=== PATIENT | female | born 1965 | race Caucasian/White ===

== ENCOUNTER 2017-04-28 18:00 | Emergency (ER) | payer BC, OTHER ==
[2017-04-28] MEDS ORDERED: RX INFO: IV CONTRAST WAS GIVEN 1 EACH MISC MISCELLANE PRN (18:07)
[2017-04-28 18:44] LABS: Basophils % (A) 1 %; CH 27.1; Eosinophils # (A) 0.1 k/uL (0-0.7); Eosinophils % (A) 2 %; HGB 13.5 gm/dL (11.4-16.0); Luc # (Auto) 0.14; Luc % (Auto) 2; Lymphocytes # (A) 1.8 k/uL (1.0-4.8); Lymphocytes % (A) 24 %; MCH 28.1 pg (25.0-35.0); MCV 85.1 fL (80.0-100.0); Mean Platelet Volume 6.8; Monocytes # (A) 0.4 k/uL (0-1.0); Monocytes % (A) 5 %; Neutrophils # (A) 5.1 k/uL (1.3-7.7); Neutrophils % (A) 68 %; RBC 4.81 m/uL (3.80-5.40); RDW 12.9 % (11.5-15.5); WBC 7.6 k/uL (3.8-10.6); WBC (Perox) 7.62
--- NOTE | 2017-04-28 18:51 | XR ---
EXAMINATION TYPE: XR chest 1V portable DATE OF EXAM: 04/28/2017 6:43 PM COMPARISON: NONE HISTORY: Right leg pain TECHNIQUE: Single frontal view of the chest is obtained. FINDINGS: Heart and mediastinum are normal. Lungs are clear. Diaphragm is normal. Bony thorax is int act. IMPRESSION: Normal chest
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
[2017-04-28 18:59] LABS: ALT 29 U/L (9-52); AST 35 U/L (14-36); Alcohol <10 mg/dL; Alkaline Phosphatase 53 U/L (38-126); Anion Gap 9 mmol/L; Blood Urea Nitrogen 8 mg/dL (7-17); Calcium 9.8 mg/dL (8.4-10.2); Carbon Dioxide 27 mmol/L (22-30); Chloride 105 mmol/L (98-107); Glucose 105 mg/dL (74-99); Non-African American GFR(MDRD) >60 (>60 ml/min/1.73 sqM); Potassium 3.9 mmol/L (3.5-5.1); Sodium 141 mmol/L (137-145); Total Bilirubin 0.7 mg/dL (0.2-1.3); Total Protein 7.4 g/dL (6.3-8.2)
[2017-04-28 19:10] LABS: Creatine Kinase 70 U/L (30-135); Prothrombin Time 9.9 sec (9.0-12.0)
[2017-04-28 19:16] VITALS: RESP 18; TEMP 97.9
[2017-04-28 19:22] LABS: Amorphous Sediment,Urine Rare /hpf; Appearance,Urine Clear (Clear); Bilirubin,Urine Negative (Negative); Glucose,Urine (UA) Negative (Negative); Ketones,Urine Negative (Negative); Leukocyte Esterase,Urine Trace (Negative); Nitrite,Urine Negative (Negative); Particle Count 334; Protein,Urine Negative (Negative); RBC,Urine 1 /hpf (0-5); Specific Gravity,Urine 1.001 (1.001-1.035); Squamous Epithelial Cell,Urine <1 /hpf (0-4); UA Billing (MACRO vs. MICRO) MICRO; Urobilinogen,Urine <2.0 mg/dL (<2.0); WBC,Urine <1 /hpf (0-5)
[2017-04-28 19:23] LABS: Creatine Kinase MB 0.6 ng/mL (0.0-2.4); Troponin I <0.012 ng/mL (0.000-0.034)
[2017-04-28 19:30] LABS: Partial Thromboplastin Time 21.1 sec (22.0-30.0)
[2017-04-28 19:43] VITALS: BP 130/86; PULSE 93
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
== END 2017-04-28 20:20 | disposition home or self-care (01) ==
LOC: EC 18:00
DX: S20.212A Contusion of left front wall of thorax, initial encounter (principal); S80.11XA Contusion of right lower leg, initial encounter; Z79.899 Other long term (current) drug therapy; Z88.0 Allergy status to penicillin; Z88.1 Allergy status to other antibiotic agents; V43.52XA Car driver injured in collision with other type car in traffic accident, initial encounter
CPT/HCPCS: 36415; 93005; 86900; 86901; 80053; 82550; 82553; 84484; 85025; 85610; 85730; 86850; 81001; 80306; 80320; 71010; 73590; 71260; 74177; 99285; Q9967

== ENCOUNTER → 2017-10-05 | Outpatient (CLI) | payer OTHER ==
--- NOTE | 2017-10-08 11:17 | MM ---
Reason for exam: screening (asymptomatic). Last mammogram was performed 10 years and 7 months ago. Physical Findings: A clinical breast exam by your physician is recommended on an annual basis and results should be correlated with mammographic findings. MG Screening Mammo w CAD Bilateral CC and MLO view(s) were taken. Prior study comparison: March 15, 2007, bilateral screening mammogram w/CAD. March 28, 1995, mammogram. The breast tissue is heterogeneously dense. This may lower the sensitivity of mammography. There is no discrete abnormality. No significant changes when compared with prior studies. ASSESSMENT: Negative, BI-RAD 1 RECOMMENDATION: Routine screening mammogram of both breasts in 1 year.
== END | disposition home or self-care (01) ==
LOC: RADMAMWWP 16:03
PROVIDERS: ATTEND Internal Medicine
DX: Z12.31 Encounter for screening mammogram for malignant neoplasm of breast (principal)

== ENCOUNTER → 2018-11-06 | Outpatient (CLI) | payer OTHER ==
--- NOTE | 2018-11-07 08:24 | MM ---
Reason for exam: additional evaluation requested from prior study. Last mammogram was performed 1 year and 1 month ago. Physical Findings: Nurse Summary: 4cm nodule in the right breast at 10 o'clock (nurse rosemary). MG Diagnostic Mammo w CAD CECELIA Bilateral CC and MLO view(s) were taken. Prior study comparison: October 05, 2017, bilateral MG screening mammo w CAD. March 15, 2007, bilateral screening mammogram w/CAD. The breast tissue is heterogeneously dense. This may lower the sensitivity of mammography. There is no discrete abnormality at palpable BB. No significant new findings when compared with previous films. These results were verbally communicated with the patient and result sheet given to the patient on 11/06/18. ASSESSMENT: Incomplete: need additional imaging evaluation, BI-RAD 0 RECOMMENDATION: Ultrasound of the right breast.
--- NOTE | 2018-11-07 08:27 | USB ---
Reason for exam: additional evaluation requested from abnormal screening. US Breast Limited RT Right limited breast ultrasound including focal area of concern, retroareolar and axilla demonstrates a 2.1 x 3.0 x 3.2cm irregular, hypoechoic lesion at 10 o'clock. These results were verbally communicated with the patient and result sheet given to the patient on 11/06/18. ASSESSMENT: Highly suggestive of malignancy, BI-RAD 5 RECOMMENDATION: Ultrasound core biopsy of the right breast. Called Dr. Najera with mammographic findings and has scheduled an appointment for the patient for 11/07/18 at 12:[address] Fuentes. Biopsy scheduled for 11/20/18 at 2:20. PRELIMINARY REPORT CALLED AND FAXED TO DR. FUENTES ON 11/07/18.
== END | disposition home or self-care (01) ==
LOC: RADMAMWWP 15:16
PROVIDERS: ATTEND Family Medicine Addiction Medicine
DX: N63.10 Unspecified lump in the right breast, unspecified quadrant (principal); R92.8 Other abnormal and inconclusive findings on diagnostic imaging of breast
CPT/HCPCS: 77066

== ENCOUNTER → 2018-11-07 | Outpatient (CLI) | payer OTHER ==
[2018-11-07 13:13] VITALS: BP 109/74; PULSE 67; RESP 18; TEMP 98.5; BMI 32.8
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
== END ==
LOC: WWCWWP 12:19
PROVIDERS: ATTEND Surgery
DX: Z53.9 Procedure and treatment not carried out, unspecified reason (principal)

== ENCOUNTER → 2018-11-20 | Day surgery (SDC) | payer OTHER ==
[2018-11-20 13:51] VITALS: RESP 16; BMI 32.8
--- NOTE | 2018-11-20 15:38 | USB ---
EXAMINATION TYPE: US biopsy breast VAD RT, US biopsy breast add'l VAD RT, MG diagnostic mammo RT wo CAD, US breast needle core addl RT DATE OF EXAM: 11/20/2018 CLINICAL HISTORY: R92.8 ABNORMAL MAMMOGRAM. Abnormal ultrasound. TECHNIQUE: Ultrasound guided core biopsy of right breast two nearby sites as well as right axilla. COMPARISON: Right breast mammogram and ultrasound November 06, 2018. FINDINGS: The procedure of ultrasound guided core biopsy was explained to the patient. Benefits, alternatives, and risks were discussed. An informed consent was then obtained. The patient was placed in supine positioning for imaging and for the procedure. Preprocedure imaging redemonstrates large irregular heterogeneous hypoechoic poorly defined greater than 2 cm mass 10:00 position right breast. Near this site there is smaller heterogeneous hypoechoic lesion measuring 1.4 x 0.7 cm towards the axilla that cannot be definitively connected to the larger mass. Scanning of axilla shows prominent but subcentimeter lymph nodes with loss of fatty hilum which are thus suspicious. The overlying skin was prepped and draped in usual sterile fashion. Lidocaine buffered with bicarbonate was used as anesthetic into the skin. Lidocaine with epinephrine is used into the deeper tissue up to area of concern in the right breast. Under ultrasound guidance, a 12-gauge vacuum assisted biopsy gun device was used to obtain 4 core samples in largest right breast mass. Following this, a biopsy clip was left in lesion. 2 samples were performed in the smaller 10:00 right breast mass under ultrasound guidance with biopsy clip left after sampling. 3 samples were obtained in a right axillary lymph node utilizing 18- gauge Bard needle. Scio vinicio clip was deployed after sampling. The patient tolerated the procedure well without any immediate complication. The patient was kept in the radiology department for short stay after the procedure and then discharged home in stable condition. Postprocedure mammogram shows successful deployment of two. 10:00 clips within 3 cm of each other, the third surgical clips towards axilla cannot BE successfully visualized due to marked posterior location IMPRESSION: Successful, uncomplicated ultrasound guided core biopsy of 3 areas of concern in the right breast including axilla, full pathology results to follow. High index of suspicion noted at time of procedure. Pathology Results: Malignant A. RIGHT BREAST, SITE A TEN O'CLOCK ZONE A, ULTRASOUND GUIDED CORE BIOPSY: Invasive ductal carcinoma with lobular features. See Surgical Pathology Cancer Case Summary and Comment. B. RIGHT BREAST, SITE B, TEN O'CLOCK ZONE B/C, ULTRASOUND GUIDED CORE BIOPSY: Invasive ductal carcinoma with lobular features. See Surgical Pathology Cancer Case Summary and Comment. C. RIGHT AXILLA, CORE BIOPSY: Fragment of invasive carcinoma consistent with ductal breast origin and adjacent lymphoid and fibroadipose tissue. See Comment Recommendation Surgical consult of the right breast. MTDD
[2018-11-20 16:19] VITALS: BP 143/86; PULSE 96; TEMP 98.1
== END ==
LOC: RADUSWWP 13:21
PROVIDERS: ATTEND Surgery
DX: C50.411 Malignant neoplasm of upper-outer quadrant of right female breast (principal); C76.1 Malignant neoplasm of thorax; Z17.0 Estrogen receptor positive status [ER+]; Z88.1 Allergy status to other antibiotic agents; Z88.0 Allergy status to penicillin
CPT/HCPCS: 88305; 88342; 88341; 77065; 76942; 38505; 19083; 19084; A4648; J2001

== ENCOUNTER → 2018-11-28 | Outpatient (CLI) | payer OTHER ==
[2018-11-28 14:06] VITALS: BP 137/85; PULSE 75; RESP 18; TEMP 98.4; BMI 32.8
--- NOTE | 2018-11-28 14:44 | P.PN ---
Subjective Progress Note Date: 11/28/18 Principal diagnosis: Invasive carcinoma right breast favor lobular Andreea is a 53-year-old white female who underwent ultrasound-guided core biopsy of 2 areas of concern in the right breast at 10:00 as well as a lymph node in the right axilla. The right breast site a is invasive cancer favor lobular the in biopsy site be is invasive ductal carcinoma with lobular features in the right axilla is fragment of invasive cancer consistent with ductal breast origin and adjacent lymphoid and fibroadipose tissue. The size of the tumor is approximately 3-4 cm, there is no palpable axillary adenopathy. The patient has no complaints related to the biopsy. Objective - Vital Signs Vital signs: Vital Signs Temp 98.4 F 11/28/18 13:54 Pulse 75 11/28/18 13:54 Resp 18 11/28/18 13:54 BP 137/85 11/28/18 13:54 Pulse Ox 99 11/28/18 13:54 Intake & Output 11/27/18 11/28/18 11/28/18 18:59 06:59 18:59 Weight 83.915 kg - Exam BMI 32.8 - Constitutional General appearance: Present: cooperative, obese - EENT Eyes: Present: EOMI ENT: Present: hearing grossly normal - Neck Neck: Present: normal ROM - Respiratory Details: normal respiratory effort - Integumentary Integumentary Comment(s): no icterus Integumentary: Present: normal, normal turgor - Psychiatric Psychiatric: Present: A&O x's 3, appropriate affect, intact judgment & insight - Additional findings Additional findings: Core biopsy site right breast clean and dry no evidence of infection, no evidence of hematoma Assessment and Plan Assessment: Impression: 1. Clinical T2 N0 M0, ER positive, ME negative, HER-2 nu positive, grade 2; stage IIb right breast cancer I have had a long discussion with the patient and regarding treatment options. We have discussed the pathology findings as well as the stage of the tumor. I have recommended preoperative neoadjuvant chemotherapy after additional staging has been performed. I have also recommended evaluation by radiation and medical oncology. I have spoken to Dr. Malcolm. Plan: 1. Plan with medical oncology 2. Premarin with radiation oncology 3. Metastatic workup as per medical oncology 4. Repeat appointment here in approximately 6 weeks 5. present at tumor board We have called Dorota Barnes nurse navigator who has escorted the patient to radiation oncology and with an escort the patient to medical oncology. Cc: Dr. Najera
== END ==
LOC: WWCWWP 13:43
PROVIDERS: ATTEND Surgery
DX: Z53.9 Procedure and treatment not carried out, unspecified reason (principal)

== ENCOUNTER → 2018-11-30 | Outpatient (CLI) | payer OTHER ==
--- NOTE | 2018-12-02 07:04 | PE ---
EXAMINATION TYPE: PET CT fusion skull to thigh DATE OF EXAM: 11/30/2018 COMPARISON: CT chest abdomen and pelvis April 28, 2017. HISTORY: Breast cancer initial staging study after biopsy November 20, 2018. TECHNIQUE: Following the intravenous administration of 9.47 mCi of F-18 FDG, whole body images are p erformed from the skull base to the midthigh. Images are reviewed on the computer in the coronal, ax ial, and sagittal planes. Reconstructed rotating images are created on independent workstation and r eviewed on the computer. A noncontrast CT is performed in conjunction with the PET scan. SCAN: Initial Scan FINDINGS: SKULL BASE AND NECK: No areas of abnormal hypermetabolic uptake are present. CHEST, MEDIASTINUM, AND HILAR REGION: There is heterogeneously dense fibroglandular tissue in both br easts. There is hypermetabolic right breast nodule posteriorly roughly 1 cm medial to the biopsy clip measuring roughly 1.3 cm axial image 101, max SUV is. Second biopsy clip is superior and lateral to this axial image 97 near superior level of the more medial lesion. There at least 2 additional 6 subc entimeter foci of hypermetabolic uptake in the right breast for reference laterally axial image 107 a nd more superiorly and posteriorly axial image 93. There is subcentimeter right axillary lymph node with suspected biopsy clip axial image 78, eccentric cortical thickening is present, max SUV is. No suspicious hypermetabolic uptake in the left breast or axilla is present. No additional suspicious hypermetabolic uptake throughout remainder of the thorax is seen. ABDOMEN AND PELVIS: No suspicious hypermetabolic uptake is present. OSSEOUS STRUCTURES: No suspicious hypermetabolic uptake is seen. OTHER CT: Surgical changes from gastric sleeve procedure are identified. There are small sized hiatal hernia noted. Cholecystectomy clips are appreciated. There is central metallic IUD in the anteverted uterus. IMPRESSION:
== END | disposition home or self-care (01) ==
LOC: RADPETMAIN 12:27
PROVIDERS: ATTEND Internal Medicine Hematology & Oncology
DX: C50.411 Malignant neoplasm of upper-outer quadrant of right female breast (principal)
CPT/HCPCS: 78815; A9552

== ENCOUNTER → 2018-12-02 | Outpatient (CLI) | payer OTHER ==
--- NOTE | 2018-12-02 17:12 | BMR ---
EXAMINATION TYPE: MR breast BILAT wo/w con DATE OF EXAM: 12/02/2018 COMPARISON: PET/CT dated 11/30/2018, ultrasound guided breast biopsy dated 11/20/2018, right breast peoples ited ultrasound dated 11/15/2018, screening mammogram dated 10/05/2017, and diagnostic bilateral mamm ogram dated 11/06/2018. HISTORY: Newly diagnosed breast cancer. Biopsy-proven invasive ductal carcinoma with lobular features at the 10:00 position in zone a of the right breast, invasive ductal carcinoma with lobular features at the 10:00 position in zone BC/the in the right breast, an invasive carcinoma of a right axillary lymph node biopsy. TECHNIQUE: A series of fat and water weighted images in the long and short axis views of both breasts are obtained in conjunction with dynamic contrast MRI with subtraction technique. The patient was i njected with 9 mL intravenous Gadavist gadolinium contrast. Three-dimensional and additional postpr ocessing imaging is created on independent workstation and reviewed during official interpretation of this study. FINDINGS: The breasts are composed of heterogenous fibroglandular tissue and there is moderate backgr ound parenchymal enhancement that is symmetric. Susceptibility artifact is seen from a biopsy marker at the lateral aspect of a biopsy-proven invasi ve ductal carcinoma with lobular features at the 10:00 position in the right breast at middle depth w ith spiculated margins measuring 3.6 x 2.7 cm on postcontrast axial T1 fat-sat series 901 image 176. This demonstrates suspicious type III washout kinetics. Adjacent to this there are multiple satellite masses (approximately 7 in number) that are located just cranial to the index mass and lateral to th e index mass. From the posterior margin of the index mass these masses extend 1.3 cm and posterior de pth and approximately 1.5 cm laterally. This covers a total area of approximately 3.7 cm in anterior posterior dimension and a total of 4.7 cm in transverse dimension. Approximately 1.1 cm anterolateral to the index mass at the cranial aspect there is a second biopsy marker demarcating a segment biopsy -proven invasive ductal carcinoma with lobular features. This mass obscured by the susceptibility art ifact. At the inferior margin of the right upper outer quadrant at the 9:00 position there is an additional 7 mm mass and 3 enhancing foci. These all demonstrate suspicious washout enhancement. Just posterior to the nipple there is another 7 mm suspicious enhancing mass with washout kinetics. Stippled foci of nonmass enhancement in a linear distribution are seen extending from the inferior margin of the mass towards the nipple on image 158. With inclusion of these masses in the retroareolar mass extent of d isease measures a distance of 7.4 cm in anterior posterior dimension. No suspicious mass nor nodule mass enhancement is seen within the left breast. No suspicious internal mammary, intramammary or axillary adenopathy is seen on the left. On the right there are morphologically abnormal lymph nodes with cortical thickening (2 in number) ad jacent to one another with the most abnormal rounded lymph node seen on postcontrast image 326 contai jose eduardo the [place] vinicio clip measuring 1.0 cm in short axis. The other suspicious lymph node is seen just superior to this with cortical thickening of 5 mm. There is a questionable area of enhancement within the liver measuring 1.5 cm that does abut the port al venous system marked on image 26 of series 901. This is not well seen on T2-weighted imaging and i s favored to represent artifact. IMPRESSION: 1. BI-RADS [id number] extensive multifocal right breast invasive ductal carcinoma with linear no nmass enhancement extending towards the nipple, additional retroareolar highly suspicious mass, and n umerous satellite nodules/foci. Although only the upper outer quadrant is involved the extent of dise ase overall measures in anterior posterior dimension of 7.4 cm and transverse dimension of 4.7 cm estrella dering breast conservation therapy unlikely. 2. No MRI evidence of malignancy of the left breast. 3. Biopsy-proven right axillary lymph node metastasis with second suspicious lymph node directly taye cent to the biopsy-proven malignant lymph node that contains a [place] v[facility] biopsy marker. 3. Low suspicion for a solitary hepatic lesion that could be fully evaluated with 3 phase hepatic mas s protocol MRI.
== END ==
LOC: RADMRIMAIN 07:27
PROVIDERS: ATTEND Internal Medicine Hematology & Oncology
DX: C50.411 Malignant neoplasm of upper-outer quadrant of right female breast (principal); N63.41 Unspecified lump in right breast, subareolar; C77.3 Secondary and unspecified malignant neoplasm of axilla and upper limb lymph nodes
CPT/HCPCS: C8937; C8908; A9585; 77049

== ENCOUNTER 2018-12-04 05:52 | Day surgery (SDC) | payer OTHER ==
[2018-11-29 16:06] VITALS: BMI 33.6
[~2018-12-04 05:52] MED LIST: DEXAMETHASONE SOD PHOSPHATE 10 MG/ML 1 ML VIAL IV ONE; HYDROmorphone 0.5 MG/0.5 ML SYRINGE IVP PRN; LACTATED RINGERS 1,000 ML IV SCH; LIDOCAINE 1% 20 ML VIAL (10MG/ML) FOR IV START INTRADERMA PRN; MIDAZOLAM 2 MG/2 ML VIAL IV PRN; ONDANSETRON 4 MG/2 ML VIAL IVP ONE; Pre Op ABX Message 1 EACH MISC MISCELLANE ONE; SCOPOLAMINE 1.5MG/72HR PATCH TRANSDERM ONE
--- NOTE | 2018-12-04 07:19 | P.GSHP ---
History of Present Illness H&P Date: 12/04/18 CHIEF COMPLAINT: Breast cancer HISTORY OF PRESENT ILLNESS: The patient is a 53-year-old female diagnosed with breast cancer. She needs a Mediport placement for chemotherapy. PAST MEDICAL HISTORY: See list PAST SURGICAL HISTORY: See list CURRENT MEDICATIONS: See list. ALLERGIES: See list. SOCIAL HISTORY: No active tobacco or alcohol use. FAMILY HISTORY: Noncontributory. REVIEW OF ORGAN SYSTEMS: CONSTITUTIONAL: Has weight loss. PHYSICAL EXAMINATION: Vital signs: Stable GENERAL: Well developed and in no acute distress. Pleasant. HEENT: No sclera icterus. Extraocular movements grossly intact. Moist buccal mucosa. Head is atraumatic, normocephalic. Hears conversational speech. No nasal drainage. NECK: Supple without lymphadenopathy. No JV distention. CHEST: Non-labored respirations and equal bilateral excursions. CARDIOVASCULAR: Regular rate and rhythm. Palpable 2+ radial pulses. ABDOMEN: Nontender. MUSCULOSKELETAL: No clubbing, cyanosis or edema. NEUROLOGIC: No focal or lateralizing signs. PSYCH: Appropriate affect. Alert and oriented to person, place and time. ASSESSMENT: 1. Breast cancer 2. Need for chemotherapeutic access. PLAN: 1. Agree with Port-A-Cath placement. Past Medical History Past Medical History: Cancer Additional Past Medical History / Comment(s): 10 years ago quit using cocaine and prescription opioids. History of Any Multi-Drug Resistant Organisms: None Reported Past Surgical History: Cholecystectomy, Tonsillectomy Additional Past Surgical History / Comment(s): gastric sleeve, R breast bx. Past Anesthesia/Blood Transfusion Reactions: No Reported Reaction Smoking Status: Never smoker - Past Family History Mother Family Medical History: Diabetes Mellitus, Hypertension Additional Family Medical History / Comment(s): heart disease Father Family Medical History: Cancer Additional Family Medical History / Comment(s): lung CA, cirrosis, kidney disease Medications and Allergies Home Medications Medication Instructions Recorded Confirmed Type Buprenorphine HCl/Naloxone HCl 8 mg SUBLINGUAL BID 04/28/17 12/04/18 History [Suboxone 8 mg-2 mg Sl Film] Buprenorphine HCl [Belbuca] 150 mcg PO Q12H 11/07/18 12/04/18 History Cariprazine HCl [Vraylar] 1.5 mg PO DAILY 11/07/18 12/04/18 History Biotin 5,000 mcg PO DAILY 11/11/18 12/04/18 History Calcium Carbonate [Calcium] 600 mg PO DAILY 11/11/18 12/04/18 History Inulin/Chromium Picolinate [Fiber 1 each PO DAILY 11/11/18 12/04/18 History Gummies Chew] Multivitamin [Multivitamins Adult 1 each PO DAILY 11/11/18 12/04/18 History Gummies] valACYclovir [Valtrex] 500 mg PO BID 11/11/18 12/04/18 History Allergies Allergy/AdvReac Type Severity Reaction Status Date / Time amoxicillin [From Augmentin] Allergy Rash/Hives Verified 12/04/18 06:13 clavulanic acid Allergy Rash/Hives Verified 12/04/18 06:13 [From Augmentin] Tetracyclines Allergy Rash/Hives Verified 12/04/18 06:13 Surgical - Exam Vital Signs Temp Pulse Resp BP Pulse Ox 98.6 F 73 16 143/77 99 12/04/18 06:28 12/04/18 06:28 12/04/18 06:28 12/04/18 06:28 12/04/18 06:28
[2018-12-04] MEDS ORDERED: CLINDAMYCIN 600 MG in DEXTROSE 5% IN WATER 50 ML IVPB STA ×2 (07:21)
[2018-12-04] MEDS ORDERED: PROPOFOL 10 MG/ML 20 ML VIAL IV ONE (07:37)
[2018-12-04] MEDS ORDERED: KETAMINE 10 MG/ML 20 ML VIAL ONE (07:37)
[2018-12-04] MEDS ORDERED: fentaNYL (PF) 50 MCG/ML 2 ML AMP ONE (07:37)
[2018-12-04] MEDS ORDERED: MIDAZOLAM 2 MG/2 ML VIAL ONE (07:37)
[2018-12-04] MEDS ORDERED: LIDOCAINE 1% INJ 10MG/ML (20 ML MDV) ONE (07:37)
[2018-12-04] MEDS ORDERED: BUPIVACAIN-EPI 0.25%-1:200,000 30 ML VIAL SQ ONE (08:01)
[2018-12-04] MEDS ORDERED: HEPARIN SODIUM,PORCINE 100 UNIT/ML 5 ML VIAL IV ONE (08:02)
[2018-12-04] MEDS ORDERED: HEPARIN SODIUM,PORCINE 10,000 UNIT/ML 1 ML VIAL IV ONE (08:02)
--- NOTE | 2018-12-04 08:41 | P.PCN ---
Date of Procedure: 12/04/18 Description of Procedure: SURGEON: ASHLEE LOUIS MD PIPING MANAGER: None. PREOPERATIVE DIAGNOSES: 1. Breast cancer, right 2. Need for chemotherapeutic access. 3. Bipolar disorder 4. Depressive disorder 5. Obesity due to excess calories, BMI 33.7 6. Past history of illicit drug use POSTOPERATIVE DIAGNOSES: 1. Breast cancer, right 2. Need for chemotherapeutic access. 3. Bipolar disorder 4. Depressive disorder 5. Obesity due to excess calories, BMI 33.7 6. Past history of illicit drug use PROCEDURES PERFORMED: 1. Ultrasound guided central venous access of the right internal jugular venous vein. 2. Fluoroscopic guidance for central venous access right internal jugular vein 1 seconds. 3. Placement of right internal jugular power port 6 Turkmen by A V.E.T.S.c.a.r.e., Xcela Plus Port ANESTHESIA: IV sedation with local. ESTIMATED BLOOD LOSS: 5 mL. SPECIMENS REMOVED: None. COMPLICATIONS: None. INDICATIONS: The patient is a 53-year-old female recently diagnosed with breast cancer She presents for chemotherapeutic access. Benefits and risks of surgical intervention were described including bleeding, infection, mechanical problems with the port. Informed consent was obtained. DESCRIPTION OR PROCEDURE: Patient was brought into the operating room, laid in supine position. After adequate IV sedation, the chest and right neck were prepped and draped in a standard sterile fashion including the shoulder with ChloraPrep. Timeout protocol was confirmed with the surgical team regarding the patient's name, procedure to be performed including preoperative medications for which she received IV antibiotics. Bilateral SCDs were placed. An ultrasound was used to capture views of the right internal jugular vein including right carotid artery, which was patent and without thrombus along its course. The right IJ was then localized using anesthetic for the skin. A 16 Turkmen needle was used to access the IJ. A guidewire was advanced into the IJ with dark nonpulsatile venous blood. Two fingerbreadths distal to the clavicle, on the lateral third, a transverse 1.5 to 2 cm incision was deepened into the skin after localizing the skin. A pocket was created for the port. The port on the back table was flushed with heparinized saline and then attached to the catheter tubing. An adapter was fastened to the actual port site over the tubing. The port easily had fit snug into the pocket. A subcutaneous tunneler was placed along the open end of the tubing and brought out through the separate stab incision. Fluoroscopic guidance confirmed no kinking along the tubing and the port site. Next, the J-wire was exchanged for a catheter sheath for which the tubing was cut to 18 cm and then advanced through the catheter sheath. The Peel-away sheath was then removed and the tubing was secured at the junction of the superior vena cava as well as the right atrium. Fluoroscopic guidance was 1 second. Easy pullback as well as return and aspiration was obtained of the port site. The skin incision was closed using layers using 3-0 Vicryl for the subcu followed by 4-0 Monocryl in a running subcuticular fashion. At the stick site this was also reapproximated using 4-0 Monocryl. The incisions were covered with Optifoam, The skin was cleansed and Exofin liquid glue was applied. Optifoam dressing was placed over the port site. A total of 20 mL of local anesthetic was placed. At the end of the procedure, needle, sponge, and instrument count was verified correct by nursing surgical services director. Heparin lock of 5 mL was placed. The patient was awoken and pain free and taken to the second stage postanesthesia care unit. The patient tolerated the procedure well. FINDINGS: 1. No thrombus encountered along the right carotid artery or internal jugular vein. 2. Access of the right internal jugular vein under ultrasound guidance. 3. Fluoroscopy of 1 seconds. Plan - Discharge Summary New Discharge Prescriptions: No Action Buprenorphine HCl/Naloxone HCl [Suboxone 8 mg-2 mg Sl Film] 8 mg SUBLINGUAL BID Buprenorphine HCl [Belbuca] 150 mcg PO Q12H Cariprazine HCl [Vraylar] 1.5 mg PO DAILY valACYclovir [Valtrex] 500 mg PO BID Inulin/Chromium Picolinate [Fiber Gummies Chew] 1 each PO DAILY Multivitamin [Multivitamins Adult Gummies] 1 each PO DAILY Calcium Carbonate [Calcium] 600 mg PO DAILY Biotin 5,000 mcg PO DAILY Discharge Medication List Buprenorphine HCl/Naloxone HCl [Suboxone 8 mg-2 mg Sl Film] 8 mg SUBLINGUAL BID 04/28/17 [History] Buprenorphine HCl [Belbuca] 150 mcg PO Q12H 11/07/18 [History] Cariprazine HCl [Vraylar] 1.5 mg PO DAILY 11/07/18 [History] Biotin 5,000 mcg PO DAILY 11/11/18 [History] Calcium Carbonate [Calcium] 600 mg PO DAILY 11/11/18 [History] Inulin/Chromium Picolinate [Fiber Gummies Chew] 1 each PO DAILY 11/11/18 [ History] Multivitamin [Multivitamins Adult Gummies] 1 each PO DAILY 11/11/18 [History] valACYclovir [Valtrex] 500 mg PO BID 11/11/18 [History] Follow up Appointment(s)/Referral(s): Ashlee Louis MD [STAFF PHYSICIAN] - As Needed Patient Instructions/Handouts: Implanted Venous Access Port (DC), How to Care for Your Implanted Venous Access Port (DC) Activity/Diet/Wound Care/Special Instructions: May shower. No bath tub soaks. Remove dressing 12/09/2018. No wide ranges of the right arm. Sleep with elevated 2 pillows for tonight. Expect bruising this would resolve in 1 week. Take Tylenol for pain Discharge Disposition: HOME SELF-CARE
[2018-12-04 08:46] VITALS: TEMP 97.4
[2018-12-04 08:51] VITALS: RESP 16
--- NOTE | 2018-12-04 08:56 | FL ---
EXAMINATION TYPE: FL guided central line placemt HISTORY: Fluoroscopy time Impression: 1. Fluoroscopy support provided to the referring physician. 1 seconds of fluoroscopy provided.
[2018-12-04 09:10] VITALS: BP 137/76; PULSE 78
--- NOTE | 2018-12-04 09:12 | XR ---
EXAMINATION TYPE: XR chest 1V confirm line [facility] DATE OF EXAM: 12/04/2018 COMPARISON: 04/28/2017 HISTORY: CONFIRM LINE PLACEMENT. TECHNIQUE: Single frontal view of the chest is obtained. FINDINGS: There is no focal air space opacity, pleural effusion, or pneumothorax seen. The cardiac silhouette size is within normal limits. The osseous structures are intact. Mediport catheter seen with the tip overlying the SVC. Surgical clips in the epigastrium noted. IMPRESSION: Mediport in good position with no sizable pneumothorax.
== END 2018-12-04 09:43 | disposition home or self-care (01) ==
LOC: OR 05:52
PROVIDERS: ATTEND Surgery Plastic and Reconstructive Surgery
DX: C50.911 Malignant neoplasm of unspecified site of right female breast (principal); F31.9 Bipolar disorder, unspecified; E66.09 Other obesity due to excess calories; Z68.33 Body mass index [BMI] 33.0-33.9, adult; Z79.891 Long term (current) use of opiate analgesic; Z79.899 Other long term (current) drug therapy; Z90.49 Acquired absence of other specified parts of digestive tract; Z98.84 Bariatric surgery status; Z90.3 Acquired absence of stomach [part of]; Z88.1 Allergy status to other antibiotic agents; Z88.0 Allergy status to penicillin
CPT/HCPCS: 81025; 77001; 36561; C1788; J2250; J1644; J1642; J1100; J2405; J2001; J3010; J2704

== ENCOUNTER → 2018-12-05 | Outpatient (CLI) | payer OTHER ==
--- NOTE | 2018-12-07 06:37 | ECHOF ---
Referral Reason:Z01.818 Prechemo C50.411 Breast cancer MEASUREMENTS -------- HEIGHT: 160.0 cm WEIGHT: 90.7 kg BP: 136/70 RVIDd: 3.0 cm (< 3.3) IVSd: 0.9 cm (0.6 - 1.1) LVIDd: 4.5 cm (3.9 - 5.3) LVPWd: 1.0 cm (0.6 - 1.1) IVSs: 1.3 cm LVIDs: 3.2 cm LVPWs: 1.3 cm LA Diam: 3.3 cm (2.7 - 3.8) LAESV Index (A-L): 22.28 ml/m Ao Diam: 2.8 cm (2.0 - 3.7) AV Cusp: 2.0 cm (1.5 - 2.6) MV EXCURSION: 16.074 mm (> 18.000) MV EF SLOPE: 122 mm/s (70 - 150) EPSS: 0.6 cm MV E Juan Francisco: 0.81 m/s MV DecT: 184 ms MV A Juan Francisco: 0.63 m/s MV E/A Ratio: 1.29 RAP: 15.00 mmHg RVSP: 39.84 mmHg FINDINGS -------- Sinus rhythm. This was a technically good study. The left ventricular size is normal. Left ventricular wall thickness is normal. Overall left vent ricular systolic function is normal with, an EF between 60 - 65 %. The right ventricle is normal in size. Normal LA size by volume 22+/-6 ml/m2. The right atrium is normal in size. The aortic valve is trileaflet and appears structurally normal. The mitral valve is normal. Mild tricuspid regurgitation present. There is mild pulmonary hypertension. The right ventricular systolic pressure, as measured by Doppler, is 39.84mmHg. There is no pulmonic regurgitation present. The aortic root size is normal. The inferior vena cava is dilated with poor inspiratory collapse which is consistent with estimated r ight atrial pressure of 15 mmHg. There is no pericardial effusion. CONCLUSIONS -------- 1. Sinus rhythm. 2. This was a technically good study. 3. The left ventricular size is normal. 4. Left ventricular wall thickness is normal. 5. Overall left ventricular systolic function is normal with, an EF between 60 - 65 %. 6. The right ventricle is normal in size. 7. Normal LA size by volume 22+/-6 ml/m2. 8. The right atrium is normal in size. 9. The aortic valve is trileaflet and appears structurally normal. 10. The mitral valve is normal. 11. Mild tricuspid regurgitation present. 12. There is mild pulmonary hypertension. 13. The right ventricular systolic pressure, as measured by Doppler, is 39.84mmHg. 14. There is no pulmonic regurgitation present. 15. The aortic root size is normal. 16. The inferior vena cava is dilated with poor inspiratory collapse which is consistent with estimat ed right atrial pressure of 15 mmHg. 17. There is no pericardial effusion. LEAD CASTER HELPER: Renate Blackmon RDCS
== END ==
LOC: RADECHMAIN 13:57
PROVIDERS: ATTEND Internal Medicine Hematology & Oncology
DX: I07.1 Rheumatic tricuspid insufficiency (principal); I27.20 Pulmonary hypertension, unspecified
CPT/HCPCS: 93306

== ENCOUNTER → 2019-01-09 | Outpatient (CLI) | payer OTHER ==
[2019-01-09 10:59] VITALS: BP 128/84; PULSE 94; RESP 18; TEMP 98.1; BMI 34.3
--- NOTE | 2019-01-09 11:51 | P.PN ---
Subjective Progress Note Date: 01/09/19 Principal diagnosis: right breast cancer Andreea is a 53-year-old white female who underwent an ultrasound-guided core biopsy of 2 areas of concern in the right breast at 10:00 as well as a lymph node in the right axilla. The right breast site is invasive cancer fever lobular as well as positive disease in the lymph node. The size of the tumor was approximately 3-4 cm. She was seen by medical oncology and has undergone 2 courses of chemotherapy at this time. She is tolerating the chemotherapy well. She has also met with the radiation oncologist and the plan is for radiation therapy after surgical intervention. She has 4 more chemotherapy treatments planned. The patient had a Mediport placed in October 2018. The patient states that with her chemotherapy she has had an outbreak of herpes in the general area, she takes Valtrex for this, and her medical oncologist is aware. Additionally the patient states that her port this morning was able to be flushed but they were unable to withdraw blood from this area Dr. Malcolm's office is aware of this. Objective - Vital Signs Vital signs: Vital Signs Temp 98.1 F 01/09/19 10:38 Pulse 94 01/09/19 10:38 Resp 18 01/09/19 10:38 BP 128/84 01/09/19 10:38 Pulse Ox 100 01/09/19 10:38 Intake & Output 01/08/19 01/09/19 01/09/19 18:59 06:59 18:59 Weight 87.997 kg - Exam BMI 34.4 - Constitutional General appearance: Present: obese - EENT Eyes: Present: EOMI ENT: Present: hearing grossly normal - Neck Neck: Present: normal ROM - Respiratory Respiratory: bilateral: CTA - Cardiovascular Rhythm: regular Heart sounds: normal: S1, S2 - Gastrointestinal General gastrointestinal: Present: soft - Musculoskeletal Musculoskeletal: Present: gait normal - Psychiatric Psychiatric: Present: A&O x's 3, appropriate affect, intact judgment & insight - Additional findings Additional findings: breast exam: Right breast: Multi-positional exam decrease in size of firmness in the upper outer quadrant area, nipple remains retracted, patient states that his stomach is for a long time Right axilla: Some shotty adenopathy noticed discrete adenopathy of concern Under the right breast is a 12 x 8 cm area which appears to be a macular rash very erythematous but nontender Left breast: Multi-positional exam no dominant masses or nodules of concern Left axilla: No adenopathy of concern Assessment and Plan Assessment: Impression: 1. Patient status post 2 courses of chemotherapy with good response in the right breast 2. Invasive ductal carcinoma right breast 3. Probable fungal infection underneath the right breast Plan: 1. Continue present therapy 2. Nystatin for fungal infection 3. Follow-up here in 1 week CC: Dr. Najera (Colon)
== END ==
LOC: WWCWWP 10:28
PROVIDERS: ATTEND Surgery
DX: Z53.9 Procedure and treatment not carried out, unspecified reason (principal)

== ENCOUNTER 2019-01-11 21:12 | Inpatient (IN) | payer OTHER ==
[2019-01-11] MEDS ORDERED: SODIUM CHLORIDE 0.9% 1,000 ML IV STA (21:25)
[2019-01-11] MEDS ORDERED: SODIUM CHLORIDE 0.9% 500 ML 500 ML IV STA (21:25)
[2019-01-11] MEDS ORDERED: CEFEPIME 2 GM in SODIUM CHLORIDE 0.9% 100 ML IVPB STA (21:41)
[2019-01-11] MEDS ORDERED: VANCOMYCIN IV PER PHARMACY 1 EACH MISC MISCELLANE PRN (21:41)
[2019-01-11] MEDS ORDERED: VANCOMYCIN 1,500 MG in SODIUM CHLORIDE 0.9% 250 ML IVPB STA (21:44)
[2019-01-11] MEDS ORDERED: ACETAMINOPHEN TAB 500 MG TAB PO STA (21:45)
[2019-01-11] MEDS ORDERED: SODIUM CHLORIDE 0.9% 1,000 ML IV ONE (21:45)
--- NOTE | 2019-01-11 21:47 | ED ---
General Adult HPI - General Chief complaint: Fever Stated complaint: Fever/chemo Time Seen by Provider: 01/11/19 21:19 Source: patient, RN notes reviewed, old records reviewed Mode of arrival: wheelchair Limitations: no limitations - History of Present Illness Initial comments: 53 -year-old female presented for evaluation of fever. Patient has history of breast cancer, currently on chemotherapy, last dose chemotherapy was approximately 10 days ago. She was told to present to the emergency department with family fever. She has had fever for the past 24-48 hours. She does report some mild rhinorrhea, no significant cough or dysuria, no current abdominal pain, no nausea vomiting or diarrhea. She does report a rash underneath her right breast and genital rash. She is currently on Valtrex for genital herpes. She has a Mediport for chemotherapy infusion. No dysuria. - Related Data Home Medications Medication Instructions Recorded Confirmed Buprenorphine HCl/Naloxone HCl 1 film SL BID 04/28/17 01/11/19 [Suboxone 8 mg-2 mg Sl Film] Buprenorphine HCl [Belbuca] 150 mcg PO Q12H 11/07/18 01/11/19 Cariprazine HCl [Vraylar] 1.5 mg PO BID 11/07/18 01/11/19 Biotin 5,000 mcg PO DAILY 11/11/18 01/11/19 Calcium Carbonate [Calcium] 600 mg PO DAILY 11/11/18 01/11/19 Inulin/Chromium Picolinate [Fiber 1 tab PO DAILY 11/11/18 01/11/19 Gummies Chew] Multivitamin [Multivitamins Adult 1 tab PO DAILY 11/11/18 01/11/19 Gummies] valACYclovir [Valtrex] 500 mg PO BID 11/11/18 01/11/19 LORazepam [Ativan] 1 mg PO HS 01/09/19 01/11/19 Allergies Allergy/AdvReac Type Severity Reaction Status Date / Time amoxicillin [From Augmentin] Allergy Rash/Hives Verified 01/11/19 22:55 clavulanic acid Allergy Rash/Hives Verified 01/11/19 22:55 [From Augmentin] Tetracyclines Allergy Rash/Hives Verified 01/11/19 22:55 Review of Systems ROS Statement: Those systems with pertinent positive or pertinent negative responses have been documented in the HPI. ROS Other: All systems not noted in ROS Statement are negative. Past Medical History Past Medical History: Cancer, Vascular Disorder Additional Past Medical History / Comment(s): 10 years ago quit using cocaine and prescription opioids. breast cancer History of Any Multi-Drug Resistant Organisms: None Reported Past Surgical History: Cholecystectomy, Tonsillectomy Additional Past Surgical History / Comment(s): gastric sleeve, R breast bx. right sided port Past Anesthesia/Blood Transfusion Reactions: No Reported Reaction Past Psychological History: Bipolar, Depression Smoking Status: Never smoker Past Alcohol Use History: None Reported Past Drug Use History: Prescription Drug Abuse - Past Family History Mother Family Medical History: Diabetes Mellitus, Hypertension Additional Family Medical History / Comment(s): heart disease Father Family Medical History: Cancer Additional Family Medical History / Comment(s): lung CA, cirrosis, kidney disease General Exam Limitations: no limitations General appearance: alert, in no apparent distress Head exam: Present: atraumatic, normocephalic Eye exam: Present: normal appearance, PERRL ENT exam: Present: other (Mild rhinorrhea and congestion) Neck exam: Present: normal inspection. Absent: tenderness, meningismus Respiratory exam: Present: normal lung sounds bilaterally. Absent: respiratory distress, wheezes Cardiovascular Exam: Present: normal rhythm, tachycardia GI/Abdominal exam: Present: soft. Absent: distended, tenderness, guarding External exam: Present: erythema, lesions Extremities exam: Present: normal inspection, full ROM Neurological exam: Present: alert, oriented X3, CN II-XII intact. Absent: motor sensory deficit Psychiatric exam: Present: normal affect, normal mood Skin exam: Present: warm, dry, other (Mild erythema under the right breast) Course Vital Signs 01/11/19 01/11/19 21:13 22:20 Temperature 99.9 F H 102.3 F H Pulse Rate 141 H 130 H Respiratory 118 H 18 Rate Blood Pressure 133/89 114/68 O2 Sat by Pulse 98 99 Oximetry Medical Decision Making - Medical Decision Making 53-year-old female history of breast cancer currently on chemotherapy presenting with fever. Patient has had some symptoms clear mild rhinorrhea, and generalized rash with history of herpes. No abdominal pain, no nausea vomiting, no dysuria. Her complaint emergency department reveals profound neutropenia with absolute reticulocyte count of 600, hemoglobin stable at 10.7, mild AST and ALT elevations, no abdominal pain, and history of cholecystectomy. Urinalysis negative for infection, influenza negative, chest x-ray negative for focal pneumonia. Patient started on cefepime and vancomycin and acyclovir. Will be admitted for treatment of neutropenic fever. Cultures are pending. Case discussed with admitting physician, will accept - Lab Data Result diagrams: 01/11/19 21:45 01/11/19 21:45 Lab Results 01/11/19 01/11/19 01/11/19 Range/Units 21:45 21:45 21:45 WBC 0.6 L* (3.8-10.6) k/uL RBC 3.85 (3.80-5.40) m/uL Hgb 10.7 L (11.4-16.0) gm/dL Hct 31.2 L (34.0-46.0) % MCV 81.0 (80.0-100.0) fL MCH 27.7 (25.0-35.0) pg MCHC 34.2 (31.0-37.0) g/dL RDW 15.3 (11.5-15.5) % Plt Count 124 L (150-450) k/uL Neutrophils # RN CORONARY CARE UNIT Differential Comment Manual Slide Review Performed Sodium 135 L (137-145) mmol/L Potassium 3.7 (3.5-5.1) mmol/L Chloride 102 (98-107) mmol/L Carbon Dioxide 25 (22-30) mmol/L Anion Gap 8 mmol/L BUN 7 (7-17) mg/dL Creatinine 0.70 (0.52-1.04) mg/dL Est GFR (CKD-EPI)AfAm >90 (>60 ml/min/1.73 sqM) Est GFR (CKD-EPI)NonAf >90 (>60 ml/min/1.73 sqM) Glucose 114 H (74-99) mg/dL Plasma Lactic Acid Kris (0.7-2.0) mmol/L Calcium 9.0 (8.4-10.2) mg/dL Total Bilirubin 1.0 (0.2-1.3) mg/dL AST 47 H (14-36) U/L ALT 62 H (9-52) U/L Alkaline Phosphatase 61 (38-126) U/L Total Protein 6.4 (6.3-8.2) g/dL Albumin 3.7 (3.5-5.0) g/dL Urine Color Urine Appearance (Clear) Urine pH (5.0-8.0) Ur Specific [place] (1.001-1.035) Urine Protein (Negative) Urine Glucose (UA) (Negative) Urine Ketones (Negative) Urine Blood (Negative) Urine Nitrite (Negative) Urine Bilirubin (Negative) Urine Urobilinogen (<2.0) mg/dL Ur Leukocyte Esterase (Negative) Influenza Type A RNA Not Detected (Not Detectd) Influenza Type B (PCR) Not Detected (Not Detectd) 01/11/19 01/11/19 Range/Units 21:45 21:45 WBC (3.8-10.6) k/uL RBC (3.80-5.40) m/uL Hgb (11.4-16.0) gm/dL Hct (34.0-46.0) % MCV (80.0-100.0) fL MCH (25.0-35.0) pg MCHC (31.0-37.0) g/dL RDW (11.5-15.5) % Plt Count (150-450) k/uL Neutrophils # Differential Comment Manual Slide Review Sodium (137-145) mmol/L Potassium (3.5-5.1) mmol/L Chloride (98-107) mmol/L Carbon Dioxide (22-30) mmol/L Anion Gap mmol/L BUN (7-17) mg/dL Creatinine (0.52-1.04) mg/dL Est GFR (CKD-EPI)AfAm (>60 ml/min/1.73 sqM) Est GFR (CKD-EPI)NonAf (>60 ml/min/1.73 sqM) Glucose (74-99) mg/dL Plasma Lactic Acid Kris 0.9 (0.7-2.0) mmol/L Calcium (8.4-10.2) mg/dL Total Bilirubin (0.2-1.3) mg/dL AST (14-36) U/L ALT (9-52) U/L Alkaline Phosphatase (38-126) U/L Total Protein (6.3-8.2) g/dL Albumin (3.5-5.0) g/dL Urine Color Colorless Urine Appearance Clear (Clear) Urine pH 6.0 (5.0-8.0) Ur Specific [place] 1.001 (1.001-1.035) Urine Protein Negative (Negative) Urine Glucose (UA) Negative (Negative) Urine Ketones Negative (Negative) Urine Blood Negative (Negative) Urine Nitrite Negative (Negative) Urine Bilirubin Negative (Negative) Urine Urobilinogen <2.0 (<2.0) mg/dL Ur Leukocyte Esterase Negative (Negative) Influenza Type A RNA (Not Detectd) Influenza Type B (PCR) (Not Detectd) Critical Care Time Critical Care Time: Yes Total Critical Care Time: 35 Disposition Clinical Impression: Neutropenic fever Disposition: ADMITTED IP TO THIS [facility] Condition: Serious Is patient prescribed a controlled substance at d/c from ED?: No Referrals: Bo Najera DO [Primary Care Provider] - 1-2 days Decision to Admit Reason: Admit from EC Decision Date: 01/11/19 Decision Time: 23:41
[2019-01-11 22:11] LABS: Appearance,Urine Clear (Clear); Bilirubin,Urine Negative (Negative); Blood,Urine Negative (Negative); Color,Urine Colorless; Glucose,Urine (UA) Negative (Negative); Ketones,Urine Negative (Negative); Leukocyte Esterase,Urine Negative (Negative); Nitrite,Urine Negative (Negative); Protein,Urine Negative (Negative); Specific Gravity,Urine 1.001 (1.001-1.035); Urobilinogen,Urine <2.0 mg/dL (<2.0)
[2019-01-11 22:13] LABS: HCT 31.2 % (34.0-46.0); MCH 27.7 pg (25.0-35.0); MCHC 34.2 g/dL (31.0-37.0); Mean Platelet Volume 6.9; Platelet Count 124 k/uL (150-450); RBC 3.85 m/uL (3.80-5.40); RDW 15.3 % (11.5-15.5)
[2019-01-11 22:15] LABS: HGB 10.7 gm/dL (11.4-16.0)
[2019-01-11 22:17] LABS: WBC 0.6 k/uL (3.8-10.6)
[2019-01-11 22:21] LABS: ALT 62 U/L (9-52); AST 47 U/L (14-36); Albumin 3.7 g/dL (3.5-5.0); Alkaline Phosphatase 61 U/L (38-126); Anion Gap 8 mmol/L; Blood Urea Nitrogen 7 mg/dL (7-17); Carbon Dioxide 25 mmol/L (22-30); Chloride 102 mmol/L (98-107); Glucose 114 mg/dL (74-99); Potassium 3.7 mmol/L (3.5-5.1); Sodium 135 mmol/L (137-145); Total Protein 6.4 g/dL (6.3-8.2)
--- NOTE | 2019-01-11 22:43 | XR ---
EXAM: XR Chest, 2 Views CLINICAL HISTORY: fever TECHNIQUE: Frontal and lateral views of the chest. COMPARISON: Chest x-ray dated 12/04/2017 FINDINGS: Lungs: Unremarkable. No consolidation. Pleural space: Unremarkable. No pneumothorax. Heart: Unremarkable. No cardiomegaly. Mediastinum: Unremarkable. Bones/joints: Unremarkable. Tubes, lines and devices: Right IJ Port-A-Cath with tip in the proximal SVC. Upper abdomen: Surgical clips are noted within the left upper abdomen. IMPRESSION: No acute findings.
[2019-01-11] MEDS ORDERED: SODIUM CHLORIDE 0.9% 500 ML 500 ML IV ONE (23:22)
[2019-01-11] MEDS ORDERED: KETOROLAC 30 MG/ML 1 ML VIAL IVP STA (23:22)
[2019-01-11] MEDS ORDERED: NALOXONE 0.4 MG/ML 1 ML VIAL IV PRN (23:22)
[2019-01-12] MEDS: ACYCLOVIR SODIUM 800 MG in SODIUM CHLORIDE 0.9% 250 ML IV SCH ×4 (00:10→23:44)
[2019-01-12 01:30] VITALS: BMI 34.0
--- NOTE | 2019-01-12 03:43 | P.HPIM ---
History of Present Illness H&P Date: 01/12/19 Patient is a 53-year-old female with a PMH of breast cancer, currently undergoing second cycle of chemotherapy (via Chemo-Port), last dose approximately 10 days ago, presented to the ED for fever, and a herpes genital rash. The patient notes that she has had the fever for about 48 hours though notes that her genital herpes (chronic) worsened over the past 4-5 days despite the regular use of Valtrex. The patient also endorsed a mild sore throat and rhinorrhea but otherwise denied coughing, chest pain, nausea, vomiting, abdominal pain. She also denied diarrhea, lower extremity swelling, or extremity pain, or dysuria. In the emergency room, the patient underwent a comprehensive workup, with T-max 102.3, BP normal, tachycardic to 141, WBC count 0.6, hemoglobin 10.7, lactic acid 0.9, creatinine 0.7, and platelets 124. Chest x-ray was unremarkable, and influenza testing was negative. UA was also unremarkable. Review of Systems Pertinent positives and negatives as discussed in HPI, a complete review of systems was performed and all other systems are negative. Past Medical History Past Medical History: Cancer, Vascular Disorder Additional Past Medical History / Comment(s): over 10 years ago quit using cocaine and prescription opioids. breast cancer right oct 2018, chemo last on jan 02,genital herpes 2009, right after chemo rash genital herpes open bleeding started 01/09/19. right breast rash History of Any Multi-Drug Resistant Organisms: None Reported Past Surgical History: Cholecystectomy, Tonsillectomy Additional Past Surgical History / Comment(s): gastric sleeve, R breast bx. right sided port Past Anesthesia/Blood Transfusion Reactions: No Reported Reaction Past Psychological History: Anxiety, Depression Smoking Status: Never smoker Past Alcohol Use History: None Reported Past Drug Use History: Prescription Drug Abuse Additional Drug Use History / Comment(s): 10 years without use. - Past Family History Mother Family Medical History: Diabetes Mellitus, Hypertension Additional Family Medical History / Comment(s): heart disease Father Family Medical History: Cancer Additional Family Medical History / Comment(s): lung CA, cirrosis, kidney disease Medications and Allergies Home Medications Medication Instructions Recorded Confirmed Type Buprenorphine HCl/Naloxone HCl 1 film SL BID 04/28/17 01/11/19 History [Suboxone 8 mg-2 mg Sl Film] Buprenorphine HCl [Belbuca] 150 mcg PO Q12H 11/07/18 01/11/19 History Cariprazine HCl [Vraylar] 1.5 mg PO BID 11/07/18 01/11/19 History Biotin 5,000 mcg PO DAILY 11/11/18 01/11/19 History Calcium Carbonate [Calcium] 600 mg PO DAILY 11/11/18 01/11/19 History Inulin/Chromium Picolinate [Fiber 1 tab PO DAILY 11/11/18 01/11/19 History Gummies Chew] Multivitamin [Multivitamins Adult 1 tab PO DAILY 11/11/18 01/11/19 History Gummies] valACYclovir [Valtrex] 500 mg PO BID 11/11/18 01/11/19 History LORazepam [Ativan] 1 mg PO HS 01/09/19 01/11/19 History Allergies Allergy/AdvReac Type Severity Reaction Status Date / Time amoxicillin [From Augmentin] Allergy Rash/Hives Verified 01/11/19 22:55 clavulanic acid Allergy Rash/Hives Verified 01/11/19 22:55 [From Augmentin] Tetracyclines Allergy Rash/Hives Verified 01/11/19 22:55 Physical Exam Vitals: Vital Signs Temp Pulse Pulse Resp BP BP Pulse Ox 01/12/19 02:16 110 H 01/12/19 01:09 97.9 F 118 H 18 113/57 96 01/12/19 00:52 112 H 01/11/19 23:48 98.2 F 01/11/19 23:30 122 H 18 124/80 100 01/11/19 23:00 133/86 98 01/11/19 22:30 123 H 18 114/68 97 01/11/19 22:20 102.3 F H 130 H 18 114/68 99 01/11/19 22:19 114/68 98 01/11/19 21:13 99.9 F H 141 H 118 H 133/89 98 Intake and Output 01/11/19 01/11/19 01/12/19 14:59 22:59 06:59 Other: Weight 87.09 kg General: non toxic, no distress, appears at stated age, normal weight Derm: Erythematous fluid-filled vesicles over the genital region, diffuse Head: atraumatic, normocephalic, symmetric Eyes: EOMI, no lid lag, anicteric sclera, pupils equal round reactive to light ENT: Nose and ears atraumatic, no thrush, no pharyngeal erythema Neck: No thyromegaly, no cervical lymphadenopathy, trachea midline, supple Mouth: no lip lesion, mucus membranes moist Cardiovascular: S1S2 reg, no murmur, positive posterior tibial pulse bilateral, no edema, capillary refill less than 2 seconds Lungs: CTA bilateral, no rhonchi, no rales , no accessory muscle use Abdominal: soft, nontender to palpation, no guarding, no appreciable organomegaly, normal bowel sounds Ext: no gross muscle atrophy, muscle strength 5 out of 5 in all 4 extremities grossly, no contractures, Neuro: CN II-XI grossly intact, light touch intact all 4 extremities, finger to nose within normal limits, Psych: Alert, oriented, appropriate affect Results CBC & Chem 7: 01/11/19 21:45 01/11/19 21:45 Labs: Abnormal Lab Results - Last 24 Hours (Table) 01/11/19 01/11/19 Range/Units 21:45 21:45 WBC 0.6 L* (3.8-10.6) k/uL Hgb 10.7 L (11.4-16.0) gm/dL Hct 31.2 L (34.0-46.0) % Plt Count 124 L (150-450) k/uL Sodium 135 L (137-145) mmol/L Glucose 114 H (74-99) mg/dL AST 47 H (14-36) U/L ALT 62 H (9-52) U/L Thrombosis Risk Factor Assmnt - Choose All That Apply Any of the Below Risk Factors Present?: Yes Each Factor Represents 1 point: Age 41-60 years, Obesity (BMI >25), Varicose veins Other Risk Factors: Yes Each Risk Factor Represents 2 Points: Malignancy Other congenital or acquired thrombophilia - If yes, enter type in comment: No Thrombosis Risk Factor Assessment Total Risk Factor Score: 5 Thrombosis Risk Factor Assessment Level: High Risk Assessment and Plan Plan: Neutropenic sepsis -Neutropenic precautions -Continue with cefepime and vancomycin -Continue with IV fluids -Infectious disease consult -Oncology consulted -Follow up blood and urine cultures Genital herpes -Continue with Valtrex Normocytic anemia and thrombocythemia -Likely secondary to chemotherapy -Monitor for now DVT//GI prophylaxis -IPCD's -Protonix The patient is admitted with an anticipated greater than 2 midnight stay for evaluation of neutropenic sepsis. CODE STATUS: Full Code Discussed with: Patient Anticipated discharge date: 01/14/[address]: Home A total of 55 minutes was spent on the care of this complex patient more than 50 % of the time was spent in counseling and care coordination.
[2019-01-12] MEDS: CEFEPIME 2 GM in SODIUM CHLORIDE 0.9% 100 ML IVPB SCH ×3 (05:25→21:12)
[2019-01-12 08:19] LABS: ALT 51 U/L (9-52); AST 32 U/L (14-36); Albumin 3.2 g/dL (3.5-5.0); Alkaline Phosphatase 51 U/L (38-126); Anion Gap 6 mmol/L; Blood Urea Nitrogen 7 mg/dL (7-17); Calcium 8.2 mg/dL (8.4-10.2); Carbon Dioxide 21 mmol/L (22-30); Chloride 114 mmol/L (98-107); Glucose 92 mg/dL (74-99); Potassium 4.2 mmol/L (3.5-5.1); Sodium 141 mmol/L (137-145); Total Bilirubin 0.7 mg/dL (0.2-1.3); Total Protein 5.7 g/dL (6.3-8.2)
[2019-01-12 08:20] LABS: HCT 32.4 % (34.0-46.0); HGB 10.9 gm/dL (11.4-16.0); MCH 28.1 pg (25.0-35.0); MCHC 33.8 g/dL (31.0-37.0); MCV 83.3 fL (80.0-100.0); Mean Platelet Volume 6.8; Platelet Count 117 k/uL (150-450); RBC 3.89 m/uL (3.80-5.40); RDW 15.5 % (11.5-15.5)
[2019-01-12 08:27] LABS: WBC 0.7 k/uL (3.8-10.6)
[2019-01-12] MEDS: ACETAMINOPHEN TAB 325 MG TAB PO PRN ×2 (08:30→15:11)
[2019-01-12] MEDS ORDERED: BUPRENORPHINE HCL 150 MCG PO SCH (09:45)
--- NOTE | 2019-01-12 09:47 | P.PN ---
Progress Note - Text Progress Note Date: 01/12/19 Please refer to the H&P for full note. Patient is a 53-year-old female with PMH of breast cancer on chemotherapy, last dose 10 days ago presents the ED for fever and her herpetic genital rash. Patient reports using Valtrex for the past 4-5 days without relief. In the emergency room she was found to have a T- max of 102.3F with a normal BP, tachycardic to 141 and normal lactic acid. Urinalysis, chest x-ray and influenza testing was negative. Patient is admitted for sepsis secondary to herpetic genital infection. Patient was seen and examined. No acute events overnight. Patient reports generally feeling well. She reports a slight improvement in her genital rash. She denies any fever or chills. No nausea or vomiting. No chest pain, shortness of breath or palpitations. She is in no acute distress. Normal S1-S2. Tachycardic. No murmurs rubs or gallops. Lungs are clear to auscultation bilaterally. There is no lower extremity edema. Neutropenic sepsis likely secondary to herpetic genital infection Leukopenia Anemia Thrombocytopenia Hyperchloremic metabolic acidosis We will continue broad-spectrum IV antibiotics with vancomycin and cefepime. Patient is started on IV acyclovir for the treatment of herpetic genital infection. Continue normal saline at 75 mL per hour. Tylenol as needed for fever. Will follow infectious disease consult. Follow-up blood and urine cultures. Her leukopenia, anemia and thrombocytopenia is likely secondary to chemotherapy. We will consult oncology. Her hyperchloremic metabolic acidosis is likely secondary to infuse IVF. We will continue to monitor.
[2019-01-12] MEDS ORDERED: VANCOMYCIN 1,500 MG in SODIUM CHLORIDE 0.9% 250 ML IVPB SCH (10:00)
--- NOTE | 2019-01-12 12:04 | P.CONS ---
History of Present Illness - Reason for Consult Consult date: 01/12/19 Neutropenic fever Requesting physician: Dada Davies - Chief Complaint Fevers - History of Present Illness Ms. 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 Patholgical Stage II (T2, N1, M0). Primary Oncologist Dr. Escobar. She is status post cycle two of TCHP with Neulasta on 01/02/19. She started having fevers at home the past day which she stated were mostly 100.3, 100.6, and one at 101. She spoke with our on-call service and our corrosion control engineer physician directed her to the emergency room. Since admission her T-max was 102, since antibiotics she has remained afebrile. Cultures are pending, influenza neg. She has been fighting a genital herpetic flare the past 4 days without relief from PO Valtrex. I spoke with Dr. Nguyễn and her lesions are more in the crevaces of groin rather than labia and appear to be more yeast-like than viral. Therefore Diflucan has been started. She complains of GERD today, I started Protonix. Last Chemo on 01/02/19 with Neulasta 01/03/19 Status Post Cycle two TCHP T-max 102 Influenza Negative Blood Culture Pending Review of Systems A 14 point review of systems assessed and completed and all neg except HPI Past Medical History Past Medical History: Cancer, Vascular Disorder Additional Past Medical History / Comment(s): over 10 years ago quit using cocaine and prescription opioids. breast cancer right oct 2018, chemo last on jan 02,genital herpes 2009, right after chemo rash genital herpes open bleeding started 01/09/19. right breast rash History of Any Multi-Drug Resistant Organisms: None Reported Past Surgical History: Cholecystectomy, Tonsillectomy Additional Past Surgical History / Comment(s): gastric sleeve, R breast bx. right sided port Past Anesthesia/Blood Transfusion Reactions: No Reported Reaction Past Psychological History: Anxiety, Depression Smoking Status: Never smoker Past Alcohol Use History: None Reported Past Drug Use History: Prescription Drug Abuse Additional Drug Use History / Comment(s): 10 years without use. - Past Family History Mother Family Medical History: Diabetes Mellitus, Hypertension Additional Family Medical History / Comment(s): heart disease Father Family Medical History: Cancer Additional Family Medical History / Comment(s): lung CA, cirrosis, kidney disease Medications and Allergies Home Medications Medication Instructions Recorded Confirmed Type Buprenorphine HCl/Naloxone HCl 1 film SL BID 04/28/17 01/11/19 History [Suboxone 8 mg-2 mg Sl Film] Buprenorphine HCl [Belbuca] 150 mcg PO Q12H 11/07/18 01/11/19 History Cariprazine HCl [Vraylar] 1.5 mg PO BID 11/07/18 01/11/19 History Biotin 5,000 mcg PO DAILY 11/11/18 01/11/19 History Calcium Carbonate [Calcium] 600 mg PO DAILY 11/11/18 01/11/19 History Inulin/Chromium Picolinate [Fiber 1 tab PO DAILY 11/11/18 01/11/19 History Gummies Chew] Multivitamin [Multivitamins Adult 1 tab PO DAILY 11/11/18 01/11/19 History Gummies] valACYclovir [Valtrex] 500 mg PO BID 11/11/18 01/11/19 History LORazepam [Ativan] 1 mg PO HS 01/09/19 01/11/19 History Allergies Allergy/AdvReac Type Severity Reaction Status Date / Time amoxicillin [From Augmentin] Allergy Rash/Hives Verified 01/11/19 22:55 clavulanic acid Allergy Rash/Hives Verified 01/11/19 22:55 [From Augmentin] Tetracyclines Allergy Rash/Hives Verified 01/11/19 22:55 Physical Exam Vitals: Vital Signs Temp Pulse Pulse Resp BP BP Pulse Ox 01/12/19 05:09 98.4 F 105 H 18 97/54 98 01/12/19 02:16 110 H 01/12/19 01:09 97.9 F 118 H 18 113/57 96 01/12/19 00:52 112 H 01/11/19 23:48 98.2 F 01/11/19 23:30 122 H 18 124/80 100 01/11/19 23:00 133/86 98 01/11/19 22:30 123 H 18 114/68 97 01/11/19 22:20 102.3 F H 130 H 18 114/68 99 01/11/19 22:19 114/68 98 01/11/19 21:13 99.9 F H 141 H 118 H 133/89 98 Intake and Output 01/11/19 01/12/19 01/12/19 22:59 06:59 14:59 Intake Total 1420 Balance 1420 Intake: Intake, IV Titration 1000 Amount Sodium Chloride 0.9% 1, 500 000 ml @ 75 mls/hr IV . [id number] STA Rx#:[id number] Sodium Chloride 0.9% 500 500 ml 500 ml @ 999 mls/hr IV .Q31M STA Rx#:[id number] Oral 420 Other: # Voids 1 Weight 87.09 kg Gen: Alert and in No acute distress Head NC,NT Mouth: Dry Neck Supple, no adenopathy Lungs CTA Bilater, no increased effort Heart Tachy, Reg Abdomen, Soft Non Distended non tender Ext: No edema Herpetic vaginal outbreak appears to be healing, some scabbing over labia, although bilateral inner thighs have erythema, dryness, evidence of her scratching, and appear yeast-like, area has moisture Results CBC & Chem 7: 01/12/19 06:58 01/12/19 06:58 Labs: Abnormal Lab Results - Last 24 Hours (Table) 01/11/19 01/11/19 01/12/19 Range/Units 21:45 21:45 06:58 WBC 0.6 L* 0.7 L* (3.8-10.6) k/uL Hgb 10.7 L 10.9 L (11.4-16.0) gm/dL Hct 31.2 L 32.4 L (34.0-46.0) % Plt Count 124 L 117 L (150-450) k/uL Sodium 135 L (137-145) mmol/L Chloride (98-107) mmol/L Carbon Dioxide (22-30) mmol/L Glucose 114 H (74-99) mg/dL Calcium (8.4-10.2) mg/dL AST 47 H (14-36) U/L ALT 62 H (9-52) U/L Total Protein (6.3-8.2) g/dL Albumin (3.5-5.0) g/dL 01/12/19 Range/Units 06:58 WBC (3.8-10.6) k/uL Hgb (11.4-16.0) gm/dL Hct (34.0-46.0) % Plt Count (150-450) k/uL Sodium (137-145) mmol/L Chloride 114 H (98-107) mmol/L Carbon Dioxide 21 L (22-30) mmol/L Glucose (74-99) mg/dL Calcium 8.2 L (8.4-10.2) mg/dL AST (14-36) U/L ALT (9-52) U/L Total Protein 5.7 L (6.3-8.2) g/dL Albumin 3.2 L (3.5-5.0) g/dL Microbiology - Last 24 Hours (Table) 01/11/19 21:45 Urine Culture - Preliminary Urine,Clean Catch Assessment and Plan Plan: Assessment and Recommendations: 1. Invasive Ductal Carcinoma of the Breast: ER+, HER2+ - Jacques-Adjuvant Chemotherapy, status Post Cycle Two on 01/02/19 - She was treated with TCHP and received Neulasta injection 2. Febrile Neutropenia: - Cultures still pending - Afebrile today - Infectious Disease Following and agree with Antiviral, and the broad spectrum antibiotics Cefepime and Vancomycin - GCSF - Neulasta injected on 01/03, therefore if her counts are not recovering after 10 days can add GCSF with Zarxio daily 3. Pancytopenia: Neutropenia: - Monitor Fevers, See above under Febrile Neutropenia Anemia: Secodnary to chemotherapy - Transfusion Support for hemoglobin less than 7 Thrombocytopenia: - Stable today, transfuse if less then 10, or if signs of bleeding less than 50K - Her platelets are stable for VTE prophylaxis, rec with increased risk of thrombus with active malignancy and decreased mobility 4. Genital Herpes - Outbreak not improved on PO Valtrex - IV Acyclovir 5. Secondary Danya Infection in bilateral inner thighs: - Diflucan started - Discussed with Dr. Nguyễn from [place] - Nystatin Powder 6. GERD: - Added Protonix Phsyician Attest: I have discussed the complete history and physical with the scriber, I have developed the complete impression and plan, agree with above dictation, dictated as a scribe
[2019-01-12] MEDS ORDERED: CALCIUM CARBONATE 500 MG CHEWABLE PO PRN (16:37)
[2019-01-12] MEDS: PANTOPRAZOLE 40 MG TABLET PO SCH (19:10)
[2019-01-12] MEDS: FLUCONAZOLE 100 MG TAB PO SCH (19:10)
--- NOTE | 2019-01-12 19:11 | CONS ---
CONSULTATION DATE OF SERVICE: 01/12/2019. REASON FOR CONSULTATION: Neutropenic fever. HISTORY OF PRESENT ILLNESS: The patient is a 53-year-old female with past medical history significant for breast cancer for which the patient is currently on chemotherapy. Last chemo has been about 10 days ago. The patient states she was doing well and did have followup with nurse practitioner on and the patient was doing well. However, on Sunday, the patient said she broke out in a rash in the bilateral groin area which the patient a been attributing to her genital herpes. The patient said she does have recurrent herpetic lesion. The patient's rash in bilateral groin area seems to be slightly different than her previous herpetic lesion. The patient did have a burning to itching sensation to the rash area intensity about 4-5 out of 10 and no radiation with associated swelling, redness and significant discomfort associated with this. The patient presented to the hospital. The patient also has been complaining of fever with chills. On arrival to the ER, the patient did have a fever of 102.3 degrees Fahrenheit. The patient was tachycardic. She was noticed to have a white count of 0.6. The patient's UA was negative. Influenza serology was negative. The patient was started on IV acyclovir in addition to the cefepime and vancomycin. Infectious Disease was consulted for further recommendation regarding antibiotic therapy. The patient denies having any headache. No URI sputum. No chest pain. No shortness of breath or cough. No abdominal pain. No diarrhea. No burning or frequency of urine. REVIEW OF SYSTEMS: Positive points have been mentioned in HPI. The rest of the 14 systems has been negative. PAST MEDICAL HISTORY: Breast cancer, right-sided currently on chemotherapy, history of genital herpes. PAST SURGICAL HISTORY: Cholecystectomy and tonsillectomy, gastric sleeve, right breast biopsy and right-sided port placement. SOCIAL HISTORY: No history of smoking, drinking, or drug use. FAMILY HISTORY: Mother with history of diabetes and hypertension. Father with history of liver cancer and cirrhosis of the liver. ALLERGIES: To AMOXICILLIN, CLAVULANIC ACID, AND TETRACYCLINE. MEDICATION: Currently the patient is on vancomycin, Marcaine, cefepime, Wellbutrin, acyclovir and Tylenol. PHYSICAL EXAMINATION: Blood pressure is 124/79 with a pulse of 115. Temperature 99.2, T-max is 102.3. She is 100% on room air. General description is a middle-aged female lying in bed in no distress. No tachypnea or accessory muscle of respiration use. HEENT: Shows pallor. No scleral icterus. Oral mucosa membrane is dry. No pharyngeal erythema or thrush. NECK: Trachea central. No thyromegaly. LUNGS: Unlabored breathing. Clear to auscultation anteriorly. No wheeze or crackle. HEART: S1, S2. Regular rate and rhythm. ABDOMEN: Soft, no tenderness. No guarding or rigidity. EXTREMITIES: No edema of feet. EXAMINATION OF PELVIC AREA: In the presence of the nurse, she did have bilateral groin area rash. No ulcers were noticed on her labia, with minimal surrounding cellulitis. SKIN EXAMINATION: No rash or mass palpable. NEUROLOGIC EXAMINATION: Patient is awake, alert, oriented x3. Mood and affect normal. LABS: Hemoglobin is 12.1, hematocrit 0.7, BUN of 7, creatinine 0.57. Electrolytes have been normal. Liver enzymes are normal. UA negative. Influenza serology was negative. Chest x-ray report negative. DIAGNOSTIC IMPRESSION AND PLAN: Patient admitted to the hospital with febrile neutropenia. The patient did have a fever of 102 Fahrenheit, neutrophil count less than 500. This patient does have a rash in the bilateral groin area with some secondary cellulitis. This rash is more typical for cutaneous rather than herpetic lesion as no vesicle or ulcerated lesion noted on the labia and likely a gram-positive skin infection, clinically suspicious for underlying MRSA infection and currently no evidence of infection in either part of the groin. PLAN: 1. We will apply nystatin cream to the bilateral groin rash and add oral Diflucan 200 p.o. daily. 2. We will obtain herpes serology. May continue the patient on IV acyclovir, but clinically doubt these are herpetic lesions. 3. Will discontinue the vancomycin, clear MRSA infection and decrease risk of nephrotoxicity. 4. We will follow up clinical condition and culture to further adjust medication if needed. Thank you for this consultation. Will follow this patient along with you. MMODL / IJN: [id number] /
[2019-01-12] MEDS: SUBOXONE SL SCH (20:33)
[2019-01-12] MEDS: Cariprazine Hcl [Vraylar] PO SCH (20:33)
[2019-01-12] MEDS: NYSTATIN 100,000UNIT/GM CREAM 30 GM TUBE TOPICAL SCH (21:12)
[2019-01-12] MEDS: LORazepam 1 MG TAB PO SCH (21:12)
[2019-01-12] MEDS: buPROPion SR 150 MG TABLET.ER PO SCH (21:12)
[2019-01-12] MEDS: NYSTATIN 100,000 UNIT/GM POWD 15 GM TOPICAL SCH (23:44)
[2019-01-13] MEDS: CEFEPIME 2 GM in SODIUM CHLORIDE 0.9% 100 ML IVPB SCH ×3 (06:03→21:10)
[2019-01-13 08:32] LABS: HCT 25.3 % (34.0-46.0); MCHC 33.7 g/dL (31.0-37.0); RBC 3.05 m/uL (3.80-5.40); RDW 15.7 % (11.5-15.5)
[2019-01-13 08:34] LABS: HGB 8.5 gm/dL (11.4-16.0); Platelet Count 93 k/uL (150-450); WBC 1.5 k/uL (3.8-10.6)
[2019-01-13 08:35] LABS: ALT 47 U/L (9-52); AST 20 U/L (14-36); Albumin 2.5 g/dL (3.5-5.0); Alkaline Phosphatase 49 U/L (38-126); Anion Gap 7 mmol/L; Blood Urea Nitrogen 5 mg/dL (7-17); Calcium 7.9 mg/dL (8.4-10.2); Carbon Dioxide 21 mmol/L (22-30); Chloride 109 mmol/L (98-107); Glucose 92 mg/dL (74-99); Potassium 3.2 mmol/L (3.5-5.1); Sodium 137 mmol/L (137-145); Total Bilirubin 0.7 mg/dL (0.2-1.3); Total Protein 4.9 g/dL (6.3-8.2)
[2019-01-13] MEDS: PANTOPRAZOLE 40 MG TABLET PO SCH ×2 (08:44→17:03)
[2019-01-13] MEDS: Cariprazine Hcl [Vraylar] PO SCH ×2 (08:44→21:11)
[2019-01-13] MEDS: NYSTATIN 100,000 UNIT/GM POWD 15 GM TOPICAL SCH ×3 (08:44→21:11)
[2019-01-13] MEDS: FLUCONAZOLE 100 MG TAB PO SCH (08:44)
[2019-01-13] MEDS: buPROPion SR 150 MG TABLET.ER PO SCH ×2 (08:44→21:10)
[2019-01-13] MEDS: ACYCLOVIR SODIUM 800 MG in SODIUM CHLORIDE 0.9% 250 ML IV SCH ×3 (08:45→23:35)
[2019-01-13] MEDS: SUBOXONE SL SCH ×2 (08:45→20:53)
[2019-01-13] MEDS: NYSTATIN 100,000UNIT/GM CREAM 30 GM TUBE TOPICAL SCH ×2 (08:46→21:12)
[2019-01-13] MEDS ORDERED: POTASSIUM CHLORIDE ER 20 MEQ TAB.ER PO STA (10:20)
[2019-01-13 10:42] LABS: Band Neutrophils % 3 %; Monocytes # (M) 0.63 k/uL (0-1.0); Neutrophils % (M) 15 %
--- NOTE | 2019-01-13 10:42 | P.PN ---
Subjective Progress Note Date: 01/13/19 Principal diagnosis: Herpetic lesions, sepsis Patient was seen and examined. No acute events overnight. Patient reports great improvement in her rash. Patient reports previously being diagnosed with genital herpes, through serology. She denies any fever or chills. No nausea or vomiting. She denies any chest pain, shortness of breath or palpitations. Objective - Vital Signs Vital signs: Vital Signs Temp 99.7 F H 01/13/19 05:00 Pulse 123 H 01/13/19 05:00 Resp 17 01/13/19 05:00 BP 117/77 01/13/19 05:00 Pulse Ox 96 01/13/19 05:00 Intake & Output 01/12/19 01/13/19 01/13/19 18:59 06:59 18:59 Intake Total 2270 Balance 2270 Intake: Intake, IV Titration 650 Amount Acyclovir Sodium 800 mg 250 In Sodium Chloride 0.9% 250 ml @ 100 mls/hr IV Q8HR [facility] Rx#:[id number] Cefepime 2 gm In Sodium 100 Chloride 0.9% 100 ml @ 200 mls/hr IVPB Q8H [facility] Rx#:[id number] Sodium Chloride 0.9% 1, 300 000 ml @ 75 mls/hr IV . [id number] [facility] Rx#:[id number] Oral 1620 Other: Voiding Method Toilet Toilet # Voids 3 1 - Exam General: [non toxic], [no distress], [appears at stated age] Derm: [warm], [dry] Head: [atraumatic], [normocephalic], [symmetric] Eyes: [EOMI], [no lid lag], [anicteric sclera] Mouth: [no lip lesion], [mucus membranes moist] Cardiovascular: [S1S2 reg], [tachycardic], [positive posterior tibial pulse bilateral], [right chest port] Lungs: [CTA bilateral], [no rhonchi, no rales] , [no accessory muscle use] Abdominal: [soft], [ nontender to palpation], [no guarding], [no appreciable organomegaly] Ext: [no gross muscle atrophy], [no edema], [no contractures] Neuro: [no focal neuro deficits] Psych: [Alert], [oriented], [appropriate affect] Bilateral inguinal rash with a few fluid-filled blisters, erythema appearing like a candidal infection. No inguinal adenopathy. No vaginal discharge. - Labs CBC & Chem 7: 01/13/19 07:49 01/13/19 07:49 Labs: Abnormal Lab Results - Last 24 Hours (Table) 01/13/19 01/13/19 Range/Units 07:49 07:49 WBC 1.5 L (3.8-10.6) k/uL RBC 3.05 L (3.80-5.40) m/uL Hgb 8.5 L D (11.4-16.0) gm/dL Hct 25.3 L (34.0-46.0) % RDW 15.7 H (11.5-15.5) % Potassium 3.2 L (3.5-5.1) mmol/L Chloride 109 H (98-107) mmol/L Carbon Dioxide 21 L (22-30) mmol/L BUN 5 L (7-17) mg/dL Calcium 7.9 L (8.4-10.2) mg/dL Total Protein 4.9 L (6.3-8.2) g/dL Albumin 2.5 L (3.5-5.0) g/dL Microbiology - Last 24 Hours (Table) 01/11/19 21:45 Blood Culture - Preliminary Blood No Growth after 24 hours 01/11/19 21:45 Urine Culture - Preliminary Urine,Clean Catch Assessment and Plan Assessment: Assessment and Plan 1. Neutropenic sepsis likely secondary to herpetic genital infection 2. Leukopenia 3. Hypokalemia 4. Anemia 5. Hyperchloremic metabolic acidosis 1. T-max 102.3 Fahrenheit on admission while leukopenic. Meets criteria for sepsis, HR > 100, source of infection, leukopenia. Chest x-ray was negative for acute process. Urinalysis is negative. Influenza is negative. Patient started on IV acyclovir for genital herpetic lesions. Started on vancomycin and cefepime IV for broad-spectrum antibiotic coverage. Infectious disease consulted, recommends discontinuation of vancomycin and addition of nystatin and Diflucan for candidal rash. Tylenol as needed for fever. Blood cultures are negative after 24 hours. Discontinue IVF. Follow final blood cultures, urine culture, IgG for herpes simplex. Will follow ID recommendations. 2. WBC 1.5, improved from 0.6 on admission. Given Neulasta on 01/03/2019. High risk for infections. Leukopenic precautions. Daily CBC. Will follow hematology recommendations. 3. Potassium of 3.2. Replaced via by mouth. 4. Hemoglobin 8.5, normocytic. Likely anemia of chronic disease. Daily CBC. Transfuse if hemoglobin less than 7. 5. Chloride of 109 and bicarbonate of 21. Likely secondary to infused IVF. We will discontinue normal saline and encourage by mouth hydration. Daily BMP. Patient admitted for neutropenic sepsis likely secondary to herpetic genital infection. Being followed by infectious disease and hematology oncology. Patient is pending clinical improvement.
[2019-01-13 10:43] LABS: Nucleated Red Blood Cells 0 /100 WBC (0-0); Total Cells Counted 100
[2019-01-13 10:44] LABS: Anisocytosis (M) Present; Polychromasia Present
--- NOTE | 2019-01-13 14:16 | P.PN ---
Subjective Progress Note Date: 01/13/19 Principal diagnosis: febrile neutropenia Pt admitted s/p 2nd [facility] ernie with neulasta administration for febrile neutropenia. She has improved with antibiotics, antifungal and antiviral treatments, fever pattern stable today. She states some diarrhea today, no taste so not eating much but tolerating oral intake. No nausea, dysuria, she feels her herpes infection is improving. Objective - Vital Signs Vital signs: Vital Signs Temp 99.7 F H 01/13/19 05:00 Pulse 123 H 01/13/19 05:00 Resp 17 01/13/19 05:00 BP 117/77 01/13/19 05:00 Pulse Ox 96 01/13/19 05:00 Intake & Output 01/12/19 01/13/19 01/13/19 18:59 06:59 18:59 Intake Total 2270 Balance 2270 Intake: Intake, IV Titration 650 Amount Acyclovir Sodium 800 mg 250 In Sodium Chloride 0.9% 250 ml @ 100 mls/hr IV Q8HR [facility] Rx#:[id number] Cefepime 2 gm In Sodium 100 Chloride 0.9% 100 ml @ 200 mls/hr IVPB Q8H [facility] Rx#:[id number] Sodium Chloride 0.9% 1, 300 000 ml @ 75 mls/hr IV . [id number] [facility] Rx#:[id number] Oral 1620 Other: Voiding Method Toilet Toilet # Voids 3 1 - Constitutional General appearance: Present: average body habitus, cooperative, no acute distress - EENT Eyes: Present: anicteric sclerae, EOMI ENT: Present: hearing grossly normal, normal oropharynx - Respiratory Respiratory: bilateral: CTA - Cardiovascular Rhythm: regular Heart sounds: normal: S1, S2 Abnormal Heart Sounds: Absent: systolic murmur, diastolic murmur, rub, S3 Gallop , S4 Gallop, click, other - Peripheral edema leg Peripheral Edema: bilateral: None - Gastrointestinal General gastrointestinal: Present: normal bowel sounds, soft. Absent: absent bowel sounds, decreased bowel sounds, distended, hepatomegaly, hyperactive bowel sounds, organomegaly, rigid, scaphoid, splenomegaly, tenderness, umbilical hernia, ventral hernia - Integumentary Integumentary: Present: normal - Neurologic Neurologic: Present: CNII-XII intact - Musculoskeletal Musculoskeletal: Present: strength equal bilaterally - Psychiatric Psychiatric: Present: A&O x's 3, appropriate affect, intact judgment & insight - Labs CBC & Chem 7: 01/13/19 07:49 01/13/19 07:49 Labs: Abnormal Lab Results - Last 24 Hours (Table) 01/13/19 01/13/19 Range/Units 07:49 07:49 WBC 1.5 L (3.8-10.6) k/uL RBC 3.05 L (3.80-5.40) m/uL Hgb 8.5 L D (11.4-16.0) gm/dL Hct 25.3 L (34.0-46.0) % RDW 15.7 H (11.5-15.5) % Potassium 3.2 L (3.5-5.1) mmol/L Chloride 109 H (98-107) mmol/L Carbon Dioxide 21 L (22-30) mmol/L BUN 5 L (7-17) mg/dL Calcium 7.9 L (8.4-10.2) mg/dL Total Protein 4.9 L (6.3-8.2) g/dL Albumin 2.5 L (3.5-5.0) g/dL Microbiology - Last 24 Hours (Table) 01/11/19 21:45 Blood Culture - Preliminary Blood No Growth after 24 hours 01/11/19 21:45 Urine Culture - Preliminary Urine,Clean Catch Assessment and Plan (1) Neutropenic fever Narrative/Plan: Pt neutropenia is beginning to resolve as anticipated. She is now 11 days after chemo. GCSF will be added today. Fever pattern improved, cultures are negative. Antibiotics, antifungal and antiviral therapy ordered. Current situation is r/t persistent viral infection with flare during neutropenia from chemo. Will look to ID for appropriate viral prophylaxis and treatment options while pt completes chemo. Current Visit: Yes Status: Acute Priority: High Code(s): D70.9 - NEUTROPENIA, UNSPECIFIED; R50.81 - FEVER PRESENTING WITH CONDITIONS CLASSIFIED ELSEWHERE SNOMED Code(s): 410260880 (2) Breast cancer Narrative/Plan: ER and Her 2 positive, s/p 2 cycles of neoadjuvant chemotherapy with GCSF support. Intent is cure so, RDI will attempt to maintained, as well as schedule of cycles. Current Visit: Yes Status: Acute Priority: High Code(s): C50.919 - MALIGNANT NEOPLASM OF UNSP SITE OF UNSPECIFIED FEMALE BREAST SNOMED Code(s): 333275040
[2019-01-13] MEDS: FILGRASTIM-SNDZ 480 MCG/0.8 ML SYRINGE SQ SCH (17:04)
--- NOTE | 2019-01-13 20:26 | PN ---
PROGRESS NOTE DATE OF SERVICE: 01/13/2019. REASON FOR FOLLOWUP: 1. Febrile neutropenia. 2. Bilateral groin area rash with question of herpetic lesion with secondary cellulitis. INTERVAL HISTORY: The patient is currently afebrile. She is feeling slightly better. Rash in the bilateral groin has slightly decreased. Patient denies having any chest pain. No abdominal pain. No diarrhea. PHYSICAL EXAMINATION: Blood pressure 120/79 with a pulse of 112, temperature 97.9. She is 99% on room air. General description is a middle aged female, lying in bed in no distress. RESPIRATORY SYSTEM: Unlabored breathing. Clear to auscultation anteriorly. HEART: S1, S2. Regular rate and rhythm. ABDOMEN: Soft, no tenderness. Bilateral groin still has some rash, minimal redness. No vesicles or any drainage. LABS: Hemoglobin 8.5, white count 1.5 with a BUN of 5, creatinine 0.66. Blood and urine cultures have been negative. DIAGNOSTIC IMPRESSION AND PLAN: Patient admitted to the hospital with febrile neutropenia. The patient did have extensive rash to the bilateral groin area with a question of possible herpes with secondary cellulitis. The patient is currently on cefepime and acyclovir, to continue for now while watching her clinical course closely. Continue supportive care. MMODL / IJN: [id number] /
[2019-01-13 20:53] VITALS: RESP 16
[2019-01-13] MEDS: LORazepam 1 MG TAB PO SCH (21:10)
[2019-01-14] MEDS: CEFEPIME 2 GM in SODIUM CHLORIDE 0.9% 100 ML IVPB SCH (06:20)
[2019-01-14] MEDS ORDERED: POTASSIUM CHLORIDE ER 20 MEQ TAB.ER PO STA (07:50)
[2019-01-14] MEDS ORDERED: SODIUM CHLORIDE 0.9% 500 ML 500 ML IV ONE (07:50)
[2019-01-14 09:15] LABS: Anion Gap 7 mmol/L; Blood Urea Nitrogen 5 mg/dL (7-17); Calcium 8.7 mg/dL (8.4-10.2); Carbon Dioxide 21 mmol/L (22-30); Chloride 114 mmol/L (98-107); Glucose 102 mg/dL (74-99); Potassium 3.3 mmol/L (3.5-5.1); Sodium 142 mmol/L (137-145)
[2019-01-14 09:16] LABS: Anisocytosis Slight; Basophils % (A) 1 %; Eosinophils # (A) 0.1 k/uL (0-0.7); Eosinophils % (A) 1 %; HCT 26.3 % (34.0-46.0); HGB 8.9 gm/dL (11.4-16.0); Lymphocytes % (A) 21 %; MCH 28.2 pg (25.0-35.0); MCHC 33.7 g/dL (31.0-37.0); MCV 83.7 fL (80.0-100.0); Mean Platelet Volume 6.4; Monocytes # (A) 0.6 k/uL (0-1.0); Monocytes % (A) 12 %; Neutrophils % (A) 61 %; RBC 3.15 m/uL (3.80-5.40); RDW 16.1 % (11.5-15.5); WBC 4.8 k/uL (3.8-10.6)
[2019-01-14 09:17] LABS: Platelet Count 83 k/uL (150-450)
[2019-01-14] MEDS: ACYCLOVIR SODIUM 800 MG in SODIUM CHLORIDE 0.9% 250 ML IV SCH (09:54)
[2019-01-14] MEDS: PANTOPRAZOLE 40 MG TABLET PO SCH (10:25)
[2019-01-14] MEDS: SUBOXONE SL SCH (10:25)
[2019-01-14] MEDS: FLUCONAZOLE 100 MG TAB PO SCH (10:26)
[2019-01-14] MEDS: buPROPion SR 150 MG TABLET.ER PO SCH (10:26)
[2019-01-14] MEDS: NYSTATIN 100,000 UNIT/GM POWD 15 GM TOPICAL SCH (10:27)
[2019-01-14] MEDS: NYSTATIN 100,000UNIT/GM CREAM 30 GM TUBE TOPICAL SCH (10:27)
[2019-01-14] MEDS: Cariprazine Hcl [Vraylar] PO SCH (10:27)
[2019-01-14 11:02] VITALS: BP 122/81; PULSE 100; TEMP 98.2
[2019-01-14] MEDS: FILGRASTIM-SNDZ 480 MCG/0.8 ML SYRINGE SQ SCH (12:29)
--- NOTE | 2019-01-14 13:58 | PN ---
PROGRESS NOTE DATE OF SERVICE: 01/14/2019 REASON FOR FOLLOWUP: Bilateral groin area rash/herpetic with cellulitis. INTERVAL HISTORY: The patient is afebrile. Overall, the patient is feeling better. The rash to the pelvic area has decreased in intensity. Mild itching. No drainage. Denies having any chest pain, shortness of breath, cough, no abdominal pain. Has slight diarrhea from the antibiotic the patient is on. PHYSICAL EXAMINATION: Blood pressure 122/81 with a pulse of 100, temperature 98.2. She is 98% on room air. General description is a middle-aged female, up in the bed in no distress. RESPIRATORY SYSTEM: Unlabored breathing, clear to auscultation anteriorly. HEART: S1, S2. Regular rate and rhythm. ABDOMEN: Soft, no tenderness. The pelvic area rash has decreased in intensity. No new rash was noted. The redness has decreased, no drainage. LABS: Hemoglobin 8.8, white count of 4.8 with a BUN of 5, creatinine 0.58. DIAGNOSTIC IMPRESSION AND PLAN: Patient with bilateral groin rash with concern for possible herpetic. This patient was immunocompromised compromised with secondary active cellulitis. Patient has shown clinical improvement. She will be switched over to Valtrex 1 g twice a day for another 7-10 days along with oral Keflex and nystatin powder to the groin area. All questions of concern were answered. Prescription was sent to the pharmacy. MAYRA / CONRADO: [id number] /
--- NOTE | 2019-01-14 14:09 | P.DS ---
Providers Date of admission: 01/11/19 23:41 Expected date of discharge: 01/14/19 Attending physician: Mary Jo Coffey MD Consults: 01/11/19 23:24 Consult Physician Routine Consulting Provider: Tani Malcolm Consult Reason/Comments: Neutropenic fever Do you want consulting provider notified?: Yes 01/12/19 03:40 Consult Physician Urgent Consulting Provider: Yayo Nguyễn Consult Reason/Comments: Neutropenic sepsis Do you want consulting provider notified?: Yes Primary care physician: Bo Gross - Discharge Diagnosis(es) (1) Sepsis Current Visit: Yes Status: Acute (2) Herpes genitalis Current Visit: Yes Status: Acute (3) Hypokalemia Current Visit: Yes Status: Acute (4) Neutropenic fever Current Visit: Yes Status: Acute Priority: High (5) Leukopenia Current Visit: Yes Status: Acute (6) Cellulitis of groin Current Visit: Yes Status: Acute Hospital Course: The patient is a 53-year-old female is admitted with sepsis with neutropenic fever secondary to an acute herpes genitalia flare with subsequent inguinal cellulitis after she presented with found fevers and a WBC count of 0.5. Blood and urine cultures are negative, influenza was negative. The patient was started on empiric IV antibiotic treatment with vancomycin and cefepime in addition to nystatin and Diflucan. Infectious disease Dr. Nguyễn was consulted and IV acyclovir was added to the patient's regimen. Oncology added Neulasta treatment this resolved her neutropenia. The patient was noted to be mildly hypokalemic, this was replaced orally. The patient is also going to have a relatively stable hemoglobin around 9 g without any indication for transfusion. With treatment the patient's symptoms gradually resolved she became afebrile and her white count normalized. She was subsequently discharged home in stable condition and instructed to follow-up with heme oncology. This discharge process took approximately 35 minutes. Focused exam Derm: Pelvic and inguinal rash with resolving, with a few scattered vesicles, without any significant drainage. Patient Condition at Discharge: Good Plan - Discharge Summary New Discharge Prescriptions: New Cephalexin [Keflex] 500 mg PO Q8HR #15 cap Nystatin 100,000 Unit/gm Powd [Mycostatin Powder] 1 applic TOPICAL BID #90 gm valACYclovir HCL [Valtrex] 1,000 mg PO Q12HR #20 tab Continue Buprenorphine HCl/Naloxone HCl [Suboxone 8 mg-2 mg Sl Film] 1 film SL BID Buprenorphine HCl [Belbuca] 150 mcg PO Q12H Cariprazine HCl [Vraylar] 1.5 mg PO BID valACYclovir [Valtrex] 500 mg PO BID Inulin/Chromium Picolinate [Fiber Gummies Chew] 1 tab PO DAILY Multivitamin [Multivitamins Adult Gummies] 1 tab PO DAILY Calcium Carbonate [Calcium] 600 mg PO DAILY Biotin 5,000 mcg PO DAILY LORazepam [Ativan] 1 mg PO HS Discharge Medication List Buprenorphine HCl/Naloxone HCl [Suboxone 8 mg-2 mg Sl Film] 1 film SL BID [History] Buprenorphine HCl [Belbuca] 150 mcg PO Q12H 11/07/18 [History] Cariprazine HCl [Vraylar] 1.5 mg PO BID 11/07/18 [History] Biotin 5,000 mcg PO DAILY 11/11/18 [History] Calcium Carbonate [Calcium] 600 mg PO DAILY 11/11/18 [History] Inulin/Chromium Picolinate [Fiber Gummies Chew] 1 tab PO DAILY 11/11/18 [History ] Multivitamin [Multivitamins Adult Gummies] 1 tab PO DAILY 11/11/18 [History] valACYclovir [Valtrex] 500 mg PO BID 11/11/18 [History] LORazepam [Ativan] 1 mg PO HS 01/09/19 [History] Cephalexin [Keflex] 500 mg PO Q8HR #15 cap 01/14/19 [Rx] Nystatin 100,000 Unit/gm Powd [Mycostatin Powder] 1 applic TOPICAL BID #90 gm [Rx] valACYclovir HCL [Valtrex] 1,000 mg PO Q12HR #20 tab 01/14/19 [Rx] Follow up Appointment(s)/Referral(s): Bo Najera DO [Primary Care Provider] - 1-2 days Yayo Nguyễn MD [STAFF PHYSICIAN] - 1 Week Discharge Disposition: HOME SELF-CARE
--- NOTE | 2019-01-14 19:00 | P.PN ---
Subjective Progress Note Date: 01/14/19 the patient continues to improve and feels better today compared to yesterday. She denies any significant pain. No fever/chills/mouth sores. Bowel movements are still frequent but less so. They are mostly formed. No shortness of breath. She reports improvement in appetite. No obvious bleeding Objective - Vital Signs Vital signs: Vital Signs Temp 98.2 F 01/14/19 11:00 Pulse 100 01/14/19 11:00 Resp 16 01/14/19 11:00 BP 122/81 01/14/19 11:00 Pulse Ox 98 01/14/19 11:00 Intake & Output 01/13/19 01/14/19 01/14/19 18:59 06:59 18:59 Intake Total 350 2050 Balance 350 205 Weight 87.09 kg Intake: Intake, IV Titration 350 350 Amount Acyclovir Sodium 800 mg 250 250 In Sodium Chloride 0.9% 250 ml @ 100 mls/hr IV Q8HR [facility] Rx#:[id number] Cefepime 2 gm In Sodium 100 100 Chloride 0.9% 100 ml @ 200 mls/hr IVPB Q8H [facility] Rx#:[id number] Oral 1700 Other: Voiding Method Toilet Toilet # Voids 2 - Constitutional General appearance: Present: no acute distress - EENT Eyes: Present: EOMI ENT: Present: hearing grossly normal - Respiratory Respiratory: bilateral: CTA - Cardiovascular Rhythm: regular Heart sounds: normal: S1, S2 - Gastrointestinal General gastrointestinal: Present: normal bowel sounds (O), soft (rather the issue issue) - Integumentary Integumentary: Present: normal - Neurologic Neurologic: Present: CNII-XII intact - Musculoskeletal Musculoskeletal: Present: generalized weakness, strength equal bilaterally - Psychiatric Psychiatric: Present: A&O x's 3, appropriate affect - Labs CBC & Chem 7: 01/14/19 08:17 01/14/19 08:17 Labs: Abnormal Lab Results - Last 24 Hours (Table) 01/14/19 01/14/19 Range/Units 08:17 08:17 RBC 3.15 L (3.80-5.40) m/uL Hgb 8.9 L (11.4-16.0) gm/dL Hct 26.3 L (34.0-46.0) % RDW 16.1 H (11.5-15.5) % Plt Count 83 L (150-450) k/uL Potassium 3.3 L (3.5-5.1) mmol/L Chloride 114 H (98-107) mmol/L Carbon Dioxide 21 L (22-30) mmol/L BUN 5 L (7-17) mg/dL Glucose 102 H (74-99) mg/dL Microbiology - Last 24 Hours (Table) 01/11/19 21:45 Blood Culture - Preliminary Blood No Growth after 48 hours 01/11/19 21:45 Urine Culture - Final Urine,Clean Catch Assessment and Plan (1) Neutropenic fever Narrative/Plan: fever has resolved. the patient had fairly prolonged neutropenia, beyond 10 days. She therefore required additional growth factors after Neulasta. WBC had improved to 1.5 yesterday. Labs from today were pending at the time of examination of the patient, but are anticipated to show further improvement. Cultures are negative. - If WBC is satisfactory, the patient can be discharged on oral antibiotics. Deferred to ID regarding choice of by mouth antibiotics Status: Acute Priority: High Code(s): D70.9 - NEUTROPENIA, UNSPECIFIED; R50.81 - FEVER PRESENTING WITH CONDITIONS CLASSIFIED ELSEWHERE SNOMED Code(s) : 129924527 (2) Breast cancer Narrative/Plan: the patient has a follow-up in the office later this week. She will be evaluated for resumption of chemotherapy at that time Status: Acute Priority: High Code(s): C50.919 - MALIGNANT NEOPLASM OF UNSP SITE OF UNSPECIFIED FEMALE BREAST SNOMED Code(s): 609748422 (3) Herpes genitalis Narrative/Plan: the patient is currently on Valtrex. Deferred to ID for anti-viral recommendations Status: Acute Code(s): A60.00 - HERPESVIRAL INFECTION OF UROGENITAL SYSTEM, UNSPECIFIED SNOMED Code(s): 99541349
== END 2019-01-14 15:00 | disposition home or self-care (01) | DRG 871 ==
LOC: EC 21:12 → 3NMEDONC 23:41
PROVIDERS: ADMIT Internal Medicine; ATTEND Internal Medicine
DX: B00.7 Disseminated herpesviral disease (principal); D61.810 Antineoplastic chemotherapy induced pancytopenia; E87.2 Acidosis; L03.314 Cellulitis of groin; D70.1 Agranulocytosis secondary to cancer chemotherapy; D70.3 Neutropenia due to infection; C50.911 Malignant neoplasm of unspecified site of right female breast; A60.00 Herpesviral infection of urogenital system, unspecified; D63.8 Anemia in other chronic diseases classified elsewhere; E87.6 Hypokalemia; F32.9 Major depressive disorder, single episode, unspecified; F41.9 Anxiety disorder, unspecified; K21.9 Gastro-esophageal reflux disease without esophagitis; T45.1X5A Adverse effect of antineoplastic and immunosuppressive drugs, initial encounter; R19.7 Diarrhea, unspecified; T50.995A Adverse effect of other drugs, medicaments and biological substances, initial encounter; B37.2 Candidiasis of skin and nail; Z17.0 Estrogen receptor positive status [ER+]; Z79.899 Other long term (current) drug therapy; Z88.1 Allergy status to other antibiotic agents; Z88.0 Allergy status to penicillin; Z90.49 Acquired absence of other specified parts of digestive tract; Z80.0 Family history of malignant neoplasm of digestive organs; Z80.1 Family history of malignant neoplasm of trachea, bronchus and lung; Z82.49 Family history of ischemic heart disease and other diseases of the circulatory system; Z83.3 Family history of diabetes mellitus; Z83.79 Family history of other diseases of the digestive system; Z84.1 Family history of disorders of kidney and ureter
CPT/HCPCS: 36415; 71046; 80048; 80053; 81003; 83605; 85025; 85027; 86695; 86696; 87040; 87086; 87502; 93005; 96365; 96366; 96367; 96368; 96375; 99291

== ENCOUNTER → 2019-01-16 | Outpatient (CLI) | payer OTHER ==
[2019-01-16 10:13] VITALS: BP 132/86; PULSE 85; RESP 18; TEMP 98.1; BMI 34.0
--- NOTE | 2019-01-16 10:25 | P.PN ---
Subjective Progress Note Date: 01/16/19 Principal diagnosis: Right breast cancer Andreea is a 53-year-old white female who underwent an ultrasound-guided core biopsy of 2 areas of concern in the right breast at 10:00 as well as a lymph node in the right axilla. The right breast site was positive for invasive carcinoma as well as positive disease in the lymph node. The size of the tumor was judged to be between 3-4 cm. She was seen by medical oncology and has now undergone 2 courses of chemotherapy with the last being done approximately 2 weeks ago. The patient was seen last week in the office and was given cream for fungal infection beneath her right breast. She states that area has improved, however she began having a fever on Sunday and was seen in the emergency room. She was told her immune system was very low and she was hospitalized and treated with IV antibiotics. The patient states that when she was seen she also had a yeast infection in her genital area as well as the fungal infection for which she had been taking nystatin. Additionally she was recently treated for herpes with Valtrex. She states that they did not know with certainty the source of the infection however it was felt that secondary to her low immune system she was tolerable for infection. The patient was in the hospital for approximately 4 days. At this time she is feeling well. She is presently on Keflex. They also increased her dose of Valtrex. She was seen by infectious disease while in the hospital. The patient does have a Mediport in place and on her last visit there was some concern that blood cannot be drawn from her but it was able to be flushed. The patient states nothing is changed with respect to the Mediport. We did use the Mediport which she was hospitalized recently. The patient's initial tumor was approximately 4 cm. The patient did have an MRI of the breast on 1718 in which it was felt that the AP dimension of the lesion was up to 7.4 cm. She does have positive zi disease. She has no evidence of metastatic disease. The stage is a T2/T3, N1, M0, ER positive, [place] negative, HER-2 positive, grade 2 lesion. She continues to take chemotherapy and has another session scheduled for January 23. No evidence of metastatic disease on PET/CT performed 11-30-18. Objective - Vital Signs Vital signs: BP 132/86 HR; 85 temp 98.1 O2 97% BMI 34.5 - Constitutional General appearance: Present: obese - EENT Eyes: Present: EOMI ENT: Present: hearing grossly normal - Neck Neck: Present: normal ROM - Respiratory Respiratory: bilateral: CTA - Cardiovascular Rhythm: regular Heart sounds: normal: S1, S2 - Gastrointestinal General gastrointestinal: Present: soft - Musculoskeletal Musculoskeletal: Present: gait normal - Psychiatric Psychiatric: Present: A&O x's 3, appropriate affect, intact judgment & insight - Additional findings Additional findings: Breast examination: Right breast: Multiple positional exam reveals again an area of increased firmness in the upper quadrant region with nipple remaining retracted Right axilla: Shoddy adenopathy no discrete adenopathy of concern Under the right breast the area which was 12 x 8 cm and felt to be a fungal infection has completely resolved {: Multiple positional exam no dominant masses or nodules of concern Left axilla: No adenopathy of concern Assessment and Plan Assessment: Impression: 1. Patient status post 2 courses of chemotherapy with good response in the right breast, next course is scheduled for next week 2. 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 Resolved fungal infection under right breast 4. Recent hospital admission for sepsis resolved 5. Bipolar disorder 6. Elevated BMI Plan: 1. Resolved sepsis, resolved fungal infection under right breast 2. Continue chemotherapy for 6 sessions total prior to surgical intervention 3. Medical management of medical conditions 4. Follow-up Dr. Obrien 6 weeks Cc: Dr. Najera ([facility]
== END | disposition home or self-care (01) ==
LOC: WWCWWP 09:40
PROVIDERS: ATTEND Surgery
DX: Z53.9 Procedure and treatment not carried out, unspecified reason (principal)

== ENCOUNTER → 2019-02-13 | Outpatient (CLI) | payer OTHER ==
--- NOTE | 2019-02-14 18:52 | ECHOF ---
Referral Reason:Z01.818, Encounter for other preprocedural C50.411 MEASUREMENTS -------- HEIGHT: 160.0 cm WEIGHT: 86.2 kg BP: RVIDd: 2.3 cm (< 3.3) IVSd: 1.1 cm (0.6 - 1.1) LVIDd: 4.0 cm (3.9 - 5.3) LVPWd: 1.0 cm (0.6 - 1.1) IVSs: 1.1 cm LVIDs: 2.8 cm LVPWs: 1.3 cm LAESV Index (A-L): 26.38 ml/m Ao Diam: 2.9 cm (2.0 - 3.7) AV Cusp: 1.8 cm (1.5 - 2.6) LA Diam: 2.7 cm (2.7 - 3.8) MV E Juan Francisco: 0.85 m/s MV DecT: 246 ms MV A Juan Francisco: 0.79 m/s MV E/A Ratio: 1.08 RAP: 5.00 mmHg RVSP: 32.54 mmHg FINDINGS -------- Sinus rhythm. This was a technically good study. The left ventricular size is normal. Left ventricular wall thickness is normal. Overall left vent ricular systolic function is normal with, an EF between 55 - 60 %. The right ventricle is normal in size and function. Normal LA size by volume 22+/-6 ml/m2. The right atrium is normal in size. Aortic valve is trileaflet and is mildly thickened. There is mild aortic valve sclerosis. There i s no evidence of aortic regurgitation. The mitral valve leaflets are mildly thickened. Mild mitral regurgitation is present. Mild tricuspid regurgitation present. Right ventricular systolic pressure is normal at < 35 mmHg. There is no evidence of pulmonary hypertension. Trace/mild (physiologic) pulmonic regurgitation. The aortic root size is normal. Normal inferior vena cava with normal inspiratory collapse consistent with estimated right atrial pre ssure of 5 mmHg. There is no pericardial effusion. CONCLUSIONS -------- 1. Sinus rhythm. 2. This was a technically good study. 3. The left ventricular size is normal. 4. Left ventricular wall thickness is normal. 5. Overall left ventricular systolic function is normal with, an EF between 55 - 60 %. 6. Normal LA size by volume 22+/-6 ml/m2. 7. Aortic valve is trileaflet and is mildly thickened. 8. The mitral valve leaflets are mildly thickened. 9. Mild mitral regurgitation is present. 10. Mild tricuspid regurgitation present. 11. Right ventricular systolic pressure is normal at < 35 mmHg. 12. There is no evidence of pulmonary hypertension. 13. Trace/mild (physiologic) pulmonic regurgitation. 14. The aortic root size is normal. 15. There is no pericardial effusion. TOUR MANAGER: Daniel Bejarano RDCS
== END | disposition home or self-care (01) ==
LOC: RADECHMAIN 13:08
PROVIDERS: ATTEND Internal Medicine Hematology & Oncology
DX: Z01.818 Encounter for other preprocedural examination (principal); I08.3 Combined rheumatic disorders of mitral, aortic and tricuspid valves; C50.411 Malignant neoplasm of upper-outer quadrant of right female breast; Z88.0 Allergy status to penicillin; Z88.1 Allergy status to other antibiotic agents
CPT/HCPCS: 93306

== ENCOUNTER 2019-03-13 08:59 | Inpatient (IN) | payer OTHER ==
[2019-03-13] MEDS ORDERED: VANCOMYCIN IV PER PHARMACY 1 EACH MISC MISCELLANE PRN (10:49)
[2019-03-13] MEDS ORDERED: VANCOMYCIN 1,500 MG in SODIUM CHLORIDE 0.9% 250 ML IVPB STA (10:49)
[2019-03-13 11:30] VITALS: BMI 34.9
[2019-03-13 11:53] LABS: Anisocytosis Moderate; HCT 27.2 % (34.0-46.0); HGB 9.3 gm/dL (11.4-16.0); MCH 33.2 pg (25.0-35.0); MCHC 34.3 g/dL (31.0-37.0); Macrocytosis Slight; Mean Platelet Volume 8.4; RBC 2.81 m/uL (3.80-5.40); RDW 21.2 % (11.5-15.5)
[2019-03-13 11:58] LABS: Partial Thromboplastin Time 27.7 sec (22.0-30.0); Prothrombin Time 11.1 sec (9.0-12.0)
[2019-03-13 11:59] LABS: ALT 56 U/L (9-52); AST 33 U/L (14-36); Albumin 3.1 g/dL (3.5-5.0); Alkaline Phosphatase 55 U/L (38-126); Anion Gap 7 mmol/L; Blood Urea Nitrogen 13 mg/dL (7-17); Calcium 8.8 mg/dL (8.4-10.2); Carbon Dioxide 25 mmol/L (22-30); Chloride 101 mmol/L (98-107); Glucose 94 mg/dL (74-99); Potassium 3.9 mmol/L (3.5-5.1); Sodium 133 mmol/L (137-145); Total Bilirubin 0.9 mg/dL (0.2-1.3); Total Protein 5.4 g/dL (6.3-8.2)
[2019-03-13 12:03] LABS: MCV 96.9 fL (80.0-100.0)
[2019-03-13 12:06] LABS: WBC 1.1 k/uL (3.8-10.6)
[2019-03-13] MEDS ORDERED: SODIUM CHLORIDE 0.9% 1,000 ML IV ONE (12:42)
--- NOTE | 2019-03-13 12:53 | P.PN ---
Progress Note - Text Progress Note Date: 03/13/19 03/13/19-Pt presented to Oncologist office for post chemo f/u, she has completed 5 cycles of TCHP with GCSF, she is tired, feels weak, feels flushed, no other symptoms other then having a hard time urinating, she denied dysuria, hematuria, fever at home, no chills, mild sore throat, not persistent, no cough, chest pain, palpitations (HR 140's), abd pain, diarrhea, constipation or pain, denied suspect exacerbation of HSV. Vital signs show a heart rate of 166, blood pressure of 102/62, temperature 100.2 Fahrenheit. patient had a hemoglobin of 9.5, platelet count of 130,000, white blood cell count of 1, ANC 452. Contacted hospitalist for direct admit for febrile neutropenia. Malignancy History: Pt presented with an enlarging palpable abnormality which she stated initially felt in 2015. Screening mammogram on 10/05/2017 was negative. She noted slow growth over the year without skin changes or tenderness, history of R nipple inversion since a teenage. Diagnostic mammogram on 11/06/2018 still could not identify an abnormality but, diagnostic US revealed 2.1 X 3.0 X 3.2 cm irregular hypoechoic lesion at 10 O'clock. Core biopsies of palpable lesion and R axillary LN identified by US, not clinically palpable, both revealed grade II invasive ductal carcinoma with lobular featur es, ER 90-100%, Clv9Lcg 3+ by IHC. She was started on She started adjuvant treatment 12/12. In Dec she was admitted to [facility] with neutropenic fever, thought to represent viral HSV2 with local cellulitis and infection, she was treated and followed by Dr Nguyễn. Done well until today. Case discussed with accepting, admitting Physician. Pt direct admitted, pancultures ordered, empiric abx. Oncology will see pt in AM
[2019-03-13 13:27] LABS: Appearance,Urine Clear (Clear); Bilirubin,Urine Negative (Negative); Blood,Urine Trace (Negative); Color,Urine Yellow; Glucose,Urine (UA) Negative (Negative); Ketones,Urine Negative (Negative); Leukocyte Esterase,Urine Moderate (Negative); Nitrite,Urine Negative (Negative); Protein,Urine Negative (Negative); RBC,Urine 2 /hpf (0-5); Specific Gravity,Urine 1.006 (1.001-1.035); Urobilinogen,Urine <2.0 mg/dL (<2.0); WBC,Urine 17 /hpf (0-5)
[2019-03-13 14:00] LABS: Band Neutrophils % 2 %; Lymphocytes # (M) 0.35 k/uL (1.0-4.8); Neutrophils % (M) 29 %
[2019-03-13] MEDS ORDERED: LEVOFLOXACIN 750MG-D5W PMX 750 MG in DEXTROSE/WATER 1 150ML.BAG IVPB SCH (14:00)
[2019-03-13 14:01] LABS: Metamyelocytes # (M) 0.01 k/uL (0); Metamyelocytes % 1 %; Nucleated Red Blood Cells 0 /100 WBC (0-0); Total Cells Counted 100
[2019-03-13 14:02] LABS: Platelet Count 100 k/uL (150-450); Poikilocytosis (M) Present
[2019-03-13] MEDS: SODIUM CHLORIDE 0.9% 1,000 ML IV SCH (14:02)
--- NOTE | 2019-03-13 14:45 | P.HPIM ---
History of Present Illness Chief Complaint: Fever This very pleasant 52-year-old female with a history of breast cancer on chemotherapy he's been sent in as a direct admit for neutropenic fever. The patient said that she's been having fevers for the past few days and she was seen by hematology oncology office today and was sent in to put her on hospital as a direct admit for further evaluation and management of neutropenic fever. The patient says that she was recently admitted in December 2018 for neutropenic fever which was thought to be due to acute genital herpes and subsequent inguinal cellulitis. She says that since that time she's been on Valtrex and she has no more flareups. She otherwise does not complain of any chest pain or racing heart, no cough no shortness of breath, she says that she's having some mild discomfort in her belly but no pain per she had one episode of diarrhea yesterday but not anymore. She does not complain of any tingling numbness on in the extremities, any itch or rash. She says that she's not having any rashes due to genital herpes anymore as she is on Valtrex. Patient had workup done earlier in the day which showed WBC 1.1 hemoglobin 9.3 platelets 100 sodium 1:30 potassium 3.9 bun 13 creatinine 0.67 UA showed 17 WBCs and 2 RBCs. Initially the patient's heart rate was on 41 and has come down to 102 temperature right now is 99.1 she's satting 98% on room air blood pressure is 91/63. Review of Systems All systems: negative Past Medical History Past Medical History: Cancer, Vascular Disorder Additional Past Medical History / Comment(s): over 12 years ago quit using cocaine and prescription opioids. breast cancer right oct 2018, chemo last on march 06, genital herpes 2009, right breast rash, breat cancer 10/2018 currently on chemo, one session left. History of Any Multi-Drug Resistant Organisms: None Reported Past Surgical History: Cholecystectomy, Tonsillectomy Additional Past Surgical History / Comment(s): gastric sleeve, R breast bx. right subclavian mediport. plan for lumpectomy or mastectomy pending chemo results Past Anesthesia/Blood Transfusion Reactions: No Reported Reaction Past Psychological History: Anxiety, Depression Smoking Status: Never smoker Past Alcohol Use History: None Reported Past Drug Use History: Cocaine, Prescription Drug Abuse Additional Drug Use History / Comment(s): 10 years without use. - Past Family History Mother Family Medical History: Diabetes Mellitus, Hypertension Additional Family Medical History / Comment(s): heart disease Father Family Medical History: Cancer Additional Family Medical History / Comment(s): lung CA, cirrosis, kidney disease Medications and Allergies Home Medications Medication Instructions Recorded Confirmed Type Biotin 5,000 mcg PO DAILY 11/11/18 03/13/19 History Calcium Carbonate [Calcium] 600 mg PO QAM 11/11/18 03/13/19 History Inulin/Chromium Picolinate [Fiber 1 tab PO QAM 11/11/18 03/13/19 History Gummies Chew] Multivitamin [Multivitamins Adult 1 tab PO QAM 11/11/18 03/13/19 History Gummies] LORazepam [Ativan] 1 mg PO HS 01/09/19 03/13/19 History valACYclovir HCL [Valtrex] 1,000 mg PO BID 01/16/19 03/13/19 History Acetaminophen Tab [Tylenol] 1,000 mg PO Q6H 03/13/19 03/13/19 History Buprenorphine HCl/Naloxone HCl 0.25 film SL SUTUTHSA@1600 03/13/19 03/13/19 History [Suboxone 8 mg-2 mg Sl Film] Buprenorphine HCl/Naloxone HCl 0.5 film SL MOWEFR@1600 03/13/19 03/13/19 History [Suboxone 8 mg-2 mg Sl Film] Buprenorphine HCl/Naloxone HCl 1 tab PO DAILY 03/13/19 03/13/19 History [Suboxone 8 mg-2 mg Sl Film] Cariprazine HCl [Vraylar] 3 mg PO HS 03/13/19 03/13/19 History Ergocalciferol [Vitamin D2 50,000 unit PO Q7D 03/13/19 03/13/19 History (DRISDOL)] Fluconazole [Diflucan] 100 mg PO DAILY 03/13/19 03/13/19 History Ofloxacin 0.3% Ophth Soln [Ocuflox 1 drop BOTH EYES DAILY 03/13/19 03/13/19 History Ophth Soln] Omeprazole [PriLOSEC] 20 mg PO BID 03/13/19 03/13/19 History buPROPion HCL [Wellbutrin SR] 150 mg PO DAILY 03/13/19 03/13/19 History Allergies Allergy/AdvReac Type Severity Reaction Status Date / Time amoxicillin [From Augmentin] Allergy Rash/Hives Verified 01/11/19 22:55 clavulanic acid Allergy Rash/Hives Verified 01/11/19 22:55 [From Augmentin] Tetracyclines Allergy Rash/Hives Verified 01/11/19 22:55 Physical Exam Vitals: Vital Signs Temp Pulse Resp BP Pulse Ox 03/13/19 14:26 99.1 F 102 H 16 91/63 98 03/13/19 10:15 99.4 F 140 H 14 105/73 99 Intake and Output 03/12/19 03/13/19 03/13/19 22:59 06:59 14:59 Intake Total 236 Output Total 200 Balance 36 Intake: Oral 236 Output: Urine 200 Other: Weight 89.5 kg On exam, alert and oriented x3. HEENT: Conjunctivae normal. eyes normal. NECK: No JVD. No thyroid enlargement. No LNs CARDIOVASCULAR: S1-S2 positive. She has a port placed in the right side of the chest there is no tenderness and no surrounding erythema at this moment. RESPIRATION: Breath sounds heard equally both sides, no rhonchi rales or wheezing. ABDOMEN: Soft, nontender . No guarding. no masses palpable. No ascites, No hepatosplenomegaly.Bowel sounds heard. LEGS: No edema. no swelling NERVOUS SYSTEM: Cranial N 2-12 grossly normal. Moves all 4 limbs. No focal deficits. No sensory deficit. No signs of cerebellar dysfucntion. Skin: no ulcer no rash Results CBC & Chem 7: 03/13/19 11:17 03/13/19 11:17 Labs: Abnormal Lab Results - Last 24 Hours (Table) 03/13/19 03/13/19 03/13/19 Range/Units 11:17 11:17 12:30 WBC 1.1 L* (3.8-10.6) k/uL RBC 2.81 L (3.80-5.40) m/uL Hgb 9.3 L (11.4-16.0) gm/dL Hct 27.2 L (34.0-46.0) % RDW 21.2 H (11.5-15.5) % Plt Count 100 L (150-450) k/uL Neutrophils # (Manual) 0.30 L* (1.3-7.7) k/uL Lymphocytes # (Manual) 0.35 L (1.0-4.8) k/uL Metamyelocytes # (Man) 0.01 H (0) k/uL Sodium 133 L (137-145) mmol/L ALT 56 H (9-52) U/L Total Protein 5.4 L (6.3-8.2) g/dL Albumin 3.1 L (3.5-5.0) g/dL Urine Blood Trace H (Negative) Ur Leukocyte Esterase Moderate H (Negative) Urine WBC 17 H (0-5) /hpf Thrombosis Risk Factor Assmnt - Choose All That Apply Each Factor Represents 1 point: Age 41-60 years Thrombosis Risk Factor Assessment Total Risk Factor Score: 1 Thrombosis Risk Factor Assessment Level: Low Risk Assessment and Plan Assessment: - Febrile neutropenia - Sepsis with source unknown at this time - History of patient admission for febrile neutropenia in fact 2018 which was thought to be due to a genital herpes with subsequent cellulitis in the genital area - History of stage II breast cancer on chemotherapy Plan - We'll admit the patient to [facility] with telemetry - We will give her 1 L of IV fluid bolus and started on 1 25 mL an hour of m aintenance fluid - Patient was initially very tachycardic with a heart rate 140s. Her heart rate right now is in 100s which is improving. If the heart rate doesn't improve or it was back again patient will need further workup for the cause of tachycardia. - We will also order for lactic acid, for calcitonin and CRP levels. Blood cultures have already been ordered. Chest x-ray is been ordered and - We'll continue Vanco and add cefepime - We'll continue the Diflucan and Valtrex patient is on - We'll continue rest of home medications - We'll consult infectious disease - DVT and GI prophylaxis - We'll order for lab work in the morning - Expected length of stay more than 2 midnights - Patient is full code Time with Patient: Greater than 30
--- NOTE | 2019-03-13 15:07 | XR ---
EXAMINATION TYPE: XR chest 2V DATE OF EXAM: 03/13/2019 COMPARISON: 01/11/2019 TECHNIQUE: PA and lateral views submitted. HISTORY: Fever FINDINGS: The lungs are clear and there is no pneumothorax, pleural effusion, or focal pneumonia. Mediport ca theter seen with the tip at the SVC. There are surgical clips in the abdomen. No overt failure. Tiny 2 mm nodule right upper lobe not excluded. IMPRESSION: 1. No acute process. Cannot exclude a tiny 2 mm upper lobe pulmonary nodule. No definite focal pneumo billy.
[2019-03-13] MEDS: PANTOPRAZOLE 40 MG TABLET PO SCH (16:29)
[2019-03-13] MEDS: CEFEPIME 2 GM in SODIUM CHLORIDE 0.9% 100 ML IVPB SCH (16:29)
[2019-03-13] MEDS ORDERED: CARIPRAZINE HCL 3 MG PO SCH (21:00)
[2019-03-13] MEDS: valACYclovir HCL 1,000 MG TABLET PO SCH (21:26)
[2019-03-13] MEDS: LORazepam 1 MG TAB PO SCH (21:26)
[2019-03-13] MEDS: VANCOMYCIN 1,500 MG in SODIUM CHLORIDE 0.9% 250 ML IVPB SCH (21:29)
[2019-03-13] MEDS: HEPARIN SODIUM,PORCINE 5,000 UNIT/ML 1 ML VIAL SQ SCH (21:32)
--- NOTE | 2019-03-13 23:11 | P.CONS ---
History of Present Illness - Reason for Consult Consult date: 03/13/19 Febrile neutropenia Requesting physician: Toi Perez - Chief Complaint Fever and generalized weakness - History of Present Illness Patient is 53-year-old female with a past medical history significant for breast cancer currently on chemotherapy patient did receive her last chemo on Sunday of last week, presented to her oncologist's office today with generalized weakness and no energy difficulty urination slight burning and minimal suprapubic discomfort denies having any flank pain and some nausea but no vomiting denies having any chest pain shortness of breath or cough. The patient did have fever 102F and she was also tachycardic with associated sy mptom of palpitation patient has been admitted directly to the hospital she did have a white count of 1.1 with 29% neutrophils 2% bands patient did have positive UA and a chest x-ray reported negative for any acute infiltrate patient did have right chest wall MediPort currently denies having symptom of any pain swelling redness to the Mediport site and no difficulty drawing blood or infusing medication, patient did have previous history of recurrent genital herpes however currently denies having active genital lesions or any vaginal drainage patient has been admitted to the hospital directly infectious disease was consulted for further recommendation regarding antibiotic therapy Review of Systems CONSTITUTIONAL: Positive for weakness. Fever EYES: No complaint. ENT:No complaint. RESPIRATORY: No complaint. CARDIOVASCULAR: No complaint. GENITOURINARY: As per history of present illness GASTROINTESTINAL: No complaint. MUSCULOSKELETAL: No complaint. INTEGUMENTARY: As per history of present illness PSYCHOLOGICAL: No complaint. ENDOCRINE: No complaint. NEUROLOGIC: No complaint. Past Medical History Past Medical History: Cancer, Vascular Disorder Additional Past Medical History / Comment(s): over 12 years ago quit using cocaine and prescription opioids. breast cancer right oct 2018, chemo last on march 06, genital herpes 2009, right breast rash, breat cancer 10/2018 currently on chemo, one session left. History of Any Multi-Drug Resistant Organisms: None Reported Past Surgical History: Cholecystectomy, Tonsillectomy Additional Past Surgical History / Comment(s): gastric sleeve, R breast bx. right subclavian mediport. plan for lumpectomy or mastectomy pending chemo results Past Anesthesia/Blood Transfusion Reactions: No Reported Reaction Past Psychological History: Anxiety, Depression Smoking Status: Never smoker Past Alcohol Use History: None Reported Past Drug Use History: Cocaine, Prescription Drug Abuse Additional Drug Use History / Comment(s): 10 years without use. - Past Family History Mother Family Medical History: Diabetes Mellitus, Hypertension Additional Family Medical History / Comment(s): heart disease Father Family Medical History: Cancer Additional Family Medical History / Comment(s): lung CA, cirrosis, kidney disease Medications and Allergies Home Medications Medication Instructions Recorded Confirmed Type Biotin 5,000 mcg PO DAILY 11/11/18 03/13/19 History Calcium Carbonate [Calcium] 600 mg PO QAM 11/11/18 03/13/19 History Inulin/Chromium Picolinate [Fiber 1 tab PO QAM 11/11/18 03/13/19 History Gummies Chew] Multivitamin [Multivitamins Adult 1 tab PO QAM 11/11/18 03/13/19 History Gummies] LORazepam [Ativan] 1 mg PO HS 01/09/19 03/13/19 History valACYclovir HCL [Valtrex] 1,000 mg PO BID 01/16/19 03/13/19 History Acetaminophen Tab [Tylenol] 1,000 mg PO Q6H 03/13/19 03/13/19 History Buprenorphine HCl/Naloxone HCl 0.25 film SL SUTUTHSA@1600 03/13/19 03/13/19 History [Suboxone 8 mg-2 mg Sl Film] Buprenorphine HCl/Naloxone HCl 0.5 film SL MOWEFR@1600 03/13/19 03/13/19 History [Suboxone 8 mg-2 mg Sl Film] Buprenorphine HCl/Naloxone HCl 1 tab PO DAILY 03/13/19 03/13/19 History [Suboxone 8 mg-2 mg Sl Film] Cariprazine HCl [Vraylar] 3 mg PO HS 03/13/19 03/13/19 History Ergocalciferol [Vitamin D2 50,000 unit PO Q7D 03/13/19 03/13/19 History (DRISDOL)] Fluconazole [Diflucan] 100 mg PO DAILY 03/13/19 03/13/19 History Ofloxacin 0.3% Ophth Soln [Ocuflox 1 drop BOTH EYES DAILY 03/13/19 03/13/19 History Ophth Soln] Omeprazole [PriLOSEC] 20 mg PO BID 03/13/19 03/13/19 History buPROPion HCL [Wellbutrin SR] 150 mg PO DAILY 03/13/19 03/13/19 History Allergies Allergy/AdvReac Type Severity Reaction Status Date / Time amoxicillin [From Augmentin] Allergy Rash/Hives Verified 01/11/19 22:55 clavulanic acid Allergy Rash/Hives Verified 01/11/19 22:55 [From Augmentin] Tetracyclines Allergy Rash/Hives Verified 01/11/19 22:55 Physical Exam Vitals: Vital Signs Temp Pulse Resp BP Pulse Ox 03/13/19 14:26 99.1 F 102 H 16 91/63 98 03/13/19 10:15 99.4 F 140 H 14 105/73 99 Intake and Output 03/13/19 03/13/19 03/13/19 06:59 14:59 22:59 Intake Total 236 Output Total 200 Balance 36 Intake: Oral 236 Output: Urine 200 Other: Weight 89.5 kg GENERAL DESCRIPTION: Middle-aged female lying in bed, no distress. No tachypnea or accessory muscle of respiration use. HEENT: Shows Pallor , no scleral icterus. Oral mucous membrane is dry. No pharyngeal erythema or thrush NECK: Trachea central, no thyromegaly. LUNGS: Unlabored breathing. Clear to auscultation anteriorly. No wheeze or crane mechanic ckle. HEART: S1, S2, regular rate and rhythm. No loud murmur ABDOMEN: Soft, no tenderness , guarding or rigidity, no organomegaly EXTREMITIES: No edema of feet. SKIN: No rash, no masses palpable. Minimal excoriation of the gluteal cleft but no redness NEUROLOGICAL: The patient is awake, alert, oriented x3, mood and affect normal. Results CBC & Chem 7: 03/13/19 11:17 03/13/19 11:17 Labs: Abnormal Lab Results - Last 24 Hours (Table) 03/13/19 03/13/19 03/13/19 Range/Units 11:17 11:17 12:30 WBC 1.1 L* (3.8-10.6) k/uL RBC 2.81 L (3.80-5.40) m/uL Hgb 9.3 L (11.4-16.0) gm/dL Hct 27.2 L (34.0-46.0) % RDW 21.2 H (11.5-15.5) % Plt Count 100 L (150-450) k/uL Neutrophils # (Manual) 0.30 L* (1.3-7.7) k/uL Lymphocytes # (Manual) 0.35 L (1.0-4.8) k/uL Metamyelocytes # (Man) 0.01 H (0) k/uL Sodium 133 L (137-145) mmol/L ALT 56 H (9-52) U/L C-Reactive Protein (<10.0) mg/L Total Protein 5.4 L (6.3-8.2) g/dL Albumin 3.1 L (3.5-5.0) g/dL Urine Blood Trace H (Negative) Ur Leukocyte Esterase Moderate H (Negative) Urine WBC 17 H (0-5) /hpf 03/13/19 Range/Units 15:19 WBC (3.8-10.6) k/uL RBC (3.80-5.40) m/uL Hgb (11.4-16.0) gm/dL Hct (34.0-46.0) % RDW (11.5-15.5) % Plt Count (150-450) k/uL Neutrophils # (Manual) (1.3-7.7) k/uL Lymphocytes # (Manual) (1.0-4.8) k/uL Metamyelocytes # (Man) (0) k/uL Sodium (137-145) mmol/L ALT (9-52) U/L C-Reactive Protein 139.1 H (<10.0) mg/L Total Protein (6.3-8.2) g/dL Albumin (3.5-5.0) g/dL Urine Blood (Negative) Ur Leukocyte Esterase (Negative) Urine WBC (0-5) /hpf Assessment and Plan Assessment: 1-patient being in the hospital with fever in this patient who is immunocompromised from receiving chemotherapy for her breast cancer this patient on admission white count was 1.1 with evidence of neutropenia absolute neutrophil count less than 500, patient to have urinary symptoms and a positive UA likely suggestive of gram-negative enteric infection, currently with no other active focus of infection in a patient with no respiratory symptoms chest x-ray was negative abdominal soft on clinical examination and no evidence of any cellulitis 2-patient with penicillin and tetracycline ALLERGY that would limit number of antibiotic that could be safe to use 3-cutaneous candidacies of the gluteal cleft area but no active cellulitis (1) Neutropenic fever Current Visit: No Status: Acute Priority: High Code(s): D70.9 - NEUTROPENIA, UNSPECIFIED; R50.81 - FEVER PRESENTING WITH CONDITIONS CLASSIFIED ELSEWHERE SNOMED Code(s): 464056529 Plan: 1-blood and urine culture has been ordered those will be followed 2-cefepime 2 g every 8 hours to cover for possible gram-negative enteric infection 3-nystatin powder to the gluteal cleft area twice a day 4-gentle IV fluid We will follow-up on her clinical condition and cultures to further adjust medication if needed Thank you for this consultation will follow this patient along with you
--- NOTE | 2019-03-13 23:37 | P.CONS ---
History of Present Illness - Reason for Consult Consult date: 03/13/19 Fever on Chemotherapy Requesting physician: Toi Preez - Chief Complaint Fever and Buttock Rash - History of Present Illness Ms. 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 Patholgical Stage II (T2, N1, M0). Primary Oncologist Dr. Escobar. She is status post cycle five of TCHP with Neulasta on 03/06/19 She started having fevers at home the past day which she stated were at greatest 101. She states she was constipated then turned to diarrhea. No Upper respiratory symptoms, throat is sore, although no thrush, cough or drainage. No SOB. No urinary difficulties. She has a known history of HSV and outbreats during chemotherapy and follows with Dr. Nguyễn as outpatient for this. She continues on Valtrex suppression throughout treatment. She has also had recurrent yeast infections and has been treated with diflucan PO, last approx 3 weeks ago. She states her buttock is painful, feels excoriated and sore. Some pruitis. I seen and evaluated patient at bedside along with Infectious disease. Yeast like rash on buttock folds, no raised rashes. Review of Systems A 14 point review of systems assessed and completed and all negative except HPI Past Medical History Past Medical History: Cancer, Vascular Disorder Additional Past Medical History / Comment(s): over 12 years ago quit using cocaine and prescription opioids. breast cancer right oct 2018, chemo last on march 06, genital herpes 2009, right breast rash, breat cancer 10/2018 currently on chemo, one session left. History of Any Multi-Drug Resistant Organisms: None Reported Past Surgical History: Cholecystectomy, Tonsillectomy Additional Past Surgical History / Comment(s): gastric sleeve, R breast bx. right subclavian mediport. plan for lumpectomy or mastectomy pending chemo resu lts Past Anesthesia/Blood Transfusion Reactions: No Reported Reaction Past Psychological History: Anxiety, Depression Smoking Status: Never smoker Past Alcohol Use History: None Reported Past Drug Use History: Cocaine, Prescription Drug Abuse Additional Drug Use History / Comment(s): 10 years without use. - Past Family History Mother Family Medical History: Diabetes Mellitus, Hypertension Additional Family Medical History / Comment(s): heart disease Father Family Medical History: Cancer Additional Family Medical History / Comment(s): lung CA, cirrosis, kidney disease Medications and Allergies Home Medications Medication Instructions Recorded Confirmed Type Biotin 5,000 mcg PO DAILY 11/11/18 03/13/19 History Calcium Carbonate [Calcium] 600 mg PO QAM 11/11/18 03/13/19 History Inulin/Chromium Picolinate [Fiber 1 tab PO QAM 11/11/18 03/13/19 History Gummies Chew] Multivitamin [Multivitamins Adult 1 tab PO QAM 11/11/18 03/13/19 History Gummies] LORazepam [Ativan] 1 mg PO HS 01/09/19 03/13/19 History valACYclovir HCL [Valtrex] 1,000 mg PO BID 01/16/19 03/13/19 History Acetaminophen Tab [Tylenol] 1,000 mg PO Q6H 03/13/19 03/13/19 History Buprenorphine HCl/Naloxone HCl 0.25 film SL SUTUTHSA@1600 03/13/19 03/13/19 History [Suboxone 8 mg-2 mg Sl Film] Buprenorphine HCl/Naloxone HCl 0.5 film SL MOWEFR@1600 03/13/19 03/13/19 History [Suboxone 8 mg-2 mg Sl Film] Buprenorphine HCl/Naloxone HCl 1 tab PO DAILY 03/13/19 03/13/19 History [Suboxone 8 mg-2 mg Sl Film] Cariprazine HCl [Vraylar] 3 mg PO HS 03/13/19 03/13/19 History Ergocalciferol [Vitamin D2 50,000 unit PO Q7D 03/13/19 03/13/19 History (DRISDOL)] Fluconazole [Diflucan] 100 mg PO DAILY 03/13/19 03/13/19 History Ofloxacin 0.3% Ophth Soln [Ocuflox 1 drop BOTH EYES DAILY 03/13/19 03/13/19 History Ophth Soln] Omeprazole [PriLOSEC] 20 mg PO BID 03/13/19 03/13/19 History buPROPion HCL [Wellbutrin SR] 150 mg PO DAILY 03/13/19 03/13/19 History Allergies Allergy/AdvReac Type Severity Reaction Status Date / Time amoxicillin [From Augmentin] Allergy Rash/Hives Verified 01/11/19 22:55 clavulanic acid Allergy Rash/Hives Verified 01/11/19 22:55 [From Augmentin] Tetracyclines Allergy Rash/Hives Verified 01/11/19 22:55 Physical Exam Vitals: Vital Signs Temp Pulse Resp BP Pulse Ox 03/13/19 14:26 99.1 F 102 H 16 91/63 98 03/13/19 10:15 99.4 F 140 H 14 105/73 99 Intake and Output 03/13/19 03/13/19 03/14/19 14:59 22:59 06:59 Intake Total 236 236 Output Total 200 Balance 36 236 Intake: Oral 236 236 Output: Urine 200 Other: Voiding Method Toilet Weight 89.5 kg Gen: Alert and in No acute distress Head NC,NT Mouth: Dry Neck Supple, no adenopathy Lungs CTA Bilater, no increased effort Heart Tachy, Reg Abdomen, Soft Non Distended non tender Ext: No edema buttock folds dryness, erythema, evidence of her scratching, and appear yeast- like, area has moisture Results CBC & Chem 7: 03/13/19 11:17 03/13/19 11:17 Labs: Abnormal Lab Results - Last 24 Hours (Table) 03/13/19 03/13/19 03/13/19 Range/Units 11:17 11:17 12:30 WBC 1.1 L* (3.8-10.6) k/uL RBC 2.81 L (3.80-5.40) m/uL Hgb 9.3 L (11.4-16.0) gm/dL Hct 27.2 L (34.0-46.0) % RDW 21.2 H (11.5-15.5) % Plt Count 100 L (150-450) k/uL Neutrophils # (Manual) 0.30 L* (1.3-7.7) k/uL Lymphocytes # (Manual) 0.35 L (1.0-4.8) k/uL Metamyelocytes # (Man) 0.01 H (0) k/uL Sodium 133 L (137-145) mmol/L ALT 56 H (9-52) U/L C-Reactive Protein (<10.0) mg/L Total Protein 5.4 L (6.3-8.2) g/dL Albumin 3.1 L (3.5-5.0) g/dL Urine Blood Trace H (Negative) Ur Leukocyte Esterase Moderate H (Negative) Urine WBC 17 H (0-5) /hpf 03/13/19 Range/Units 15:19 WBC (3.8-10.6) k/uL RBC (3.80-5.40) m/uL Hgb (11.4-16.0) gm/dL Hct (34.0-46.0) % RDW (11.5-15.5) % Plt Count (150-450) k/uL Neutrophils # (Manual) (1.3-7.7) k/uL Lymphocytes # (Manual) (1.0-4.8) k/uL Metamyelocytes # (Man) (0) k/uL Sodium (137-145) mmol/L ALT (9-52) U/L C-Reactive Protein 139.1 H (<10.0) mg/L Total Protein (6.3-8.2) g/dL Albumin (3.5-5.0) g/dL Urine Blood (Negative) Ur Leukocyte Esterase (Negative) Urine WBC (0-5) /hpf Microbiology - Last 24 Hours (Table) 03/13/19 12:30 Urine Culture - Preliminary Urine,Clean Catch Chest x-ray: report reviewed Assessment and Plan Plan: Assessment and Recs: Breast Cancer: - Status Post 5 of 6 treatments of Chemotherapy with neulasta, last one week ago, see HPI for full details Febrile Neutropenia: - Infectious Disease Following - CSGF not indicated at this time as she recently received neulasta - Fevers improving - Blood Cultures Pending Pancytopenia: - Monitor CBC - No transfusions required at this time as her counts are within safe range - Tranfuse hemoglobin less than 7, platlets less than 10 Rash to Buttock: - Danya mild to moderate - Infectious disease for anti-fungal management PLan: - Hold CHemotherapy until counts recover and acute infections resolve - MOnitor CBC - Follow-up re-evaluation in office prior to re-initiation of chemotherapy [place] SHARMA
[2019-03-14] MEDS: CEFEPIME 2 GM in SODIUM CHLORIDE 0.9% 100 ML IVPB SCH ×3 (00:58→16:26)
[2019-03-14] MEDS ORDERED: NON-FORMULARY DRUG (Biotin [Biotin] 5,000 MCG) PO SCH (09:00)
[2019-03-14] MEDS: SODIUM CHLORIDE 0.9% 1,000 ML IV SCH ×4 (09:11→18:46)
[2019-03-14] MEDS: buPROPion SR 150 MG TABLET.ER PO SCH (10:22)
[2019-03-14] MEDS: valACYclovir HCL 1,000 MG TABLET PO SCH ×2 (10:22→22:20)
[2019-03-14] MEDS: FLUCONAZOLE 100 MG TAB PO SCH (10:23)
[2019-03-14] MEDS: PANTOPRAZOLE 40 MG TABLET PO SCH ×2 (10:23→16:26)
[2019-03-14] MEDS: OFLOXACIN 0.3% OPHTH DROPS 5 ML BOTTLE BOTH EYES SCH (10:24)
[2019-03-14] MEDS: HEPARIN SODIUM,PORCINE 5,000 UNIT/ML 1 ML VIAL SQ SCH ×2 (10:24→22:20)
[2019-03-14] MEDS: VANCOMYCIN 1,500 MG in SODIUM CHLORIDE 0.9% 250 ML IVPB SCH ×2 (10:25→22:20)
--- NOTE | 2019-03-14 11:25 | CDI ---
Documentation Clarification Form Date: 03/14/2019 11:02:06 AM From: Isabelle Aceves RN, CCDS Admit Date: 03/13/2019 9:38:00 AM Patient Name: Andreea Buitrago Visit Number: [id number] Discharge Date: ATTENTION: The Clinical Documentation Specialists (CDI) and [facility] Coding Staff appreciate your assistance in clarifying documentation. Please respond to the clarification below the line at the bottom and electronically sign. The CDI & [facility] Coding staff will review the response and follow-up if needed. Please note: Queries are made part of the Legal Health Record. If you have any questions, please contact the author of this message via ITS. Dr. Crispin Muir The patient was admitting with a diagnosis of febrile neutropenia Pancytopenia has been documented in your progress notes on 03/13/19 and further clarification is needed. History/Risk factors: Breast cancer right grade II, Genital Herpes, Clinical indicators: 53-year-old female with complaints of feeling tired weak, flushed. Labs: WBC 1.1, RBC 2.81, HGB 9.2 HCT 27.2, PLT 100, Neutrophils 0.30; Vital signs 105/73 140 14 99.4 Treatment: Hold Chemotherapy Monitor CBC In your professional opinion, can you please clarify if these findings signify one of the following conditions? Pancytopenia due to chemotherapy (Last Revision: August 2017) Dx is pancytopenia due to antineoplastic chemotherapy MTDD
[2019-03-14] MEDS: MULTIVITAMINS, THERA 1 EACH TAB PO SCH (12:21)
[2019-03-14] MEDS: CALCIUM CARBONATE 500 MG CHEWABLE PO SCH (12:21)
--- NOTE | 2019-03-14 16:27 | PN ---
PROGRESS NOTE DATE OF SERVICE: 03/14/2019. REASON FOR FOLLOW UP: Febrile neutropenia, UTI infection. INTERVAL HISTORY: The patient is currently afebrile. She is feeling better. Breathing comfortably. Denies having any chest pain or any cough. No abdominal pain. No diarrhea. PHYSICAL EXAMINATION: Blood pressure 91/59 with a pulse of 84, temperature 98.3. She is 96% on room air. General description is a middle-aged female lying in bed in no distress. Respiratory system: Unlabored breathing. Clear to auscultation anteriorly. Heart S1, S2. Regular rate and rhythm. Abdomen soft. No tenderness. LABS: Urine culture currently pending. Blood culture so far negative. DIAGNOSTIC IMPRESSION AND PLAN: Patient admitted to the hospital with febrile neutropenia. Source is likely urinary with positive urinalysis, possibly gram-negative. Fever responding to cefepime. Will wait for the culture to finalize to determine discharge antibiotics. Continue supportive care. MMODL / IJN: [id number] /
[2019-03-14] MEDS: CARIPRAZINE HCL 3 MG PO SCH (22:19)
[2019-03-14] MEDS: LORazepam 1 MG TAB PO SCH (22:20)
--- NOTE | 2019-03-14 22:26 | P.PN ---
Subjective Progress Note Date: 03/14/19 Principal diagnosis: Febrile Neutropenia Patient has remained afebrile today and improved overall. Objective - Vital Signs Vital signs: Vital Signs Temp 98.2 F 03/14/19 18:34 Pulse 104 H 03/14/19 20:05 Resp 16 03/14/19 20:05 BP 104/66 03/14/19 18:34 Pulse Ox 98 03/14/19 18:34 Intake & Output 03/14/19 03/14/19 03/15/19 06:59 18:59 06:59 Intake Total 3178 Balance 3178 Intake: Intake, IV Titration 2100 Amount Cefepime 2 gm In Sodium 100 Chloride 0.9% 100 ml @ 200 mls/hr IVPB Q8HR [facility] Rx#:[id number] Sodium Chloride 0.9% 1, 2000 000 ml @ 125 mls/hr IV . Q8H [facility] Rx#:[id number] Oral 1078 Other: Voiding Method Toilet Toilet Toilet # Voids 1 3 # Bowel Movements 1 - Exam Gen: Alert and in No acute distress Head NC,NT Mouth: Dry Neck Supple, no adenopathy Lungs CTA Bilater, no increased effort Heart Tachy, Reg Abdomen, Soft Non Distended non tender Ext: No edema buttock folds dryness, erythema, evidence of her scratching, and appear yeast- like, area has moisture - Labs CBC & Chem 7: 03/13/19 11:17 03/13/19 11:17 Labs: Abnormal Lab Results - Last 24 Hours (Table) 03/13/19 Range/Units 15:19 Procalcitonin 3.17 H (0.02-0.09) ng/mL Microbiology - Last 24 Hours (Table) 03/13/19 12:30 Urine Culture - Preliminary Urine,Clean Catch Gram Neg Bacilli 03/13/19 11:15 Blood Culture - Preliminary Blood No Growth after 24 hours 03/13/19 11:17 Blood Culture - Preliminary Blood No Growth after 24 hours Assessment and Plan Plan: Assessment and Recs: Breast Cancer: - Status Post 5 of 6 treatments of Chemotherapy with neulasta, last one week ago, see HPI for full details Febrile Neutropenia: - Infectious Disease Following - CSGF not indicated at this time as she recently received neulasta - Fevers improving - Blood Cultures Pending Pancytopenia: Secondary to chemotherapy - Monitor CBC - No transfusions required at this time as her counts are within safe range - Tranfuse hemoglobin less than 7, platlets less than 10 Rash to Buttock: - Danya mild to moderate - Infectious disease for anti-fungal management PLan: - Hold CHemotherapy until counts recover and acute infections resolve - MOnitor CBC - Follow-up re-evaluation in office prior to re-initiation of chemotherapy - If patient remains afebrile ok for Discharge from oncology [place] SHARMA
[2019-03-15] MEDS: CEFEPIME 2 GM in SODIUM CHLORIDE 0.9% 100 ML IVPB SCH ×3 (01:18→15:41)
[2019-03-15] MEDS: SODIUM CHLORIDE 0.9% 1,000 ML IV SCH ×3 (07:40→21:13)
[2019-03-15] MEDS: PANTOPRAZOLE 40 MG TABLET PO SCH ×2 (07:40→17:01)
[2019-03-15] MEDS ORDERED: VANCOMYCIN TROUGH DUE 1 EACH MISC MISCELLANE ONE (08:00)
[2019-03-15 08:31] LABS: Anisocytosis Moderate; Basophils % (A) 0 %; Eosinophils % (A) 0 %; Hypochromasia Slight; Lymphocytes # (A) 1.6 k/uL (1.0-4.8); Lymphocytes % (A) 34 %; MCH 31.5 pg (25.0-35.0); MCV 98.5 fL (80.0-100.0); Macrocytosis Moderate; Mean Platelet Volume 9.4; Monocytes # (A) 0.2 k/uL (0-1.0); Monocytes % (A) 5 %; Neutrophils # (A) 2.7 k/uL (1.3-7.7); Neutrophils % (A) 58 %; Platelet Count 139 k/uL (150-450); RBC 2.54 m/uL (3.80-5.40); RDW 21.4 % (11.5-15.5); WBC 4.7 k/uL (3.8-10.6)
[2019-03-15] MEDS: OFLOXACIN 0.3% OPHTH DROPS 5 ML BOTTLE BOTH EYES SCH (08:34)
[2019-03-15] MEDS: HEPARIN SODIUM,PORCINE 5,000 UNIT/ML 1 ML VIAL SQ SCH ×2 (08:35→20:39)
[2019-03-15] MEDS: FLUCONAZOLE 100 MG TAB PO SCH (08:35)
[2019-03-15] MEDS: buPROPion SR 150 MG TABLET.ER PO SCH (08:35)
[2019-03-15] MEDS: valACYclovir HCL 1,000 MG TABLET PO SCH ×2 (08:35→21:12)
[2019-03-15 08:39] LABS: Anion Gap 4 mmol/L; Blood Urea Nitrogen 6 mg/dL (7-17); Calcium 8.6 mg/dL (8.4-10.2); Carbon Dioxide 21 mmol/L (22-30); Chloride 115 mmol/L (98-107); Glucose 115 mg/dL (74-99); Potassium 3.7 mmol/L (3.5-5.1); Sodium 140 mmol/L (137-145)
[2019-03-15] MEDS: VANCOMYCIN 1,500 MG in SODIUM CHLORIDE 0.9% 250 ML IVPB SCH ×2 (09:47→21:12)
[2019-03-15] MEDS: MULTIVITAMINS, THERA 1 EACH TAB PO SCH (11:01)
[2019-03-15] MEDS: CALCIUM CARBONATE 500 MG CHEWABLE PO SCH (11:01)
--- NOTE | 2019-03-15 16:59 | P.PN ---
Subjective Progress Note Date: 03/14/19 Principal diagnosis: Neutropenic fever 03/14/2019 Patient has remained afebrile today and improved overall. Vital signs remained stable with a temperature of 98.2, pulse 104, respirations 16 and blood pressure of 104/66 Laboratory review shows a white blood count of 1.1 with hemoglobin 9.3 and platelet count of 100 Objective - Vital Signs Vital signs: Vital Signs Temp 98.4 F 03/14/19 07:00 Pulse 94 03/14/19 07:00 Resp 16 03/14/19 07:00 BP 85/55 03/14/19 07:00 Pulse Ox 97 03/14/19 07:00 Intake & Output 03/13/19 03/14/19 03/14/19 18:59 06:59 18:59 Intake Total 472 1646 Output Total 200 Balance 272 1646 Weight 89.5 kg Intake: Intake, IV Titration 1100 Amount Cefepime 2 gm In Sodium 100 Chloride 0.9% 100 ml @ 200 mls/hr IVPB Q8HR [facility] Rx#:[id number] Sodium Chloride 0.9% 1, 1000 000 ml @ 125 mls/hr IV . Q8H [facility] Rx#:[id number] Oral 472 546 Output: Urine 200 Other: Voiding Method Toilet Toilet # Voids 1 - Exam PHYSICAL EXAMINATION: GENERAL: The patient is alert and oriented x3, not in any acute distress. Well developed, well nourished. HEENT: Pupils are round and equally reacting to light. EOMI. No scleral icterus. No conjunctival pallor. Normocephalic, atraumatic. No pharyngeal erythema. No t hyromegaly. CARDIOVASCULAR: S1 and S2 present. No murmurs, rubs, or gallops. PULMONARY: Chest is clear to auscultation, no wheezing or crackles. ABDOMEN: Soft, nontender, nondistended, normoactive bowel sounds. No palpable organomegaly. MUSCULOSKELETAL: No joint swelling or deformity. EXTREMITIES: No cyanosis, clubbing, or pedal edema. NEUROLOGICAL: Gross neurological examination did not reveal any focal deficits. SKIN: No rashes. - Labs CBC & Chem 7: 03/15/19 08:12 03/15/19 08:12 Labs: Abnormal Lab Results - Last 24 Hours (Table) 03/13/19 03/13/19 03/13/19 Range/Units 11:17 11:17 12:30 WBC 1.1 L* (3.8-10.6) k/uL RBC 2.81 L (3.80-5.40) m/uL Hgb 9.3 L (11.4-16.0) gm/dL Hct 27.2 L (34.0-46.0) % RDW 21.2 H (11.5-15.5) % Plt Count 100 L (150-450) k/uL Neutrophils # (Manual) 0.30 L* (1.3-7.7) k/uL Lymphocytes # (Manual) 0.35 L (1.0-4.8) k/uL Metamyelocytes # (Man) 0.01 H (0) k/uL Sodium 133 L (137-145) mmol/L ALT 56 H (9-52) U/L C-Reactive Protein (<10.0) mg/L Total Protein 5.4 L (6.3-8.2) g/dL Albumin 3.1 L (3.5-5.0) g/dL Procalcitonin (0.02-0.09) ng/mL Urine Blood Trace H (Negative) Ur Leukocyte Esterase Moderate H (Negative) Urine WBC 17 H (0-5) /hpf 03/13/19 03/13/19 Range/Units 15:19 15:19 WBC (3.8-10.6) k/uL RBC (3.80-5.40) m/uL Hgb (11.4-16.0) gm/dL Hct (34.0-46.0) % RDW (11.5-15.5) % Plt Count (150-450) k/uL Neutrophils # (Manual) (1.3-7.7) k/uL Lymphocytes # (Manual) (1.0-4.8) k/uL Metamyelocytes # (Man) (0) k/uL Sodium (137-145) mmol/L ALT (9-52) U/L C-Reactive Protein 139.1 H (<10.0) mg/L Total Protein (6.3-8.2) g/dL Albumin (3.5-5.0) g/dL Procalcitonin 3.17 H (0.02-0.09) ng/mL Urine Blood (Negative) Ur Leukocyte Esterase (Negative) Urine WBC (0-5) /hpf Microbiology - Last 24 Hours (Table) 03/13/19 12:30 Urine Culture - Preliminary Urine,Clean Catch Assessment and Plan Assessment: Breast Cancer: - Status Post 5 of 6 treatments of Chemotherapy with neulasta, last one week ago, see HPI for full details Febrile Neutropenia: - Infectious Disease Following - CSGF not indicated at this time as she recently received neulasta - Fevers improving - Blood Cultures Pending Pancytopenia: Secondary to chemotherapy - Monitor CBC - No transfusions required at this time as her counts are within safe range - Tranfuse hemoglobin less than 7, platlets less than 10 Rash to Buttock: - Danya mild to moderate - Infectious disease for anti-fungal management PLan: - Oncology recommending to Hold CHemotherapy until counts recover and acute infections resolve - MOnitor CBC - Follow-up re-evaluation in office prior to re-initiation of chemotherapy - If patient remains afebrile ok for Discharge from oncology standpoint
[2019-03-15] MEDS: LORazepam 1 MG TAB PO SCH (20:39)
[2019-03-15] MEDS: CARIPRAZINE HCL 3 MG PO SCH (21:11)
[2019-03-16] MEDS: CEFEPIME 2 GM in SODIUM CHLORIDE 0.9% 100 ML IVPB SCH ×3 (00:33→15:32)
[2019-03-16] MEDS: SODIUM CHLORIDE 0.9% 1,000 ML IV SCH ×3 (06:12→22:12)
[2019-03-16] MEDS: PANTOPRAZOLE 40 MG TABLET PO SCH ×2 (06:50→16:58)
[2019-03-16 07:39] LABS: Anisocytosis Moderate; Basophils % (A) 0 %; Eosinophils % (A) 0 %; HCT 23.1 % (34.0-46.0); HGB 7.4 gm/dL (11.4-16.0); Hypochromasia Slight; Lymphocytes # (A) 1.5 k/uL (1.0-4.8); Lymphocytes % (A) 40 %; MCH 31.2 pg (25.0-35.0); MCHC 31.9 g/dL (31.0-37.0); MCV 97.9 fL (80.0-100.0); Macrocytosis Moderate; Monocytes # (A) 0.2 k/uL (0-1.0); Monocytes % (A) 6 %; Neutrophils # (A) 1.9 k/uL (1.3-7.7); Neutrophils % (A) 51 %; Platelet Count 144 k/uL (150-450); RBC 2.36 m/uL (3.80-5.40); RDW 21.6 % (11.5-15.5); WBC 3.8 k/uL (3.8-10.6)
[2019-03-16 08:10] LABS: Anion Gap 5 mmol/L; Blood Urea Nitrogen 3 mg/dL (7-17); Calcium 8.4 mg/dL (8.4-10.2); Carbon Dioxide 23 mmol/L (22-30); Chloride 113 mmol/L (98-107); Glucose 80 mg/dL (74-99); Potassium 3.3 mmol/L (3.5-5.1); Sodium 141 mmol/L (137-145)
[2019-03-16] MEDS: HEPARIN SODIUM,PORCINE 5,000 UNIT/ML 1 ML VIAL SQ SCH ×2 (08:15→20:58)
[2019-03-16] MEDS: buPROPion SR 150 MG TABLET.ER PO SCH (08:15)
[2019-03-16] MEDS: FLUCONAZOLE 100 MG TAB PO SCH (08:15)
[2019-03-16] MEDS: OFLOXACIN 0.3% OPHTH DROPS 5 ML BOTTLE BOTH EYES SCH (08:16)
[2019-03-16] MEDS: valACYclovir HCL 1,000 MG TABLET PO SCH ×2 (08:37→22:15)
[2019-03-16] MEDS: VANCOMYCIN 1,500 MG in SODIUM CHLORIDE 0.9% 250 ML IVPB SCH ×2 (09:10→22:02)
[2019-03-16] MEDS ORDERED: POTASSIUM CHLORIDE ER 20 MEQ TAB.ER PO STA (10:30)
[2019-03-16] MEDS: CALCIUM CARBONATE 500 MG CHEWABLE PO SCH (11:33)
[2019-03-16] MEDS: MULTIVITAMINS, THERA 1 EACH TAB PO SCH (11:33)
--- NOTE | 2019-03-16 12:05 | P.PN ---
Subjective Progress Note Date: 03/15/19 Principal diagnosis: Neutropenic fever 03/14/2019 Patient has remained afebrile today and improved overall. Vital signs remained stable with a temperature of 98.2, pulse 104, respirations 16 and blood pressure of 104/66 Laboratory review shows a white blood count of 1.1 with hemoglobin 9.3 and platelet count of 100 03/15/2019 Patient is seen and evaluated in the room at bedside Vital signs are reviewed and patient remains afebrile at 98.3, pulse 81, respiration 15 and blood pressure of 99/66 Laboratory review shows a white blood count of 4.7 with hemoglobin 8.0 and platelet count is improved to 139 Patient has been cleared for discharge by oncology service as long as patient remains afebrile; IDs following for gram-negative UTI currently responding to cefepime; per ID plan is to continue IV cefepime to final culture is available to determine discharge antibiotics Objective - Vital Signs Vital signs: Vital Signs Temp 98.3 F 03/15/19 14:43 Pulse 81 03/15/19 14:43 Resp 15 03/15/19 14:43 BP 99/66 03/15/19 14:43 Pulse Ox 99 03/15/19 14:43 Intake & Output 03/14/19 03/15/19 03/15/19 18:59 06:59 18:59 Intake Total 3178 400 280 Balance 3178 400 280 Intake: Intake, IV Titration 2100 Amount Cefepime 2 gm In Sodium 100 Chloride 0.9% 100 ml @ 200 mls/hr IVPB Q8HR [facility] Rx#:[id number] Sodium Chloride 0.9% 1, 2000 000 ml @ 125 mls/hr IV . Q8H [facility] Rx#:[id number] Oral 1078 400 280 Other: Voiding Method Toilet Toilet Toilet # Voids 3 1 2 # Bowel Movements 1 1 1 - Exam PHYSICAL EXAMINATION: GENERAL: The patient is alert and oriented x3, not in any acute distress. Well developed, well nourished. HEENT: Pupils are round and equally reacting to light. EOMI. No scleral icterus. No conjunctival pallor. Normocephalic, atraumatic. No pharyngeal erythema. No thyromegaly. CARDIOVASCULAR: S1 and S2 present. No murmurs, rubs, or gallops. PULMONARY: Chest is clear to auscultation, no wheezing or crackles. ABDOMEN: Soft, nontender, nondistended, normoactive bowel sounds. No palpable organomegaly. MUSCULOSKELETAL: No joint swelling or deformity. EXTREMITIES: No cyanosis, clubbing, or pedal edema. NEUROLOGICAL: Gross neurological examination did not reveal any focal deficits. SKIN: No rashes. - Labs CBC & Chem 7: 03/16/19 07:06 03/16/19 07:06 Labs: Abnormal Lab Results - Last 24 Hours (Table) 03/15/19 03/15/19 Range/Units 08:12 08:12 RBC 2.54 L (3.80-5.40) m/uL Hgb 8.0 L (11.4-16.0) gm/dL Hct 25.0 L (34.0-46.0) % RDW 21.4 H (11.5-15.5) % Plt Count 139 L (150-450) k/uL Chloride 115 H (98-107) mmol/L Carbon Dioxide 21 L (22-30) mmol/L BUN 6 L (7-17) mg/dL Glucose 115 H (74-99) mg/dL Microbiology - Last 24 Hours (Table) 03/13/19 11:15 Blood Culture - Preliminary Blood No Growth after 48 hours 03/13/19 11:17 Blood Culture - Preliminary Blood No Growth after 48 hours 03/13/19 12:30 Urine Culture - Preliminary Urine,Clean Catch Gram Neg Bacilli Assessment and Plan Assessment: 1. Breast Cancer: - Status Post 5 of 6 treatments of Chemotherapy with neulasta, last one week ago, - Oncology recommending to hold chemotherapy until blood counts recover an acute infection resolves with plan to reinitiate chemotherapy as outpatient - We will continue to monitor CBC closely 2. Febrile Neutropenia/ UTI: - Urine culture is positive for E. coli; 10-49,000 colony count; possible contamination; await ID to review culture report - Infectious Disease Following; patient remains on IV vancomycin and cefepime - CSGF not indicated at this time as she recently received neulasta - Fevers have resolved - Blood Cultures are negative to date - Patient could be discharged from oncology standpoint if she remains afebrile; await further input from ID service as to recommendations for discharge antibiotics and duration of therapy 3. Pancytopenia: Secondary to chemotherapy - Monitor CBC - No transfusions required at this time as her counts are within safe range - Tranfuse hemoglobin less than 7, platlets less than 10 4. Rash to Buttock: - Danya mild to moderate - Infectious disease for anti-fungal management 5. DVT prophylaxis; SCDs/ subcu heparin CODE STATUS; full code Time with Patient: Greater than 30
[2019-03-16 20:06] VITALS: BP 124/85; PULSE 80; RESP 16; TEMP 98.6
[2019-03-16] MEDS: CARIPRAZINE HCL 3 MG PO SCH (21:01)
[2019-03-16] MEDS: LORazepam 1 MG TAB PO SCH (21:01)
[2019-03-16] MEDS ORDERED: valACYclovir 500 MG TAB PO SCH (21:36)
--- NOTE | 2019-03-16 21:50 | P.DS ---
Providers Date of admission: 03/13/19 09:38 Expected date of discharge: 03/16/19 Attending physician: Jake Angulo Consults: 03/13/19 12:42 Consult Physician Routine Consulting Provider: Crispin Muir Consult Reason/Comments: neutropenic fever Do you want consulting provider notified?: Already Contacted 03/13/19 12:45 Consult Physician Routine Consulting Provider: Yayo Nguyễn Consult Reason/Comments: neutropenic fever Do you want consulting provider notified?: Yes Primary care physician: Stated None Hospital Course: This very pleasant 52-year-old female with a history of breast cancer on chemotherapy he's been sent in as a direct admit for neutropenic fever. The patient said that she's been having fevers for the past few days and she was seen by hematology oncology office today and was sent in to put her on hospital as a direct admit for further evaluation and management of neutropenic fever. The patient says that she was recently admitted in December 2018 for neutropenic fever which was thought to be due to acute genital herpes and subsequent inguinal cellulitis. She says that since that time she's been on Valtrex and she has no more flareups. She otherwise does not complain of any chest pain or racing heart, no cough no shortness of breath, she says that she's having some mild discomfort in her belly but no pain per she had one episode of diarrhea yesterday but not anymore. She does not complain of any tingling numbness on in the extremities, any itch or rash. She says that she's not having any rashes due to genital herpes anymore as she is on Valtrex. Patient had workup done earlier in the day which showed WBC 1.1 hemoglobin 9.3 platelets 100 sodium 1:30 potassium 3.9 bun 13 creatinine 0.67 UA showed 17 WBCs and 2 RBCs. Initially the patient's heart rate was on 41 and has come down to 102 temperature right now is 99.1 she's satting 98% on room air blood pressure is 91/63. 03/14/2019 Patient has remained afebrile today and improved overall. Vital signs remained stable with a temperature of 98.2, pulse 104, respirations 16 and blood pressure of 104/66 Laboratory review shows a white blood count of 1.1 with hemoglobin 9.3 and platelet count of 100 03/15/2019 Patient is seen and evaluated in the room at bedside Vital signs are reviewed and patient remains afebrile at 98.3, pulse 81, respiration 15 and blood pressure of 99/66 Laboratory review shows a white blood count of 4.7 with hemoglobin 8.0 and platelet count is improved to 139 Patient has been cleared for discharge by oncology service as long as patient remains afebrile; IDs following for gram-negative UTI currently responding to cefepime; per ID plan is to continue IV cefepime to final culture is available to determine discharge antibiotics Plan - Discharge Summary Discharge Rx Participant: No New Discharge Prescriptions: New Ciprofloxacin HCl [Cipro] 500 mg PO Q12HR #10 tablet Fluconazole [Diflucan] 100 mg PO DAILY #10 tab Discontinued Fluconazole [Diflucan] 100 mg PO DAILY No Action Inulin/Chromium Picolinate [Fiber Gummies Chew] 1 tab PO QAM Multivitamin [Multivitamins Adult Gummies] 1 tab PO QAM Calcium Carbonate [Calcium] 600 mg PO QAM Biotin 5,000 mcg PO DAILY LORazepam [Ativan] 1 mg PO HS valACYclovir HCL [Valtrex] 1,000 mg PO BID Acetaminophen Tab [Tylenol] 1,000 mg PO Q6H Omeprazole [PriLOSEC] 20 mg PO BID Ofloxacin 0.3% Ophth Soln [Ocuflox Ophth Soln] 1 drop BOTH EYES DAILY buPROPion HCL [Wellbutrin SR] 150 mg PO DAILY Cariprazine HCl [Vraylar] 3 mg PO HS Buprenorphine HCl/Naloxone HCl [Suboxone 8 mg-2 mg Sl Film] 0.25 film SL SUTUTHSA@1600 Buprenorphine HCl/Naloxone HCl [Suboxone 8 mg-2 mg Sl Film] 0.5 film SL MOWEFR@1600 Buprenorphine HCl/Naloxone HCl [Suboxone 8 mg-2 mg Sl Film] 1 tab PO DAILY Ergocalciferol [Vitamin D2 (DRISDOL)] 50,000 unit PO Q7D Discharge Medication List Biotin 5,000 mcg PO DAILY 11/11/18 [History] Calcium Carbonate [Calcium] 600 mg PO QAM 11/11/18 [History] Inulin/Chromium Picolinate [Fiber Gummies Chew] 1 tab PO QAM 11/11/18 [History] Multivitamin [Multivitamins Adult Gummies] 1 tab PO QAM 11/11/18 [History] LORazepam [Ativan] 1 mg PO HS 01/09/19 [History] valACYclovir HCL [Valtrex] 1,000 mg PO BID 01/16/19 [History] Acetaminophen Tab [Tylenol] 1,000 mg PO Q6H 03/13/19 [History] Buprenorphine HCl/Naloxone HCl [Suboxone 8 mg-2 mg Sl Film] 0.25 film SL SUTUTHSA@1600 03/13/19 [History] Buprenorphine HCl/Naloxone HCl [Suboxone 8 mg-2 mg Sl Film] 0.5 film SL MOWEFR@1600 03/13/19 [History] Buprenorphine HCl/Naloxone HCl [Suboxone 8 mg-2 mg Sl Film] 1 tab PO DAILY 03/13/19 [History] Cariprazine HCl [Vraylar] 3 mg PO HS 03/13/19 [History] Ergocalciferol [Vitamin D2 (DRISDOL)] 50,000 unit PO Q7D 03/13/19 [History] Ofloxacin 0.3% Ophth Soln [Ocuflox Ophth Soln] 1 drop BOTH EYES DAILY 03/13/19 [History] Omeprazole [PriLOSEC] 20 mg PO BID 03/13/19 [History] buPROPion HCL [Wellbutrin SR] 150 mg PO DAILY 03/13/19 [History] Ciprofloxacin HCl [Cipro] 500 mg PO Q12HR #10 tablet 03/16/19 [Rx] Fluconazole [Diflucan] 100 mg PO DAILY #10 tab 03/16/19 [Rx] Follow up Appointment(s)/Referral(s): Yayo Nguyễn MD [STAFF PHYSICIAN] - 1 Week
[2019-03-17] MEDS ORDERED: ERGOCALCIFEROL 50,000 UNIT CAP PO SCH (12:00)
--- NOTE | 2019-03-19 10:29 | CDI ---
Sepsis Ruled in Documentation Clarification Form Date: 03/19/19 From: Laura Roman Phone: If questions call Rosio Kovacs @ [phone], Hours-8:30 am & 5 pm Umesh Miller Admit Date: 03/13/2019 9:38:00 AM Patient Name: Andreea Buirtago Visit Number: [id number] Discharge Date: 03/16/2019 10:19:00 PM ATTENTION: The Clinical Documentation Specialists (CDI) and [facility] Coding Staff appreciate your assistance in clarifying documentation. Please respond to the clarification below the line at the bottom and electronically sign. The CDI & [facility] Coding staff will review the response and follow-up if needed. Please note: Queries are made part of the Legal Health Record. If you have any questions, please contact the author of this message via ITS. Dr. Abi Alvarado H&P documents "sepsis with source unknown at this time". History/Risk Factors: presented with neutropenic fever, treatment for right breast cancer WBC: 1.1 Neutrophils: .30 Lactic acid: 0.7/1.2 Blood cultures: no growth Vitals signs on admission: T-99.4, P-140, R-14, BP-105/73, 91/63 ID Consult: yes Antibiotics: IV Vancomycin, IV Levaquin, IV Maxipime, IV Bolus: yes Other:Valtrex In your professional opinion, please clarify if these findings signify one of the following conditions, whether the condition is POA, and cause, if known: Condition Sepsis ruled out Sepsis ruled in Other, please specify Unable to determine MTDD
== END 2019-03-16 22:19 | disposition home or self-care (01) | DRG 871 ==
LOC: 4SSUR 09:38
PROVIDERS: ADMIT Internal Medicine; ATTEND Internal Medicine
DX: A41.9 Sepsis, unspecified organism (principal); D61.810 Antineoplastic chemotherapy induced pancytopenia; N39.0 Urinary tract infection, site not specified; D70.3 Neutropenia due to infection; R50.81 Fever presenting with conditions classified elsewhere; C50.911 Malignant neoplasm of unspecified site of right female breast; B37.2 Candidiasis of skin and nail; A60.00 Herpesviral infection of urogenital system, unspecified; T45.1X5A Adverse effect of antineoplastic and immunosuppressive drugs, initial encounter; F32.9 Major depressive disorder, single episode, unspecified; F41.9 Anxiety disorder, unspecified; Z17.0 Estrogen receptor positive status [ER+]; F14.11 Cocaine abuse, in remission; F11.11 Opioid abuse, in remission; Z79.4 Long term (current) use of insulin; Z79.899 Other long term (current) drug therapy; Z90.49 Acquired absence of other specified parts of digestive tract; Z98.84 Bariatric surgery status; Z88.1 Allergy status to other antibiotic agents; Z88.0 Allergy status to penicillin; Z83.3 Family history of diabetes mellitus; Z82.49 Family history of ischemic heart disease and other diseases of the circulatory system; Z80.1 Family history of malignant neoplasm of trachea, bronchus and lung; Z83.79 Family history of other diseases of the digestive system; Z84.1 Family history of disorders of kidney and ureter; K59.00 Constipation, unspecified; R19.7 Diarrhea, unspecified
CPT/HCPCS: 71046; 80048; 80053; 80202; 81001; 83605; 84145; 85025; 85610; 85730; 86140; 87040; 87077; 87086; 87186; 87324; 93005

== ENCOUNTER 2019-04-12 14:55 | Inpatient (IN) | payer OTHER ==
--- NOTE | 2019-04-12 15:46 | ED ---
General Adult HPI <Jeffery Conn - Last Filed: 04/12/19 17:56> - General Source: patient, RN notes reviewed Mode of arrival: ambulatory Limitations: no limitations <Jaspreet Cohen - Last Filed: 04/12/19 18:43> - General Chief complaint: Recheck/Abnormal Lab/Rx Stated complaint: Port Infection Time Seen by Provider: 04/12/19 15:11 - History of Present Illness Initial comments: 53-year-old female with a past medical history of primary breast cancer diagnosed in October 2018 presents to the emergency department for a chief complaint of swelling to her chemo port in her right side neck. Patient states that she noticed it was somewhat tender yesterday and that today it looked swollen. Patient states she contacted her oncologist and the on-call physician told her to come to the emergency department. Patient states there was concern for possible clot. Patient denies any history of blood clots. Denies being on any blood thinners. Patient had a right internal jugular power port 6-Icelandic placed on 12/04/[address] Louis. Patient last received chemo through this 2 weeks ago. (Jaspreet Cohen) - Related Data Home Medications Medication Instructions Recorded Confirmed Biotin 5,000 mcg PO DAILY 11/11/18 04/12/19 Calcium Carbonate [Calcium] 600 mg PO QAM 11/11/18 04/12/19 Inulin/Chromium Picolinate [Fiber 1 tab PO QAM 11/11/18 04/12/19 Gummies Chew] Multivitamin [Multivitamins Adult 1 tab PO QAM 11/11/18 04/12/19 Gummies] LORazepam [Ativan] 1 mg PO HS 01/09/19 04/12/19 valACYclovir HCL [Valtrex] 1,000 mg PO BID 01/16/19 04/12/19 Acetaminophen Tab [Tylenol] 1,000 mg PO Q6H 03/13/19 04/12/19 Buprenorphine HCl/Naloxone HCl 0.25 film SL SUTUTHSA@1600 03/13/19 04/12/19 [Suboxone 8 mg-2 mg Sl Film] Buprenorphine HCl/Naloxone HCl 0.5 film SL MOWEFR@1600 03/13/19 04/12/19 [Suboxone 8 mg-2 mg Sl Film] Buprenorphine HCl/Naloxone HCl 1 tab PO DAILY 03/13/19 04/12/19 [Suboxone 8 mg-2 mg Sl Film] Cariprazine HCl [Vraylar] 3 mg PO HS 03/13/19 04/12/19 Ergocalciferol [Vitamin D2 50,000 unit PO Q7D 03/13/19 04/12/19 (DRISDOL)] Ofloxacin 0.3% Ophth Soln [Ocuflox 1 drop BOTH EYES DAILY 03/13/19 04/12/19 Ophth Soln] Omeprazole [PriLOSEC] 20 mg PO BID 03/13/19 04/12/19 buPROPion HCL [Wellbutrin SR] 150 mg PO DAILY 03/13/19 04/12/19 Previous Rx's Medication Instructions Recorded Fluconazole [Diflucan] 100 mg PO DAILY #10 tab 03/16/19 Allergies Allergy/AdvReac Type Severity Reaction Status Date / Time amoxicillin [From Augmentin] Allergy Rash/Hives Verified 04/12/19 15:45 clavulanic acid Allergy Rash/Hives Verified 04/12/19 15:45 [From Augmentin] Tetracyclines Allergy Rash/Hives Verified 04/12/19 15:45 Review of Systems ROS Other: All systems not noted in ROS Statement are negative. <Jeffery Conn - Last Filed: 04/12/19 17:56> ROS Other: All systems not noted in ROS Statement are negative. <Jaspreet Cohen - Last Filed: 04/12/19 18:43> ROS Statement: Those systems with pertinent positive or pertinent negative responses have been documented in the HPI. Past Medical History Past Medical History: Cancer, Vascular Disorder Additional Past Medical History / Comment(s): over 10 years ago quit using cocaine and prescription opioids. breast cancer right oct 2018, chemo last on jan 02,genital herpes 2009, right after chemo rash genital herpes open bleeding started 01/09/19. right breast rash History of Any Multi-Drug Resistant Organisms: None Reported Past Surgical History: Cholecystectomy, Tonsillectomy Additional Past Surgical History / Comment(s): gastric sleeve, R breast bx. right sided port Past Anesthesia/Blood Transfusion Reactions: No Reported Reaction Past Psychological History: Anxiety, Depression Smoking Status: Never smoker Past Alcohol Use History: None Reported Past Drug Use History: None Reported - Past Family History Mother Family Medical History: Diabetes Mellitus, Hypertension Additional Family Medical History / Comment(s): heart disease Father Family Medical History: Cancer Additional Family Medical History / Comment(s): lung CA, cirrosis, kidney disease <Jaspreet Cohen - Last Filed: 04/12/19 18:43> General Exam Limitations: no limitations General appearance: alert, in no apparent distress Head exam: Present: atraumatic, normocephalic, normal inspection Eye exam: Present: normal appearance, PERRL, EOMI. Absent: scleral icterus, conjunctival injection, periorbital swelling ENT exam: Present: normal exam, mucous membranes moist Neck exam: Present: tenderness (Redness noted to the area near the right internal jugular along port), full ROM (Range of motion of the neck.), other (Patient does have some edema noted of the right side of the neck near right internal jugular were port is placed. No erythema or evidence for infection such as cellulitis or abscess.) Respiratory exam: Present: normal lung sounds bilaterally. Absent: respiratory distress, wheezes, rales, rhonchi, stridor Cardiovascular Exam: Present: regular rate, normal rhythm, normal heart sounds. Absent: systolic murmur, diastolic murmur, rubs, gallop, clicks Neurological exam: Present: alert, oriented X3, CN II-XII intact Psychiatric exam: Present: normal affect, normal mood <Jaspreet Cohen P - Last Filed: 04/12/19 18:43> Course Vital Signs 04/12/19 14:55 Temperature 98.1 F Pulse Rate 87 Respiratory 18 Rate Blood Pressure 123/68 O2 Sat by Pulse 100 Oximetry Medical Decision Making <Jeffery Conn - Last Filed: 04/12/19 17:56> - Lab Data Result diagrams: 04/12/19 17:35 04/12/19 17:35 <Jaspreet Cohen - Last Filed: 04/12/19 18:43> - Medical Decision Making Decision making; this is a 53-year-old female here with family. On December 04 of this year the patient had a central line placed to administer chemotherapy for breast cancer. Yesterday the patient noted some discomfort to the right super clavicular region entail mild swelling. No arm swelling. No shortness of breath or increase in pain. No evidence of any localized redness and no fever. Ultrasound shows evidence of positive for DVT in the internal jugular vein there is a small channel posterior flow so this is non-occluding although nearly occlusive the pain is enlarged. As read by Dr. Coats The case was discussed with on-call hospitalist Dr. pope, patient be admitted to her service. She wants the patient started on Lovenox 1 mg/kg twice a day. With consultation from her oncologist. Oncologist will be consulted. Dr. Conn On-call oncologist Dr. Genao was called, case discussed. At this time he agrees with Lovenox. Dr. Conn (Jeffery Conn) Spoke with Dr. Pope who recommended starting Lovenox after a confirmed platelet count of greater than 80. Patient does have platelet count of 140, Lovenox will be started. Patient updated on plan. (Jaspreet Cohen) - Lab Data Lab Results 04/12/19 04/12/19 04/12/19 Range/Units 17:35 17:35 17:35 WBC 7.3 (3.8-10.6) k/uL RBC 2.88 L (3.80-5.40) m/uL Hgb 9.3 L D (11.4-16.0) gm/dL Hct 29.4 L (34.0-46.0) % MCV 102.1 H (80.0-100.0) fL MCH 32.4 (25.0-35.0) pg MCHC 31.8 (31.0-37.0) g/dL RDW 18.5 H (11.5-15.5) % Plt Count 140 L (150-450) k/uL Neutrophils % 72 % Lymphocytes % 19 % Monocytes % 6 % Eosinophils % 0 % Basophils % 0 % Neutrophils # 5.3 (1.3-7.7) k/uL Lymphocytes # 1.4 (1.0-4.8) k/uL Monocytes # 0.4 (0-1.0) k/uL Eosinophils # 0.0 (0-0.7) k/uL Basophils # 0.0 (0-0.2) k/uL Hypochromasia Slight Anisocytosis Slight Macrocytosis Moderate PT 9.6 (9.0-12.0) sec INR 0.9 (<1.2) APTT 22.3 (22.0-30.0) sec Sodium 139 (137-145) mmol/L Potassium 4.2 (3.5-5.1) mmol/L Chloride 110 H (98-107) mmol/L Carbon Dioxide 26 (22-30) mmol/L Anion Gap 3 mmol/L BUN 8 (7-17) mg/dL Creatinine 0.53 (0.52-1.04) mg/dL Est GFR (CKD-EPI)AfAm >90 (>60 ml/min/1.73 sqM) Est GFR (CKD-EPI)NonAf >90 (>60 ml/min/1.73 sqM) Glucose 88 (74-99) mg/dL Calcium 8.9 (8.4-10.2) mg/dL Total Bilirubin 0.2 (0.2-1.3) mg/dL AST 17 (14-36) U/L ALT 13 (9-52) U/L Alkaline Phosphatase 49 (38-126) U/L Total Protein 5.4 L (6.3-8.2) g/dL Albumin 3.1 L (3.5-5.0) g/dL Disposition <Jeffery Conn - Last Filed: 04/12/19 17:56> Is patient prescribed a controlled substance at d/c from ED?: No Time of Disposition: 18:43 <Jaspreet Cohen - Last Filed: 04/12/19 18:43> Clinical Impression: Internal jugular vein thrombosis, Primary breast cancer Disposition: ADMITTED IP TO THIS HOSP Condition: Fair Referrals: Bo Najera DO [Primary Care Provider] - 1-2 days
--- NOTE | 2019-04-12 16:47 | US ---
EXAMINATION TYPE: US venous doppler duplex UE RT DATE OF EXAM: 04/12/2019 COMPARISON: NONE CLINICAL HISTORY: Pain. SIDE PERFORMED: Right Grayscale, color doppler, spectral doppler imaging performed of the deep veins of the right upper ext remity. There is abnormal flow and noncompressibility of the internal jugular vein. The subclavian v ein, axillary vein, basilic vein, brachial vein, and cephalic vein as well as the renal vein appear p atent. Right Arm: positive for DVT in the internal jugular vein, there is a small channel of posterior flow so this is non-occluding although nearly occlusive. Vein enlarged. IMPRESSION: Positive nearly occlusive deep venous thrombosis in the internal jugular vein.
[2019-04-12 17:49] LABS: Anisocytosis Slight; Basophils % (A) 0 %; Eosinophils % (A) 0 %; HCT 29.4 % (34.0-46.0); Hypochromasia Slight; Lymphocytes # (A) 1.4 k/uL (1.0-4.8); Lymphocytes % (A) 19 %; MCH 32.4 pg (25.0-35.0); MCHC 31.8 g/dL (31.0-37.0); MCV 102.1 fL (80.0-100.0); Macrocytosis Moderate; Mean Platelet Volume 8.1; Monocytes # (A) 0.4 k/uL (0-1.0); Monocytes % (A) 6 %; Neutrophils # (A) 5.3 k/uL (1.3-7.7); Neutrophils % (A) 72 %; Platelet Count 140 k/uL (150-450); RBC 2.88 m/uL (3.80-5.40); RDW 18.5 % (11.5-15.5); WBC 7.3 k/uL (3.8-10.6)
[2019-04-12 17:58] LABS: ALT 13 U/L (9-52); AST 17 U/L (14-36); Albumin 3.1 g/dL (3.5-5.0); Alkaline Phosphatase 49 U/L (38-126); Anion Gap 3 mmol/L; Blood Urea Nitrogen 8 mg/dL (7-17); Calcium 8.9 mg/dL (8.4-10.2); Carbon Dioxide 26 mmol/L (22-30); Chloride 110 mmol/L (98-107); Glucose 88 mg/dL (74-99); Potassium 4.2 mmol/L (3.5-5.1); Sodium 139 mmol/L (137-145); Total Bilirubin 0.2 mg/dL (0.2-1.3); Total Protein 5.4 g/dL (6.3-8.2)
[2019-04-12 18:19] LABS: HGB 9.3 gm/dL (11.4-16.0)
[2019-04-12 18:21] LABS: INR 0.9 (<1.2); Partial Thromboplastin Time 22.3 sec (22.0-30.0); Prothrombin Time 9.6 sec (9.0-12.0)
[2019-04-12] MEDS ORDERED: SODIUM CHLORIDE 0.9% 500 ML 500 ML IV STA (18:34)
[2019-04-12] MEDS ORDERED: NALOXONE 0.4 MG/ML 1 ML VIAL IV PRN (18:36)
[2019-04-12] MEDS ORDERED: HYDROmorphone 0.5 MG/0.5 ML SYRINGE IVP PRN (18:36)
[2019-04-12] MEDS: SODIUM CHLORIDE 0.9% 1,000 ML IV SCH (19:16)
[2019-04-12] MEDS: ENOXAPARIN 80 MG/0.8 ML SYRINGE SQ SCH (19:16)
--- NOTE | 2019-04-12 21:37 | P.HPIM ---
History of Present Illness H&P Date: 04/12/19 Patient is a 52-year-old female with a PMH of stage III breast cancer (diagnosed October 2018), status post 6 cycles of chemotherapy (via Chemo-port), finished last cycle 03/27/19, presented to the ED for right sided neck pain and swelling. The patient notes that she was in her usual state of health when she woke up yesterday and noticed that her neck was hurting, especially with deep breathing. The pain gradually worsened and she subsequently developed swelling of the region earlier today. She called her oncologist who advised her to come to the ED for further care. The patient notes that her neck continues to be tender and she has pain, rated at a 4 out of 10. She otherwise denying any additional complaints. She is denying right arm swelling, headache, facial redness, facial redness visual disturbances, fever, chest pain, or shortness of breath. She also denied weakness, numbness, or tingling. The patient underwent an extensive evaluation in the ED with right upper extremity venous duplex showing a nearly occlusive internal jugular vein DVT. Laboratory evaluation revealed a h emoglobin of 9.3, platelets 140, albumin 3.1, BUN 8, and creatinine 0.53. Review of Systems Pertinent positives and negatives as discussed in HPI, a complete review of sys tems was performed and all other systems are negative. Past Medical History Past Medical History: Cancer, Vascular Disorder Additional Past Medical History / Comment(s): over 10 years ago quit using cocaine and prescription opioids. breast cancer right oct 2018, chemo last on jan 02,genital herpes 2009, right after chemo rash genital herpes open bleeding started 01/09/19. right breast rash History of Any Multi-Drug Resistant Organisms: None Reported Past Surgical History: Cholecystectomy, Tonsillectomy Additional Past Surgical History / Comment(s): gastric sleeve, R breast bx. right sided port Past Anesthesia/Blood Transfusion Reactions: No Reported Reaction Past Psychological History: Anxiety, Depression Smoking Status: Never smoker Past Alcohol Use History: None Reported Past Drug Use History: None Reported - Past Family History Mother Family Medical History: Diabetes Mellitus, Hypertension Additional Family Medical History / Comment(s): heart disease Father Family Medical History: Cancer Additional Family Medical History / Comment(s): lung CA, cirrosis, kidney disease Medications and Allergies Home Medications Medication Instructions Recorded Confirmed Type Biotin 5,000 mcg PO DAILY 11/11/18 04/12/19 History Calcium Carbonate [Calcium] 600 mg PO QAM 11/11/18 04/12/19 History Inulin/Chromium Picolinate [Fiber 1 tab PO QAM 11/11/18 04/12/19 History Gummies Chew] Multivitamin [Multivitamins Adult 1 tab PO QAM 11/11/18 04/12/19 History Gummies] LORazepam [Ativan] 1 mg PO HS 01/09/19 04/12/19 History valACYclovir HCL [Valtrex] 1,000 mg PO BID 01/16/19 04/12/19 History Acetaminophen Tab [Tylenol] 1,000 mg PO Q6H 03/13/19 04/12/19 History Buprenorphine HCl/Naloxone HCl 0.25 film SL SUTUTHSA@1600 03/13/19 04/12/19 History [Suboxone 8 mg-2 mg Sl Film] Buprenorphine HCl/Naloxone HCl 0.5 film SL MOWEFR@1600 03/13/19 04/12/19 History [Suboxone 8 mg-2 mg Sl Film] Buprenorphine HCl/Naloxone HCl 1 tab PO DAILY 03/13/19 04/12/19 History [Suboxone 8 mg-2 mg Sl Film] Cariprazine HCl [Vraylar] 3 mg PO HS 03/13/19 04/12/19 History Ergocalciferol [Vitamin D2 50,000 unit PO Q7D 03/13/19 04/12/19 History (DRISDOL)] Ofloxacin 0.3% Ophth Soln [Ocuflox 1 drop BOTH EYES DAILY 03/13/19 04/12/19 History Ophth Soln] Omeprazole [PriLOSEC] 20 mg PO BID 03/13/19 04/12/19 History buPROPion HCL [Wellbutrin SR] 150 mg PO DAILY 03/13/19 04/12/19 History Fluconazole [Diflucan] 100 mg PO DAILY #10 tab 03/16/19 04/12/19 Rx Allergies Allergy/AdvReac Type Severity Reaction Status Date / Time amoxicillin [From Augmentin] Allergy Rash/Hives Verified 04/12/19 15:45 clavulanic acid Allergy Rash/Hives Verified 04/12/19 15:45 [From Augmentin] Tetracyclines Allergy Rash/Hives Verified 04/12/19 15:45 Physical Exam Vitals: Vital Signs Temp Pulse Resp BP Pulse Ox 04/12/19 19:18 82 18 107/65 97 04/12/19 14:55 98.1 F 87 18 123/68 100 Intake and Output 04/12/19 04/12/19 04/12/19 06:59 14:59 22:59 Other: Weight 84.368 kg General: non toxic, no distress, appears at stated age, normal weight Derm: no unusual rashes/lesions no unusual ecchymoses, warm, dry Head: atraumatic, normocephalic, symmetric, no facial plethora Eyes: EOMI, no lid lag, anicteric sclera, pupils equal round reactive to light ENT: Nose and ears atraumatic, no thrush, no pharyngeal erythema Neck: Right-sided anterior neck swelling with tenderness extending to the right shoulder, No thyromegaly, no cervical lymphadenopathy, trachea midline, supple Mouth: no lip lesion, mucus membranes moist Cardiovascular: S1S2 reg, no murmur, positive posterior tibial pulse bilateral, no edema, capillary refill less than 2 seconds Lungs: CTA bilateral, no rhonchi, no rales , no accessory muscle use Abdominal: soft, nontender to palpation, no guarding, no appreciable organomegaly, normal bowel sounds Ext: no gross muscle atrophy, muscle strength 5 out of 5 in all 4 extremities grossly, no contractures, Neuro: CN II-XI grossly intact, light touch intact all 4 extremities, finger to nose within normal limits Psych: Alert, oriented, appropriate affect Results CBC & Chem 7: 04/12/19 17:35 04/12/19 17:35 Labs: Abnormal Lab Results - Last 24 Hours (Table) 04/12/19 04/12/19 Range/Units 17:35 17:35 RBC 2.88 L (3.80-5.40) m/uL Hgb 9.3 L D (11.4-16.0) gm/dL Hct 29.4 L (34.0-46.0) % MCV 102.1 H (80.0-100.0) fL RDW 18.5 H (11.5-15.5) % Plt Count 140 L (150-450) k/uL Chloride 110 H (98-107) mmol/L Total Protein 5.4 L (6.3-8.2) g/dL Albumin 3.1 L (3.5-5.0) g/dL Assessment and Plan Plan: Acute right internal jugular vein DVT in setting of Chemo-port -Continue with Lovenox 80 mg twice a day subcu -Vascular surgery and Oncology consulted -Monitor CBC Stage III Breast cancer s/p chemotherapy -Oncology consulted Bicytopenia, chronic -Likely secondary to chemotherapy -Monitor CBC in setting of lovenox for now DVT prophylaxis -Lovenox The patient is admitted with an anticipated greater than 2 midnight stay for evaluation of R IJ DVT. CODE STATUS:Full Code Discussed with: Patientmauro Anticipated discharge date: 04/14/[address]: Home A total of 40 minutes was spent on the care of this complex patient more than 50% of the time was spent in counseling and care coordination.
[2019-04-12 21:49] VITALS: BMI 32.9
[2019-04-12] MEDS: ACETAMINOPHEN TAB 500 MG TAB PO SCH (22:25)
[2019-04-12] MEDS: LORazepam 1 MG TAB PO SCH (22:25)
[2019-04-13] MEDS: SODIUM CHLORIDE 0.9% 1,000 ML IV SCH ×3 (03:15→23:18)
[2019-04-13] MEDS: ACETAMINOPHEN TAB 500 MG TAB PO SCH ×4 (06:05→22:01)
[2019-04-13 06:50] LABS: Anisocytosis Slight; HCT 27.4 % (34.0-46.0); HGB 8.7 gm/dL (11.4-16.0); Hypochromasia Slight; MCH 32.6 pg (25.0-35.0); MCHC 31.6 g/dL (31.0-37.0); Macrocytosis Moderate; Mean Platelet Volume 7.7; Platelet Count 131 k/uL (150-450); RBC 2.66 m/uL (3.80-5.40); RDW 17.8 % (11.5-15.5); WBC 4.7 k/uL (3.8-10.6)
[2019-04-13 07:24] LABS: Band Neutrophils % 6 %; Lymphocytes # (M) 1.36 k/uL (1.0-4.8); Monocytes # (M) 0.56 k/uL (0-1.0); Neutrophils % (M) 53 %; Nucleated Red Blood Cells 0 /100 WBC (0-0); Polychromasia Present; Total Cells Counted 100
[2019-04-13 07:25] LABS: Poikilocytosis (M) Present
[2019-04-13] MEDS: valACYclovir HCL 1,000 MG TABLET PO SCH ×2 (08:59→20:13)
[2019-04-13] MEDS: MULTIVITAMINS, THERA 1 EACH TAB PO SCH (08:59)
[2019-04-13] MEDS: ENOXAPARIN 80 MG/0.8 ML SYRINGE SQ SCH ×2 (08:59→21:47)
[2019-04-13] MEDS: buPROPion SR 150 MG TABLET.ER PO SCH (08:59)
[2019-04-13] MEDS: OFLOXACIN 0.3% OPHTH DROPS 5 ML BOTTLE BOTH EYES SCH (09:08)
--- NOTE | 2019-04-13 14:07 | P.PN ---
Subjective Progress Note Date: 04/13/19 Principal diagnosis: right neck swelling Patient is a 52-year-old female currently undergoing treatment for right-sided breast cancer stage III (complete a final dose of chemo 03/27, no further chemo plan) with right sided chemo port, genital herpes, and anxiety who presented to the ER with complaints of right-sided neck pain and swelling. In the emergency department she underwent an extensive evaluation. Initial laboratory analysis showed hemoglobin 9.3, platelets of 140, albumin 3.1, BUN of 8, creatinine 0.53. Initial vital signs were stable. A right upper extremity venous duplex showed a near occlusive internal jugular vein thrombosis. She was started on lovenox and admitted for further monitoring and care. Her swelling had decreased be the morning of 04/13. Patient seen and examined at bedside. She reports that she continues to have some neck pain however her swelling seems somewhat better to her. No chest pain or shortness of breath. States she has completed her chemotherapy. Objective - Vital Signs Vital signs: Vital Signs Temp 97.9 F 04/13/19 08:00 Pulse 94 04/13/19 08:00 Resp 20 04/13/19 08:00 BP 107/65 04/13/19 08:00 Pulse Ox 99 04/13/19 08:00 Intake & Output 04/12/19 04/13/19 04/13/19 18:59 06:59 18:59 Intake Total 200 Balance 200 Weight 84.368 kg 87.2 kg Intake: Oral 200 Other: # Voids 1 - Exam General: non toxic, no distress, appears at stated age, temporal wasting Derm: Hair loss, warm, dry Head: atraumatic, normocephalic, symmetric Eyes: EOMI, no lid lag, anicteric sclera Mouth: no lip lesion, mucus membranes dry Neck: Swelling right side of breath, swelling above the right clavicle Cardiovascular: S1S2 reg, no murmur, positive posterior tibial pulse bilateral, Lungs: CTA bilateral, no rhonchi, no rales , no accessory muscle use Abdominal: soft, nontender to palpation, no guarding, no appreciable organomegaly Ext: no gross muscle atrophy, no edema, no contractures Neuro: CN II-XI grossly intact, no focal neuro deficits Psych: Alert, oriented, appropriate affect - Labs CBC & Chem 7: 04/13/19 06:05 04/12/19 17:35 Labs: Abnormal Lab Results - Last 24 Hours (Table) 04/12/19 04/12/19 04/13/19 Range/Units 17:35 17:35 06:05 RBC 2.88 L 2.66 L (3.80-5.40) m/uL Hgb 9.3 L D 8.7 L (11.4-16.0) gm/dL Hct 29.4 L 27.4 L (34.0-46.0) % MCV 102.1 H 103.0 H (80.0-100.0) fL RDW 18.5 H 17.8 H (11.5-15.5) % Plt Count 140 L 131 L (150-450) k/uL Chloride 110 H (98-107) mmol/L Total Protein 5.4 L (6.3-8.2) g/dL Albumin 3.1 L (3.5-5.0) g/dL Assessment and Plan Assessment: Acute right internal jugular vein DVT in the setting of chemo port -Continue with Lovenox 80 mg twice daily -Insurance recovers prior auth Lovenox, Xarelto, and eloquent us. Case management to assist -Await oncology recommendations -Monitor CBC Anemia with thrombocytopenia -Suspect chemotherapy-induced -Monitor CBC and for signs of bleeding Right-sided breast cancer stage III status post chemotherapy -Oncology consulted DVT prophylaxis: On full dose Lovenox Discussed with: Patient, nursing Anticipated discharge: 24-[address]: Home A total of 25 minutes was spent on the care of this complex patient more than 50% of the time was spent in counseling and care coordination.
[2019-04-13] MEDS ORDERED: NALOXONE HCL SL SCH (16:00)
[2019-04-13] MEDS ORDERED: [UNRECOGNIZED DRUG - OTHER] SL SCH (16:00)
[2019-04-13] MEDS ORDERED: BUPRENORPHINE HCL SL SCH (16:00)
--- NOTE | 2019-04-13 17:14 | P.CONS ---
History of Present Illness - Reason for Consult Consult date: 04/13/19 Catheter-related right IJ DVT. Breast cancer on chemo - History of Present Illness The patient is a 53-year-old white female, well known to our service. She was diagnosed with right-sided breast cancer in 11/12. She has a T2 N1 M0 tumor which is ER strongly positive, and also HER-2 3+. The patient was therefore started on neoadjuvant chemotherapy with Taxotere plus carboplatin plus Herceptin plus Perjeta. She completed the planned 6 cycles of neoadjuvant treatment on 03/27/19. She was admitted after cycle 5, last month febrile neutropenia but otherwise tolerated treatment reasonably well. The patient has a right-sided port, and came in because of pain in the right neck, along with subjective swelling. This started about 2 days ago and had progressed. She was found to have extensive right IJ DVT. She was therefore admitted for further management. She denied any prior history of venous thrombus embolism. Review of Systems Constitutional: Reports fatigue Eyes: denies blurred vision, denies pain Ears: deny: decreased hearing, ear discharge, earache, tinnitus Ears, nose, mouth and throat: Reports ant. neck pain Breasts: right: as per HPI Cardiovascular: Denies chest pain, Denies shortness of breath Respiratory: Denies cough Gastrointestinal: Denies abdominal pain, Denies diarrhea, Denies nausea, Denies vomiting Genitourinary: Denies dysuria, Denies hematuria Menstruation: Reports postmenopausal Musculoskeletal: Reports neck pain, Denies myalgias Integumentary: Denies pruritus, Denies rash Neurological: Denies numbness, Denies weakness Psychiatric: Denies anxiety, Denies depression Endocrine: Denies fatigue, Denies weight change Hematologic/Lymphatic: Reports as per HPI Past Medical History Past Medical History: Cancer, Vascular Disorder Additional Past Medical History / Comment(s): over 10 years ago quit using cocaine and prescription opioids. breast cancer right oct 2018, chemo last on jan 02,genital herpes 2009, right after chemo rash genital herpes open bleeding started 01/09/19. right breast rash History of Any Multi-Drug Resistant Organisms: None Reported Past Surgical History: Cholecystectomy, Tonsillectomy Additional Past Surgical History / Comment(s): gastric sleeve, R breast bx. right sided port Past Anesthesia/Blood Transfusion Reactions: No Reported Reaction Smoking Status: Never smoker - Past Family History Mother Family Medical History: Diabetes Mellitus, Hypertension Additional Family Medical History / Comment(s): heart disease Father Family Medical History: Cancer Additional Family Medical History / Comment(s): lung CA, cirrosis, kidney disease Medications and Allergies Home Medications Medication Instructions Recorded Confirmed Type Biotin 5,000 mcg PO DAILY 11/11/18 04/12/19 History Calcium Carbonate [Calcium] 600 mg PO QAM 11/11/18 04/12/19 History Inulin/Chromium Picolinate [Fiber 1 tab PO QAM 11/11/18 04/12/19 History Gummies Chew] Multivitamin [Multivitamins Adult 1 tab PO QAM 11/11/18 04/12/19 History Gummies] LORazepam [Ativan] 1 mg PO HS 01/09/19 04/12/19 History valACYclovir HCL [Valtrex] 1,000 mg PO BID 01/16/19 04/12/19 History Acetaminophen Tab [Tylenol] 1,000 mg PO Q6H 03/13/19 04/12/19 History Buprenorphine HCl/Naloxone HCl 0.25 film SL SUTUTHSA@1600 03/13/19 04/12/19 History [Suboxone 8 mg-2 mg Sl Film] Buprenorphine HCl/Naloxone HCl 0.5 film SL MOWEFR@1600 03/13/19 04/12/19 History [Suboxone 8 mg-2 mg Sl Film] Buprenorphine HCl/Naloxone HCl 1 tab PO DAILY 03/13/19 04/12/19 History [Suboxone 8 mg-2 mg Sl Film] Cariprazine HCl [Vraylar] 3 mg PO HS 03/13/19 04/12/19 History Ergocalciferol [Vitamin D2 50,000 unit PO Q7D 03/13/19 04/12/19 History (DRISDOL)] Ofloxacin 0.3% Ophth Soln [Ocuflox 1 drop BOTH EYES DAILY 03/13/19 04/12/19 History Ophth Soln] Omeprazole [PriLOSEC] 20 mg PO BID 03/13/19 04/12/19 History buPROPion HCL [Wellbutrin SR] 150 mg PO DAILY 03/13/19 04/12/19 History Fluconazole [Diflucan] 100 mg PO DAILY #10 tab 03/16/19 04/12/19 Rx Allergies Allergy/AdvReac Type Severity Reaction Status Date / Time amoxicillin [From Augmentin] Allergy Rash/Hives Verified 04/12/19 15:45 clavulanic acid Allergy Rash/Hives Verified 04/12/19 15:45 [From Augmentin] Tetracyclines Allergy Rash/Hives Verified 04/12/19 15:45 Physical Exam Vitals: Vital Signs Temp Pulse Pulse Resp BP BP Pulse Ox 04/13/19 12:00 98 18 127/58 97 04/13/19 08:00 97.9 F 94 20 107/65 99 04/13/19 04:00 98.4 F 98 18 95/52 95 04/13/19 03:16 97 18 04/12/19 23:15 95 18 132/75 96 04/12/19 21:44 99.1 F 97 18 139/80 97 04/12/19 21:36 80 18 118/68 98 04/12/19 20:00 99.1 F 98 18 139/80 97 04/12/19 19:18 82 18 107/65 97 Intake and Output 04/13/19 04/13/19 04/13/19 06:59 14:59 22:59 Intake Total 200 Balance 200 Intake: Oral 200 Other: # Voids 1 Weight 87.2 kg - Constitutional General appearance: no acute distress - EENT Eyes: EOMI, PERRLA ENT: hearing grossly normal, normal oropharynx - Neck Linear swelling right lower neck extending into the right supraclavicular fossa. This is quite tender to palpation and mildly warm. Thyroid: bilateral: normal size - Respiratory Respiratory: bilateral: CTA - Cardiovascular Heart sounds: normal: S1, S2 - Gastrointestinal General gastrointestinal: normal bowel sounds, soft - Integumentary Integumentary: normal - Neurologic Neurologic: CNII-XII intact - Musculoskeletal Musculoskeletal: generalized weakness, strength equal bilaterally - Psychiatric Psychiatric: A&O x's 3, appropriate affect Results CBC & Chem 7: 04/13/19 06:05 04/12/19 17:35 Labs: Abnormal Lab Results - Last 24 Hours (Table) 04/12/19 04/12/19 04/13/19 Range/Units 17:35 17:35 06:05 RBC 2.88 L 2.66 L (3.80-5.40) m/uL Hgb 9.3 L D 8.7 L (11.4-16.0) gm/dL Hct 29.4 L 27.4 L (34.0-46.0) % MCV 102.1 H 103.0 H (80.0-100.0) fL RDW 18.5 H 17.8 H (11.5-15.5) % Plt Count 140 L 131 L (150-450) k/uL Chloride 110 H (98-107) mmol/L Total Protein 5.4 L (6.3-8.2) g/dL Albumin 3.1 L (3.5-5.0) g/dL Venous US: report reviewed Assessment and Plan (1) Internal jugular vein thrombosis Narrative/Plan: This is a provoked thrombosis, due to central venous catheter, as well as intercurrent malignancy and chemotherapy. The patient has been started on Lovenox. She has completed neoadjuvant chemoradiotherapy for which the catheter was placed. She will be continuing on immunotherapy with Herceptin every 3 weeks but that can be administered through a peripheral line. Her peripheral access otherwise is reasonable. - I would therefore recommend removal of the port. This was placed by Dr. Arguello, and she'll be consulted for the same. - If the catheter is removed, and the patient can be treated with a 3 month course of anticoagulation. - She was also advised that the remote of the catheter would facilitate thicker resolution of the clot, which would be desirable as the patient is to have breast surgery in the near future - Outpatient anticoagulation can be performed with one of the oral DOACs, either Xarelto or Eliquis. They're shorter duration of action, and quick onset, would facilitate stoppage and resumption for her breast surgery. Current Visit: Yes Status: Acute Code(s): I82.C19 - ACUTE EMBOLISM AND THROMBOSIS OF UNSP INTERNAL JUGULAR VEIN SNOMED Code(s): 173225288 (2) Breast cancer Narrative/Plan: Diagnostic and therapeutic circumstances as described. The patient is to meet with surgery, Dr. Micah Gil, and addition oncology to planed surgery and postop radiation. She has completed neoadjuvant chemo immunotherapy. She will continue Herceptin alone every 3 weeks. After completion of local therapy (surgery plus radiation if required) she'll start hormonal manipulation also. She is recovering well from treatment-related side effects with no residual mucositis, or diarrhea at this time. She does have some neuropathy but this is fairly minor and not interfering with function Current Visit: No Status: Acute Priority: High Code(s): C50.919 - MALIGNANT NEOPLASM OF UNSP SITE OF UNSPECIFIED FEMALE BREAST SNOMED Code(s): 029223248 (3) Anemia due to chemotherapy Narrative/Plan: Hemoglobin is in a safe range at 8.7. This is expected to improve as the patient gets further out from chemotherapy. Continue to monitor. Current Visit: Yes Status: Acute Code(s): D64.81 - ANEMIA DUE TO ANTINEOPLASTIC CHEMOTHERAPY; T45.1X5A - ADVERSE EFFECT OF ANTINEOPLASTIC AND IMMUNOSUP DRUGS, INIT SNOMED Code(s): 200299736
[2019-04-13] MEDS: FLUCONAZOLE 100 MG TAB PO SCH (17:33)
[2019-04-13] MEDS: VRAYLAR 1.5 MG PO SCH (20:05)
[2019-04-13] MEDS: LORazepam 1 MG TAB PO SCH (20:13)
[2019-04-14] MEDS: ACETAMINOPHEN TAB 500 MG TAB PO SCH ×4 (05:15→20:49)
[2019-04-14] MEDS: PANTOPRAZOLE 40 MG TABLET PO SCH (06:11)
[2019-04-14 06:45] LABS: Anisocytosis Slight; HCT 28.6 % (34.0-46.0); HGB 8.7 gm/dL (11.4-16.0); Hypochromasia Slight; MCH 31.7 pg (25.0-35.0); MCHC 30.5 g/dL (31.0-37.0); MCV 103.7 fL (80.0-100.0); Macrocytosis Moderate; Mean Platelet Volume 7.2; Platelet Count 140 k/uL (150-450); RBC 2.76 m/uL (3.80-5.40); RDW 17.7 % (11.5-15.5); WBC 6.5 k/uL (3.8-10.6)
--- NOTE | 2019-04-14 07:55 | P.GSCN ---
History of Present Illness Consult date: 04/14/19 History of present illness: CHIEF COMPLAINT: Right internal jugular vein DVT HISTORY OF PRESENT ILLNESS: The patient is a 53 year old female who presented acutely with right neck pain on Dario, 4 days ago and swelling. She has history of right IJ port-a-cath placed in November 2018. She has been seen by her oncologist as she has just recently completed keisha-adjuvant chemotherapy. She reports moderate to severe ache of the right neck. No active rigors or chills. Additional studies obtained consistent with acute DVT of the right neck. General surgery is consulted for removal of her port. She is currently on Lovenox for treatment. PAST MEDICAL HISTORY: See list. PAST SURGICAL HISTORY: See list. MEDICATIONS: See list. ALLERGIES: See list. SOCIAL HISTORY: No illicit drug use FAMILY HISTORY: No reports of Crohn's disease or inflammatory bowel disease REVIEW OF ORGAN SYSTEMS: CONSTITUTIONAL: No fevers or chills. No recent weight loss. EYES: Denies any trouble with vision. No glasses. HEENT: No difficulties with hearing. No nosebleeds. No difficulty swallowing. RESPIRATORY: Denies pneumonia. Denies any troubles with breathing or dyspnea on exertion. CARDIOVASCULAR: Denies any chest pain, palpitations, or recent heart attacks. GASTROINTESTINAL: Denies fatty food intolerance. Denies change in bowel habits and gas bloat. GENITOURINARY: Denies any blood in urine or increased urinary frequency. NEUROLOGICAL: Denies any numbness or tingling along the distal extremities. No seizure disorders or headaches. MUSCULOSKELETAL: Has back pain, stiffness or joint arthritis. SKIN: No current skin cancer. No rash. PSYCHIATRIC: Denies current depression or suicidal thoughts. ENDOCRINE: Denies current thyroid disorders. Denies any blood sugar glucose intolerance. HEME/LYMPHATIC: Denies any lumps and bumps around the neck. Has deep venous thrombosis of right neck ALLERGY/IMMUNOLOGY: Currently off chemotherapy. BREAST: Has right breast cancer PHYSICAL EXAM: VITALS: Reviewed CONSTITUTIONAL: Well developed and in no acute distress. EYES: Conjuctivae without sclera icterus. Pupils are equally round and reactive to light. Extraocular movements grossly intact. HEAD, EARS, NOSE, THROAT: Moist buccal mucosa. Head is atraumatic, normocephalic. Hears conversational speech. No nasal drainage. Good dentition. NECK: Supple. Swelling along right neck without cellulitis. RESPIRATORY: Non-labored respirations and equal bilateral excursions. No gross wheezes. CARDIOVASCULAR: Regular rate and rhythm. Extremities without moderate edema. Palpable 2+ radial pulses. ABDOMEN: No hepatomegaly. Soft. Non-tender. Nondistended. LYMPH: No neck lymphadenopathy. No axillary lymphadenopathy. MUSCULOSKELETAL: Range of motion bilateral upper extremities within normal limits. Nail and fingers with good capillary refill. SKIN: Warm and well perfused with good skin turgor. No erythema at port side, right chest wall. NEUROLOGIC: Cranial nerves I through XII grossly intact. Sensation upper and extremities intact. No focal or lateralizing signs. PSYCH: Appropriate affect. Alert and oriented to person, place and time. Displays appropriate insight. RECORDS: previous old records reviewed ASSESSMENT: 1. Acute right sided internal jugular vein DVT 2. Right sided breast cancer 3. Bipolar disorder 4. Depressive disorder 5. Obesity due to excess calories, BMI 33.7 6. Past history of illicit drug use 7. History of chemotherapeutic access. PLAN: 1. Hold Lovenox for this morning for removal of port-a-cath 2. Benefits and risks described for port removal including increased risk for bleeding and bruising 3. May resume Lovenox 24 hrs after port-a-cath removal Thank you for this kind consultation. Past Medical History Past Medical History: Cancer, Vascular Disorder Additional Past Medical History / Comment(s): over 10 years ago quit using cocaine and prescription opioids. breast cancer right oct 2018, chemo last on jan 02,genital herpes 2009, right after chemo rash genital herpes open bleeding started 01/09/19. right breast rash History of Any Multi-Drug Resistant Organisms: None Reported Past Surgical History: Cholecystectomy, Tonsillectomy Additional Past Surgical History / Comment(s): gastric sleeve, R breast bx. right sided port Past Anesthesia/Blood Transfusion Reactions: No Reported Reaction Smoking Status: Never smoker - Past Family History Mother Family Medical History: Diabetes Mellitus, Hypertension Additional Family Medical History / Comment(s): heart disease Father Family Medical History: Cancer Additional Family Medical History / Comment(s): lung CA, cirrosis, kidney disease Medications and Allergies Home Medications Medication Instructions Recorded Confirmed Type Biotin 5,000 mcg PO DAILY 11/11/18 04/12/19 History Calcium Carbonate [Calcium] 600 mg PO QAM 11/11/18 04/12/19 History Inulin/Chromium Picolinate [Fiber 1 tab PO QAM 11/11/18 04/12/19 History Gummies Chew] Multivitamin [Multivitamins Adult 1 tab PO QAM 11/11/18 04/12/19 History Gummies] LORazepam [Ativan] 1 mg PO HS 01/09/19 04/12/19 History valACYclovir HCL [Valtrex] 1,000 mg PO BID 01/16/19 04/12/19 History Acetaminophen Tab [Tylenol] 1,000 mg PO Q6H 03/13/19 04/12/19 History Buprenorphine HCl/Naloxone HCl 0.25 film SL SUTUTHSA@1600 03/13/19 04/12/19 History [Suboxone 8 mg-2 mg Sl Film] Buprenorphine HCl/Naloxone HCl 0.5 film SL MOWEFR@1600 03/13/19 04/12/19 History [Suboxone 8 mg-2 mg Sl Film] Buprenorphine HCl/Naloxone HCl 1 tab PO DAILY 03/13/19 04/12/19 History [Suboxone 8 mg-2 mg Sl Film] Cariprazine HCl [Vraylar] 3 mg PO HS 03/13/19 04/12/19 History Ergocalciferol [Vitamin D2 50,000 unit PO Q7D 03/13/19 04/12/19 History (DRISDOL)] Ofloxacin 0.3% Ophth Soln [Ocuflox 1 drop BOTH EYES DAILY 03/13/19 04/12/19 History Ophth Soln] Omeprazole [PriLOSEC] 20 mg PO BID 03/13/19 04/12/19 History buPROPion HCL [Wellbutrin SR] 150 mg PO DAILY 03/13/19 04/12/19 History Fluconazole [Diflucan] 100 mg PO DAILY #10 tab 03/16/19 04/12/19 Rx Allergies Allergy/AdvReac Type Severity Reaction Status Date / Time amoxicillin [From Augmentin] Allergy Rash/Hives Verified 04/12/19 15:45 clavulanic acid Allergy Rash/Hives Verified 04/12/19 15:45 [From Augmentin] Tetracyclines Allergy Rash/Hives Verified 04/12/19 15:45 Surgical - Exam Vital Signs Temp Pulse Resp BP Pulse Ox 98.1 F 87 18 123/68 100 04/12/19 14:55 04/12/19 14:55 04/12/19 14:55 04/12/19 14:55 04/12/19 14:55 Results - Labs 04/14/19 05:46 04/12/19 17:35 Abnormal Lab Results - Last 24 Hours (Table) 04/14/19 Range/Units 05:46 RBC 2.76 L (3.80-5.40) m/uL Hgb 8.7 L (11.4-16.0) gm/dL Hct 28.6 L (34.0-46.0) % MCV 103.7 H (80.0-100.0) fL MCHC 30.5 L (31.0-37.0) g/dL RDW 17.7 H (11.5-15.5) % Plt Count 140 L (150-450) k/uL
--- NOTE | 2019-04-14 11:19 | P.PN ---
Subjective Progress Note Date: 04/14/19 Principal diagnosis: Right IJ thrombosis, secondary to CVC Patient is feeling well today other than tenderness and soreness in the right neck, upper chest and axillary area. She just got out of the shower, she was able to perform her activities independently with minor discomfort, no difficulty in breathing, she is going to have the port removed today. Objective - Vital Signs Vital signs: Vital Signs Temp 97.7 F 04/14/19 07:03 Pulse 90 04/14/19 07:03 Resp 20 04/14/19 07:03 BP 117/64 04/14/19 07:03 Pulse Ox 97 04/14/19 07:03 Intake & Output 04/13/19 04/14/19 04/14/19 18:59 06:59 18:59 Intake Total 680 240 Balance 680 240 Weight 89.1 kg Intake: Oral 680 240 Other: # Voids 3 - Constitutional General appearance: Present: average body habitus, cooperative, no acute distress - EENT Eyes: Present: anicteric sclerae, EOMI, normal appearance ENT: Present: hearing grossly normal, normal oropharynx - Neck Details: Visibly the right neck is swollen, the supraclavicular area is full to palpation , no adenopathy, right chest wall venous prominence, also noted in the upper arm - Respiratory Respiratory: bilateral: CTA - Cardiovascular Rhythm: regular Heart sounds: normal: S1, S2 Abnormal Heart Sounds: Absent: systolic murmur, diastolic murmur, rub, S3 Gallop, S4 Gallop, click, other - Gastrointestinal General gastrointestinal: Present: normal bowel sounds, soft. Absent: absent bowel sounds, decreased bowel sounds, distended, hepatomegaly, hyperactive bowel sounds, organomegaly, rigid, scaphoid, splenomegaly, tenderness, umbilical hernia, ventral hernia - Neurologic Neurologic: Present: CNII-XII intact - Musculoskeletal Musculoskeletal: Present: strength equal bilaterally - Psychiatric Psychiatric: Present: A&O x's 3, appropriate affect, intact judgment & insight - Labs CBC & Chem 7: 04/14/19 05:46 04/12/19 17:35 Labs: Abnormal Lab Results - Last 24 Hours (Table) 04/14/19 Range/Units 05:46 RBC 2.76 L (3.80-5.40) m/uL Hgb 8.7 L (11.4-16.0) gm/dL Hct 28.6 L (34.0-46.0) % MCV 103.7 H (80.0-100.0) fL MCHC 30.5 L (31.0-37.0) g/dL RDW 17.7 H (11.5-15.5) % Plt Count 140 L (150-450) k/uL Assessment and Plan (1) Internal jugular vein thrombosis Narrative/Plan: Case reviewed with Dr. Muir and Attending Physician. Patient is currently on treatment with low molecular weight heparin twice a day. This a.m. dose was held for procedure. Monitor surgical site for adequate hemostasis. Administer evening dose of Lovenox molecular weight heparin and begin oral anticoagulation in the a.m. Attending Physician has been working with Case Management obtaining the prior authorization necessary for NOAC eliquis Current Visit: Yes Status: Acute Priority: High Code(s): I82.C19 - ACUTE EMBOLISM AND THROMBOSIS OF UNSP INTERNAL JUGULAR VEIN SNOMED Code(s): 615759378 (2) Breast cancer Narrative/Plan: Patient has completed neoadjuvant chemotherapy. She is due for an MRI this . Follow-up with breast surgeon same day for surgical plans moving forward. Current Visit: Yes Status: Acute Priority: Medium Code(s): C50.919 - MALIGNANT NEOPLASM OF UNSP SITE OF UNSPECIFIED FEMALE BREAST SNOMED Code(s): 840764727 (3) Anemia due to chemotherapy Narrative/Plan: Macrocytic, not requiring transfusion at this time. A few labs ordered for evaluation. Continue to monitor CBC while inpatient as she is being started on anticoagulation and going to have a procedure. Current Visit: Yes Status: Acute Priority: Medium Code(s): D64.81 - ANEMIA DUE TO ANTINEOPLASTIC CHEMOTHERAPY; T45.1X5A - ADVERSE EFFECT OF ANTINEOPLASTIC AND IMMUNOSUP DRUGS, INIT SNOMED Code(s): 827504042
[2019-04-14] MEDS: NALOXONE HCL PO SCH (12:43)
[2019-04-14] MEDS: SODIUM CHLORIDE 0.9% 1,000 ML IV SCH (12:43)
[2019-04-14] MEDS: OFLOXACIN 0.3% OPHTH DROPS 5 ML BOTTLE BOTH EYES SCH (12:43)
[2019-04-14] MEDS: MULTIVITAMINS, THERA 1 EACH TAB PO SCH (12:43)
[2019-04-14] MEDS: BUPRENORPHINE HCL PO SCH (12:43)
[2019-04-14] MEDS: ENOXAPARIN 80 MG/0.8 ML SYRINGE SQ SCH ×2 (12:43→20:48)
[2019-04-14] MEDS ORDERED: BUPIVACAIN-EPI 0.5%-1:200,000 30 ML VIAL SQ ONE (13:51)
[2019-04-14] MEDS ORDERED: IV FLUID CONTINUATION 1,000 ML IV ONE (14:14)
[2019-04-14] MEDS ORDERED: LACTATED RINGERS 1,000 ML IV ONE (14:45)
--- NOTE | 2019-04-14 14:48 | P.PN ---
Subjective Progress Note Date: 04/14/19 (delayed charting seen at 11 am) Principal diagnosis: right neck swelling Patient is a 52-year-old female currently undergoing treatment for right-sided breast cancer stage III (complete a final dose of chemo 03/27, no further chemo plan) with right sided chemo port, genital herpes, and anxiety who presented to the ER with complaints of right-sided neck pain and swelling. In the emergency department she underwent an extensive evaluation. Initial laboratory analysis showed hemoglobin 9.3, platelets of 140, albumin 3.1, BUN of 8, creatinine 0.53. Initial vital signs were stable. A right upper extremity venous duplex showed a near occlusive internal jugular vein thrombosis. She was started on lovenox and admitted for further monitoring and care. Her swelling rosenthal d decreased be the morning of 04/13. She was seen by oncology who recommended port removal. Plan is for port removal 04/14 with resumption of Lovenox. Patient seen and examined at bedside. Continues to have some neck pain and swelling, consistent with yesterday. No shortness of breath, no chest pain. Patient seen and examined well Delilah CIV[employer] ENGINEERING DESIGN DRAFTSPERSON in the room. We all discuss that the best for her to be on an oral noval anticoagulant such as eliquis or Xarelto. Coumadin is not indicated for use in patients with an active malignancy. This would not be a choice for her at this time. She will also need close follow-up as she has breast surgery planned soon to complete her treatment. Objective - Vital Signs Vital signs: Vital Signs Temp 99.1 F 04/14/19 14:17 Pulse 96 04/14/19 14:17 Resp 16 04/14/19 14:17 BP 141/73 04/14/19 14:17 Pulse Ox 98 04/14/19 14:17 Intake & Output 04/13/19 04/14/19 04/14/19 18:59 06:59 18:59 Intake Total 680 240 Balance 680 240 Weight 89.1 kg Intake: Oral 680 240 Other: # Voids 3 1 - Exam General: non toxic, no distress, appears at stated age, temporal wasting Derm: Hair loss, warm, dry Head: atraumatic, normocephalic, symmetric Eyes: EOMI, no lid lag, anicteric sclera Mouth: no lip lesion, mucus membranes dry Neck: Swelling right side of breath, swelling above the right clavicle- with some redness to skin Cardiovascular: S1S2 reg, no murmur, positive posterior tibial pulse bilateral, Lungs: CTA bilateral, no rhonchi, no rales , no accessory muscle use Abdominal: soft, nontender to palpation, no guarding, no appreciable organomegaly Ext: no gross muscle atrophy, no edema, no contractures Neuro: CN II-XI grossly intact, no focal neuro deficits Psych: Alert, oriented, anxious - Labs CBC & Chem 7: 04/14/19 05:46 04/12/19 17:35 Labs: Abnormal Lab Results - Last 24 Hours (Table) 04/14/19 Range/Units 05:46 RBC 2.76 L (3.80-5.40) m/uL Hgb 8.7 L (11.4-16.0) gm/dL Hct 28.6 L (34.0-46.0) % MCV 103.7 H (80.0-100.0) fL MCHC 30.5 L (31.0-37.0) g/dL RDW 17.7 H (11.5-15.5) % Plt Count 140 L (150-450) k/uL Assessment and Plan Assessment: Acute right internal jugular vein DVT in the setting of chemo port - removal or port today, hold lovenox AM dose -Continue with Lovenox 80 mg twice daily, resume this evening -Patient is not a candidate for coumadin therapy as she has an active malignancy. It has been showed that factor Xa inhibitors (eliquis) are superior for treatment of DVT in patients with active cancer. Hemeatology/Oncology in Agreement -oncology recs appreciated -Monitor CBC Anemia with thrombocytopenia -Suspect chemotherapy-induced -Monitor CBC and for signs of bleeding Right-sided breast cancer stage III status post chemotherapy -Oncology recs, restarting MRI on , then will need surgery followed by radiation. DVT prophylaxis: On full dose Lovenox Discussed with: Patient, nursing, Oncology, case management Anticipated discharge: [address]: Home A total of 25 minutes was spent on the care of this complex patient more than 50% of the time was spent in counseling and care coordination.
[2019-04-14] MEDS ORDERED: MIDAZOLAM 2 MG/2 ML VIAL ONE (15:32)
[2019-04-14] MEDS ORDERED: PROPOFOL 10 MG/ML 20 ML VIAL IV ONE (15:32)
[2019-04-14] MEDS ORDERED: fentaNYL (PF) 50 MCG/ML 2 ML AMP ONE (15:32)
[2019-04-14] MEDS ORDERED: NON-FORMULARY DRUG (Buprenorphine Hcl/Naloxone Hcl [Suboxone 8 Mg-2 Mg Sl Film] 0.5 FILM) SL SCH (16:00)
[2019-04-14] MEDS ORDERED: ENOXAPARIN 80 MG/0.8 ML SYRINGE SQ SCH (16:00)
[2019-04-14] MEDS ORDERED: HYDROcodone/APAP 5-325MG 1 EACH TAB PO PRN (16:03)
--- NOTE | 2019-04-14 16:03 | P.OP ---
Date of Procedure: 04/14/19 Description of Procedure: SURGEON: VALENTINA CARRASCO MD OFFICE SWEEPER: None. PREOPERATIVE DIAGNOSIS: 1. Acute right sided internal jugular vein DVT 2. Right sided breast cancer 3. Bipolar disorder 4. Depressive disorder 5. Obesity due to excess calories, BMI 34.8 6. Past history of illicit drug use 7. History of chemotherapeutic access. POSTOPERATIVE DIAGNOSIS: 1. Acute right sided internal jugular vein DVT 2. Right sided breast cancer 3. Bipolar disorder 4. Depressive disorder 5. Obesity due to excess calories, BMI 34.8 6. Past history of illicit drug use 7. History of chemotherapeutic access. OPERATION: Removal of right internal jugular vein Port-A-Cath. ANESTHESIA: MAC with 30 mL local ESTIMATED BLOOD LOSS: 1 mL SPECIMENS REMOVED: Port-A-Cath COMPLICATIONS: None. INDICATIONS: The patient is a 53-year-old female who presented with acute right internal jugular vein deep venous thrombosis. Secondary to pain and recent completion of neoadjuvant adjuvant therapy, her oncologist requests removal of her port. Benefits and risks were described. Informed consent was obtained. DESCRIPTION OF PROCEDURE: Patient was brought to the operating room, laid in supine position. After IV sedation the chest wall on the left side was prepped and draped in standard sterile fashion. Prior to incision, a timeout protocol was confirmed with surgical team regarding the patient's name including procedures to be performed. As this was a clean case, no further antibiotics were required. Additionally, early ambulation was encouraged for DVT prophylaxis. Attention was brought to the area of the port site, whereby a total of 30 mL of local was infiltrated into the skin for a field block. A #15 blade was used to incise along the previous cicatrix. Electro- Bovie cautery was used to control for hemostasis. Adhesions were lysed around the Mediport. The port was extracted without sequelae. Pressure for 2 minutes was placed along the internal jugular vein. Hemostasis was checked along the pocket of the Port-A-Cath site. The wound was closed in layers using 3-0 Vicryl for the deep subcutaneous tissues followed by 4-0 Monocryl in a running subcuticular fashion. Dermabond was applied to the skin. Once dried a 4 x 4 Optifoam was applied. At the end of the procedure needle, sponge and instrument counts were verified correct by the surgical services tech. The patient had tolerated the procedure well and was taken to postanesthesia care in stable condition. FINDINGS: 1. Unremarkable Port-a-cath extraction.
[2019-04-14] MEDS: buPROPion SR 150 MG TABLET.ER PO SCH (17:14)
[2019-04-14] MEDS: valACYclovir HCL 1,000 MG TABLET PO SCH ×2 (17:14→20:49)
[2019-04-14] MEDS: FLUCONAZOLE 100 MG TAB PO SCH (17:14)
[2019-04-14 19:06] LABS: Iron Saturation 4.69 (12.00-45.00)
[2019-04-14 19:28] LABS: Vitamin B12 >4000.0 pg/mL (211-911)
[2019-04-14] MEDS: LORazepam 1 MG TAB PO SCH (20:49)
[2019-04-14] MEDS: VRAYLAR 1.5 MG PO SCH (20:53)
[2019-04-15] MEDS: ACETAMINOPHEN TAB 500 MG TAB PO SCH ×2 (03:50→10:16)
[2019-04-15] MEDS: ENOXAPARIN 80 MG/0.8 ML SYRINGE SQ SCH (06:34)
[2019-04-15] MEDS: PANTOPRAZOLE 40 MG TABLET PO SCH (06:34)
[2019-04-15] MEDS: FLUCONAZOLE 100 MG TAB PO SCH (08:03)
[2019-04-15] MEDS: MULTIVITAMINS, THERA 1 EACH TAB PO SCH (08:03)
[2019-04-15] MEDS: OFLOXACIN 0.3% OPHTH DROPS 5 ML BOTTLE BOTH EYES SCH (08:04)
[2019-04-15] MEDS: buPROPion SR 150 MG TABLET.ER PO SCH (08:04)
[2019-04-15] MEDS: valACYclovir HCL 1,000 MG TABLET PO SCH (08:05)
[2019-04-15] MEDS: BUPRENORPHINE HCL PO SCH (08:06)
[2019-04-15] MEDS: NALOXONE HCL PO SCH (08:06)
[2019-04-15 08:41] LABS: Anisocytosis Slight; HCT 24.9 % (34.0-46.0); HGB 8.5 gm/dL (11.4-16.0); Hypochromasia Moderate; MCV 106.1 fL (80.0-100.0); Macrocytosis Marked; Platelet Count 154 k/uL (150-450); RBC 2.35 m/uL (3.80-5.40); WBC 7.7 k/uL (3.8-10.6)
[2019-04-15 09:15] VITALS: RESP 20
--- NOTE | 2019-04-15 11:43 | P.DS ---
Providers Date of admission: 04/12/19 18:44 Expected date of discharge: 04/15/19 Attending physician: Ira Warner DO Consults: 04/12/19 18:39 Consult Physician Routine Consulting Provider: Billy Genao Consult Reason/Comments: Nearly occlusive DVT of internal jugular vein, breast cancer Do you want consulting provider notified?: Already Contacted 04/13/19 17:14 Consult Physician Routine Consulting Provider: Ashlee Louis Consult Reason/Comments: Port removal. Catheter associated DVT Do you want consulting provider notified?: Yes Primary care physician: Bo Najera [facility] Course: Discharge Diagnosis: Right internal jugular DVT in the setting of a mediport Anemia with thrombocytopenia Right sided breast cancer Stage III Hospital Course: Patient is a 52-year-old female currently undergoing treatment for right-sided breast cancer stage III (complete a final dose of chemo 03/27, no further chemo plan) with right sided chemo port, genital herpes, and anxiety who presented to the ER with complaints of right-sided neck pain and swelling. In the emergency department she underwent an extensive evaluation. Initial laboratory analysis showed hemoglobin 9.3, platelets of 140, albumin 3.1, BUN of 8, creatinine 0.53. Initial vital signs were stable. A right upper extremity venous duplex showed a near occlusive internal jugular vein thrombosis. She was started on lovenox and admitted for further monitoring and care. Her swelling had decreased be the morning of 04/13. She was seen by oncology who recommended port removal. Port was removal 04/14 with resumption of Lovenox. [facility] approved eliquis and she was discharge home with eliquis started pack. She has breast MRI scheduled for 04/17 and she will see Dr. Malcolm and Dr. Najera next week. Optimial timing of surgery will be determined between Dr. Malcolm and Dr. Micah Gil. Patient seen and examined at bedside. No chest pain, slight right upper extremity edema, no shortness of breath. Removal site with tenderness. Vital signs reviewed and stable. General: non toxic, no distress, appears older than stated age Derm: dressing in place over right chest wall- no soak through, no swelling, warm, dry, + hair loss Head: atraumatic, normocephalic, symmetric Eyes: EOMI, no lid lag, anicteric sclera Mouth: no lip lesion, mucus membranes moist Cardiovascular: S1S2 reg, no murmur, positive posterior tibial pulse bilateral, Lungs: CTA bilateral, no rhonchi, no rales , no accessory muscle use Abdominal: soft, nontender to palpation, no guarding, no appreciable organomegaly Ext: no gross muscle atrophy, no edema, no contractures Neuro: CN II-XI grossly intact, no focal neuro deficits Psych: Alert, oriented, appropriate affect A total of 35 minutes of time were spent preparing this complex discharge summary . Pertinent Studies: doppler- right IJ DVT Procedures: Removal of mediport 04/14 Patient Condition at Discharge: Stable Plan - Discharge Summary Discharge Rx Participant: Yes New Discharge Prescriptions: New Apixaban [Eliquis Starter Pack (for VTE)] 0 mg PO DIRECTED 30 Days #1 pack Continue Inulin/Chromium Picolinate [Fiber Gummies Chew] 1 tab PO QAM Multivitamin [Multivitamins Adult Gummies] 1 tab PO QAM Calcium Carbonate [Calcium] 600 mg PO QAM Biotin 5,000 mcg PO DAILY LORazepam [Ativan] 1 mg PO HS Acetaminophen Tab [Tylenol] 1,000 mg PO Q6H Omeprazole [PriLOSEC] 20 mg PO BID Ofloxacin 0.3% Ophth Soln [Ocuflox Ophth Soln] 1 drop BOTH EYES DAILY buPROPion HCL [Wellbutrin SR] 150 mg PO DAILY Cariprazine HCl [Vraylar] 3 mg PO HS Buprenorphine HCl/Naloxone HCl [Suboxone 8 mg-2 mg Sl Film] 0.25 film SL SUTUTHSA@1600 Buprenorphine HCl/Naloxone HCl [Suboxone 8 mg-2 mg Sl Film] 0.5 film SL MOWEFR@1600 Buprenorphine HCl/Naloxone HCl [Suboxone 8 mg-2 mg Sl Film] 1 tab PO DAILY Ergocalciferol [Vitamin D2 (DRISDOL)] 50,000 unit PO Q7D Fluconazole [Diflucan] 100 mg PO DAILY #10 tab valACYclovir HCL [Valtrex] 1,000 mg PO BID #0 Discharge Medication List Biotin 5,000 mcg PO DAILY 11/11/18 [History] Calcium Carbonate [Calcium] 600 mg PO QAM 11/11/18 [History] Inulin/Chromium Picolinate [Fiber Gummies Chew] 1 tab PO QAM 11/11/18 [History] Multivitamin [Multivitamins Adult Gummies] 1 tab PO QAM 11/11/18 [History] LORazepam [Ativan] 1 mg PO HS 01/09/19 [History] Acetaminophen Tab [Tylenol] 1,000 mg PO Q6H 03/13/19 [History] Buprenorphine HCl/Naloxone HCl [Suboxone 8 mg-2 mg Sl Film] 0.25 film SL SUTUTHSA@1600 03/13/19 [History] Buprenorphine HCl/Naloxone HCl [Suboxone 8 mg-2 mg Sl Film] 0.5 film SL MOWEFR@1600 03/13/19 [History] Buprenorphine HCl/Naloxone HCl [Suboxone 8 mg-2 mg Sl Film] 1 tab PO DAILY 03/13/19 [History] Cariprazine HCl [Vraylar] 3 mg PO HS 03/13/19 [History] Ergocalciferol [Vitamin D2 (DRISDOL)] 50,000 unit PO Q7D 03/13/19 [History] Ofloxacin 0.3% Ophth Soln [Ocuflox Ophth Soln] 1 drop BOTH EYES DAILY 03/13/19 [History] Omeprazole [PriLOSEC] 20 mg PO BID 03/13/19 [History] buPROPion HCL [Wellbutrin SR] 150 mg PO DAILY 03/13/19 [History] Fluconazole [Diflucan] 100 mg PO DAILY #10 tab 03/16/19 [Rx] Apixaban [Eliquis Starter Pack (for VTE)] 0 mg PO DIRECTED 30 Days #1 pack 04/15/19 [Rx] valACYclovir HCL [Valtrex] 1,000 mg PO BID #0 04/15/19 [Rx] Follow up Appointment(s)/Referral(s): Bo Najera DO [Primary Care Provider] - 04/23/19 (Please keep previous appointment. ) Ashlee Louis MD [STAFF PHYSICIAN] - As Needed Tani Malcolm MD [STAFF PHYSICIAN] - 04/24/19 (Please keep previous appointment. ) Patient Instructions/Handouts: Deep Vein Thrombosis (DC), Blood Thinners (DC) Activity/Diet/Wound Care/Special Instructions: Sleep on elevated pillows 2 to 3 for 1 week. Expect bruising that should resolve in 2 weeks. Apply ice as needed to right neck. Take eliquis dose at around 6pm Valtrex for 5 more days. Discharge Disposition: HOME SELF-CARE
[2019-04-15 11:44] VITALS: BP 109/71; PULSE 99; TEMP 98.9
--- NOTE | 2019-04-15 13:09 | P.PN ---
Subjective Progress Note Date: 04/15/19 CHIEF COMPLAINT: Right internal jugular vein DVT HISTORY OF PRESENT ILLNESS: 53-year-old female who underwent removal of right internal jugular vein Port-A-Cath. POD #1. Patient reports mild tenderness to the site. Patient denies any other complaints. She is hoping to be discharged home today. PHYSICAL EXAM: VITAL SIGNS: Reviewed. GENERAL: Well-developed in no acute distress. HEENT: Dressing to right chest clean dry intact. No no swelling noted. No erythema or ecchymosis. No sclera icterus. Extraocular movements grossly intact. Moist buccal mucosa. Head is atraumatic, normocephalic. ABDOMEN: Soft. Nondistended. Nontender. NEUROLOGIC: Alert and oriented. Cranial nerves II through XII grossly intact. ASSESSMENT: 1. Acute right sided internal jugular vein DVT 2. Right sided breast cancer 3. Bipolar disorder 4. Depressive disorder 5. Obesity due to excess calories, BMI 34.8 6. Past history of illicit drug use 7. History of chemotherapeutic access. PLAN: Patient is stable for discharge from a surgical standpoint. She may follow up with Dr. Louis outpatient. Nurse practitioner note has been reviewed by physician. Signing provider agrees with the documented findings, assessment, and plan of care. Objective - Vital Signs Vital signs: Vital Signs Temp 98.9 F 04/15/19 11:44 Pulse 99 04/15/19 11:44 Resp 20 04/15/19 11:44 BP 109/71 04/15/19 11:44 Pulse Ox 97 04/15/19 11:44 Intake & Output 04/14/19 04/15/19 04/15/19 18:59 06:59 18:59 Intake Total 1020 200 Output Total 1 Balance 1019 200 Weight 88.8 kg Intake: IV 900 Oral 120 200 Output: Estimated Blood Loss 1 Other: Voiding Method Toilet # Voids 1 1 2 - Labs CBC & Chem 7: 04/15/19 08:18 04/12/19 17:35 Labs: Abnormal Lab Results - Last 24 Hours (Table) 04/14/19 04/14/19 04/15/19 Range/Units 12:06 12:06 08:18 RBC 2.35 L (3.80-5.40) m/uL Hgb 8.5 L (11.4-16.0) gm/dL Hct 24.9 L (34.0-46.0) % MCV 106.1 H (80.0-100.0) fL MCH 36.0 H (25.0-35.0) pg RDW 17.0 H (11.5-15.5) % Macrocytosis Marked A Iron 12 L (50-170) ug/dL Iron Saturation 4.69 L (12.00-45.00) Vitamin B12 >4000.0 H (211-911) pg/mL RBC Folate 1,491 H (280 - 791) ng/mL Assessment and Plan (1) Internal jugular vein thrombosis Current Visit: Yes Status: Acute Priority: High Code(s): I82.C19 - ACUTE EMBOLISM AND THROMBOSIS OF UNSP INTERNAL JUGULAR VEIN SNOMED Code(s): 894207442
--- NOTE | 2019-04-15 14:02 | P.PN ---
Subjective Progress Note Date: 04/15/19 Principal diagnosis: Right IJ thrombosis, secondary to CVC In follow-up patient is prepared to go home. She is status post a right chest wall Port-A-Cath removal. She states the site feels better, less swollen, denies any bleeding. She received Lovenox this morning. She is awaiting her eliquis prescription and she will be discharged Objective - Vital Signs Vital signs: Vital Signs Temp 98.9 F 04/15/19 11:44 Pulse 99 04/15/19 11:44 Resp 20 04/15/19 11:44 BP 109/71 04/15/19 11:44 Pulse Ox 97 04/15/19 11:44 Intake & Output 04/14/19 04/15/19 04/15/19 18:59 06:59 18:59 Intake Total 1020 440 Output Total 1 Balance 1019 440 Weight 88.8 kg Intake: IV 900 Oral 120 440 Output: Estimated Blood Loss 1 Other: Voiding Method Toilet # Voids 1 1 2 - Exam Well-developed, well-nourished, sitting up in bed, no acute distress, alert and oriented 4, respirations even and unlabored, no swelling in the lower extremities, right neck and supraclavicular area swollen when compared to the left, dressing is clean, dry and intact, no bruising noted around the dressing - Labs CBC & Chem 7: 04/15/19 08:18 04/12/19 17:35 Labs: Abnormal Lab Results - Last 24 Hours (Table) 04/14/19 04/14/19 04/15/19 Range/Units 12:06 12:06 08:18 RBC 2.35 L (3.80-5.40) m/uL Hgb 8.5 L (11.4-16.0) gm/dL Hct 24.9 L (34.0-46.0) % MCV 106.1 H (80.0-100.0) fL MCH 36.0 H (25.0-35.0) pg RDW 17.0 H (11.5-15.5) % Macrocytosis Marked A Iron 12 L (50-170) ug/dL Iron Saturation 4.69 L (12.00-45.00) Vitamin B12 >4000.0 H (211-911) pg/mL RBC Folate 1,491 H (280 - 791) ng/mL Assessment and Plan (1) Internal jugular vein thrombosis Narrative/Plan: Port-A-Cath removed. Anticoagulation with eliquis, patient is going to be on started back. Duration of anticoagulation I would suspect with a catheter provoked thrombosis to be somewhere between 3 and 6 months but, told patient to review this with Dr. Malcolm. She verbalized understanding Current Visit: Yes Status: Acute Priority: High Code(s): I82.C19 - ACUTE EMBOLISM AND THROMBOSIS OF UNSP INTERNAL JUGULAR VEIN SNOMED Code(s): 058690498 (2) Breast cancer Narrative/Plan: Patient has completed neoadjuvant chemotherapy. She is due for an MRI this . Follow-up with breast surgeon same day for surgical plans moving forward. Current Visit: Yes Status: Acute Priority: Medium Code(s): C50.919 - MALIGNANT NEOPLASM OF UNSP SITE OF UNSPECIFIED FEMALE BREAST SNOMED Code(s): 394490515 (3) Anemia due to chemotherapy Narrative/Plan: Macrocytic, not requiring transfusion at this time. Patient is noted to have iron deficiency, no B12 or folate deficiency. Will recommend supplementation at her follow-up visit in the office on the Current Visit: Yes Status: Acute Priority: Medium Code(s): D64.81 - ANEMIA DUE TO ANTINEOPLASTIC CHEMOTHERAPY; T45.1X5A - ADVERSE EFFECT OF ANTINEOPLASTIC AND IMMUNOSUP DRUGS, INIT SNOMED Code(s): 474306080
== END 2019-04-15 13:49 | disposition home or self-care (01) | DRG 301 ==
LOC: EC 14:55 → 3SCARD 18:44
PROVIDERS: ADMIT Internal Medicine; ATTEND Internal Medicine
PROC: 0WP803Z Removal of Infusion Device from Chest Wall, Open Approach (ICD-10-PCS; principal; 2019-04-14 08:25)
DX: I82.C11 Acute embolism and thrombosis of right internal jugular vein (principal); C50.911 Malignant neoplasm of unspecified site of right female breast; D64.81 Anemia due to antineoplastic chemotherapy; D69.6 Thrombocytopenia, unspecified; E61.1 Iron deficiency; E66.09 Other obesity due to excess calories; F31.9 Bipolar disorder, unspecified; F41.9 Anxiety disorder, unspecified; G62.9 Polyneuropathy, unspecified; T45.1X5A Adverse effect of antineoplastic and immunosuppressive drugs, initial encounter; Z68.34 Body mass index [BMI] 34.0-34.9, adult; Z79.899 Other long term (current) drug therapy; Z80.1 Family history of malignant neoplasm of trachea, bronchus and lung; Z82.49 Family history of ischemic heart disease and other diseases of the circulatory system; Z83.3 Family history of diabetes mellitus; Z88.1 Allergy status to other antibiotic agents; Z88.0 Allergy status to penicillin; A60.00 Herpesviral infection of urogenital system, unspecified; F19.11 Other psychoactive substance abuse, in remission; Z90.49 Acquired absence of other specified parts of digestive tract; Z17.0 Estrogen receptor positive status [ER+]; Z84.1 Family history of disorders of kidney and ureter; Z83.79 Family history of other diseases of the digestive system; Z98.84 Bariatric surgery status; Z92.21 Personal history of antineoplastic chemotherapy
CPT/HCPCS: 36415; 80053; 82607; 82728; 82747; 83540; 83550; 85025; 85027; 85610; 85730; 96360; 96372; 99284

== ENCOUNTER → 2019-04-17 | Outpatient (CLI) | payer OTHER ==
--- NOTE | 2019-04-17 13:01 | BMR ---
EXAMINATION TYPE: MR breast BILAT wo/w con DATE OF EXAM: 04/17/2019 COMPARISON: MRI breast dated 12/02/2018, PET/CT HISTORY: Breast Cancer. 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 TECHNIQUE: A series of fat and water weighted images in the long and short axis views of both breasts are obtained in conjunction with dynamic contrast MRI with subtraction technique. The patient was i njected with 9 mL intravenous Gadavist gadolinium contrast. Three-dimensional and additional postpr ocessing imaging is created on independent workstation and reviewed during official interpretation of this study. FINDINGS: The breasts are composed of heterogenous fibroglandular tissue and there is moderate backgr ound parenchymal enhancement that is symmetric. Susceptibility artifact from the biopsy marker is again seen at the 10:00 position that was previousl y seen at the lateral aspect of the biopsy-proven breast carcinoma. There is marked response to treat ment within this mass with only a 7 mm focus of enhancement remaining. This is seen at the level of t he biopsy marker towards the 11:30 position. This is located 2 cm medial to the biopsy marker and 1.7 cm posterior and located approximately 6 cm from the nipple. Additionally the previously seen 7 mm r etroareolar mass is no longer appreciated. There is no suspicious mass or nonmass enhancement in the left breast. The biopsy-proven right axillary metastatic adenopathy appears improved in the interim with the previ ously seen rounded 1.0 cm short axis lymph node no longer appreciated and no cortical thickening of t he remaining nonenlarged right axillary lymph nodes. No internal mammary adenopathy or suspicious int ramammary adenopathy. The previously seen arterial enhancing questionable 1.5 cm liver lesion is unchanged although again t his is not well seen on T2-weighted imaging and may represent artifact. IMPRESSION: BI-RADS [id number] malignancy. 1. Marked response to treatment of the previously seen extensive multifocal invasive ductal carcinoma with lobular features. Only a 7 mm focus of abnormal enhancement is seen at the 11:30 position with the remainder of the mass no longer appreciated. If breast conservation therapy remains desired a bio psy marker placed under MRI with 2 separate needle localization performed for the original biopsy josee bentley and the biopsy marker indicating the area of abnormal enhancement on MRI. 2. No MRI evidence of malignancy in the left breast. 3. Improved right axillary adenopathy. 4. The questionable focus of abnormal enhancement in the liver is again seen and there is further con cern better assessment with MRI of the liver (better [id number]) could be performed.
== END | disposition home or self-care (01) ==
LOC: RADMRIMAIN 10:35
PROVIDERS: ATTEND Internal Medicine Hematology & Oncology
DX: C50.411 Malignant neoplasm of upper-outer quadrant of right female breast (principal)
CPT/HCPCS: C8937; C8908; A9585; 77049

== ENCOUNTER → 2019-04-17 | Outpatient (CLI) | payer OTHER ==
[2019-04-17 15:36] VITALS: BP 127/87; PULSE 95; RESP 20; TEMP 98.9; BMI 34.5
--- NOTE | 2019-04-17 15:59 | P.PN ---
Subjective Progress Note Date: 04/17/19 Principal diagnosis: Right breast cancer Andreea is a 53-year-old white female who underwent an ultrasound-guided core biopsy of 2 areas of concern in the right breast as well as a lymph node in the right axilla. The right breast revealed invasive cancer is revealed lobular as well as disease in the lymph node. The size of the tumor was felt to be 3-4 cm. She was seen by medical oncology and has undergone chemotherapy. A repeat MRI today reveals that the lesion in the right breast has decreased markedly in size. She has a residual very small focus of disease in the right breast. She had initial positive axillary disease and has some residual axillary nodes seen on the MRI. The patient had a Port-A-Cath placed and recently developed a blood clot related to the Port-A-Cath. The heart was removed and she is presently on Eliquis. She was hospitalized. Family history: father: lung cancer Surgical History: 1. portacath placed 2. port-a-cath removed 3. tonsil 4. gastric sleeve 5. gallbladder 6. arthroscopic exam Medical History: none Social History: smoke: none alcohol: none drugs: none ROS: HEENT: none lungs: none heart: none GI: none : none Musculoskeletal: Negative Hematologic: Recent blood clot related to Port-A-Cath patient presently on our E liquis, receiving iron infusion next week Psychiatric: Negative Objective - Vital Signs Vital signs: Intake & Output 04/16/19 04/17/19 04/17/19 18:59 06:59 18:59 Weight 88.451 kg - Exam BMI 34.5 - Constitutional General appearance: Present: obese - EENT Eyes: Present: EOMI ENT: Present: hearing grossly normal - Respiratory Respiratory: bilateral: CTA - Cardiovascular Rhythm: regular Heart sounds: normal: S1, S2 - Integumentary Integumentary: Present: normal turgor - Musculoskeletal Musculoskeletal: Present: gait normal - Psychiatric Psychiatric: Present: A&O x's 3, appropriate affect, intact judgment & insight - Additional findings Additional findings: Breast exam: Right breast: Multi-positional exam dense glandular tissue, fibrocystic changes, increased nodularity 11 to 12:00 Right axilla: No adenopathy of concern left breast: Multi-positional exam under dominant masses or nodules of concern Left axilla: No adenopathy of concern BRA 38D Assessment and Plan Assessment: Impression: 1. Right breast invasive lobular carcinoma with good response to neoadjuvant chemotherapy 2. Right axillary node positive for malignancy. 3. Patient on eliquis was status post a blood clot related to Port-A-Cath 4. Status post gastric sleeve We have discussed options of surgical treatment. These include mastectomy, sentinel node biopsy, axillary node dissection. Possible axillary node dissection no matter what sentinel node may shower as patient had positive axillary node 3 chemotherapy. Possible lumpectomy as the patient is had a good response to neoadjuvant chemotherapy. Her case will be presented at tumor Board. If possible the patient would prefer a lumpectomy. Plan: 1. Presentation of patient's case at tumor board 2. Surgical intervention mastectomy versus lumpectomy to be decided after presentation of case at tumor board 3. [place] node biopsy versus completion axillary dissection to be determined after presentation at tumor board CC: Dr. Najera
== END ==
LOC: WWCWWP 13:59
PROVIDERS: ATTEND Surgery
DX: Z53.9 Procedure and treatment not carried out, unspecified reason (principal)

== ENCOUNTER → 2019-05-08 | Outpatient (CLI) | payer OTHER ==
[2019-05-08 16:10] VITALS: BP 137/87; PULSE 70; RESP 16; TEMP 98.6; BMI 32.8
--- NOTE | 2019-05-08 17:11 | P.PN ---
Subjective Progress Note Date: 05/08/19 Principal diagnosis: right breast invasive lobular carcinoma The patient is a 53-year-old white female who underwent ultrasound-guided core biopsy of 2 areas of concern in the right breast at 10:00 as well as a lymph node in the right axilla. The right breast site revealed an invasive cancer fever lobulated and the second biopsy area was invasive ductal cancer with lobular features. In the right axilla was a fragment of invasive cancer consistent with breast origin and adjacent liver and fibroadipose tissue. The patient size of the tumor was felt to be 3-4 cm. There was no palpable adenopathy. The patient has subsequently undergone 6 courses of chemotherapy and started on Herceptin. The patient has had a good response of the tumor. This was initially a clinical stage IIB right breast cancer. The patient in November underwent an MRI of the breast. This revealed extensive multifocal right breast invasive ductal cancer with linear non-mass enhancement extending towards the nipple. Additional retroareolar area was highly suspicious with a mass in numerous satellite nodular foci. Although the upper outer quadrant was involved the extent of disease was felt to be 7.4 cm in the transverse dimension was 4.7 cm. It was felt that breast conservation would be very unlikely secondary to MRI evidence of malignancy in the breast. There was also noted to be low suspicion for a solitary hepatic lesion that was felt could be cleared fully evaluated the 3-phase hepatic mass protocol MRI. Comparison was made to March MRI which revealed marked response to treatment of the previously seen extensive multifocal invasive ductal cancer with lobular features. Only a 7 mm focus of abnormal enhancement was seen at the 11:30 position. The remainder of the mass was no longer appreciated. If breast conservative therapy remain desired a biopsy marker placed under MRI with 2 separate needle localizations performing removal of the original biopsy marker and the biopsy marker to the area now indicating an area of increased enhancement would be necessary. No MRI evidence of cancer in the left breast was noted. Improved right axillary adenopathy was noted. Questionable focus of abnormal enhancement in the liver was again seen and was further concern in the deborah-assessment with MRI of the liver should be performed. Family history negative Hormonal history: Menarche: 14 T5, P5, press-fit: Yes, sister 27 Menopause: 53 started with chemotherapy Brief control pills: ParaGard Hormones: Negative Past surgical history: 1. Tonsillectomy 2. Cholecystectomy 3. Knee surgery Medical history: Negative Social history: Smoke: Negative Alcohol: Negative Drugs: Negative Review of systems: Constitutional: obese HEENT: Wears contacts, Respiratory: Negative Heart: Negative GI: Negative : Negative Administration: Menopause with chemotherapy Musculoskeletal: Knee surgery Neurologic: Negative Psychiatric: Bipolar, history of opiate addiction in the past Objective - Vital Signs Vital signs: Vital Signs Temp 98.6 F 05/08/19 15:55 Pulse 70 05/08/19 15:55 Resp 16 05/08/19 15:55 BP 137/87 05/08/19 15:55 Pulse Ox 99 05/08/19 15:55 - Constitutional General appearance: Present: obese - EENT Eyes: Present: EOMI ENT: Present: hearing grossly normal - Neck Neck: Present: normal ROM - Respiratory Respiratory: bilateral: CTA - Cardiovascular Rhythm: regular Heart sounds: normal: S1, S2 - Gastrointestinal General gastrointestinal: Present: soft - Integumentary Integumentary: Present: normal turgor - Musculoskeletal Musculoskeletal: Present: gait normal - Psychiatric Psychiatric: Present: A&O x's 3, appropriate affect, intact judgment & insight - Additional findings Additional findings: Breast examination: Right breast: Multiple positional exam no dominant masses or nodules of concern at this time Right axilla: No adenopathy of concern Breast exam from prior exam was positional exam no dominant mass or nodules of concern Left axilla: No adenopathy of concern Assessment and Plan Assessment: Impression: 1. Biopsy-proven right breast cancer good response with neoadjuvant chemotherapy 2. History of bipolar/opioid dependence 3. Arthritis 4. MRI questionable lesion in the liver Plan: 1. MRI of the liver triple phase 2. After discussion with the patient she has opted for a mastectomy with sentinel node biopsy needle local lymph node of concern possible axillary node dissection 3. Patient had discussion regarding reconstruction and is not interested 4. Follow-up after MRI of the liver CC: Dr. Reinaldo Castillo
== END | disposition home or self-care (01) ==
LOC: WWCWWP 15:30
PROVIDERS: ATTEND Surgery
DX: Z53.9 Procedure and treatment not carried out, unspecified reason (principal)

== ENCOUNTER → 2019-05-16 | Outpatient (CLI) | payer OTHER ==
--- NOTE | 2019-05-16 15:35 | MR ---
EXAMINATION TYPE: MR liver wo/w con DATE OF EXAM: 05/16/2019 COMPARISON: MRI breast dated 12/02/2018 and 04/17/2019 as well as PET/CT dated 11/30/2018. HISTORY: Possible liver lesion on the prior breast MRI without PET scan correlate. Biopsy-proven inva sive ductal carcinoma with lobular features of the right breast. Positive right axillary lymph node b iopsy. CONTRAST: Standard multiplanar, multisequence MRI departmental protocol utilizing 9 mL intravenous Gadavist yuly olinium contrast. TECHNIQUE: Multiplanar, multisequential MR imaging was performed of the abdomen prior to and after th e administration of contrast. FINDINGS: There is signal dropout within the liver diffusely on out of phase imaging indicative of un derlying hepatic steatosis with some focal fatty sparing surrounding the gallbladder fossa. This limi ts evaluation for hepatic masses. Within the left hepatic lobe there is a T2 hyperintense and T1 hypo intense 4 mm nonenhancing hepatic cyst. In the previously questioned area of hepatic mass versus conf luence of vessels at the branch point of the left main portal vein there is bulbous Contour the arter ial phase series 801 image 386 and 381, however this follows the blood pool on each sequence and appe ars to simply relate to confluence of vasculature rather than mass. No other abnormal areas of enhanc ement are seen within the liver to indicate metastasis. There are post surgical changes in the right breast and abnormal enhancement proven site of breast ca rcinoma. This is better described on the MR breast dated 04/17/2019 given the small field of view. There is a small hiatal hernia present. Pancreas enhances homogeneously and is unremarkable. No adren al nodule is appreciated. The kidneys also enhance homogeneously and excrete homogeneously without hy dronephrosis. No dilated large or small bowel is seen. Very mild right hemidiaphragm elevation is pre sent. Spleen is nonenlarged. Lung bases are well aerated. No adenopathy in the abdomen. Common bile d uct measures 6 mm, within normal limits. Gallbladder surgically absent. IMPRESSION: 1. No MRI evidence of hepatic metastasis. The previously questioned hepatic mass relates to confluenc e of vasculature with bulbous contour of the left main portal vein. Simple subcentimeter left hepatic cyst and hepatic steatosis with areas of focal fatty sparing are seen. 2. Small hiatal hernia. 3. Postsurgical change of the right breast and abnormal enhancement indicating the underlying known b iopsy-proven malignancy better appreciated on the prior breast MRI.
== END | disposition home or self-care (01) ==
LOC: RADMRIMAIN 06:54
PROVIDERS: ATTEND Surgery
DX: K76.89 Other specified diseases of liver (principal); K76.0 Fatty (change of) liver, not elsewhere classified; K44.9 Diaphragmatic hernia without obstruction or gangrene
CPT/HCPCS: 74183; A9585

== ENCOUNTER 2019-06-03 07:31 | Observation (INO) | payer OTHER ==
[~2019-06-03 07:31] MED LIST changes: +HEPARIN SODIUM,PORCINE 5,000 UNIT/ML 1 ML VIAL SQ ONE; -HYDROmorphone 0.5 MG/0.5 ML SYRINGE IVP PRN; -LIDOCAINE 1% 20 ML VIAL (10MG/ML) FOR IV START INTRADERMA PRN
[2019-06-03] MEDS ORDERED: ALPRAZolam 0.5 MG TAB PO ONE (08:17)
[2019-06-03] MEDS ORDERED: LIDOCAINE 1% 20 ML VIAL (10MG/ML) FOR IV START INTRADERMA ONE (08:20)
[2019-06-03] MEDS ORDERED: LIDOCAINE 1% INJ 10MG/ML (20 ML MDV) SQ ONE ×2 (08:52→10:18)
[2019-06-03] MEDS ORDERED: HEPARIN SODIUM,PORCINE 5,000 UNIT/ML 1 ML VIAL SQ ONE (08:53)
--- NOTE | 2019-06-03 08:55 | P.NAPBC ---
NAPBC Queries - NAPBC Queries Was patient's case review presented at [facility] tumor board? If no, comment.: Yes Was patient's pathology reviewed at [facility]? If no, comment.: Yes Was breast conservation surgery offered? If no, comment.: Yes (discussed but patient has multifocal disease ) Was sentinel node biopsy offered? If no, comment.: Yes Was diagnosis confirmed by percutaneous core biopsy? If no, comment.: Yes Is patient mastectomy patient?: Yes Was a preop referral to reconstructive surgeon offered?: Yes Clinical Stage: Stage IIB
[2019-06-03] MEDS ORDERED: fentaNYL (PF) 50 MCG/ML 2 ML AMP ONE (09:40)
[2019-06-03] MEDS ORDERED: LIDOCAINE 1% INJ 10MG/ML (20 ML MDV) ONE (09:40)
[2019-06-03] MEDS ORDERED: MIDAZOLAM 2 MG/2 ML VIAL ONE (09:40)
[2019-06-03] MEDS ORDERED: HYDROmorphone (PF) 1 MG/ML ONE (09:40)
[2019-06-03] MEDS ORDERED: PROPOFOL 10 MG/ML 20 ML VIAL IV ONE (09:40)
[2019-06-03] MEDS ORDERED: SUCCINYLCHOLINE CHLORIDE 100 MG/5 ML SYR IV ONE (09:40)
--- NOTE | 2019-06-03 09:47 | NM ---
EXAMINATION TYPE: NM sentinel node injection DATE OF EXAM: 06/03/2019 COMPARISON: MRI dated 04/17/2019 HISTORY: Right breast cancer. TECHNIQUE AND FINDINGS: The procedure of sentinel lymph node injection was explained to the patient. The benefits, alternatives, and risks were discussed. An informed consent was then obtained. Overlying skin is cleaned with sterile alcohol. Following this, 516 uCi Tc99m Tilmanocept was inject ed in the upper outer aspect of the right nipple intradermally. The patient tolerated the procedure well without any immediate complication. The patient was kept in the radiology department for short stay after the procedure and then taken to surgery for surgical p rocedure what is presumed intraoperative gamma probe will be used for sentinel lymph node detection. IMPRESSION: Right breast radiotracer injection for sentinel node localization as above.
--- NOTE | 2019-06-03 12:13 | USB ---
EXAMINATION TYPE: US breast localization RT, MG surgical specimen RT DATE OF EXAM: 06/03/2019 COMPARISON: MRI dated 12/12/2018 CLINICAL HISTORY: R92.8 ABNORMAL MAMMOGRAM. PROCEDURE: Following a discussion of the potential risks, benefits and alternatives of the procedure, the patient gave verbal and written informed consent for mammographic guided needle localization of the right axillary biopsy-proven metastatic lymph node. Preprocedural timeout was performed. Aseptic technique was utilized and 10 cc of 1% lidocaine used for anesthesia. Using a lateral to medial approach, a 5 cm needle was advanced into the breast under direct sonographic guidance and its position. After the wire was placed through the needle, the needle was removed. The distal tip of the wire is approximately 5 cm from the skin entry point. This was reviewed with the surgeon. The patient was discharged to the OR holding area in good condition. Surgical excision was performed by Dr. Micah Gil and a specimen sent down for mammography. The specimen radiograph demonstrates the biopsy marker however the wire is not present. Findings were conveyed to Dr. Micah Gil by Dr. Coats at 12:[address] Micah Gil states she does have the wire in the operating room currently. Impression: Successful mammographic guided needle localization of a biopsy proven metastatic right axillary lymph node. Await pathology results. Further management of the patient is per Dr. Micah Gil. Pathology Results: Benign A. RIGHT BREAST SENTINEL LYMPH NODE, BIOPSY: Lymph node with focal multinucleated giant cell clusters and fibrosis consistent with neoadjuvant treatment related changes. Negative for viable metastatic carcinoma. CK7 and SAUNDRA immunoperoxidase stains are confirmatory (controls appropriate). B. RIGHT BREAST, MASTECTOMY: Benign breast with fibrocystic changes including fibroadenomatoid hyperplasia, calcifications and scar consistent with neoadjuvant treatment related changes. No residual invasive malignancy identified. See Surgical Pathology Cancer Case Summary. C. RIGHT AXILLARY CONTENTS: Four lymph nodes, one node with focal multinucleated giant cell clusters, fibrosis and inflammation consistent with neoadjuvant treatment related changes. No viable metastatic malignancy identified. D. RIGHT AXILLARY HIGHEST NODE, BIOPSY: Two lymph nodes negative for metastasis. Recommendation Manage on a clinical basis. MTDD
[2019-06-03] MEDS ORDERED: NALOXONE 0.4 MG/ML 1 ML VIAL IV PRN (12:50)
[2019-06-03] MEDS ORDERED: HYDROcodone/APAP 5-325MG 1 EACH TAB PO PRN (12:50)
[2019-06-03] MEDS ORDERED: ONDANSETRON 4 MG/2 ML VIAL IVP PRN (12:50)
--- NOTE | 2019-06-03 12:50 | P.OP ---
Date of Procedure: 06/03/19 Preoperative Diagnosis: Right breast cancer Postoperative Diagnosis: Same Procedure(s) Performed: Right mastectomy, axillary node dissection, needle localization of axillary lymph node, sentinel node biopsy Anesthesia: YUSUF Surgeon: Rosalina Fuentes Estimated Blood Loss (ml): 40 IV fluids (ml): 500 Pathology: other (Right breast, axillary contents) Condition: stable Disposition: floor Indications for Procedure: Right breast cancer Operative Findings: Fibrofatty breast tissue, axillary adenopathy Description of Procedure: The patient was taken to the operating room following wire localization of a lymph node which had preoperatively been biopsied and was positive for malignancy. The patient subsequently underwent neoadjuvant chemotherapy. Localization of the lymph node was performed to assure that we obtain the node of concern. Additionally radioactive injection was performed in the periareolar region to assure that the sentinel node was removed, and to determine whether this was the same node as the previously biopsied node. The patient was taken to the operating room and following induction of anesthesia the right breast and axilla were prepped and draped in a sterile fashion. Superior and inferior skin flaps were developed. These were carried down through the subcutaneous tissue to the pectoralis major muscle. This was done using the electrocautery device as well as the Harmonic scalpel. The breast was then dissected from medial to lateral off of the pectoralis major muscle. Hemostasis was attained using the Harmonic scalpel as well as the electrocautery device. Any large vessels were ligated and divided. Dissection was performed down to the area of the axilla. Palpable adenopathy in the axilla was noted and of some concern. Secondary to the fact that the patient had neoadjuvant chemotherapy it was not felt that frozen section evaluation of the lymph node would be a good indication of the zi status. Discussion with pathology preoperatively had confirmed this. Therefore, it was determined to do a completion axillary dissection. The axillary tissue were dissected to the pectoralis minor muscle. This was dissected to the area of the axillary vein. The tissues were swept inferiorly being careful to identify and preserve the thoracodorsal and long thoracic nerves. In order to facilitate the dissection several intercostal brachial nerves and vessels were divided and removed. The lymph node near the localization wire was sent to pathology and the clip was noted in the node. The wire itself was removed with the axillary specimen. The tip of the localization needle appeared to be divided however, this was felt to be most likely in the axillary specimen. No palpable abnormality was noted in the axilla itself. The lymph node which was identified with the clip was also noted to be the sentinel node. Utilizing the neoprobe interrogation of the axillary contents was performed. This node had a count of 19,000 at 10 seconds. Following dissection of the axillary contents evaluation again revealed a palpable node this was called the highest axillary node. This was removed using the Harmonic scalpel and ligation of tissue at the area. No other suspicious adenopathy was identified. This node was approximately 1-1/2 cm in size. Following dissection the axilla was well irrigated as well as the mastectomy site. No active bleeding was identified. 2 JENNIFER drains were placed and secured using nylon suture. The deep tissues were closed using 3-0 Vicryl suture. The skin was closed using 4-0 Monocryl. Steri-Strips were applied. Sterile dressing was applied. The patient tolerated the procedure in stable condition. All instrument and sponge counts were correct at the end of the case.
[2019-06-03] MEDS: HYDROmorphone 1 MG/ML 1 ML SYRINGE IV PRN ×4 (12:51→22:44)
[2019-06-03] MEDS: HYDROmorphone 0.5 MG/0.5 ML SYRINGE IVP PRN ×5 (12:56→13:25)
[2019-06-03] MEDS ORDERED: MEPERIDINE 50 MG/ML SYRINGE IVP ONE (13:59)
[2019-06-03] MEDS ORDERED: SODIUM CHLORIDE 0.9% 1,000 ML IV ONE (14:08)
[2019-06-03] MEDS: SODIUM CHLORIDE 0.9% 1,000 ML IV SCH ×2 (16:20→20:48)
[2019-06-03] MEDS: HEPARIN SODIUM,PORCINE 5,000 UNIT/ML 1 ML VIAL SQ SCH ×2 (17:09→23:23)
[2019-06-03 17:56] VITALS: BMI 31.8
[2019-06-03] MEDS ORDERED: LORazepam 1 MG TAB PO SCH (21:45)
[2019-06-03] MEDS ORDERED: buPROPion SR 150 MG TABLET.ER PO SCH (21:45)
[2019-06-03] MEDS ORDERED: LORazepam 0.5 MG TAB PO SCH (22:06)
--- NOTE | 2019-06-03 23:24 | P.CONS ---
History of Present Illness - Reason for Consult Consult date: 06/03/19 Medical managed Requesting physician: Rosalina Fuentes - Chief Complaint Breast surgery - History of Present Illness Consultation: This is a very pleasant 54-year-old patient of Dr. thacker. Chronic stable medical conditions include anxiety, depression, anemia, recent DVT of the right internal jugular vein from a port. Patient is on anticoagulations were the same. Patient is on eliquis. This was held 48 hours before surgery. Patient has undergone right mastectomy. Has a drain in place. And a dressing over the chest wall. Some pain discomfort is present. No nausea vomiting. Patient did tolerate a light diet. No fever no chills. Review of systems: GEN.: Tired EYES: None HEENT: None NECK: None RESPIRATORY: None CARDIOVASCULAR: None GASTROINTESTINAL: None GENITOURINARY: None MUSCULOSKELETAL: None LYMPHATICS: None HEMATOLOGICAL: None PSYCHIATRY: Some anxiety NEUROLOGICAL: None Past medical history to include: Anxiety, depression, right internal jugular DVT for which patient is on eliquis, anemia, genital herpes 2009, Social history: , does not smoke or drink alcohol. Over 10 years ago stopped doing co neil and prescription opioids Physical examination: VITAL SIGNS: Afebrile, 81, 18, 140/88, 99% room air GENERAL: BMI 31.4, sitting up in bed but in distress. EYES: Pupils equal. Conjunctiva normal. HEENT: External appearance of nose and ears normal, oral cavity grossly normal. NECK: JVD not raised; masses not palpable. HEART: First and second heart sounds are normal; no edema. LUNGS: Respiratory rate normal; clear to auscultation CHEST: Dressing over the chest wall with a JENNIFER drain 2 on the right side. ABDOMEN: Soft, nontender, liver spleen not palpable, no masses palpable. PSYCH: Alert and oriented x3; mood and affect normal. NEUROLOGICAL: Cranial nerves grossly intact; no facial asymmetry, power and sensation grossly intact. LYMPHATICS: No lymph nodes palpable in the axilla and neck Investigations: No labs from today Assessment: -Right mastectomy for breast cancer. -Right internal jugular tonic DVT for which patient is on eliquis -Anxiety depression not otherwise specified Plan: Patient's pain is controlled. Getting IV fluids. Diet is being advanced per surgery. Patient will resume her eliquis when deemed appropriate by Dr. Sita Gil. Care was discussed with the patient. Question were answered. Thank you Dr. Sita Gil Past Medical History Past Medical History: Cancer, Deep Vein Thrombosis (DVT), Vascular Disorder Additional Past Medical History / Comment(s): breast cancer right dec genital herpes 2009, DVT RT INTERNAL JUGULAR BY PORT History of Any Multi-Drug Resistant Organisms: None Reported Past Surgical History: Bariatric Surgery, Breast Surgery, Cholecystectomy, Tonsillectomy Additional Past Surgical History / Comment(s): gastric sleeve, R breast bx; RT SIDED PORT INSERTED AND REMOVED, BREAST BX, 06/03/2019 Right Mastectomy Past Anesthesia/Blood Transfusion Reactions: No Reported Reaction Past Psychological History: Anxiety, Depression Smoking Status: Never smoker Past Alcohol Use History: None Reported Past Drug Use History: None Reported Additional Drug Use History / Comment(s): over 10 years ago quit using cocaine and prescription opioids. - Past Family History Mother Family Medical History: Diabetes Mellitus, Hypertension Additional Family Medical History / Comment(s): heart disease Father Family Medical History: Cancer Additional Family Medical History / Comment(s): lung CA, cirrosis, kidney disease Medications and Allergies Home Medications Medication Instructions Recorded Confirmed Type Biotin 5,000 mcg PO QAM 11/11/18 06/03/19 History Calcium Carbonate [Calcium] 600 mg PO QAM 11/11/18 06/03/19 History Inulin/Chromium Picolinate [Fiber 1 tab PO QAM 11/11/18 06/03/19 History Gummies Chew] Multivitamin [Multivitamins Adult 1 tab PO QAM 11/11/18 06/03/19 History Gummies] LORazepam [Ativan] 1 mg PO HS 01/09/19 06/03/19 History Acetaminophen Tab [Tylenol] 1,000 mg PO Q6H 03/13/19 06/03/19 History Buprenorphine HCl/Naloxone HCl 0.5 film SL QAM 03/13/19 06/03/19 History [Suboxone 8 mg-2 mg Sl Film] Cariprazine HCl [Vraylar] 3 mg PO HS 03/13/19 06/03/19 History Ergocalciferol [Vitamin D2 50,000 unit PO MO 03/13/19 06/03/19 History (DRISDOL)] buPROPion HCL [Wellbutrin SR] 150 mg PO HS 03/13/19 06/03/19 History Apixaban [Eliquis Starter Pack 5 mg PO DIRECTED 04/22/19 06/03/19 History (for VTE)] Allergies Allergy/AdvReac Type Severity Reaction Status Date / Time amoxicillin [From Augmentin] Allergy Rash/Hives Verified 06/03/19 07:47 clavulanic acid Allergy Rash/Hives Verified 06/03/19 07:47 [From Augmentin] Tetracyclines Allergy Rash/Hives Verified 06/03/19 07:47 Physical Exam Vitals: Vital Signs Temp Pulse Pulse Resp BP BP Pulse Ox 06/03/19 18:15 81 18 140/88 99 06/03/19 17:15 89 18 128/83 98 06/03/19 16:30 79 18 144/90 99 06/03/19 16:15 76 18 134/78 98 06/03/19 15:45 78 18 134/97 97 06/03/19 15:00 76 18 136/85 96 06/03/19 14:45 71 18 128/85 95 06/03/19 14:30 97.9 F 85 18 142/87 96 06/03/19 14:00 62 16 145/81 98 06/03/19 13:47 67 18 141/77 97 06/03/19 13:42 67 16 152/74 98 06/03/19 13:30 71 19 168/77 98 06/03/19 13:15 79 14 164/74 99 06/03/19 13:00 71 16 154/86 99 06/03/19 12:49 97.0 F L 78 16 147/80 100 06/03/19 12:45 67 18 147/80 100 06/03/19 09:14 97.9 F 87 16 147/87 06/03/19 08:31 98.1 F 87 16 140/81 06/03/19 07:52 98.4 F 74 18 148/83 98 Intake and Output 06/03/19 06/03/19 06/04/19 14:59 22:59 06:59 Intake Total 1999 Output Total 40 1438 Balance 1960 -1438 Intake: IV 1999 Output: Drainage 38 Drain # 1 20 Drain # 2 18 Urine 1400 Estimated Blood Loss 40
[2019-06-04] MEDS: HYDROmorphone 1 MG/ML 1 ML SYRINGE IV PRN ×3 (03:27→09:14)
[2019-06-04] MEDS: SODIUM CHLORIDE 0.9% 1,000 ML IV SCH (06:27)
[2019-06-04 07:01] LABS: Basophils % (A) 0 %; Eosinophils # (A) 0.1 k/uL (0-0.7); Eosinophils % (A) 1 %; Hypochromasia Slight; Lymphocytes # (A) 2.3 k/uL (1.0-4.8); Lymphocytes % (A) 29 %; MCH 30.5 pg (25.0-35.0); MCHC 31.2 g/dL (31.0-37.0); Mean Platelet Volume 6.4; Monocytes # (A) 0.5 k/uL (0-1.0); Monocytes % (A) 6 %; Neutrophils # (A) 4.9 k/uL (1.3-7.7); Neutrophils % (A) 62 %; Platelet Count 215 k/uL (150-450); RBC 3.88 m/uL (3.80-5.40); RDW 14.4 % (11.5-15.5); WBC 7.9 k/uL (3.8-10.6)
[2019-06-04 07:28] LABS: HGB 11.9 gm/dL (11.4-16.0)
[2019-06-04 07:29] LABS: MCV 97.9 fL (80.0-100.0)
[2019-06-04] MEDS: HEPARIN SODIUM,PORCINE 5,000 UNIT/ML 1 ML VIAL SQ SCH (08:47)
[2019-06-04] MEDS ORDERED: NON-FORMULARY DRUG (Biotin [Biotin] 5,000 MCG) PO SCH (09:00)
[2019-06-04] MEDS ORDERED: CALCIUM CARBONATE 500 MG CHEWABLE PO SCH (09:00)
--- NOTE | 2019-06-04 09:44 | P.PN ---
Subjective Progress Note Date: 06/04/19 Andreea is a 54-year-old white female status post right breast mastectomy and axillary node dissection postop day 1. She is doing well without any complaints at this time. Objective - Vital Signs Vital signs: Vital Signs Temp 97.8 F 06/04/19 03:30 Pulse 78 06/04/19 03:30 Resp 16 06/04/19 03:30 BP 122/80 06/04/19 03:30 Pulse Ox 98 06/04/19 03:30 Intake & Output 06/03/19 06/04/19 06/04/19 18:59 06:59 18:59 Intake Total 1999 Output Total 1478 358 Balance 522 -358 Intake: IV 1999 Output: Drainage 38 58 Drain # 1 20 30 Drain # 2 18 28 Urine 1400 300 Estimated Blood Loss 40 Other: # Voids 1 - Constitutional General appearance: Present: average body habitus - EENT Eyes: Present: EOMI ENT: Present: hearing grossly normal - Respiratory Respiratory: bilateral: CTA - Cardiovascular Rhythm: regular Heart sounds: normal: S1, S2 - Integumentary Integumentary Comment(s): Incision clean and dry No evidence of any hematoma JENNIFER #1 30 mL serosanguineous JENNIFER #2 28 mL serosanguineous - Psychiatric Psychiatric: Present: A&O x's 3, appropriate affect, intact judgment & insight - Additional findings Additional findings: Incision clean and dry no evidence of any hematoma or infection - Labs CBC & Chem 7: 06/04/19 06:48 Assessment and Plan Assessment: Impression: 1. Patient postop day #1 right breast mastectomy and axillary node dissection 2. Patient doing well Plan: 1. Discharge home to be followed as an outpatient if okay with medicine 2. Teach patient drain care 3. Follow-up with Dr. Obrien in 1 week
--- NOTE | 2019-06-04 09:50 | P.DS ---
Providers Date of admission: 06/03/19 22:44 Attending physician: Rosalina Fuentes Consults: 06/03/19 12:52 Consult Physician Routine Consulting Provider: Migue Heath Consult Reason/Comments: medical managment Do you want consulting provider notified?: Yes Primary care physician: Bo Najera Plan - Discharge Summary Discharge Rx Participant: Yes New Discharge Prescriptions: No Action Inulin/Chromium Picolinate [Fiber Gummies Chew] 1 tab PO QAM Multivitamin [Multivitamins Adult Gummies] 1 tab PO QAM Calcium Carbonate [Calcium] 600 mg PO QAM Biotin 5,000 mcg PO QAM LORazepam [Ativan] 1 mg PO HS Acetaminophen Tab [Tylenol] 1,000 mg PO Q6H buPROPion HCL [Wellbutrin SR] 150 mg PO HS Cariprazine HCl [Vraylar] 3 mg PO HS Buprenorphine HCl/Naloxone HCl [Suboxone 8 mg-2 mg Sl Film] 0.5 film SL QAM Ergocalciferol [Vitamin D2 (DRISDOL)] 50,000 unit PO MO Apixaban [Eliquis Starter Pack (for VTE)] See Taper PO BID Discharge Medication List Biotin 5,000 mcg PO QAM 11/11/18 [History] Calcium Carbonate [Calcium] 600 mg PO QAM 11/11/18 [History] Inulin/Chromium Picolinate [Fiber Gummies Chew] 1 tab PO QAM 11/11/18 [History] Multivitamin [Multivitamins Adult Gummies] 1 tab PO QAM 11/11/18 [History] LORazepam [Ativan] 1 mg PO HS 01/09/19 [History] Acetaminophen Tab [Tylenol] 1,000 mg PO Q6H 03/13/19 [History] Buprenorphine HCl/Naloxone HCl [Suboxone 8 mg-2 mg Sl Film] 0.5 film SL QAM 03/13/19 [History] Cariprazine HCl [Vraylar] 3 mg PO HS 03/13/19 [History] Ergocalciferol [Vitamin D2 (DRISDOL)] 50,000 unit PO MO 03/13/19 [History] buPROPion HCL [Wellbutrin SR] 150 mg PO HS 03/13/19 [History] Apixaban [Eliquis Starter Pack (for VTE)] See Taper PO BID 04/22/19 [History] Follow up Appointment(s)/Referral(s): Rosalina Fuentes MD [STAFF PHYSICIAN] - 1 Week Activity/Diet/Wound Care/Special Instructions: Do not drive until seen by Dr. Obrien Patient may shower after 48 hours, otherwise we are wrapped at all times Patient may restart eliquis after 48 hours teach patient drain care Discharge Disposition: HOME SELF-CARE
[2019-06-04 10:07] VITALS: BP 136/86; PULSE 87; RESP 20; TEMP 98.3
--- NOTE | 2019-06-04 23:56 | P.PN ---
Progress Note - Text Progress Note Date: 06/04/19 - Chief Complaint Breast surgery Interval history: This is a very pleasant 54-year-old patient of Dr. thacker. Chronic stable medical conditions include anxiety, depression, anemia, recent DVT of the right internal jugular vein from a port. Patient is on anticoagulations were the same. Patient is on eliquis. This was held 48 hours before surgery. Patient has undergone right mastectomy. Has a drain in place. And a dressing over the chest wall. Today-feeling better. Up to the bathroom. Pain control. Drain remained in place. Did tolerate her breakfast. No fever no chills.. Review of systems: Was done for constitutional, cardiovascular, GI, pulmonary. relevant finding as above Current medications reviewed in the electronic chart from today. Physical examination: VITAL SIGNS: 98.3, 87, 20, 136/86, 99% room air GENERAL: Sitting up, comfortable. EYES: Pupils equal. Conjunctiva normal. HEENT: External appearance of nose and ears normal, oral cavity grossly normal. NECK: JVD not raised; masses not palpable. HEART: First and second heart sounds are normal; no edema. LUNGS: Respiratory rate normal; clear to auscultation CHEST: Dressing over the chest wall with a JENNIFER drain 2 on the right side. ABDOMEN: Soft, nontender, liver spleen not palpable, no masses palpable. PSYCH: Alert and oriented x3; mood and affect normal. Investigations: White count 7.9 hemoglobin 11.9 Assessment: -Right mastectomy for breast cancer. -Right internal jugular chronic DVT for which patient is on eliquis -Anxiety depression not otherwise specified Plan: Stable. Can be discharged. Follow-up on medications. Care discussed the patient. Thank you Dr. Sita Gil
== END 2019-06-04 12:45 | disposition home or self-care (01) ==
LOC: OR 07:31 → 6PED 12:49 → OR 22:43 → 6PED 22:44
PROVIDERS: ADMIT Surgery; ATTEND Surgery
DX: C50.411 Malignant neoplasm of upper-outer quadrant of right female breast (principal); F41.9 Anxiety disorder, unspecified; I82.C21 Chronic embolism and thrombosis of right internal jugular vein; F32.9 Major depressive disorder, single episode, unspecified; D64.9 Anemia, unspecified; Z98.84 Bariatric surgery status; Z79.01 Long term (current) use of anticoagulants; Z88.1 Allergy status to other antibiotic agents; Z82.49 Family history of ischemic heart disease and other diseases of the circulatory system; Z84.1 Family history of disorders of kidney and ureter; Z80.1 Family history of malignant neoplasm of trachea, bronchus and lung
CPT/HCPCS: 96372 ×2; 88305; 85025; 88342; 88307; 88309; 88341; 76098; 19285; 38792; 19307; G0378 ×2; A9520; J2250; J1644 ×2; J1100; J2175; S0106; J2405; J2001; J3010; J1170 ×3; J0330; J2704

== ENCOUNTER 2019-06-07 21:27 | Emergency (ER) | payer OTHER ==
[2019-06-07 21:46] VITALS: RESP 18; TEMP 98.7
--- NOTE | 2019-06-08 00:02 | ED ---
Extremity Problem HPI - General Chief complaint: Extremity Problem,Nontraumatic Stated complaint: Surgical complications Time Seen by Provider: 06/07/19 22:04 Source: patient, RN notes reviewed, old records reviewed Mode of arrival: ambulatory Limitations: no limitations - History of Present Illness Initial comments: Patient is a 54 year old female presents today for complaints of right arm minimal swelling. She has history of breast cancer with recent masectomy and lymph node removal of right arm. She reports that this was done four days ago by Dr. Jeri Gil. Patient has normal drainage, and reports no other symptoms. She has a history of internal jugular vein clot and on anticoagulatnt. - Related Data Home Medications Medication Instructions Recorded Confirmed Biotin 5,000 mcg PO QAM 11/11/18 06/04/19 Calcium Carbonate [Calcium] 600 mg PO QAM 11/11/18 06/04/19 Inulin/Chromium Picolinate [Fiber 1 tab PO QAM 11/11/18 06/04/19 Gummies Chew] Multivitamin [Multivitamins Adult 1 tab PO QAM 11/11/18 06/04/19 Gummies] LORazepam [Ativan] 1 mg PO HS 01/09/19 06/04/19 Acetaminophen Tab [Tylenol] 1,000 mg PO Q6H 03/13/19 06/04/19 Buprenorphine HCl/Naloxone HCl 0.5 film SL QAM 03/13/19 06/04/19 [Suboxone 8 mg-2 mg Sl Film] Cariprazine HCl [Vraylar] 3 mg PO HS 03/13/19 06/04/19 Ergocalciferol [Vitamin D2 50,000 unit PO MO 03/13/19 06/04/19 (DRISDOL)] buPROPion HCL [Wellbutrin SR] 150 mg PO HS 03/13/19 06/04/19 Apixaban [Eliquis Starter Pack See Taper PO BID 04/22/19 06/04/19 (for VTE)] Allergies Allergy/AdvReac Type Severity Reaction Status Date / Time amoxicillin [From Augmentin] Allergy Rash/Hives Verified 06/04/19 07:40 clavulanic acid Allergy Rash/Hives Verified 06/04/19 07:40 [From Augmentin] Tetracyclines Allergy Rash/Hives Verified 06/04/19 07:40 Review of Systems ROS Statement: Those systems with pertinent positive or pertinent negative responses have been documented in the HPI. ROS Other: All systems not noted in ROS Statement are negative. Past Medical History Past Medical History: Cancer, Vascular Disorder Additional Past Medical History / Comment(s): breast cancer right dec genital herpes 2009, DVT RT INTERNAL JUGULAR BY PORT History of Any Multi-Drug Resistant Organisms: None Reported Past Surgical History: Cholecystectomy, Tonsillectomy Additional Past Surgical History / Comment(s): right mastectomy 06/03/19 Past Anesthesia/Blood Transfusion Reactions: No Reported Reaction Past Psychological History: Anxiety, Depression Smoking Status: Never smoker Past Alcohol Use History: None Reported Past Drug Use History: None Reported - Past Family History Mother Family Medical History: Diabetes Mellitus, Hypertension Additional Family Medical History / Comment(s): heart disease Father Family Medical History: Cancer Additional Family Medical History / Comment(s): lung CA, cirrosis, kidney disease General Exam - General Exam Comments Initial Comments: Pleasant 54 year old female, no distress. Limitations: no limitations General appearance: alert, in no apparent distress Head exam: Present: atraumatic, normocephalic, normal inspection Eye exam: Present: normal appearance, PERRL, EOMI. Absent: scleral icterus, conjunctival injection, periorbital swelling ENT exam: Present: normal exam, mucous membranes moist Neck exam: Present: normal inspection. Absent: tenderness, meningismus, lymphad enopathy Respiratory exam: Present: normal lung sounds bilaterally, other (MUNIR over chest wall. Patient has drainge tubes, appear well. Incision site appears well. ). Absent: respiratory distress, wheezes, rales, rhonchi, stridor Cardiovascular Exam: Present: regular rate, normal rhythm, normal heart sounds. Absent: systolic murmur, diastolic murmur, rubs, gallop, clicks GI/Abdominal exam: Present: soft, normal bowel sounds. Absent: distended, tenderness, guarding, rebound, rigid Extremities exam: Present: normal inspection, full ROM, normal capillary refill, other (minimal R arm swelling, no erythema, no palpable cord. ). Absent: tenderness, pedal edema, joint swelling, calf tenderness Back exam: Present: normal inspection Neurological exam: Present: alert, oriented X3, CN II-XII intact Psychiatric exam: Present: normal affect, normal mood Course Vital Signs 06/07/19 06/08/19 21:41 01:06 Temperature 98.7 F 98.7 F Pulse Rate 62 75 Respiratory 18 18 Rate Blood Pressure 118/78 147/89 O2 Sat by Pulse 100 97 Oximetry Medical Decision Making - Medical Decision Making Pleasant 54 year old female, Hx of breast cancer with recent masectomy and lymphnode removal of right arm. Presents today with complains of right arm swelling. This appears minimal . She is on blood thinner due to chronic right IJ clot. Patient had right arm US and negative for acute DVT . Evidence of chronic IJ clot, no complete occulsion. Patient informed swelling due to lymph node removal. Discussed munir wrap and elevation. She follow up with surgeon this week. Return parameters discussed. - Radiology Data Radiology results: report reviewed right internal jugular vein thrombus is less expansile and more hypo echoic as compared to prior exam, and appears chronic. No new DVT. 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 Have close follow-up with her primary care physician and surgeon. Return to emergency department if any alarming signs or symptoms occur. Patient to wear Munir wrap the data help with swelling of the arm. Is patient prescribed a controlled substance at d/c from ED?: No Referrals: Bo Najera DO [Primary Care Provider] - 1-2 days Time of Disposition: 00:42
--- NOTE | 2019-06-08 00:16 | US ---
ADDENDUM - Added by Shonna Johnson MD on 06/08/2019 12:33 AM (-10:00) Right internal jugular vein thrombus is less expansile and more hypoechoic as compared to prior exam and favored to be chronic. EXAM: US Duplex Right Upper Extremity Veins CLINICAL HISTORY: Pain TECHNIQUE: Real-time duplex ultrasound scan of the right upper extremity veins integrating B-mode two-dimensional vascular structure, Doppler spectral analysis, color flow Doppler imaging and compression. COMPARISON: 04/12/2019 FINDINGS: Deep veins: Thrombus is present in the right internal jugular vein. No thrombus in the subclavian, axillary, and brachial veins. Superficial veins: Unremarkable. No thrombus in the visualized basilic and cephalic veins. Soft tissues: No acute findings. IMPRESSION: Thrombus is present in the right internal jugular vein. <MYCVCSECTION> Critical Value [employer] 06/08/19 00:29 Verify Receipt Verified receipt with SUNIL Lang for Dr. Garcia on 06/08 00:29 (-04:00) 06/08/19 00:36 Call From [facility] Dr. Garcia on 06/08 00:29 (-04:00)
[2019-06-08 01:07] VITALS: BP 147/89; PULSE 75
== END 2019-06-08 01:05 | disposition home or self-care (01) ==
LOC: EC 21:27
DX: I82.C21 Chronic embolism and thrombosis of right internal jugular vein (principal); I89.0 Lymphedema, not elsewhere classified; F32.9 Major depressive disorder, single episode, unspecified; F41.9 Anxiety disorder, unspecified; Z85.3 Personal history of malignant neoplasm of breast; Z79.899 Other long term (current) drug therapy; Z88.0 Allergy status to penicillin; Z88.1 Allergy status to other antibiotic agents; Z90.11 Acquired absence of right breast and nipple
CPT/HCPCS: 99283

== ENCOUNTER → 2019-06-12 | Outpatient (CLI) | payer OTHER ==
--- NOTE | 2019-06-12 16:22 | P.PN ---
Subjective Progress Note Date: 06/12/19 Andreea was a 54-year-old white female status post right mass [place] [id number]. Pathology revealed 7 axillary nodes removed the sentinel node had a focal multinucleated giant cell clusters and fibrosis consistent with neoadjuvant treatment. Negative for viable metastatic cancer. The axillary contents had 4 additional nodes one node with focal multinucleated giant cell clusters no viable metastatic cancer, and highest node 2 lymph nodes negative for metastasis. The breast had benign breast with fibrocystic changes including fibroadenomatoid hyperplasia, calcifications and scar consistent with neoadjuvant treatment-related changes no residual invasive cancer. Objective - Constitutional General appearance: Present: cooperative - EENT Eyes: Present: EOMI ENT: Present: hearing grossly normal - Neck Neck: Present: normal ROM - Respiratory Respiratory: bilateral: CTA - Cardiovascular Rhythm: regular Heart sounds: normal: S1, S2 - Gastrointestinal General gastrointestinal: Present: soft - Integumentary Integumentary: Present: normal turgor - Musculoskeletal Musculoskeletal: Present: gait normal - Psychiatric Psychiatric: Present: A&O x's 3, appropriate affect, intact judgment & insight - Additional findings Additional findings: Incision: Right chest wall clean and dry no evidence of any infection JENNIFER drains 60 mL per day for each drain this is very serious and yellow straw- colored Impression/Plan: 1. Complete response of the lymph nodes in the right breast to chemotherapy and no residual tumor identified 2. Patient doing well postoperatively 3. Patient continues to have serous drainage from drains acute drains in place 4. Continue to follow with medical oncology and radiation oncology 5. Follow-up here in 1 week CC: Dr. Bo Najera
[2019-06-12 16:39] VITALS: BP 139/73; PULSE 68; RESP 18; TEMP 98.3
== END | disposition home or self-care (01) ==
LOC: WWCWWP 15:57
PROVIDERS: ATTEND Surgery
DX: Z53.9 Procedure and treatment not carried out, unspecified reason (principal)

== ENCOUNTER → 2019-07-02 | Outpatient (CLI) | payer OTHER ==
[2019-07-02 15:36] VITALS: BP 116/80; PULSE 73; RESP 18; TEMP 98.5; BMI 30.9
--- NOTE | 2019-07-02 15:58 | P.PN ---
Subjective Progress Note Date: 07/02/19 Andreea was a 54-year-old white female status post right mastectomy and axillary node dissection on 7918. Pathology revealed 7 axillary nodes removed the sentinel node had a focal multinucleated giant cell clusters and fibrosis consistent with neoadjuvant treatment. Negative for viable metastatic cancer. The axillary contents had 4 additional nodes one node with focal multinucleated giant cell clusters no viable metastatic cancer, and highest node 2 lymph nodes negative for metastasis. The breast had benign breast with fibrocystic changes including fibroadenomatoid hyperplasia, calcifications and scar consistent with neoadjuvant treatment-related changes no residual invasive cancer. Repeat drain fell out today, however both had output less than 30 mL for 2 days in a row. Exam: lungs: clear heart: Regular rate and rhythm Vision: Clean and dry JENNIFER site sutures still in place as it be removed today. Impression: 1. Patient doing well status post right mastectomy and axillary node dissection 2. No evidence of recurrent cancer Plan: 1. Patient continuing Herceptin 2. Patient to start radiation in approximately 2 weeks 2. Follow up here in 3 months time Cc: Dr. Bo Najera Objective - Vital Signs Vital signs: Vital Signs Temp 98.5 F 07/02/19 15:30 Pulse 73 07/02/19 15:30 Resp 18 07/02/19 15:30 BP 116/80 07/02/19 15:30 Pulse Ox 99 07/02/19 15:30 Intake & Output 07/01/19 07/02/19 07/02/19 18:59 06:59 18:59 Weight 79.379 kg
== END ==
LOC: WWCWWP 15:12
PROVIDERS: ATTEND Surgery
DX: Z53.9 Procedure and treatment not carried out, unspecified reason (principal)

== ENCOUNTER 2019-07-08 14:23 | Emergency (ER) | payer OTHER ==
--- NOTE | 2019-07-08 14:52 | ED ---
Skin/Abscess/FB HPI - General Chief complaint: Skin/Abscess/Foreign Body Stated complaint: seroma after mastectomy Time Seen by Provider: 07/08/19 14:33 Source: patient Mode of arrival: ambulatory Limitations: no limitations - History of Present Illness Initial comments: Patient is a 54-year-old female presenting to the emergency Department with complaints of a seroma post right mastectomy x 1 week. Patient states her surgical drain came out last week and she noticed development of fluid under her right breast tissue and into her her axillary area. Patient reports no pain, fever, chills. Patient states she's had some mild drainage from where the drain tube was that is mostly clear or bloody. Patient states her surgeon Dr. Micah Gil is on vacation this week and requested her to come in to see have the Dr. Louis assess her. Patient has no other complaints at this time. Patient is currently receiving chemo. - Related Data Home Medications Medication Instructions Recorded Confirmed Biotin 5,000 mcg PO QAM 11/11/18 07/02/19 Calcium Carbonate [Calcium] 600 mg PO QAM 11/11/18 07/02/19 Inulin/Chromium Picolinate [Fiber 1 tab PO QAM 11/11/18 07/02/19 Gummies Chew] Multivitamin [Multivitamins Adult 1 tab PO QAM 11/11/18 07/02/19 Gummies] LORazepam [Ativan] 1 mg PO HS PRN 01/09/19 07/02/19 Acetaminophen Tab [Tylenol] 1,000 mg PO Q6H PRN 03/13/19 07/02/19 Buprenorphine HCl/Naloxone HCl 0.5 film SL QAM 03/13/19 07/02/19 [Suboxone 8 mg-2 mg Sl Film] Cariprazine HCl [Vraylar] 3 mg PO HS 03/13/19 07/02/19 Ergocalciferol [Vitamin D2 50,000 unit PO MO 03/13/19 07/02/19 (DRISDOL)] buPROPion HCL [Wellbutrin SR] 150 mg PO HS 03/13/19 07/02/19 Apixaban [Eliquis Starter Pack See Taper PO BID 04/22/19 07/02/19 (for VTE)] Amoxicillin 500 mg PO Q8H 07/02/19 07/02/19 Allergies Allergy/AdvReac Type Severity Reaction Status Date / Time amoxicillin [From Augmentin] Allergy Rash/Hives Verified 07/08/19 14:27 clavulanic acid Allergy Rash/Hives Verified 07/08/19 14:27 [From Augmentin] Tetracyclines Allergy Rash/Hives Verified 07/08/19 14:27 Review of Systems ROS Statement: Those systems with pertinent positive or pertinent negative responses have been documented in the HPI. ROS Other: All systems not noted in ROS Statement are negative. Past Medical History Past Medical History: Cancer, Vascular Disorder Additional Past Medical History / Comment(s): breast cancer right oct genital herpes 2009, DVT RT INTERNAL JUGULAR BY PORT History of Any Multi-Drug Resistant Organisms: None Reported Past Surgical History: Cholecystectomy, Tonsillectomy Additional Past Surgical History / Comment(s): right mastectomy 06/03/19 Past Anesthesia/Blood Transfusion Reactions: No Reported Reaction Past Psychological History: Anxiety, Depression Smoking Status: Never smoker Past Alcohol Use History: None Reported Past Drug Use History: None Reported - Past Family History Mother Family Medical History: Diabetes Mellitus, Hypertension Additional Family Medical History / Comment(s): heart disease Father Family Medical History: Cancer Additional Family Medical History / Comment(s): lung CA, cirrosis, kidney disease General Exam - General Exam Comments Initial Comments: GENERAL: Well-appearing, well-nourished and in no acute distress. HEAD: Atraumatic, normocephalic. EYES: Pupils equal round and reactive to light, extraocular movements intact, sclera anicteric, conjunctiva are normal. ENT: TMs normal, nares patent, oropharynx clear without exudates. Moist mucous membranes. NECK: Normal range of motion, supple without lymphadenopathy or JVD. LUNGS: Breath sounds clear to auscultation bilaterally and equal. No wheezes rales or rhonchi. HEART: Regular rate and rhythm without murmurs, rubs or gallops. ABDOMEN: Soft, nontender, normoactive bowel sounds. No guarding, no rebound. No masses appreciated. : Deferred EXTREMITIES: Normal range of motion, no pitting or edema. No clubbing or cyanosis. NEUROLOGICAL: Cranial nerves II through XII grossly intact. Normal speech, normal gait. PSYCH: Normal mood, normal affect. SKIN: Warm, Dry, normal turgor, no rashes or lesions noted. Patient has some fluid collection underneath her surgical's incision of the right mastectomy. There is also a fluid collection near the right axilla. There is no erythema to the area. No signs of infection. There is a small opening where the surgical drain was placed that is draining a little bit of blood, clear fluid. Limitations: no limitations Course Vital Signs 07/08/19 07/08/19 14:25 16:30 Temperature 98.1 F 98.7 F Pulse Rate 80 68 Respiratory 16 18 Rate Blood Pressure 131/80 135/80 O2 Sat by Pulse 99 98 Oximetry Medical Decision Making - Medical Decision Making Patient is a 54-year-old female presenting with a possible seroma to her right breast area. Patient is 5 weeks postop right mastectomy. Patient denies any fever, chills, erythema. Vital signs are stable, afebrile. Patient's surgeon is Dr. Micah Gil. On exam patient has some fluid present under the right breast tissue as well the right axillary area. No signs of infection. There is some clear fluid drainage mixed with blood draining from the drain site. Ultrasound of the right breast area shows a simple seroma, post. Does not a ppear as abscess at this time. They recommend surgical follow-up on Sunday. CBC and CMP are both within normal limits. Patient is stable for discharge at this time and she is in agreement with this plan of care. Patient will follow- up with Dr. Gil on Sunday. Return parameters were discussed with the patient she verbalized understanding. Case discussed with Dr. Wing. - Lab Data Result diagrams: 07/08/19 15:27 07/08/19 15:27 Lab Results 07/08/19 07/08/19 Range/Units 15:27 15:27 WBC 5.2 (3.8-10.6) k/uL RBC 4.03 (3.80-5.40) m/uL Hgb 12.1 (11.4-16.0) gm/dL Hct 37.7 (34.0-46.0) % MCV 93.6 (80.0-100.0) fL MCH 30.1 (25.0-35.0) pg MCHC 32.2 (31.0-37.0) g/dL RDW 14.1 (11.5-15.5) % Plt Count 318 (150-450) k/uL Neutrophils % 52 % Lymphocytes % 36 % Monocytes % 6 % Eosinophils % 3 % Basophils % 1 % Neutrophils # 2.7 (1.3-7.7) k/uL Lymphocytes # 1.8 (1.0-4.8) k/uL Monocytes # 0.3 (0-1.0) k/uL Eosinophils # 0.2 (0-0.7) k/uL Basophils # 0.0 (0-0.2) k/uL Sodium 142 (137-145) mmol/L Potassium 4.4 (3.5-5.1) mmol/L Chloride 104 (98-107) mmol/L Carbon Dioxide 31 H (22-30) mmol/L Anion Gap 7 mmol/L BUN 11 (7-17) mg/dL Creatinine 0.65 (0.52-1.04) mg/dL Est GFR (CKD-EPI)AfAm >90 (>60 ml/min/1.73 sqM) Est GFR (CKD-EPI)NonAf >90 (>60 ml/min/1.73 sqM) Glucose 98 (74-99) mg/dL Calcium 9.6 (8.4-10.2) mg/dL Total Bilirubin 0.1 L (0.2-1.3) mg/dL AST 22 (14-36) U/L ALT 22 (9-52) U/L Alkaline Phosphatase 69 (38-126) U/L Total Protein 6.5 (6.3-8.2) g/dL Albumin 3.7 (3.5-5.0) g/dL Disposition Clinical Impression: Seroma of breast Disposition: HOME SELF-CARE Condition: Stable Instructions (If sedation given, give patient instructions): Seroma (DC) Additional Instructions: Please return to the Emergency Department if symptoms worsen or any other concerns, such as fever, chills, increasing pain, redness from the area. Follow-up with Dr. Gil on Sunday as discussed. Is patient prescribed a controlled substance at d/c from ED?: No Referrals: Bo Najera DO [Primary Care Provider] - 1-2 days
[2019-07-08 15:51] LABS: Basophils % (A) 1 %; Eosinophils # (A) 0.2 k/uL (0-0.7); Eosinophils % (A) 3 %; HCT 37.7 % (34.0-46.0); HGB 12.1 gm/dL (11.4-16.0); Lymphocytes # (A) 1.8 k/uL (1.0-4.8); Lymphocytes % (A) 36 %; MCH 30.1 pg (25.0-35.0); MCHC 32.2 g/dL (31.0-37.0); MCV 93.6 fL (80.0-100.0); Mean Platelet Volume 7.1; Monocytes # (A) 0.3 k/uL (0-1.0); Monocytes % (A) 6 %; Neutrophils # (A) 2.7 k/uL (1.3-7.7); Neutrophils % (A) 52 %; Platelet Count 318 k/uL (150-450); RBC 4.03 m/uL (3.80-5.40); RDW 14.1 % (11.5-15.5); WBC 5.2 k/uL (3.8-10.6)
[2019-07-08 15:57] LABS: ALT 22 U/L (9-52); AST 22 U/L (14-36); African American GFR (CKD) >90 (>60 ml/min/1.73 sqM); Albumin 3.7 g/dL (3.5-5.0); Alkaline Phosphatase 69 U/L (38-126); Anion Gap 7 mmol/L; Blood Urea Nitrogen 11 mg/dL (7-17); Calcium 9.6 mg/dL (8.4-10.2); Carbon Dioxide 31 mmol/L (22-30); Chloride 104 mmol/L (98-107); Glucose 98 mg/dL (74-99); Potassium 4.4 mmol/L (3.5-5.1); Sodium 142 mmol/L (137-145); Total Bilirubin 0.1 mg/dL (0.2-1.3); Total Protein 6.5 g/dL (6.3-8.2)
[2019-07-08 16:32] VITALS: BP 135/80; PULSE 68; RESP 18; TEMP 98.7
--- NOTE | 2019-07-09 09:51 | USB ---
Reason for exam: clinical finding. History: Patient has history of breast cancer at age 53. Benign US breast localization RT of the right breast, June 03, 2019. Mastectomy of the right breast, June 03, 2019. Malignant US breast needle core addl RT of the right breast, November 20, 2018. Malignant US biopsy breast VAD RT of the right breast, November 20, 2018. Malignant US biopsy breast add'l VAD RT of the right breast, November 20, 2018. US Breast RT Right complete breast ultrasound includes all four quadrants, the retroareolar region and axilla. Finding demonstrates a 5.7 x 1.9 x 5.8cm cystic simple seroma, post operative at the axilla. Does not appear as abscess at this time. RECOMMENDATION: Surgical consultation of the right breast. Manage patient on a clinical basis. Clinical follow up recommended.
== END 2019-07-08 16:30 | disposition home or self-care (01) ==
LOC: EC 14:23
DX: N64.89 Other specified disorders of breast (principal); F41.9 Anxiety disorder, unspecified; F32.9 Major depressive disorder, single episode, unspecified; Z79.01 Long term (current) use of anticoagulants; Z79.899 Other long term (current) drug therapy; Z88.0 Allergy status to penicillin; Z88.1 Allergy status to other antibiotic agents; Z85.3 Personal history of malignant neoplasm of breast; Z90.11 Acquired absence of right breast and nipple; Z86.718 Personal history of other venous thrombosis and embolism
CPT/HCPCS: 36415; 80053; 85025; 99284

== ENCOUNTER → 2019-07-11 | Outpatient (CLI) | payer OTHER ==
--- NOTE | 2019-07-13 14:34 | ECHOF ---
Referral Reason:C50.411 breast cancer. Z01.818 chemo MEASUREMENTS -------- HEIGHT: 160.0 cm WEIGHT: 79.4 kg BP: IVSd: 0.7 cm (0.6 - 1.1) LVIDd: 4.1 cm (3.9 - 5.3) LVPWd: 0.9 cm (0.6 - 1.1) IVSs: 1.9 cm LVIDs: 1.9 cm LVPWs: 1.6 cm LAESV Index (A-L): 27.90 ml/m Ao Diam: 2.6 cm (2.0 - 3.7) LA Diam: 2.9 cm (2.7 - 3.8) AV Cusp: 1.7 cm (1.5 - 2.6) EPSS: 0.5 cm RAP: 5.00 mmHg RVSP: 27.74 mmHg MV EF SLOPE: 80.22 mm/s (70 - 150) MV EXCURSION: 11.54 mm (> 18.000) FINDINGS -------- Sinus rhythm. This was a technically adequate study. The left ventricular size is normal. Left ventricular wall thickness is normal. Overall left vent ricular systolic function is normal with, an EF between 55 - 60 %. The right ventricle is normal in size. The left atrial size is normal. Normal LA size by volume 22+/-6 ml/m2. The right atrial size is normal. Interatrial and interventricular septum intact. The aortic valve is trileaflet and appears structurally normal. The mitral valve is normal. Mild mitral regurgitation is present. The tricuspid valve appears structurally normal. Mild tricuspid regurgitation present. Right vent ricular systolic pressure is normal at < 35 mmHg. There is no pulmonic regurgitation present. The aortic root size is normal. Normal inferior vena cava with normal inspiratory collapse consistent with estimated right atrial pre ssure of 5 mmHg. The flow patterns, measured by Doppler, appear normal. There is no pericardial effusion. CONCLUSIONS -------- 1. Sinus rhythm. 2. This was a technically adequate study. 3. The left ventricular size is normal. 4. Left ventricular wall thickness is normal. 5. Overall left ventricular systolic function is normal with, an EF between 55 - 60 %. 6. The right ventricle is normal in size. 7. The left atrial size is normal. 8. Normal LA size by volume 22+/-6 ml/m2. 9. The right atrial size is normal. 10. Interatrial and interventricular septum intact. 11. The aortic valve is trileaflet and appears structurally normal. 12. The mitral valve is normal. 13. Mild mitral regurgitation is present. 14. The tricuspid valve appears structurally normal. 15. Mild tricuspid regurgitation present. 16. Right ventricular systolic pressure is normal at < 35 mmHg. 17. There is no pulmonic regurgitation present. 18. The aortic root size is normal. 19. Normal inferior vena cava with normal inspiratory collapse consistent with estimated right atrial pressure of 5 mmHg. 20. The flow patterns, measured by Doppler, appear normal. 21. There is no pericardial effusion. FLOUR MIXER: Belinda Mcduffie RDCS
== END ==
LOC: RADECHMAIN 15:03
PROVIDERS: ATTEND Internal Medicine Hematology & Oncology
DX: I08.1 Rheumatic disorders of both mitral and tricuspid valves (principal); C50.411 Malignant neoplasm of upper-outer quadrant of right female breast
CPT/HCPCS: 93306

== ENCOUNTER → 2019-07-14 | Outpatient (CLI) | payer OTHER ==
[2019-07-14 12:39] VITALS: BP 124/83; PULSE 70; RESP 16; TEMP 97.9; BMI 30.9
--- NOTE | 2019-07-14 13:19 | P.PN ---
Progress Note - Text Progress Note Date: 07/14/19 Andreea was a 54-year-old white female status post right mastectomy and axillary node dissection on 7918. Pathology revealed 7 axillary nodes removed the sentinel node had a focal multinucleated giant cell clusters and fibrosis consistent with neoadjuvant treatment. Negative for viable metastatic cancer. The axillary contents had 4 additional nodes one node with focal multinucleated giant cell clusters no viable metastatic cancer, and highest node 2 lymph nodes negative for metastasis. The breast had benign breast with fibrocystic changes including fibroadenomatoid hyperplasia, calcifications and scar consistent with neoadjuvant treatment-related changes no residual invasive cancer. Repeat drains fell out on 07-02-19, however both had output less than 30 mL for 2 days in a row. After the drains fell out the patient noticed some swelling in the right mastectomy site was seen in the emergency room where she was told she had a seroma and now comes today for evaluation. She states that the area swelling has actually decreased in size and she is not having any drainage at the sites. She has no compressive any fever or chills. Exam: lungs: clear heart: Regular rate and rhythm Incision: Clean and dry, evidence of any infection Small seroma at this time we are not going to drain it Impression: 1. Patient doing well status post right mastectomy and axillary node dissection, resolving seroma 2. No evidence of recurrent cancer Plan: 1. Patient continuing Herceptin 2. Patient to start radiation in near future 2. Follow up here in 3 months time Cc: Dr. Bo Najera [place], [place]
== END | disposition home or self-care (01) ==
LOC: WWCWWP 11:56
PROVIDERS: ATTEND Surgery
DX: Z53.9 Procedure and treatment not carried out, unspecified reason (principal)

== ENCOUNTER → 2019-09-08 | Outpatient (CLI) | payer OTHER ==
--- NOTE | 2019-09-08 15:49 | BD ---
EXAMINATION TYPE: Axial Bone Density DATE OF EXAM: 09/08/2019 COMPARISON: NONE CLINICAL HISTORY: post menopausal, breast cancer Height: 5'3 Weight: 180 FRAX RISK QUESTIONS: Secondary Osteoporosis: RISK FACTORS HISTORY OF: Family History of Osteoporosis: y Postmenopausal woman: y MEDICATIONS: Additional Medications: anti depressant, pain, cancer treatment, blood thinner history of blood clot from port Additional History: breast cancer, chemo and radiation EXAM MEASUREMENTS: Bone mineral densitometry was performed using the [employer] System. Bone mineral density as measured about the Lumbar spine is: ----- L1-L4(G/cm2): 1.134 T Score Values are as follows: ----- L2: -0.8 ----- L3:0.0 ----- L4: 0.2 ----- L1-L4: -0.4 Bone mineral density about the R hip (g/cm2): 1.153 Bone mineral density about the L hip (g/cm2): 1.044 T Score values are as follows: -----R Neck: 0.8 -----L Neck: 0.0 -----R Total: 1.0 -----L Total: 0.7 IMPRESSION: Normal (Values between +1 and -1 indicate normal bone mass). Consider repeating this study in 5 year s or sooner if there is some new clinical indication. NOTE: T-SCORE=SD OF THE YOUNG ADULT MEAN.
== END ==
LOC: RADBDWWP 15:04
PROVIDERS: ATTEND Internal Medicine Hematology & Oncology
DX: C50.411 Malignant neoplasm of upper-outer quadrant of right female breast (principal); Z88.8 Allergy status to other drugs, medicaments and biological substances; Z88.0 Allergy status to penicillin
CPT/HCPCS: 77080

== ENCOUNTER → 2019-12-10 | Outpatient (CLI) | payer OTHER ==
--- NOTE | 2019-12-11 13:00 | ECHOF ---
Referral Reason:C50.411 Breast Ca Z01.818 pre chemo MEASUREMENTS -------- HEIGHT: 160.0 cm WEIGHT: 83.9 kg BP: RVIDd: 3.6 cm (< 3.3) IVSd: 1.2 cm (0.6 - 1.1) LVIDd: 4.0 cm (3.9 - 5.3) LVPWd: 1.3 cm (0.6 - 1.1) IVSs: 1.8 cm LVIDs: 2.2 cm LVPWs: 1.3 cm LAESV Index (A-L): 22.70 ml/m Ao Diam: 2.7 cm (2.0 - 3.7) AV Cusp: 1.6 cm (1.5 - 2.6) LA Diam: 3.6 cm (2.7 - 3.8) MV EXCURSION: 13.991 mm (> 18.000) MV EF SLOPE: 100 mm/s (70 - 150) EPSS: 0.6 cm MV E Juan Francisco: 0.78 m/s MV DecT: 171 ms MV A Juan Francisco: 0.98 m/s MV E/A Ratio: 0.80 RAP: 5.00 mmHg RVSP: 31.83 mmHg FINDINGS -------- Sinus rhythm. This was a technically good study. The left ventricular size is normal. There is mild concentric left ventricular hypertrophy. Overa ll left ventricular systolic function is normal with, an EF between 60 - 65 %. The diastolic fillin g pattern is normal for the age of the patient 9.90. The right ventricle is mildly enlarged. Normal LA size by volume 22+/-6 ml/m2. The right atrium is normal in size. Interatrial and interventricular septum intact. The aortic valve is trileaflet and appears structurally normal. There is no evidence of aortic regu rgitation. There is no evidence of aortic stenosis. Mild mitral regurgitation is present. The tricuspid valve appears structurally normal. Mild tricuspid regurgitation present. Right vent ricular systolic pressure is normal at < 35 mmHg. There is no pulmonic regurgitation present. The aortic root size is normal. Normal inferior vena cava with normal inspiratory collapse consistent with estimated right atrial pre ssure of 5 mmHg. There is no pericardial effusion. CONCLUSIONS -------- 1. Sinus rhythm. 2. This was a technically good study. 3. The left ventricular size is normal. 4. There is mild concentric left ventricular hypertrophy. 5. Overall left ventricular systolic function is normal with, an EF between 60 - 65 %. 6. The diastolic filling pattern is normal for the age of the patient 9.90 7. The right ventricle is mildly enlarged. 8. Normal LA size by volume 22+/-6 ml/m2. 9. The right atrium is normal in size. 10. Interatrial and interventricular septum intact. 11. The aortic valve is trileaflet and appears structurally normal. 12. There is no evidence of aortic regurgitation. 13. There is no evidence of aortic stenosis. 14. Mild mitral regurgitation is present. 15. The tricuspid valve appears structurally normal. 16. Mild tricuspid regurgitation present. 17. Right ventricular systolic pressure is normal at < 35 mmHg. 18. There is no pulmonic regurgitation present. 19. The aortic root size is normal. 20. Normal inferior vena cava with normal inspiratory collapse consistent with estimated right atrial pressure of 5 mmHg. 21. There is no pericardial effusion. STERILE SUPPLY TECHNICIAN: Belinda Mcduffie RDCS
== END | disposition home or self-care (01) ==
LOC: RADECHMAIN 13:13
PROVIDERS: ATTEND Internal Medicine Hematology & Oncology
DX: I08.1 Rheumatic disorders of both mitral and tricuspid valves (principal); C50.411 Malignant neoplasm of upper-outer quadrant of right female breast
CPT/HCPCS: 93306

== ENCOUNTER → 2019-12-26 | Outpatient (CLI) | payer OTHER ==
[2019-12-26 13:00] VITALS: BP 135/87; PULSE 71; RESP 18; TEMP 97.7
--- NOTE | 2019-12-26 13:25 | P.PN ---
Subjective Progress Note Date: 12/26/19 Principal diagnosis: Right breast invasive eatures, ER positive NM negative HER-2 positive Andreea is a 54-year-old white female status post right mastectomy and axillary node dissection on 7918. Pathology revealed 7 axillary nodes removed the sentinel node had a focal multinucleated giant cell cluster and fibrosis consistent with neoadjuvant treatment. It was negative for viable metastatic cancer. The breast and benign breast with fibrocystic changes including fiber adenomatoid hyperplasia, calcifications, and scar consistent with neoadjuvant treatment no residual invasive cancer. The patient at this time is doing well. The original tumor was a 4 cm mass in the right breast. She had a staging PET computed tomography scan done preoperative which did not reveal any distant metastatic disease. MRI of bilateral breast in November 2018 noted multifocal right breast invasive ductal carcinoma measuring up to 7.4 cm and a small hepatic lesion most likely felt to be benign. Andreea received TCHP 6. She did require hospitalization secondary to fever during this treatment. Follow-up MRI of the breast revealed a marked response to the treatment with only a 7 mm focus remaining. Andreea underwent 5 weeks of radiation treatment following the surgery. The patient at this time is doing well. She does remain on an anti-hormone medication/anastrozole. She has been started on Nerlynx 160 mg 6 pills daily. She has not noted any masses or lumps on her right chest wall. She has no complaints of any masses or lumps in her left breast. Family history: Father: Lung cancer he was a smoker Hormonal history: Menarche: 14 first at 28, breast fed: Yes Menopause:53 control pills: Never Hormones: Never. Surgical history: 1. Tonsillectomy 2. Knee arthroscopic 3. Cholecystectomy 4. Gastric sleeve 5. Right breast mastectomy and axillary node dissection Medical history: Negative Review of systems: Constitutional: Negative HEENT: Negative Lungs: Negative Heart: Negative GI: Negative : Recently postmenopausal Musculoskeletal: Negative Hematologic: Negative Psychiatric: Negative Objective - Vital Signs Vital signs: Vital Signs Temp 97.7 F 12/26/19 12:56 Pulse 71 12/26/19 12:56 Resp 18 12/26/19 12:56 BP 135/87 12/26/19 12:56 Pulse Ox 96 12/26/19 12:56 Intake & Output 12/25/19 12/26/19 12/26/19 18:59 06:59 18:59 Weight 83.915 kg - Exam BMI 32.8 - Constitutional Constitutional Comment(s): BMI 32.8 General appearance: Present: average body habitus - EENT Eyes: Present: EOMI ENT: Present: hearing grossly normal - Neck Neck: Present: normal ROM - Respiratory Respiratory: bilateral: CTA - Cardiovascular Rhythm: regular Heart sounds: normal: S1, S2 - Gastrointestinal Gastrointestinal Comment(s): no guarding or rebound General gastrointestinal: Present: normal bowel sounds, soft - Integumentary Integumentary Comment(s): Lateral aspect of incision on the right chest wall has a 1.5 cm x 1 cm area of i nduration there is some ulceration over the surface of this Remainder of the incision is clean and dry and well-healed - Musculoskeletal Musculoskeletal: Present: gait normal - Psychiatric Psychiatric: Present: A&O x's 3, appropriate affect, intact judgment & insight - Additional findings Additional findings: Breast exam: Inspection Right chest wall incision clean and dry, lateral aspect has a 1.5 x 1 cm area of induration with some ulceration over the surface of this patient states this occurred during the radiation treatment and has improved Left breast no skin changes of concern Palpation: Right chest wall no evidence of any recurrent disease medially on the anterior chest wall and the lateral aspect of the incision there is a 1.5 x 1 cm area of induration with some ulceration question of postop changes and scar versus tumor Right axilla: No adenopathy of concern Left breast: Multiple positional exam no dominant masses or nodules of concern Left axilla: No adenopathy of concern Assessment and Plan Assessment: Impression: 1. Patient status post right mastectomy and axillary node dissection for a T3 N1 M0 ER positive NM negative HER-2 positive G2 tumor, after neoadjuvant therapy this was down staged to a T0N0 lesion 2. Patient presently on anastrozole 3. Patient just had Nerlynx added to her treatment/this is HER-2 positive tumor 4. Lateral chest wall lesion consider excision Plan: 1. Continue anastrozole 2. Nerlynx 3. Continue to follow with radiation oncology and medical oncology 4. 3D mammogram of the left breast CC: Dr. Bo Najera I discussed with the patient that the nonhealing lesion in the lateral aspect of the right breast may represent a tumor nodule. We have discussed risks and benefits of resection. We will give us an opportunity to heal and if it fails to heal within the next 4-6 weeks then resection will be performed. Additionally she is due for a left breast mammogram and this is being ordered. encounter 25 minutes, > 50 % of time in planning and counselling Time with Patient: Less than 30
== END | disposition home or self-care (01) ==
LOC: WWCWWP 12:38
PROVIDERS: ATTEND Surgery
DX: Z53.9 Procedure and treatment not carried out, unspecified reason (principal)

== ENCOUNTER → 2019-12-29 | Outpatient (CLI) | payer OTHER ==
--- NOTE | 2019-12-29 14:53 | MM ---
Reason for exam: additional evaluation requested from prior study. Last mammogram was performed 1 year and 1 month ago. History: Patient is postmenopausal and has history of breast cancer at age 53. Family history of breast cancer in maternal cousin. Benign US breast localization RT of the right breast, June 03, 2019. Mastectomy of the right breast, June 03, 2019. Malignant US breast needle core addl RT of the right breast, November 20, 2018. Malignant US biopsy breast VAD RT of the right breast, November 20, 2018. Malignant US biopsy breast add'l VAD RT of the right breast, November 20, 2018. Taking antineoplastic for 3 months. Physical Findings: Nurse did not find any significant physical abnormalities on exam. MG 3D Diag Mammo W/Cad LT CC, MLO, and XCCL view(s) were taken of the left breast. Prior study comparison: November 20, 2018, right breast MG diagnostic mammo RT wo CAD. November 06, 2018, bilateral MG diagnostic mammo w CAD CECELIA. The breast tissue is heterogeneously dense. This may lower the sensitivity of mammography. There are benign appearing vascular left breast calcifications. No suspicious abnormality. These results were verbally communicated with the patient and result sheet given to the patient on 12/29/19. ASSESSMENT: Benign, BI-RAD 2 RECOMMENDATION: Follow-up diagnostic mammogram of the left breast in 1 year.
== END | disposition home or self-care (01) ==
LOC: RADMAMWWP 13:39
PROVIDERS: ATTEND Surgery
DX: Z08 Encounter for follow-up examination after completed treatment for malignant neoplasm (principal); Z85.3 Personal history of malignant neoplasm of breast
CPT/HCPCS: 77065; G0279; 77061

== ENCOUNTER → 2020-03-22 | Outpatient (CLI) | payer OTHER ==
--- NOTE | 2020-03-23 09:00 | ECHOF ---
Referral Reason:C50.411 Breast Ca Z01.818 Chemo MEASUREMENTS -------- HEIGHT: 160.0 cm WEIGHT: 79.4 kg BP: RVIDd: 2.2 cm (< 3.3) IVSd: 1.1 cm (0.6 - 1.1) LVIDd: 3.9 cm (3.9 - 5.3) LVPWd: 1.1 cm (0.6 - 1.1) IVSs: 1.5 cm LVIDs: 1.8 cm LVPWs: 1.8 cm LAESV Index (A-L): 24.96 ml/m Ao Diam: 2.5 cm (2.0 - 3.7) AV Cusp: 1.9 cm (1.5 - 2.6) LA Diam: 2.9 cm (2.7 - 3.8) MV EXCURSION: 12.364 mm (> 18.000) MV EF SLOPE: 87 mm/s (70 - 150) EPSS: 0.6 cm MV E Juan Francisco: 0.45 m/s MV DecT: 190 ms MV A Juan Francisco: 0.65 m/s MV E/A Ratio: 0.69 RAP: 5.00 mmHg RVSP: 28.77 mmHg FINDINGS -------- Sinus rhythm. This was a technically good study. The left ventricular size is normal. Left ventricular wall thickness is normal. Overall left vent ricular systolic function is normal with, an EF between 55 - 60 %. The right ventricle is normal in size. The left atrial size is normal. The right atrial size is normal. The aortic valve is trileaflet and appears structurally normal. The mitral valve is normal. There is trace mitral regurgitation. The tricuspid valve appears structurally normal. Trace tricuspid regurgitation present. Right bladimir tricular systolic pressure is normal at < 35 mmHg. There is no pulmonic regurgitation present. The aortic root size is normal. Normal inferior vena cava with normal inspiratory collapse consistent with estimated right atrial pre ssure of 5 mmHg. There is no pericardial effusion. CONCLUSIONS -------- 1. Sinus rhythm. 2. This was a technically good study. 3. The left ventricular size is normal. 4. Left ventricular wall thickness is normal. 5. Overall left ventricular systolic function is normal with, an EF between 55 - 60 %. 6. The right ventricle is normal in size. 7. The left atrial size is normal. 8. The right atrial size is normal. 9. The aortic valve is trileaflet and appears structurally normal. 10. The mitral valve is normal. 11. There is trace mitral regurgitation. 12. The tricuspid valve appears structurally normal. 13. Trace tricuspid regurgitation present. 14. Right ventricular systolic pressure is normal at < 35 mmHg. 15. There is no pulmonic regurgitation present. 16. The aortic root size is normal. 17. Normal inferior vena cava with normal inspiratory collapse consistent with estimated right atrial pressure of 5 mmHg. 18. There is no pericardial effusion. REELER OPERATOR: Belinda Mcduffie RDCS
== END | disposition home or self-care (01) ==
LOC: RADECHMAIN 11:39
PROVIDERS: ATTEND Internal Medicine Hematology & Oncology
DX: Z01.818 Encounter for other preprocedural examination (principal); C50.411 Malignant neoplasm of upper-outer quadrant of right female breast; Z88.0 Allergy status to penicillin; Z88.1 Allergy status to other antibiotic agents
CPT/HCPCS: 93306

== ENCOUNTER → 2020-05-06 | Outpatient (CLI) | payer OTHER ==
[2020-05-06 10:39] VITALS: BP 126/81; PULSE 72; RESP 18; TEMP 98.3
--- NOTE | 2020-05-06 10:53 | P.PN ---
Subjective Progress Note Date: 05/06/20 Principal diagnosis: right breast cancer, status post neoadjuvant chemotherapy Andreea is a 54-year-old white female status post right mastectomy and axillary node dissection on 7918. Pathology revealed 7 axillary nodes removed the sentinel node had a focal multinucleated giant cell cluster and fibrosis consistent with neoadjuvant treatment. It was negative for viable metastatic cancer. The right breast revealed benign breast with fibrocystic changes including fiberoadenomatoid hyperplasia, calcifications, and scar consistent with neoadjuvant treatment no residual invasive cancer. The patient at this time is doing well. The original tumor was a 4 cm mass in the right breast. She had a staging PET computed tomography scan done preoperative which did not reveal any distant metastatic disease. MRI of bilateral breast in November 2018 noted multifocal right breast invasive ductal carcinoma measuring up to 7.4 cm and a small hepatic lesion most likely felt to be benign. Andreea received TCHP 6. She did require hospitalization secondary to fever during this treatment. Follow-up MRI of the breast revealed a marked response to the treatment with only a 7 mm focus remaining. Andreea underwent 5 weeks of radiation treatment following the s urgery. The patient at this time is doing well. She does remain on an anti-hormone medication/anastrozole. She has been started on Nerlynx 160 mg 6 pills daily. She has had some intermittent diarrhea. She has not noted any masses or lumps on her right chest wall. She has no complaints of any masses or lumps in her left breast. She states that she is here for evaluation of the scar under her right arm. During radiation the area opened and has now healed with only a very small opening and she is starting physical therapy. She does not complain of any pain. She has occasional serous type drainage from the area. She does complain of difficulty with fitting her bra secondary to the large size of the left breast. 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 There is marked asymmetry for the patient secondary to the fact she's had a mastectomy in the left breast is a size 40D. also complains of left shoulder notching and intermittently she has had back pain. Family history: Father: Lung cancer he was a smoker Hormonal history: Menarche: 14 first at 28, breast fed: Yes Menopause:53 control pills: Never Hormones: Never. Surgical history: 1. Tonsillectomy 2. Knee arthroscopic 3. Cholecystectomy 4. Gastric sleeve 5. Right breast mastectomy and axillary node dissection Medical history: Negative Review of systems: Constitutional: Negative HEENT: Negative Lungs: Negative Heart: Negative GI: Negative : Recently postmenopausal Musculoskeletal: Negative Hematologic: Negative Psychiatric: Negative Objective - Exam BMI 32.8 - Constitutional General appearance: Present: average body habitus - EENT Eyes: Present: EOMI ENT: Present: hearing grossly normal - Neck Neck: Present: normal ROM - Respiratory Respiratory: bilateral: CTA - Cardiovascular Rhythm: regular Heart sounds: normal: S1, S2 - Gastrointestinal General gastrointestinal: Present: soft - Integumentary Integumentary: Present: normal turgor - Musculoskeletal Musculoskeletal: Present: gait normal - Psychiatric Psychiatric: Present: A&O x's 3, appropriate affect, intact judgment & insight - Additional findings Additional findings: ]BRA 40D 5 mm area of irritation in the lateral aspect of the right mastectomy incision No evidence of recurrent cancer Left breast: Ptosis grade 3 This infection under her left breast Multiple positional exam fibrocystic changes no dominant masses or nodules of concern Assessment and Plan Assessment: Impression: 1. Status post right breast mastectomy, radiation to chest wall with a small area of wound in the lateral aspect proximally 5 mm this is decreased significantly in size as per the patient 2. No evidence of recurrent cancer 3. Marked asymmetry of the chest wall secondary to large size of the left breast 4. Left shoulder notching 5. Left back pain 6. Anxiety secondary to inability to find close or bra that related to the asymetry of the breast Plan: 1. Reduction mastopexy left breast secondary to marked asymmetry 2. Continue nirlyx and anastrozole 3. Continue to monitor wound right lateral chest wall 4. Nystatin to apply under her left breast CC: DR. Bo Najera encounter 25 minutes, > 50% of time in planning and counselling
== END | disposition home or self-care (01) ==
LOC: WWCBREAST 09:58
PROVIDERS: ATTEND Surgery
DX: Z53.9 Procedure and treatment not carried out, unspecified reason (principal)

== ENCOUNTER → 2020-05-11 | Outpatient (CLI) | payer OTHER | END | disposition home or self-care (01) | LOC: DBWHC3 13:11 | PROVIDERS: ATTEND Surgery | DX: C50.411 Malignant neoplasm of upper-outer quadrant of right female breast (principal); F32.5 Major depressive disorder, single episode, in full remission; A60.9 Anogenital herpesviral infection, unspecified; K21.9 Gastro-esophageal reflux disease without esophagitis; R11.0 Nausea; Z71.3 Dietary counseling and surveillance | CPT/HCPCS: 97802 ==

== ENCOUNTER → 2020-11-08 | Outpatient (CLI) | payer OTHER ==
--- NOTE | 2020-11-09 07:49 | ECHOF ---
Referral Reason:Z01.818 CHemo Exposure MEASUREMENTS -------- HEIGHT: 160.0 cm WEIGHT: 86.2 kg BP: 120/80 RVIDd: 2.8 cm (< 3.3) IVSd: 1.1 cm (0.6 - 1.1) LVIDd: 3.8 cm (3.9 - 5.3) LVPWd: 1.1 cm (0.6 - 1.1) IVSs: 1.5 cm LVIDs: 2.7 cm LVPWs: 1.8 cm LA Diam: 3.2 cm (2.7 - 3.8) LAESV Index (A-L): 24.00 ml/m Ao Diam: 2.8 cm (2.0 - 3.7) AV Cusp: 2.0 cm (1.5 - 2.6) LA Diam: 3.2 cm (2.7 - 3.8) MV E Juan Francisco: 0.87 m/s MV DecT: 234 ms MV A Juan Francisco: 0.81 m/s MV E/A Ratio: 1.08 RAP: 5.00 mmHg RVSP: 26.04 mmHg FINDINGS -------- Sinus rhythm. This was a technically good study. The left ventricular size is normal. Left ventricular wall thickness is normal. Overall left vent ricular systolic function is normal with, an EF between 60 - 65 %. The right ventricle is normal in size. Normal LA size by volume 22+/-6 ml/m2. The right atrium is normal in size. Interatrial and interventricular septum intact. The aortic valve is trileaflet and appears structurally normal. There is trace mitral regurgitation. Mild tricuspid regurgitation present. Right ventricular systolic pressure is normal at < 35 mmHg. Trace/mild (physiologic) pulmonic regurgitation. The aortic root size is normal. There is no pericardial effusion. CONCLUSIONS -------- 1. The left ventricular size is normal. 2. Left ventricular wall thickness is normal. 3. Overall left ventricular systolic function is normal with, an EF between 60 - 65 %. 4. There is trace mitral regurgitation. 5. Mild tricuspid regurgitation present. 6. Trace/mild (physiologic) pulmonic regurgitation. 7. There is no pericardial effusion. ICE CREAM SERVER: Renate Blackmon RD
== END | disposition home or self-care (01) ==
LOC: RADECHMAIN 13:51
PROVIDERS: ATTEND Internal Medicine Hematology & Oncology
DX: I07.1 Rheumatic tricuspid insufficiency (principal); I37.1 Nonrheumatic pulmonary valve insufficiency; Z88.1 Allergy status to other antibiotic agents; Z88.0 Allergy status to penicillin
CPT/HCPCS: 93306

== ENCOUNTER → 2021-01-07 | Outpatient (CLI) | payer OTHER ==
--- NOTE | 2021-01-07 15:06 | MM ---
Reason for exam: additional evaluation requested from prior study. Last mammogram was performed 1 year ago. History: Patient is postmenopausal and has history of breast cancer at age 53. Family history of breast cancer in maternal cousin. Benign US breast localization RT of the right breast, June 03, 2019. Mastectomy of the right breast, June 03, 2019. Malignant US breast needle core addl RT of the right breast, November 20, 2018. Malignant US biopsy breast VAD RT of the right breast, November 20, 2018. Malignant US biopsy breast add'l VAD RT of the right breast, November 20, 2018. Taking antineoplastic beginning at age 53. Physical Findings: Nurse did not find any significant physical abnormalities on exam. MG 3D Diag Mammo W/Cad LT CC and MLO view(s) were taken of the left breast. Prior study comparison: December 29, 2019, left breast MG 3d diag mammo w/cad LT. November 20, 2018, right breast MG diagnostic mammo RT wo CAD. The breast tissue is heterogeneously dense. This may lower the sensitivity of mammography. Stable benign calcifications. There is no discrete abnormality including area of concern. No significant new findings when compared with previous films. These results were verbally communicated with the patient and result sheet given to the patient on 01/07/21. ASSESSMENT: Benign, BI-RAD 2 RECOMMENDATION: Routine screening mammogram of both breasts in 1 year.
== END | disposition home or self-care (01) ==
LOC: RADMAMWWP 14:09
PROVIDERS: ATTEND Internal Medicine Hematology & Oncology
DX: Z08 Encounter for follow-up examination after completed treatment for malignant neoplasm (principal); Z85.3 Personal history of malignant neoplasm of breast
CPT/HCPCS: 77065; G0279; 77061

== ENCOUNTER → 2021-09-12 | Outpatient (CLI) | payer MEDICARE, OTHER ==
--- NOTE | 2021-09-12 12:57 | BD ---
EXAMINATION TYPE: Axial Bone Density DATE OF EXAM: 09/12/2021 COMPARISON: 09/08/2019 CLINICAL HISTORY: Postmenopausal Height: 63 IN Weight: 221 LBS RISK FACTORS HISTORY OF: Family History of Osteoporosis: YES MOTHER Active: YES Postmenopausal woman: AGE 54 MEDICATIONS: Additional Medications: VIT D, CALCIUM,EXIMESTANE, WELLBUTRIN, VRAYLER, Additional History: BREAST CANCER WITH CHEMO AND RADIATION IN 2019 EXAM MEASUREMENTS: Bone mineral densitometry was performed using the [employer] System. Bone mineral density as measured about the Lumbar spine is: ----- L1-L4(G/cm2): 1.008 T Score Values are as follows: ----- L2: -2.3 ----- L3: -0.5 ----- L4: -0.8 ----- L1-L4: -1.4 Bone mineral density has: Decreased -10.1% since study of: 09/08/2019 Bone mineral density about the R hip (g/cm2): 1.017 Bone mineral density about the L hip (g/cm2): 0.904 T Score values are as follows: -----R Neck: -0.2 -----L Neck: -1.0 -----R Total: 0.4 -----L Total: 0.1 Bone mineral density has: Decreased -7.8% since study of: 09/08/2019 IMPRESSION: Osteopenia NOTE: T-SCORE=SD OF THE YOUNG ADULT MEAN.
== END | disposition home or self-care (01) ==
LOC: RADBDWWP 09:59
PROVIDERS: ATTEND Internal Medicine Hematology & Oncology
DX: M85.89 Other specified disorders of bone density and structure, multiple sites (principal); Z85.3 Personal history of malignant neoplasm of breast; Z78.0 Asymptomatic menopausal state
CPT/HCPCS: 77080

== ENCOUNTER → 2022-01-31 | Outpatient (CLI) | payer MEDICARE, OTHER ==
--- NOTE | 2022-02-01 11:02 | MM ---
Reason for exam: screening (asymptomatic). Last mammogram was performed 1 year and 1 month ago. History: Patient is postmenopausal and has history of breast cancer at age 53. Family history of breast cancer in maternal cousin. Benign US breast localization RT of the right breast, June 03, 2019. Mastectomy of the right breast, June 03, 2019. Malignant US breast needle core addl RT of the right breast, November 20, 2018. Malignant US biopsy breast VAD RT of the right breast, November 20, 2018. Malignant US biopsy breast add'l VAD RT of the right breast, November 20, 2018. Taking antineoplastic beginning at age 53. Physical Findings: A clinical breast exam by your physician is recommended on an annual basis and results should be correlated with mammographic findings. MG 3D Scr Erendira Unilateral W/Cad CC and MLO view(s) were taken of the left breast. Prior study comparison: January 07, 2021, left breast MG 3d diag mammo w/cad LT. December 29, 2019, left breast MG 3d diag mammo w/cad LT. The breast tissue is heterogeneously dense. This may lower the sensitivity of mammography. There is no discrete abnormality. No significant changes when compared with prior studies. ASSESSMENT: Negative, BI-RAD 1 RECOMMENDATION: Routine screening mammogram of the left breast in 1 year.
== END | disposition home or self-care (01) ==
LOC: RADMAMWWP 14:58
PROVIDERS: ATTEND Internal Medicine Hematology & Oncology
DX: Z12.31 Encounter for screening mammogram for malignant neoplasm of breast (principal); Z78.0 Asymptomatic menopausal state; Z85.3 Personal history of malignant neoplasm of breast; Z80.3 Family history of malignant neoplasm of breast
CPT/HCPCS: 77067

== ENCOUNTER → 2023-02-07 | Outpatient (CLI) | payer MEDICARE, OTHER ==
--- NOTE | 2023-02-08 08:31 | MM ---
Reason for Exam: Screening (asymptomatic). Last screening mammogram was performed 12 month(s) ago. Patient History: Menarche at age 12. First Full-Term at age 25. Postmenopausal. Patient has history of breast feeding. Breast cancer, right, age 53. Previous chest radiation therapy at age 53. Previous chemotherapy at age 53. 06/03/2019, Mastectomy on the Right side. 06/03/2019, Benign Core Biopsy on the right side. 11/20/2018, Malignant Core Biopsy on the right side. 11/20/2018, Malignant Core Biopsy on the right side. 11/20/2018, Malignant Core Biopsy on the right side. Maternal cousin had breast cancer. Prior Study Comparison: 12/29/2019 Left Diagnostic Mammogram, [facility]. 01/07/2021 Left Diagnostic Mammogram, [facility]. 01/31/2022 Bilateral Screening Mammogram, [facility]. Tissue Density: Left: The breast tissue is heterogeneously dense. This may lower the sensitivity of mammography. Findings: There is no suspicious group of microcalcifications or new suspicious mass in either breast. Overall Assessment: Negative, BI-RAD 1 Management: Screening Mammogram of both breasts in 1 year. A clinical breast exam by your physician is recommended on an annual basis and results should be correlated with mammographic findings. [facility] will attempt to contact patient to return for supplemental views and ultrasound if indicated. Electronically signed and approved by: Dada Lynn DO
== END | disposition home or self-care (01) ==
LOC: RADMAMWWP 16:37
PROVIDERS: ATTEND Internal Medicine Hematology & Oncology
DX: Z12.31 Encounter for screening mammogram for malignant neoplasm of breast (principal); Z78.0 Asymptomatic menopausal state; Z80.3 Family history of malignant neoplasm of breast; Z92.3 Personal history of irradiation
CPT/HCPCS: 77067

== ENCOUNTER 2023-10-15 07:37 | Emergency (ER) | payer BC, MEDICARE ==
[2023-10-15] MEDS ORDERED: NITROGLYCERIN OINT 1 INCH/GM PACKET TOPICAL STA (07:50)
[2023-10-15] MEDS ORDERED: ASPIRIN 81 MG PO STA (07:50)
--- NOTE | 2023-10-15 07:53 | ED ---
General Adult HPI - General Chief complaint: Chest Pain Stated complaint: chest pain Time Seen by Provider: 10/15/23 07:43 Source: patient, RN notes reviewed Mode of arrival: ambulatory Limitations: no limitations - History of Present Illness Initial comments: Patient is a pleasant 58-year-old female presenting to the emergency department with concerns with chest discomfort. Onset of symptoms was a few days ago. Discomfort is left chest and does radiate towards left shoulder. Patient does have a cough. Patient has had a cough for close to a month. Cough did improve with antibiotics and then returned. Discomfort is left upper chest. Patient does feel a little bit short of breath. No history of similar symptoms previously. No leg pain or leg swelling. Currently discomfort is 2/10. - Related Data Home Medications Medication Instructions Recorded Confirmed Biotin [Biotin Disolve] 5,000 mcg PO QAM 11/11/18 05/06/20 Calcium Carbonate [Calcium] 600 mg PO QAM 11/11/18 05/06/20 Inulin/Chromium Picolinate [Fiber 1 tab PO QAM 11/11/18 05/06/20 Gummies Chew] Multivitamin [Multivitamins Adult 1 tab PO QAM 11/11/18 05/06/20 Gummies] LORazepam [Ativan] 1 mg PO HS PRN 01/09/19 05/06/20 Acetaminophen Tab [Tylenol] 1,000 mg PO Q6H PRN 03/13/19 05/06/20 Buprenorphine HCl/Naloxone HCl 0.5 film SL QAM 03/13/19 05/06/20 [Suboxone 8 mg-2 mg Sl Film] Cariprazine HCl [Vraylar] 3 mg PO HS 03/13/19 05/06/20 Ergocalciferol [Vitamin D2 50,000 unit PO MO 03/13/19 05/06/20 (DRISDOL)] buPROPion HCL [Wellbutrin SR] 150 mg PO HS 03/13/19 05/06/20 Exemestane [Aromasin] 25 mg PO DAILY 12/26/19 05/06/20 Previous Rx's Medication Instructions Recorded Ibuprofen [Motrin] 600 mg PO Q6HR PRN #20 tab 10/15/23 Allergies Allergy/AdvReac Type Severity Reaction Status Date / Time amoxicillin [From Augmentin] Allergy Rash/Hives Verified 10/15/23 07:42 clavulanic acid Allergy Rash/Hives Verified 10/15/23 07:42 [From Augmentin] Tetracyclines Allergy Rash/Hives Verified 10/15/23 07:42 Review of Systems ROS Statement: Those systems with pertinent positive or pertinent negative responses have been documented in the HPI. ROS Other: All systems not noted in ROS Statement are negative. Constitutional: Denies: fever Eyes: Denies: eye pain ENT: Denies: ear pain Respiratory: Reports: as per HPI, cough Cardiovascular: Reports: as per HPI, chest pain Endocrine: Denies: fatigue Gastrointestinal: Denies: abdominal pain Genitourinary: Denies: dysuria Musculoskeletal: Denies: back pain Skin: Denies: rash Neurological: Denies: weakness Past Medical History Past Medical History: Cancer, Vascular Disorder Additional Past Medical History / Comment(s): right breast cancer 11/20/18; genital herpes 2009; DVT RT INTERNAL JUGULAR BY PORT; History of Any Multi-Drug Resistant Organisms: None Reported Past Surgical History: Cholecystectomy, Tonsillectomy Additional Past Surgical History / Comment(s): right mastectomy w/SNB 06/03/19 Past Anesthesia/Blood Transfusion Reactions: No Reported Reaction Past Psychological History: Anxiety, Depression Smoking Status: Never smoker Past Alcohol Use History: None Reported Past Drug Use History: None Reported - Past Family History Mother Family Medical History: Diabetes Mellitus, Hypertension Additional Family Medical History / Comment(s): heart disease Father Family Medical History: Cancer Additional Family Medical History / Comment(s): lung CA, cirrosis, kidney disease General Exam Limitations: no limitations General appearance: alert, in no apparent distress Head exam: Present: normocephalic Eye exam: Present: normal appearance Neck exam: Present: normal inspection Respiratory exam: Present: normal lung sounds bilaterally. Absent: chest wall tenderness Cardiovascular Exam: Present: regular rate, normal rhythm Expanded Peripheral pulses: 2+: Radial (R), Radial (L), Posterior Tibialis (R), Posterior Tibialis (L) GI/Abdominal exam: Present: soft. Absent: tenderness Extremities exam: Present: normal inspection. Absent: pedal edema, calf tenderness Neurological exam: Present: alert Psychiatric exam: Present: normal affect, normal mood Skin exam: Present: normal color Course Vital Signs 10/15/23 10/15/23 07:39 08:43 Temperature 98.1 F Pulse Rate 75 69 Respiratory 20 16 Rate Blood Pressure 136/85 125/78 O2 Sat by Pulse 99 97 Oximetry EKG Findings - EKG Results: EKG: interpreted by BELÉND (LVH with repolarization change), sinus rhythm, normal axis Medical Decision Making - Medical Decision Making Was pt. sent in by a medical professional or institution (IAIN Jackson, CLINICAL SUPPORT MANAGER, urgent care, hospital, or correction...) When possible be specific @ -No Did you speak to anyone other than the patient for history (EMS, parent, family, police, friend...)? What history was obtained from this source @ -No Did you review nursing and triage notes (agree or disagree)? Why? @ -I reviewed and agree with nursing and triage notes Were old charts reviewed (outside hosp., previous admission, EMS record, old EKG, old radiological studies, urgent care reports/EKG's, correction records)? Report findings @ -No old charts were reviewed Differential Diagnosis (chest pain, altered mental status, abdominal pain women, abdominal pain men, vaginal bleeding, weakness, fever, dyspnea, syncope, headache, dizziness, GI bleed, back pain, seizure, CVA, palpatations, mental health, musculoskeletal)? @ -Differential Chest Pain: Stable Angina, Unstable Angina, STEMI, NSTEMI Aortic Dissection, Pneumothorax, Musculoskeletal, Esophageal Spasm GERD, Cholecystitis, Pancreatitis, Zoster, this is not meant to be an all-inclusive list. EKG interpreted by me (3pts min.). @ -As above X-rays interpreted by me (1pt min.). @ -Chest x-ray shows no acute process CT interpreted by me (1pt min.). @ -None done U/S interpreted by me (1pt. min.). @ -None done What testing was considered but not performed or refused? (CT, X-rays, U/S, labs)? Why? @ -None What meds were considered but not given or refused? Why? @ -None Did you discuss the management of the patient with other professionals (professionals i.e. IAIN Jackson, CLINICAL SUPPORT MANAGER, lab, RT, psych nurse, child protective services social worker, hot stick worker, teacher, chief juvenile probation officer, shelter case manager)? Give summary @ -No Was smoking cessation discussed for >3mins.? @ -No Was critical care preformed (if so, how long)? @ -No Were there social determinants of health that impacted care today? How? (Homelessness, low income, unemployed, alcoholism, drug addiction, transportation, low edu. Level, literacy, decrease access to med. care, penitentiary, rehab)? @ -No Was there de-escalation of care discussed even if they declined (Discuss DNR or withdrawal of care, Hospice)? DNR status @ -No What co-morbidities impacted this encounter? (DM, HTN, Smoking, COPD, CAD, Cancer, CVA, ARF, Chemo, Hep., AIDS, mental health diagnosis, sleep apnea, morbid obesity)? @ -None Was patient admitted / discharged? Hospital course, mention meds given and route, prescriptions, significant lab abnormalities, going to OR and other pe rtinent info. @ -Patient reevaluated and resting comfortably in bed. Patient updated on results. Patient states symptoms are only present with movement or cough or deep breaths. Patient currently symptom-free otherwise. Heart score low. Patient is comfortable with discharge home. Patient advised follow-up with her doctor and return if symptoms worsen. Undiagnosed new problem with uncertain prognosis? @ -No Drug Therapy requiring intensive monitoring for toxicity (Heparin, Nitro, Insulin, Cardizem)? @ -No Were any procedures done? @ -No Diagnosis/symptom? @ -Pleuritic chest pain Acute, or Chronic, or Acute on Chronic? @ -Acute Uncomplicated (without systemic symptoms) or Complicated (systemic symptoms)? @ -default Side effects of treatment? @ -No Exacerbation, Progression, or Severe Exacerbation? @ -No Poses a threat to life or bodily function? How? (Chest pain, USA, VT, pneumonia, PE, COPD, DKA, ARF, appy, cholecystitis, CVA, Diverticulitis, Homicidal, Suicidal, threat to staff... and all critical care pts) @ -No - Lab Data Result diagrams: 10/15/23 07:59 10/15/23 07:59 Lab Results 10/15/23 10/15/23 10/15/23 Range/Units 07:59 07:59 07:59 WBC 6.4 (3.8-10.6) k/uL RBC 4.51 (3.80-5.40) m/uL Hgb 13.1 (11.4-16.0) gm/dL Hct 39.2 (34.0-46.0) % MCV 87.0 (80.0-100.0) fL MCH 29.1 (25.0-35.0) pg MCHC 33.4 (31.0-37.0) g/dL RDW 12.8 (11.5-15.5) % Plt Count 284 (150-450) k/uL MPV 7.5 Neutrophils % 52 % Lymphocytes % 32 % Monocytes % 9 % Eosinophils % 4 % Basophils % 1 % Neutrophils # 3.3 (1.3-7.7) k/uL Lymphocytes # 2.0 (1.0-4.8) k/uL Monocytes # 0.6 (0-1.0) k/uL Eosinophils # 0.2 (0-0.7) k/uL Basophils # 0.0 (0-0.2) k/uL PT 10.0 (10.0-12.5) sec INR 0.9 (<1.2) APTT 24.6 (22.0-30.0) sec D-Dimer 0.29 (<0.60) mg/L FEU Sodium 139 (137-145) mmol/L Potassium 3.7 (3.5-5.1) mmol/L Chloride 102 (98-107) mmol/L Carbon Dioxide 28 (22-30) mmol/L Anion Gap 9 mmol/L BUN 13 (7-17) mg/dL Creatinine 0.74 (0.52-1.04) mg/dL Est GFR (CKD-EPI)AfAm >90 (>60 ml/min/1.73 sqM) Est GFR (CKD-EPI)NonAf >90 (>60 ml/min/1.73 sqM) Glucose 89 (74-99) mg/dL Calcium 9.7 (8.4-10.2) mg/dL Magnesium 1.8 (1.6-2.3) mg/dL Total Bilirubin 0.5 (0.2-1.3) mg/dL AST 22 (14-36) U/L ALT 15 (4-34) U/L Alkaline Phosphatase 70 (38-126) U/L Troponin I (0.000-0.034) ng/mL Total Protein 6.7 (6.3-8.2) g/dL Albumin 4.0 (3.5-5.0) g/dL 11/20/23 Range/Units 07:59 WBC (3.8-10.6) k/uL RBC (3.80-5.40) m/uL Hgb (11.4-16.0) gm/dL Hct (34.0-46.0) % MCV (80.0-100.0) fL MCH (25.0-35.0) pg MCHC (31.0-37.0) g/dL RDW (11.5-15.5) % Plt Count (150-450) k/uL MPV Neutrophils % % Lymphocytes % % Monocytes % % Eosinophils % % Basophils % % Neutrophils # (1.3-7.7) k/uL Lymphocytes # (1.0-4.8) k/uL Monocytes # (0-1.0) k/uL Eosinophils # (0-0.7) k/uL Basophils # (0-0.2) k/uL PT (10.0-12.5) sec INR (<1.2) APTT (22.0-30.0) sec D-Dimer (<0.60) mg/L FEU Sodium (137-145) mmol/L Potassium (3.5-5.1) mmol/L Chloride (98-107) mmol/L Carbon Dioxide (22-30) mmol/L Anion Gap mmol/L BUN (7-17) mg/dL Creatinine (0.52-1.04) mg/dL Est GFR (CKD-EPI)AfAm (>60 ml/min/1.73 sqM) Est GFR (CKD-EPI)NonAf (>60 ml/min/1.73 sqM) Glucose (74-99) mg/dL Calcium (8.4-10.2) mg/dL Magnesium (1.6-2.3) mg/dL Total Bilirubin (0.2-1.3) mg/dL AST (14-36) U/L ALT (4-34) U/L Alkaline Phosphatase (38-126) U/L Troponin I <0.012 (0.000-0.034) ng/mL Total Protein (6.3-8.2) g/dL Albumin (3.5-5.0) g/dL Disposition Clinical Impression: Pleuritic chest pain Disposition: HOME SELF-CARE Condition: Stable Instructions (If sedation given, give patient instructions): Chest Pain (ED), Pleurisy (ED) Additional Instructions: Prescription sent to pharmacy. Please do follow-up with your primary care physician in the next one or 2 days for recheck. Return for difficulty breathing, increased pain, fevers, worsening or changing symptoms or any other concerns. Prescriptions: Ibuprofen [Motrin] 600 mg PO Q6HR PRN #20 tab PRN Reason: Pain Is patient prescribed a controlled substance at d/c from ED?: No Referrals: Bo Najera DO [Primary Care Provider] - 1-2 days Time of Disposition: 10:00
[2023-10-15 08:11] LABS: Basophils % (A) 1 %; Eosinophils # (A) 0.2 k/uL (0-0.7); Eosinophils % (A) 4 %; HCT 39.2 % (34.0-46.0); HGB 13.1 gm/dL (11.4-16.0); Lymphocytes % (A) 32 %; MCH 29.1 pg (25.0-35.0); MCHC 33.4 g/dL (31.0-37.0); Mean Platelet Volume 7.5; Monocytes # (A) 0.6 k/uL (0-1.0); Monocytes % (A) 9 %; Neutrophils # (A) 3.3 k/uL (1.3-7.7); Neutrophils % (A) 52 %; Platelet Count 284 k/uL (150-450); RBC 4.51 m/uL (3.80-5.40); RDW 12.8 % (11.5-15.5); WBC 6.4 k/uL (3.8-10.6)
[2023-10-15 08:23] LABS: ALT 15 U/L (4-34); AST 22 U/L (14-36); African American GFR (CKD) >90 (>60 ml/min/1.73 sqM); Alkaline Phosphatase 70 U/L (38-126); Anion Gap 9 mmol/L; Blood Urea Nitrogen 13 mg/dL (7-17); Calcium 9.7 mg/dL (8.4-10.2); Carbon Dioxide 28 mmol/L (22-30); Chloride 102 mmol/L (98-107); Glucose 89 mg/dL (74-99); Magnesium 1.8 mg/dL (1.6-2.3); Non-African American GFR(CKD) >90 (>60 ml/min/1.73 sqM); Potassium 3.7 mmol/L (3.5-5.1); Sodium 139 mmol/L (137-145); Total Bilirubin 0.5 mg/dL (0.2-1.3); Total Protein 6.7 g/dL (6.3-8.2)
--- NOTE | 2023-10-15 09:00 | XR ---
EXAMINATION TYPE: XR chest 2V DATE OF EXAM: 10/15/2023 COMPARISON: 01/23/2023 HISTORY: Shortness of breath TECHNIQUE: Frontal and lateral views of the chest are obtained. FINDINGS: Scattered senescent parenchymal changes noted. No evidence for infiltrate. No evidence for atelectasis. Heart size is stable. Mediastinal structures are stable and grossly unremarkable. No evidence for hilar prominence. Degenerative changes dorsal spine. IMPRESSION: 1. No evidence for acute pulmonary disease.
[2023-10-15 09:05] LABS: INR 0.9 (<1.2); Partial Thromboplastin Time 24.6 sec (22.0-30.0)
[2023-10-15] MEDS ORDERED: KETOROLAC 15 MG/ML 1 ML VIAL IVP STA (09:57)
[2023-10-15 10:35] VITALS: BP 103/74; PULSE 87; RESP 18; TEMP 98
== END 2023-10-15 10:14 | disposition home or self-care (01) ==
LOC: EC 07:37
DX: R09.1 Pleurisy (principal); F41.9 Anxiety disorder, unspecified; F32.A Depression, unspecified; Z79.899 Other long term (current) drug therapy; Z88.0 Allergy status to penicillin; Z88.8 Allergy status to other drugs, medicaments and biological substances
CPT/HCPCS: 36415; 93005; 85379; 80053; 83735; 84484; 85025; 85610; 85730; 71046; 99285; 96374; J1885

== ENCOUNTER → 2023-11-29 | Outpatient (CLI) | payer BC, MEDICARE, OTHER ==
--- NOTE | 2023-11-29 23:44 | BD ---
EXAMINATION TYPE: Axial Bone Density DATE OF EXAM: 11/29/2023 CLINICAL HISTORY: 58 years old Female. ICD-10 CODE: M81.0 AGE RELATED OSTEO Height: 63 Weight: 178.6 FRAX RISK QUESTIONS: Alcohol (3 or more units per day): no Family History (Parent hip fracture): no Glucocorticoids (More than 3mos): no History of Fracture in Adulthood: no Secondary Osteoporosis: 1. Type 1 Diabetes: no 2. Hyperthyroidism: no 3. Menopause before 45: no 4. Malnutrition: no 5. Chronic liver disease: no Rheumatoid Arthritis: no Current Tobacco Use: no RISK FACTORS HISTORY OF: Hip Fracture (Right/Left): no Spine Fracture: no History of Wrist Fracture: RT Wrist When:childhood Surgery to Spine/Hip(right/left)/Wrist (right/left): no Family History of Osteoporosis: mother Active: some what Diet low in dairy products/other sources of calcium: yes Postmenopausal woman: yes Take estrogen and/or progesterone medications: no Lost more than 2 inches in height since high school: no Frequent falls: yes Poor Health: no Hyperparathyroidism: no Adrenal Insufficiency: no MEDICATIONS: Prednisone or other steroids: no Thyroid Medications: no Osteoporosis Medications: no Additional Medications: Hormone Janet, Depression Meds x2, Vit D, Multi Vit., Iron, Calcium Additional History: Breast Ca. Mastectomy Rt with chemo and radiation 4.5 years ago EXAM MEASUREMENTS: Bone mineral densitometry was performed using the [employer] System. Bone mineral density as measured about the Lumbar spine is: ----- L1-L4(G/cm2): 0.948 T Score Values are as follows: ----- L1: -2.8 ----- L2: -2.0 ----- L3: -1.6 ----- L4: -1.6 ----- L1-L4: -1.9 Z Score Values are as follows: ----- L1: -2.3 ----- L2: -1.5 ----- L3: -1.1 ----- L4: -1.1 ----- L1-L4: -1.4 Bone mineral density has: decreased -6.0 % since study of: 09/12/2021 Bone mineral density about the R hip (g/cm2): 1.018 Bone mineral density about the L hip (g/cm2): 1.085 T Score values are as follows: -----R Neck: -0.1 -----L Neck: 0.0 -----R Total: 0.1 -----L Total: 0.2 Z Score values are as follows: -----R Neck: 0.7 -----L Neck: 0.8 -----R Total: 0.5 -----L Total: 0.7 Bone mineral density has: decreased -0.4 % since study of: 09/12/2021 FRAX%s: The graph provided illustrates a 5.7% chance for a major osteoporotic fx and a 0.1% chance fo r the hips probability for fx in 10 years time. IMPRESSION: Osteopenia (T Score between -2.5 and -1). There is slightly increased risk of fracture and the patient may be considered for treatment. Re-Screen 2-5 years. NOTE: T-SCORE=SD OF THE YOUNG ADULT MEAN.
== END | disposition home or self-care (01) ==
LOC: RADBDWWP 15:46
PROVIDERS: ATTEND Internal Medicine Hematology & Oncology
DX: M81.0 Age-related osteoporosis without current pathological fracture (principal); M85.88 Other specified disorders of bone density and structure, other site; F32.5 Major depressive disorder, single episode, in full remission; C50.411 Malignant neoplasm of upper-outer quadrant of right female breast; Z71.3 Dietary counseling and surveillance; Z78.0 Asymptomatic menopausal state
CPT/HCPCS: 77080

== ENCOUNTER 2024-04-20 20:34 | Emergency (ER) | payer BC, OTHER, MEDICARE ==
[2024-04-20 21:56] VITALS: TEMP 97.6
[2024-04-20 22:33] LABS: Basophils % (A) 0 %; Eosinophils # (A) 0.2 k/uL (0-0.7); Eosinophils % (A) 1 %; HCT 50.7 % (34.0-46.0); HGB 16.1 gm/dL (11.4-16.0); Lymphocytes # (A) 0.8 k/uL (1.0-4.8); Lymphocytes % (A) 4 %; MCH 28.1 pg (25.0-35.0); MCHC 31.7 g/dL (31.0-37.0); MCV 88.5 fL (80.0-100.0); Mean Platelet Volume 7.8; Monocytes % (A) 5 %; Neutrophils # (A) 19.3 k/uL (1.3-7.7); Neutrophils % (A) 90 %; Platelet Count 289 k/uL (150-450); RBC 5.73 m/uL (3.80-5.40); RDW 13.1 % (11.5-15.5); WBC 21.5 k/uL (3.8-10.6)
[2024-04-20 22:46] LABS: ALT 16 U/L (4-34); AST 30 U/L (14-36); African American GFR (CKD) >90 (>60 ml/min/1.73 sqM); Albumin 4.7 g/dL (3.5-5.0); Alkaline Phosphatase 115 U/L (38-126); Amylase 85 U/L (30-110); Anion Gap 11 mmol/L; Blood Urea Nitrogen 11 mg/dL (7-17); Calcium 10.1 mg/dL (8.4-10.2); Carbon Dioxide 21 mmol/L (22-30); Chloride 105 mmol/L (98-107); Glucose 108 mg/dL (74-99); Lipase 206 U/L (23-300); Non-African American GFR(CKD) >90 (>60 ml/min/1.73 sqM); Potassium 4.5 mmol/L (3.5-5.1); Sodium 137 mmol/L (137-145); Total Protein 7.7 g/dL (6.3-8.2)
--- NOTE | 2024-04-20 23:03 | ED ---
General Adult HPI - General Source: patient, family, RN notes reviewed Mode of arrival: wheelchair Limitations: no limitations <Garima Duque - Last Filed: 04/20/24 22:59> - General Source: patient, family, RN notes reviewed, old records reviewed <Dean Levine - Last Filed: 04/21/24 05:50> - General Chief complaint: Nausea/Vomiting/Diarrhea Stated complaint: Abd pain Time Seen by Provider: 04/20/24 22:15 - History of Present Illness Initial comments: Quick note: 58-year-old female presents to the emergency department for evaluation of diffuse abdominal pain. She states that this started after eating some chips and cheese today. She states that the pain radiates to her back. She states that she developed diarrhea. She admits to nausea without vomiting. Denies fever, chills. (Garima Duque) Patient is a 58-year-old female who presents emergency department complaining of abdominal pain. States it was worse earlier. Currently states the pain is a 1 out of 10 at most. Was complaining of left lower quadrant abdominal discomfort with diarrhea earlier today. Started after she ate dinner. It is improving. H as no other acute complaints at this time. Since for further evaluation at this time. Denies nausea, vomiting, chest pain, shortness of breath. Workup initially started as triage for the patient. I evaluated her when she was placed in room. (Dean Levine) - Related Data Home Medications Medication Instructions Recorded Confirmed RX: Biotin [Biotin Disolve] 5,000 mcg PO QAM 11/11/18 05/06/20 RX: Calcium Carbonate [Calcium] 600 mg PO QAM 11/11/18 05/06/20 RX: Inulin/Chromium Picolinate 1 tab PO QAM 11/11/18 05/06/20 [Fiber Gummies Chew] RX: Multivitamin [Multivitamins 1 tab PO QAM 11/11/18 05/06/20 Adult Gummies] RX: LORazepam [Ativan] 1 mg PO HS PRN 01/09/19 05/06/20 RX: Acetaminophen Tab [Tylenol] 1,000 mg PO Q6H PRN 03/13/19 05/06/20 RX: Buprenorphine HCl/Naloxone HCl 0.5 film SL QAM 03/13/19 05/06/20 [Suboxone 8 mg-2 mg Sl Film] RX: Cariprazine HCl [Vraylar] 3 mg PO HS 03/13/19 05/06/20 RX: Ergocalciferol [Vitamin D2 50,000 unit PO MO 03/13/19 05/06/20 (DRISDOL)] RX: buPROPion HCL [Wellbutrin SR] 150 mg PO HS 03/13/19 05/06/20 Exemestane [Aromasin] 25 mg PO DAILY 12/26/19 05/06/20 Previous Rx's Medication Instructions Recorded RX: Ibuprofen [Motrin] 600 mg PO Q6HR PRN #20 tab 10/15/23 RX: Ciprofloxacin HCl [Cipro] 500 mg PO Q12HR 5 Days #10 tab 04/21/24 metroNIDAZOLE [Flagyl] 500 mg PO TID 3 Days #15 tab 04/21/24 Allergies Allergy/AdvReac Type Severity Reaction Status Date / Time clavulanic acid Allergy Rash/Hives Verified 04/20/24 21:12 [From Augmentin] Tetracyclines Allergy Rash/Hives Verified 04/20/24 21:12 Review of Systems ROS Other: All systems not noted in ROS Statement are negative. <Garima Duque - Last Filed: 04/20/24 22:59> ROS Other: All systems not noted in ROS Statement are negative. <Dean Levine - Last Filed: 04/21/24 05:50> ROS Statement: Those systems with pertinent positive or pertinent negative responses have been documented in the HPI. Review of Systems: CONST: Denies fever EYES: Denies blurry vision ENT: Denies nasal congestion C/V: Denies Chest pain RESP: Denies shortness of breath GI: Endorses abdominal pain : Denies dysuria SKIN: Denies rash. MSK: Denies joint pain. NEURO: Denies headache (Dean Levine) Past Medical History Past Medical History: Cancer, Vascular Disorder Additional Past Medical History / Comment(s): right breast cancer 11/20/18; genital herpes 2009; DVT RT INTERNAL JUGULAR BY PORT; History of Any Multi-Drug Resistant Organisms: None Reported Past Surgical History: Cholecystectomy, Tonsillectomy Additional Past Surgical History / Comment(s): right mastectomy w/SNB 06/03/19 Past Anesthesia/Blood Transfusion Reactions: No Reported Reaction Past Psychological History: Anxiety, Depression Smoking Status: Never smoker Past Alcohol Use History: None Reported Past Drug Use History: None Reported - Past Family History Mother Family Medical History: Diabetes Mellitus, Hypertension Additional Family Medical History / Comment(s): heart disease Father Family Medical History: Cancer Additional Family Medical History / Comment(s): lung CA, cirrosis, kidney dis ease <Garima Duque - Last Filed: 04/20/24 22:59> General Exam Limitations: no limitations <Garima Duque - Last Filed: 04/20/24 22:59> - General Exam Comments Initial Comments: Visual Physical Exam Vital signs reviewed General: Well-appearing, nontoxic, no acute distress. Head: Normocephalic, atraumatic Eyes: PERRLA, EOMI ENT: Airway patent Chest: Nonlabored breathing Skin: No visual rash, normal skin tone Neuro: Alert and oriented 3 Musculoskeletal: No gross abnormalities (Garima Duque) Course Vital Signs 04/20/24 04/21/24 21:09 03:23 Temperature 97.6 F Pulse Rate 83 84 Respiratory 16 18 Rate Blood Pressure 132/91 O2 Sat by Pulse 100 99 Oximetry Medical Decision Making - Lab Data Result diagrams: 04/20/24 22:27 04/20/24 22:27 <Garima Duque - Last Filed: 04/20/24 22:59> - Lab Data Result diagrams: 04/20/24 22:27 04/20/24 22:27 <Dean Levine - Last Filed: 04/21/24 05:50> - Medical Decision Making Quick note performed and electronically signed by Garima Duque PA-C (Garima Duque) Was pt. sent in by a medical professional or institution (IAIN Jackson, CHIEF TECHNICIAN, urgent care, hospital, or usp...) When possible be specific @ -No Did you speak to anyone other than the patient for history (EMS, parent, family, police, friend...)? What history was obtained from this source @ -No Did you review nursing and triage notes (agree or disagree)? Why? @ -I reviewed and agree with nursing and triage notes Were old charts reviewed (outside hosp., previous admission, EMS record, old EKG, old radiological studies, urgent care reports/EKG's, usp records)? Report findings @ -No old charts were reviewed Differential Diagnosis (chest pain, altered mental status, abdominal pain women, abdominal pain men, vaginal bleeding, weakness, fever, dyspnea, syncope, headache, dizziness, GI bleed, back pain, seizure, CVA, palpatations, mental health, musculoskeletal)? @ -Differential Abdominal Pain Women: Appendicitis, Cholecystitis, diverticulosis, ischemic bowel, pancreatitis, hepatitis, UTI, gastroenteritis, AAA, incarcerated hernia, bowel obstruction, constipation, inflammatory bowel, hepatitis, peptic ulcer disease, splenic infar ction, perforated viscus, vulvitis, ovarian torsion, PID, kidney stone, placenta abruption, this is not meant to be an all-inclusive list EKG interpreted by me (3pts min.). @ -None done X-rays interpreted by me (1pt min.). @ -None done CT interpreted by me (1pt min.). @ -CT abdomen pelvis reveals lightest, no diverticulitis, and diarrhea present. No other obvious acute intra-abdominal process. Gastric sleeve in place. U/S interpreted by me (1pt. min.). @ -None done What testing was considered but not performed or refused? (CT, X-rays, U/S, labs)? Why? @ -None What meds were considered but not given or refused? Why? @ -None Did you discuss the management of the patient with other professionals (professionals i.e. , PA, CHIEF TECHNICIAN, lab, RT, psych nurse, social media strategist, securities settlement processor, teacher, special officer, pillowcase turner)? Give summary @ -No Was smoking cessation discussed for >3mins.? @ -No Was critical care preformed (if so, how long)? @ -No Were there social determinants of health that impacted care today? How? (Homelessness, low income, unemployed, alcoholism, drug addiction, transp ortation, low edu. Level, literacy, decrease access to med. care, fpc, rehab)? @ -No Was there de-escalation of care discussed even if they declined (Discuss DNR or withdrawal of care, Hospice)? DNR status @ -No What co-morbidities impacted this encounter? (DM, HTN, Smoking, COPD, CAD, Cancer, CVA, ARF, Chemo, Hep., AIDS, mental health diagnosis, sleep apnea, morbid obesity)? @ -None Was patient admitted / discharged? Hospital course, mention meds given and route, prescriptions, significant lab abnormalities, going to OR and other pertinent info. @ -Based on patient's presentation and physical exam, presents emergency department with acute onset of abdominal pain. We will obtain abdominal workup as well as CT imaging of the abdomen. Workup started as a quick note. Patient was in agreement with this plan. Vital signs within acceptable limits. Laboratory studies remarkable for le ukocytosis of 21 as well as an elevated hemoglobin. Likely secondary to some mild dehydration as there is 2+ ketones in the urine but no other obvious findings on workup. Lactic acid within normal limits. CT imaging shows colitis and some surrounding inflammation but no other obvious infections. I discussed results with the patient. She is asymptomatic at this time. With the elevated white count I did offer admission for IV antibiotics and evaluation however patient declines and would like to go home. Patient will be empirically treated for diverticulitis with ciprofloxacin and Flagyl. She states that Augmentin she is allergic to. Recommended good oral hydration. Recommended follow-up as needed. She was in agreement this plan. Strict return precautions discussed. I will provide the patient with a prescription for ciprofloxacin, Flagyl. I instructed the patient to follow up with their PCP in the next 1-3 days.. I explained that the patient should return to the emergency department if they experience any worsening symptoms. Strict return precautions were discussed with the patient. The patient expressed understanding of these instructions. I answered all questions that the patient had. The patient was discharged home in good condition with their prescriptions and follow up information. Undiagnosed new problem with uncertain prognosis? @ -No Drug Therapy requiring intensive monitoring for toxicity (Heparin, Nitro, Insulin, Cardizem)? @ -No Were any procedures done? @ -No Diagnosis/symptom? @ -Colitis, diarrhea, dehydration Acute, or Chronic, or Acute on Chronic? @ -Acute Uncomplicated (without systemic symptoms) or Complicated (systemic symptoms)? @ -Complicated Side effects of treatment? @ -No Exacerbation, Progression, or Severe Exacerbation? @ -No Poses a threat to life or bodily function? How? (Chest pain, USA, ME, pneumonia, PE, COPD, DKA, ARF, appy, cholecystitis, CVA, Diverticulitis, Homicidal, Suicidal, threat to staff... and all critical care pts) @ -Yes, if untreated (Dean Levine) - Lab Data Lab Results 04/20/24 04/20/24 04/21/24 Range/Units 22:27 22:27 00:26 WBC 21.5 H (3.8-10.6) k/uL RBC 5.73 H (3.80-5.40) m/uL Hgb 16.1 H (11.4-16.0) gm/dL Hct 50.7 H (34.0-46.0) % MCV 88.5 (80.0-100.0) fL MCH 28.1 (25.0-35.0) pg MCHC 31.7 (31.0-37.0) g/dL RDW 13.1 (11.5-15.5) % Plt Count 289 (150-450) k/uL MPV 7.8 Neutrophils % 90 % Lymphocytes % 4 % Monocytes % 5 % Eosinophils % 1 % Basophils % 0 % Neutrophils # 19.3 H (1.3-7.7) k/uL Lymphocytes # 0.8 L (1.0-4.8) k/uL Monocytes # 1.0 (0-1.0) k/uL Eosinophils # 0.2 (0-0.7) k/uL Basophils # 0.0 (0-0.2) k/uL Sodium 137 (137-145) mmol/L Potassium 4.5 (3.5-5.1) mmol/L Chloride 105 (98-107) mmol/L Carbon Dioxide 21 L (22-30) mmol/L Anion Gap 11 mmol/L BUN 11 (7-17) mg/dL Creatinine 0.63 (0.52-1.04) mg/dL Est GFR (CKD-EPI)AfAm >90 (>60 ml/min/1.73 sqM) Est GFR (CKD-EPI)NonAf >90 (>60 ml/min/1.73 sqM) Glucose 108 H (74-99) mg/dL Plasma Lactic Acid Kris 0.8 (0.7-2.0) mmol/L Calcium 10.1 (8.4-10.2) mg/dL Total Bilirubin 1.0 (0.2-1.3) mg/dL AST 30 (14-36) U/L ALT 16 (4-34) U/L Alkaline Phosphatase 115 (38-126) U/L Total Protein 7.7 (6.3-8.2) g/dL Albumin 4.7 (3.5-5.0) g/dL Amylase 85 (30-110) U/L Lipase 206 (23-300) U/L Urine Color Urine Appearance (Clear) Urine pH (5.0-8.0) Ur Specific Hudgins (1.001-1.035) Urine Protein (Negative) Urine Glucose (UA) (Negative) Urine Ketones (Negative) Urine Blood (Negative) Urine Nitrite (Negative) Urine Bilirubin (Negative) Urine Urobilinogen (<2.0) mg/dL Ur Leukocyte Esterase (Negative) Urine RBC (0-5) /hpf Urine WBC (0-5) /hpf Ur Squamous Epith Cells (0-4) /hpf Hyaline Casts (0-2) /lpf Urine Mucus (None) /hpf 04/21/24 Range/Units 00:26 WBC (3.8-10.6) k/uL RBC (3.80-5.40) m/uL Hgb (11.4-16.0) gm/dL Hct (34.0-46.0) % MCV (80.0-100.0) fL MCH (25.0-35.0) pg MCHC (31.0-37.0) g/dL RDW (11.5-15.5) % Plt Count (150-450) k/uL MPV Neutrophils % % Lymphocytes % % Monocytes % % Eosinophils % % Basophils % % Neutrophils # (1.3-7.7) k/uL Lymphocytes # (1.0-4.8) k/uL Monocytes # (0-1.0) k/uL Eosinophils # (0-0.7) k/uL Basophils # (0-0.2) k/uL Sodium (137-145) mmol/L Potassium (3.5-5.1) mmol/L Chloride (98-107) mmol/L Carbon Dioxide (22-30) mmol/L Anion Gap mmol/L BUN (7-17) mg/dL Creatinine (0.52-1.04) mg/dL Est GFR (CKD-EPI)AfAm (>60 ml/min/1.73 sqM) Est GFR (CKD-EPI)NonAf (>60 ml/min/1.73 sqM) Glucose (74-99) mg/dL Plasma Lactic Acid Kris (0.7-2.0) mmol/L Calcium (8.4-10.2) mg/dL Total Bilirubin (0.2-1.3) mg/dL AST (14-36) U/L ALT (4-34) U/L Alkaline Phosphatase (38-126) U/L Total Protein (6.3-8.2) g/dL Albumin (3.5-5.0) g/dL Amylase (30-110) U/L Lipase (23-300) U/L Urine Color Dark Brown Urine Appearance Clear (Clear) Urine pH 5.5 (5.0-8.0) Ur Specific Hudgins 1.050 H (1.001-1.035) Urine Protein Negative (Negative) Urine Glucose (UA) Negative (Negative) Urine Ketones 2+ H (Negative) Urine Blood Small H (Negative) Urine Nitrite Negative (Negative) Urine Bilirubin 1+ H (Negative) Urine Urobilinogen 4.0 (<2.0) mg/dL Ur Leukocyte Esterase Negative (Negative) Urine RBC 4 (0-5) /hpf Urine WBC 1 (0-5) /hpf Ur Squamous Epith Cells <1 (0-4) /hpf Hyaline Casts 5 H (0-2) /lpf Urine Mucus Rare H (None) /hpf Disposition <Garima Duque - Last Filed: 04/20/24 22:59> Is patient prescribed a controlled substance at d/c from ED?: No Time of Disposition: 02:25 <Dean Levine - Last Filed: 04/21/24 05:50> Clinical Impression: Colitis, Diarrhea, Dehydration Disposition: HOME SELF-CARE Condition: Good Instructions (If sedation given, give patient instructions): Colitis (ED) Prescriptions: RX: Ciprofloxacin HCl [Cipro] 500 mg PO Q12HR 5 Days #10 tab metroNIDAZOLE [Flagyl] 500 mg PO TID 3 Days #15 tab Referrals: Bo Najera DO [Primary Care Provider] - 1-2 days
[2024-04-20] MEDS ORDERED: IOPAMIDOL CONTRAST (ORAL USE) VIAL PO PRN (23:07)
[2024-04-21] MEDS: SODIUM CHLORIDE 0.9% 1,000 ML IV STA (00:21)
[2024-04-21] MEDS: PANTOPRAZOLE 40 MG/10 ML VIAL IVP STA (00:22)
[2024-04-21 00:48] LABS: Appearance,Urine Clear (Clear); Bilirubin,Urine 1+ (Negative); Blood,Urine Small (Negative); Color,Urine Dark Brown; Glucose,Urine (UA) Negative (Negative); Hyaline Casts,Urine 5 /lpf (0-2); Ketones,Urine 2+ (Negative); Leukocyte Esterase,Urine Negative (Negative); Mucus,Urine Rare /hpf; Nitrite,Urine Negative (Negative); PH, Urine 5.5 (5.0-8.0); Protein,Urine Negative (Negative); RBC,Urine 4 /hpf (0-5); Squamous Epithelial Cell,Urine <1 /hpf (0-4); WBC,Urine 1 /hpf (0-5)
--- NOTE | 2024-04-21 02:00 | CT ---
EXAM: CT Abdomen and Pelvis With Intravenous Contrast CLINICAL HISTORY: ITS. REASON CT Reason: nausea/vomiting TECHNIQUE: Axial computed tomography images of the abdomen and pelvis with intravenous contrast. CTDI is 22.11 mGy and DLP is 1060.7 mGy-cm. This CT exam was performed using one or more of the following dose reduction techniques: automated exposure control, adjustment of the mA and/or kV according to patient size, and/or use of iterative reconstruction technique. COMPARISON: CT abdomen and pelvis 04/28/2017. FINDINGS: Lung bases: Unremarkable. No mass. No consolidation. Mediastinum: Small hiatal hernia. ABDOMEN: Liver: Unremarkable. No mass. Gallbladder and bile ducts: Cholecystectomy. No ductal dilation. Pancreas: Unremarkable. No mass. No ductal dilation. Spleen: Unremarkable. No splenomegaly. Adrenals: Unremarkable. No mass. Kidneys and ureters: Unremarkable. No hydronephrosis or delayed nephrogram. Stomach and bowel: Wall thickening of the descending colon, consistent with mild colitis. Mild pericolonic fat stranding. Especially, diarrheal disease. Gastric sleeve. No obstruction. PELVIS: Appendix: No findings to suggest acute appendicitis. Bladder: Unremarkable. No mass. Reproductive: Unremarkable as visualized. ABDOMEN and PELVIS: Intraperitoneal space: Unremarkable. No free air. No significant fluid collection. Bones/joints: No acute fracture. No dislocation. Soft tissues: Unremarkable. Vasculature: Unremarkable. No abdominal aortic aneurysm. Lymph nodes: Unremarkable. No enlarged lymph nodes. IMPRESSION: 1. Wall thickening of the descending colon, consistent with mild colitis. Mild pericolonic fat stranding. Especially, diarrheal disease. 2. Cholecystectomy. 3. Small hiatal hernia. 4. Gastric sleeve.
[2024-04-21] MEDS: metroNIDAZOLE 500 MG TAB PO STA (03:14)
[2024-04-21] MEDS: CIPROFLOXACIN HCL 500 MG TAB PO STA (03:14)
[2024-04-21 03:41] VITALS: BP 132/91; PULSE 84; RESP 18
== END 2024-04-21 03:24 | disposition home or self-care (01) ==
LOC: EC 20:34
DX: K52.9 Noninfective gastroenteritis and colitis, unspecified (principal); K44.9 Diaphragmatic hernia without obstruction or gangrene; E86.0 Dehydration; Z88.8 Allergy status to other drugs, medicaments and biological substances; Z88.1 Allergy status to other antibiotic agents
CPT/HCPCS: 36415 ×2; 80053; 82150; 83605; 83690; 85025; 81001; 74177; 99284; 96374; 96361; C9113; Q9967

== ENCOUNTER → 2024-06-02 | Outpatient (CLI) | payer BC, OTHER ==
--- NOTE | 2024-06-02 07:56 | MM ---
Reason for Exam: Additional evaluation requested from abnormal screening. Last mammogram was performed 1 year(s) and 4 month(s) ago. Patient History: Menarche at age 12. First Full-Term at age 25. Postmenopausal. Patient has history of breast feeding. Breast cancer, right, age 53. Previous chest radiation therapy at age 53. Previous chemotherapy at age 53. 06/03/2019, Mastectomy on the Right side. 06/03/2019, Benign Core Biopsy on the right side. 11/20/2018, Malignant Core Biopsy on the right side. 11/20/2018, Malignant Core Biopsy on the right side. 11/20/2018, Malignant Core Biopsy on the right side. Maternal cousin had breast cancer. Prior Study Comparison: 01/07/2021 Left Diagnostic Mammogram, [facility]. 01/31/2022 Bilateral Screening Mammogram, [facility]. 02/07/2023 Left MG 3D scr hannah unilateral w/cad., [facility]. Tissue Density: Left: There are scattered areas of fibroglandular density. Findings: Analyzed By CAD. The standard images there is an area of subtle increased density upper outer middle position. Additional compression views were obtained, this area disperses normally. This is likely technical in nature. No suspicious groups of microcalcifications, spiculated or lobular masses, architectural distortion or other secondary signs of malignancy are mammographically apparent. Overall Assessment: Benign, BI-RAD 2 Management: Screening Mammogram of the left breast in 1 year. A negative mammogram report should not preclude additional follow up of suspicious palpable abnormalities. Patient should continue monthly self breast exam. A clinical breast exam by your physician is recommended on an annual basis and results should be correlated with mammographic findings. Note on Beatirce scores and lifetime risk: 1. A Beatrice score greater than 3% is considered moderate risk. If this is the case, consider specialist referral to assess eligibility for a risk reducing agent. 2. If overall lifetime risk for the development of breast cancer is 20% or higher, the patient may qualify for future screening with alternating mammogram and breast MRI. Electronically signed and approved by: Juan David Renee D.O. Radiologis
== END | disposition home or self-care (01) ==
LOC: RADMAMWWP 07:05
PROVIDERS: ATTEND Internal Medicine Hematology & Oncology
DX: C50.411 Malignant neoplasm of upper-outer quadrant of right female breast (principal); R92.322 Mammographic fibroglandular density, left breast; F32.5 Major depressive disorder, single episode, in full remission; Z71.3 Dietary counseling and surveillance; M81.0 Age-related osteoporosis without current pathological fracture; Z78.0 Asymptomatic menopausal state; Z80.3 Family history of malignant neoplasm of breast
CPT/HCPCS: 77061; 77065

== ENCOUNTER 2024-06-17 17:40 | Observation (INO) | payer MEDICARE, BC ==
--- NOTE | 2024-06-17 17:54 | ED ---
Chest Pain HPI - General Source: patient, RN notes reviewed Mode of arrival: wheelchair Limitations: no limitations - History of Present Illness MD Complaint: chest pain <Kianna Chinchilla - Last Filed: 06/17/24 17:52> <Dada Davies - Last Filed: 06/17/24 20:40> - General Chief Complaint: Chest Pain Stated Complaint: Chest Pain Time Seen by Provider: 06/17/24 17:52 - History of Present Illness Initial Comments: Quick Note: This is a 59-year-old female who presents to the emergency department for chest pain. States that it started earlier today. Pain is described as sharp and left-sided. She has some radiation into her neck and down the arm. Denies any shortness of breath. Denies any history of heart attacks. (Kianna Chinchilla) 59-year-old female presenting with left upper chest pain radiating into the left arm. Patient denies prior history of CAD. She does report previous history of DVT related to central venous access. Patient denies cough or fever. Denies lower extremity pain or swelling. (Dada Davies) - Related Data Home Medications Medication Instructions Recorded Confirmed Biotin [Biotin Disolve] 5,000 mcg PO QAM 11/11/18 05/06/20 Calcium Carbonate [Calcium] 600 mg PO QAM 11/11/18 05/06/20 Inulin/Chromium Picolinate [Fiber 1 tab PO QAM 11/11/18 05/06/20 Gummies Chew] Multivitamin [Multivitamins Adult 1 tab PO QAM 11/11/18 05/06/20 Gummies] LORazepam [Ativan] 1 mg PO HS PRN 01/09/19 05/06/20 Acetaminophen Tab [Tylenol] 1,000 mg PO Q6H PRN 03/13/19 05/06/20 Buprenorphine HCl/Naloxone HCl 0.5 film SL QAM 03/13/19 05/06/20 [Suboxone 8 mg-2 mg Sl Film] Cariprazine HCl [Vraylar] 3 mg PO HS 03/13/19 05/06/20 Ergocalciferol [Vitamin D2 50,000 unit PO MO 03/13/19 05/06/20 (DRISDOL)] buPROPion HCL [Wellbutrin SR] 150 mg PO HS 03/13/19 05/06/20 Exemestane [Aromasin] 25 mg PO DAILY 12/26/19 05/06/20 Previous Rx's Medication Instructions Recorded Ibuprofen [Motrin] 600 mg PO Q6HR PRN #20 tab 10/15/23 Ciprofloxacin HCl [Cipro] 500 mg PO Q12HR 5 Days #10 tab 04/21/24 metroNIDAZOLE [Flagyl] 500 mg PO TID 3 Days #15 tab 04/21/24 Allergies Allergy/AdvReac Type Severity Reaction Status Date / Time clavulanic acid Allergy Rash/Hives Verified 06/17/24 17:45 [From Augmentin] Tetracyclines Allergy Rash/Hives Verified 06/17/24 17:45 Review of Systems ROS Other: All systems not noted in ROS Statement are negative. <Kianna Chinchilla - Last Filed: 06/17/24 17:52> ROS Other: All systems not noted in ROS Statement are negative. <Dada Davies - Last Filed: 06/17/24 20:40> ROS Statement: Those systems with pertinent positive or pertinent negative responses have been documented in the HPI. Past Medical History Past Medical History: Cancer, Vascular Disorder Additional Past Medical History / Comment(s): right breast cancer 11/20/18; genital herpes 2009; DVT RT INTERNAL JUGULAR BY PORT; History of Any Multi-Drug Resistant Organisms: None Reported Past Surgical History: Cholecystectomy, Tonsillectomy Additional Past Surgical History / Comment(s): right mastectomy w/SNB 06/03/19 Past Anesthesia/Blood Transfusion Reactions: No Reported Reaction Past Psychological History: Anxiety, Depression Smoking Status: Never smoker Past Alcohol Use History: None Reported Past Drug Use History: None Reported - Past Family History Mother Family Medical History: Diabetes Mellitus, Hypertension Additional Family Medical History / Comment(s): heart disease Father Family Medical History: Cancer Additional Family Medical History / Comment(s): lung CA, cirrosis, kidney disease <Kianna Chinchilla - Last Filed: 06/17/24 17:52> General Exam Limitations: no limitations <Kianna Chinchilla - Last Filed: 06/17/24 17:52> General appearance: alert, in no apparent distress Head exam: Present: atraumatic, normocephalic Eye exam: Present: normal appearance, PERRL ENT exam: Present: normal exam Neck exam: Present: normal inspection. Absent: tenderness, meningismus Respiratory exam: Present: normal lung sounds bilaterally. Absent: respiratory distress, wheezes Cardiovascular Exam: Present: regular rate, normal rhythm GI/Abdominal exam: Present: soft. Absent: distended, tenderness, guarding Extremities exam: Present: normal inspection, normal capillary refill. Absent: pedal edema, calf tenderness Neurological exam: Present: alert, oriented X3 Psychiatric exam: Present: normal affect, normal mood Skin exam: Present: warm, dry, intact. Absent: cyanosis, diaphoretic <Dada Davies - Last Filed: 06/17/24 20:40> - General Exam Comments Initial Comments: Visual Physical Exam Vital signs reviewed General: Well-appearing, nontoxic, no acute distress. Head: Normocephalic, atraumatic Eyes: PERRLA, EOMI ENT: Airway patent Chest: Nonlabored breathing Skin: No visual rash, normal skin tone Neuro: Alert and oriented 3 Musculoskeletal: No gross abnormalities (Kianna Chinchilla) Course Vital Signs 06/17/24 06/17/24 06/17/24 17:41 18:20 19:30 Temperature 97.8 F Pulse Rate 90 90 85 Respiratory 20 27 H 14 Rate Blood Pressure 144/88 135/91 123/87 O2 Sat by Pulse 100 99 98 Oximetry Chest Pain [facility] <Kianna Chinchilla - Last Filed: 06/17/24 17:52> <Dada Davies - Last Filed: 06/17/24 20:40> - MDM I performed the QuickNote portion of this chart. Signed Kianna Chinchilla PA-C. (Kinana Chinchilla) Was pt. sent in by a medical professional or institution (IAIN Jackson, PROTECTIVE SIGNAL OPERATOR, urgent c are, hospital, or assisted...) When possible be specific @ -No Did you speak to anyone other than the patient for history (EMS, parent, family, police, friend...)? What history was obtained from this source @ -No Did you review nursing and triage notes (agree or disagree)? Why? @ -I reviewed and agree with nursing and triage notes Were old charts reviewed (outside hosp., previous admission, EMS record, old EKG, old radiological studies, urgent care reports/EKG's, assisted records)? Report findings @ -No old charts were reviewed Differential Chest Pain: Stable Angina, Unstable Angina, STEMI, NSTEMI Aortic Dissection, Pneumothorax, Musculoskeletal, Esophageal Spasm GERD, Cholecystitis, Pancreatitis, Zoster, this is not meant to be an all-inclusive list. EKG interpreted by me (3pts min.). @Sinus rhythm rate of 87, RI interval 116, QRS duration 100, QTc 394, ST segment depression in V2 with biphasic T wave, diffuse T wave inversion X-rays interpreted by me (1pt min.). @ -Chest x-ray negative for acute cardiopulmonary findings CT interpreted by me (1pt min.). @ -None done U/S interpreted by me (1pt. min.). @ -None done What testing was considered but not performed or refused? (CT, X-rays, U/S, labs)? Why? @ -None What meds were considered but not given or refused? Why? @ -None Did you discuss the management of the patient with other professionals (professionals i.e. , PA, PROTECTIVE SIGNAL OPERATOR, lab, RT, psych nurse, social security benefits interviewer, gun welder, teacher, sailing officer, case packer)? Give summary @ -No Was smoking cessation discussed for >3mins.? @ -No Was critical care preformed (if so, how long)? @ -No Were there social determinants of health that impacted care today? How? (Homelessness, low income, unemployed, alcoholism, drug addiction, transportation, low edu. Level, literacy, decrease access to med. care, penitentiary, rehab)? @ -No Was there de-escalation of care discussed even if they declined (Discuss DNR or withdrawal of care, Hospice)? DNR status @ -No What co-morbidities impacted this encounter? (DM, HTN, Smoking, COPD, CAD, Cancer, CVA, ARF, Chemo, Hep., AIDS, mental health diagnosis, sleep apnea, morbid obesity)? @ -None Was patient admitted / discharged? Hospital course, mention meds given and route, prescriptions, significant lab abnormalities, going to OR and other pertinent info. @59-year-old female with left upper chest pain rating to the left arm. No diaphoresis or vomiting. No prior history of CAD. EKG is sinus with T wave abnormality. No ST segment elevation. Chest x-ray is clear. Initial laboratory workup including CBC, CMP, troponin is negative. Given the EKG changes from prior she will be observed for serial cardiac enzymes, telemetry, cardiology consultation. Case discussed with Dr. Stone who will admit Undiagnosed new problem with uncertain prognosis? @ -No Drug Therapy requiring intensive monitoring for toxicity (Heparin, Nitro, Insulin, Cardizem)? @ -No Were any procedures done? @ -No Diagnosis/symptom? @Chest pain rule out Acute, or Chronic, or Acute on Chronic? @ -[Acute Uncomplicated (without systemic symptoms) or Complicated (systemic symptoms)? @ -Default Side effects of treatment? @ -No Exacerbation, Progression, or Severe Exacerbation? @ -No Poses a threat to life or bodily function? How? (Chest pain, [place], [place], pneumonia, PE, COPD, DKA, ARF, appy, cholecystitis, CVA, Diverticulitis, Homicidal, Suicidal, threat to staff... and all critical care pts) @ -Yes, ACS (Dada Davies) Disposition <Kianna Chinchilla - Last Filed: 06/17/24 17:52> Is patient prescribed a controlled substance at d/c from ED?: No Time of Disposition: 20:40 <Dada Davies - Last Filed: 06/17/24 20:40> Clinical Impression: Chest pain Disposition: ADMITTED IP TO THIS HOSP Condition: Stable Referrals: Bo Najera DO [Primary Care Provider] - 1-2 days
[2024-06-17 18:23] LABS: Basophils # (A) 0.1 k/uL (0-0.2); Basophils % (A) 1 %; Eosinophils # (A) 0.1 k/uL (0-0.7); Eosinophils % (A) 1 %; HCT 41.2 % (34.0-46.0); HGB 13.5 gm/dL (11.4-16.0); Lymphocytes # (A) 2.2 k/uL (1.0-4.8); Lymphocytes % (A) 27 %; MCH 28.1 pg (25.0-35.0); MCHC 32.7 g/dL (31.0-37.0); Mean Platelet Volume 7.3; Monocytes # (A) 0.7 k/uL (0-1.0); Monocytes % (A) 8 %; Neutrophils % (A) 61 %; Platelet Count 284 k/uL (150-450); RBC 4.79 m/uL (3.80-5.40); RDW 12.7 % (11.5-15.5); WBC 8.2 k/uL (3.8-10.6)
[2024-06-17 18:44] LABS: ALT 12 U/L (4-34); AST 23 U/L (14-36); African American GFR (CKD) >90 (>60 ml/min/1.73 sqM); Albumin 4.2 g/dL (3.5-5.0); Alkaline Phosphatase 65 U/L (38-126); Anion Gap 10 mmol/L; Blood Urea Nitrogen 2 mg/dL (7-17); Calcium 9.7 mg/dL (8.4-10.2); Carbon Dioxide 20 mmol/L (22-30); Chloride 103 mmol/L (98-107); Glucose 71 mg/dL (74-99); Magnesium 1.6 mg/dL (1.6-2.3); Non-African American GFR(CKD) >90 (>60 ml/min/1.73 sqM); Potassium 3.5 mmol/L (3.5-5.1); Sodium 133 mmol/L (137-145); Total Bilirubin 0.6 mg/dL (0.2-1.3); Total Protein 6.6 g/dL (6.3-8.2)
[2024-06-17 18:48] LABS: INR 0.9 (<1.2)
[2024-06-17 18:49] LABS: Partial Thromboplastin Time 25.4 sec (22.0-30.0); Prothrombin Time 10.3 sec (10.0-12.5)
--- NOTE | 2024-06-17 20:16 | XR ---
EXAMINATION TYPE: XR chest 2V DATE OF EXAM: 06/17/2024 COMPARISON: 10/15/2023 HISTORY: Shortness of breath TECHNIQUE: Frontal and lateral views of the chest are obtained. FINDINGS: Scattered senescent parenchymal changes noted. Hyperinflation compatible with COPD. No evidence for infiltrate. No evidence for atelectasis. Heart size is stable. Mediastinal structures are stable and grossly unremarkable. No evidence for hilar prominence. Degenerative changes dorsal spine. IMPRESSION: 1. No evidence for acute pulmonary disease.
[2024-06-17] MEDS ORDERED: ACETAMINOPHEN TAB 325 MG TAB PO PRN (20:37)
[2024-06-17] MEDS ORDERED: NALOXONE 0.4 MG/ML 1 ML VIAL IV PRN (20:37)
[2024-06-17] MEDS: ASPIRIN 325 MG TAB PO STA (21:33)
[2024-06-17 22:59] LABS: Appearance,Urine Clear (Clear); Bilirubin,Urine Negative (Negative); Blood,Urine Trace (Negative); Color,Urine Colorless; Glucose,Urine (UA) Negative (Negative); Ketones,Urine Trace (Negative); Leukocyte Esterase,Urine Negative (Negative); Nitrite,Urine Negative (Negative); PH, Urine 5.5 (5.0-8.0); Protein,Urine Negative (Negative); RBC,Urine <1 /hpf (0-5); Specific Gravity,Urine 1.004 (1.001-1.035); Urobilinogen,Urine <2.0 mg/dL (<2.0)
--- NOTE | 2024-06-18 01:21 | P.HPIM ---
History of Present Illness H&P Date: 06/17/24 Chief Complaint: Chest pain Patient is a 59-year-old female with past history of anxiety disorder and right breast cancer (diagnosed October 2018) status post right breast mastectomy (06/03/2019) in remission comes to the ER with a sudden onset left-sided chest pain. Patient reports that the pain started when she woke up from sleep this morning. She described the pain as sharp, 6 out of 10, constant, radiating into her left jaw and left arm. She reports no exacerbating factors but her pain was alleviated to 6 out of 10 with Motrin and after squeezing the chest. Pain was constant throughout the day which prompted patient to come to the ER for further medical evaluation. Patient denies nausea, vomiting, shortness of breath, and diaphoresis. Patient reports that she has been having exertional left-sided chest discomfort since 1 month. It is exacerbated with physical activity such as brisk walking and climbing stairs and alleviated with rest. Patient denies PND, orthopnea and peripheral edema. Patient reports no recent upper respiratory tract infection, sick contact, recent travel or hospitalization. Patient reports no previous episodes of CAD and/or CVA. Patient is currently in remission for her right breast cancer status post right mastectomy and regularly follows up with her oncologist. Patient is currently on Aromasin for adjuvant treatment. Patient states that she was on doxorubicin for chemotherapy about 10 years ago and her echocardiogram done last year was unremarkable. EKG done in the ER sinus rhythm with a heart rate of 87 bpm. SC interval is 160 ms. QTc 394 ms, not prolonged. ST and T wave abnormalities present in lead II, aVF, V3 and V4. Chest x-ray done in the ER shows no evidence of pleural effusion or infiltrate. Vitals: Tmax 98.4 F, heart rate 74 bpm, respirate 18, blood pressure 121/92, O2 saturation 100% on room air. Review of systems: Pertinent positives and negatives as discussed in HPI, a complete review of systems was performed and all other systems are negative. Social history: Tobacco: None Alcohol: None Recreational drugs: None Travel: No recent drug Occupation: Employed Family History: Noncontributory Physical examination: Vital signs reviewed General: non toxic, no distress, appears at stated age, normal weight Derm: no unusual rashes/lesions, warm Head: atraumatic, normocephalic, symmetric Eyes: EOMI, no lid lag, anicteric sclera, pupils equal round reactive to light ENT: Nose and ears atraumatic Neck: No cervical lymphadenopathy, trachea midline, supple Mouth: no lip lesion, mucus membranes moist Cardiovascular: S1S2 reg, no murmur, positive dorsalis pedis pulse bilateral, no edema Lungs: CTA bilateral, no rhonchi, no rales, no accessory muscle use Abdominal: soft, nontender to palpation, no guarding Ext: muscle strength 5 out of 5 in all 4 extremities grossly, no gross muscle atrophy, no contractures, Neuro: CN II-XI grossly intact, no gross focal neuro deficits Psych: Alert, oriented, appropriate affect Assessment/Plan: 59-year-old female with past history of right breast cancer (diagnosed October 2018) status post right breast mastectomy (06/03/2019) in remission comes to the ER with a sudden onset left-sided chest pain. #Chest pain Heart score: 2 points, low risk for ACS Continue with acetaminophen 650 mg p.o. every 6 hours as needed Continue cardiac monitoring Continue with troponin series, troponin I is 0.023 Order echocardiogram for cardiac structure assessment Consult cardiology D-dimer 0.23 rules out DVT Continue with oxygen therapy 2 L via nasal cannula aspirin 81 mg po daily nitro SL prn for severe chest pain #Hyponatremia Sodium 133, potassium 3.5, Chloride 103, bicarb 20 Continue monitor sodium levels trial of normal saline , 75 cc per hour , reevaluate in the morning for improvement or worsening of Na level Hypomagnesemia replace IV , and follow up levels in AM #Hypoglycemia Glucose 71 If glucose is less than 70mg/dl then give 1 amp of D50 Continue to monitor glucose level #Chronic conditions, Anxiety disorder: Resume Ativan 1 mg p.o. at bedtime DVT prophylaxis: Lovenox 40 mg subcu daily The patient is admitted with an anticipated less than 2 midnight stay for evaluation of chest pain CODE STATUS: Full code Discussed with: Patient Anticipated discharge place: Home Past Medical History Past Medical History: Cancer, Vascular Disorder Additional Past Medical History / Comment(s): right breast cancer 11/20/18; genital herpes 2009; DVT RT INTERNAL JUGULAR BY PORT; History of Any Multi-Drug Resistant Organisms: None Reported Past Surgical History: Cholecystectomy, Tonsillectomy Additional Past Surgical History / Comment(s): right mastectomy w/SNB 06/03/19 Past Anesthesia/Blood Transfusion Reactions: No Reported Reaction Past Psychological History: Anxiety, Depression Smoking Status: Never smoker Past Alcohol Use History: None Reported Past Drug Use History: None Reported Additional Drug Use History / Comment(s): 10 years without use. - Past Family History Mother Family Medical History: Diabetes Mellitus, Hypertension Additional Family Medical History / Comment(s): heart disease Father Family Medical History: Cancer Additional Family Medical History / Comment(s): lung CA, cirrosis, kidney disease Medications and Allergies Home Medications Medication Instructions Recorded Confirmed Type Calcium Carbonate [Calcium] 600 mg PO DAILY 11/11/18 06/17/24 History LORazepam [Ativan] 1 mg PO HS 01/09/19 06/17/24 History Buprenorphine HCl/Naloxone HCl 1 film SL DAILY PRN 03/13/19 06/17/24 History [Suboxone 8 mg-2 mg Sl Film] Exemestane [Aromasin] 25 mg PO DAILY 12/26/19 06/17/24 History Buprenorphine HCl/Naloxone HCl 0.5 film SL HS PRN 06/17/24 06/17/24 History [Suboxone 8 mg-2 mg Sl Film] Cariprazine HCl [Vraylar] 1.5 mg PO HS 06/17/24 06/17/24 History Cholecalciferol [Vitamin D3 (25 50 mcg PO DAILY 06/17/24 06/17/24 History Mcg = 1000 Iu)] Ferrous Sulfate [Feosol] 325 mg PO HS 06/17/24 06/17/24 History Multivitamins, Thera [Multivitamin 1 tab PO DAILY 06/17/24 06/17/24 History (formulary)] Tirzepatide [Zepbound] 7.5 mg SQ TH 06/17/24 06/17/24 History buPROPion XL [Wellbutrin XL] 300 mg PO DAILY 06/17/24 06/17/24 History Allergies Allergy/AdvReac Type Severity Reaction Status Date / Time clavulanic acid Allergy Rash/Hives Verified 06/17/24 21:00 [From Augmentin] Tetracyclines Allergy Rash/Hives Verified 06/17/24 21:00 Physical Exam Vitals: Vital Signs Temp Pulse Resp BP Pulse Ox 06/17/24 21:48 98.4 F 06/17/24 21:33 74 18 121/92 100 06/17/24 19:30 85 14 123/87 98 06/17/24 18:20 90 27 H 135/91 99 06/17/24 17:41 97.8 F 90 20 144/88 100 Intake and Output 06/17/24 06/17/24 06/18/24 14:59 22:59 06:59 Other: # Voids 1 Weight 71.668 kg 71.668 kg Results CBC & Chem 7: 06/17/24 17:48 06/17/24 17:48 Labs: Abnormal Lab Results - Last 24 Hours (Table) 06/17/24 06/17/24 Range/Units 17:48 20:00 Sodium 133 L (137-145) mmol/L Carbon Dioxide 20 L (22-30) mmol/L BUN 2 L (7-17) mg/dL Glucose 71 L (74-99) mg/dL Urine Ketones Trace H (Negative) Urine Blood Trace H (Negative) Thrombosis Risk Factor Assmnt - Choose All That Apply Each Factor Represents 1 point: Age 41-60 years, Obesity (BMI >25) Other Risk Factors: No Other congenital or acquired thrombophilia - If yes, enter type in comment: No Thrombosis Risk Factor Assessment Total Risk Factor Score: 2 Thrombosis Risk Factor Assessment Level: Low Risk Assessment and Plan Assessment: I have seen and evaluated the patient today. I Discussed the case with the resident and agree with the resident's findings I edited the assessment and plan as necessary as documented in the resident's note.
[2024-06-18 01:41] LABS: Glucose,Whole Blood 93 mg/dL (70-110)
[2024-06-18] MEDS ORDERED: NITROGLYCERIN SL TABS 0.4 MG TAB SUBLINGUAL PRN (03:05)
[2024-06-18 04:28] LABS: Glucose,Whole Blood 59 mg/dL (70-110)
[2024-06-18 05:06] LABS: Glucose,Whole Blood 85 mg/dL (70-110)
[2024-06-18] MEDS: PANTOPRAZOLE 40 MG TABLET PO SCH (05:19)
[2024-06-18] MEDS: MAGNESIUM SULFATE-D5W PMX 1 GM in DEXTROSE/WATER 1 100ML.BAG IVPB SCH (05:19)
[2024-06-18] MEDS: SODIUM CHLORIDE 0.9% 1,000 ML IV SCH (05:19)
[2024-06-18 07:32] LABS: Glucose,Whole Blood 95 mg/dL (70-110)
[2024-06-18] MEDS: ASPIRIN 81 MG PO SCH (08:31)
[2024-06-18] MEDS: ENOXAPARIN 40 MG/0.4 ML SYRINGE SQ SCH (08:31)
[2024-06-18] MEDS ORDERED: Buprenorphine Hcl/Naloxone Hcl [Suboxone 8 Mg-2 Mg Sl Film] 1 EACH Fil SUBLINGUAL PRN ×2 (08:37)
[2024-06-18 09:03] LABS: BUN/Creat Ratio 6.86 Ratio (12.00-20.00); Blood Urea Nitrogen 4.8 mg/dL (9.0-27.0); Calcium 9.4 mg/dL (8.7-10.3); Chloride 108 mmol/L (96-109); Chol/HDL Ratio 3.29 Ratio; Glucose 96 mg/dL (70-110); Potassium 4.5 mmol/L (3.5-5.5); Sodium 142 mmol/L (135-145); VLDL Calculation 12.74 mg/dL (5.00-40.00)
[2024-06-18 09:03] LABS: Glucose,Whole Blood 69 mg/dL (70-110)
[2024-06-18] MEDS: DEXTROSE 50% SYRINGE 50 ML IVP STA ×2 (09:11→11:32)
[2024-06-18 09:29] LABS: Glucose,Whole Blood 167 mg/dL (70-110)
--- NOTE | 2024-06-18 10:22 | P.CRDCN ---
History of Present Illness Consult date: 06/18/24 Consult reason: chest pain History of present illness: This is a 59-year-old female with no previous cardiac history and does not follow with a family counselor. She has a past medical history of breast cancer in 2018 on Aromasin, DVT in the right IJ near her port, anxiety and depression. We have been asked to evaluate the patient for chest pain. Patient developed chest pain yesterday that was sharp and on the left side with radiation to her neck and down her left arm. No shortness of breath. Blood pressure 112/73, heart rate 79, pulse ox 99% on room air, afebrile. Discussed options and patient is agreeable to move forward with stress test. EKG: Sinus rhythm with nonspecific ST changes, present on previous EKGs but more pronounced Chest x-ray: No acute process Laboratory studies: Sodium 142, potassium 4.5, creatinine 0.7, BUN 4.8. Magnesium 2.0. Triglycerides 63, cholesterol 162, LDL 100, HDL 49. Troponin negative x 3. CBC unremarkable. D-dimer 0.23. Home cardiac medications: None Review Of Systems: At the time of my exam: CONSTITUTIONAL: Denies fever or chills. HEENT: Denies blurred vision, vision changes, or eye pain. Denies hemoptysis CARDIOVASCULAR: Denies chest pain. Denies orthopnea. Denies PND. Denies palpitations RESPIRATORY: Denies shortness of breath. GASTROINTESTINAL: Denies abdominal pain. Denies nausea or vomiting. HEMATOLOGIC: Denies bleeding disorders. GENITOURINARY: Denies any blood in urine. SKIN: Denies puritis. Denies rash. Physical examination: Gen: This is a 59-year-old female in no acute distress VS: reviewed HEENT: Head is atraumatic, normocephalic. Pupils equal, round. Sclerae is an icteric. NECK: Supple. No JVD. LUNGS: Clear to auscultation. No wheezes or rhonchi. No intercostal retractions. HEART: Regular rate and rhythm. No murmur. ABDOMEN: Soft No tenderness. EXTREMITIES: No pedal edema. No calf tenderness. NEUROLOGICAL: Patient is awake, alert and oriented x3. Assessment: Atypical chest pain, acute coronary syndrome ruled out with negative troponins x 3 History of breast cancer History of DVT Anxiety and depression Plan: Obtain stress echocardiogram today Obtain 2-D echocardiogram and Doppler study to assess cardiac structure and function If stress test is unremarkable, patient is cleared for discharge and may follow- up in the office with Dr. Jennifer Billings in 4 weeks. Thank you kindly for this consultation. Nurse practitioner note has been reviewed, I agree with documented findings and plan of care. Patient was seen and examined. Past Medical History Past Medical History: Cancer, Vascular Disorder Additional Past Medical History / Comment(s): right breast cancer 11/20/18; genital herpes 2009; DVT RT INTERNAL JUGULAR BY PORT; History of Any Multi-Drug Resistant Organisms: None Reported Past Surgical History: Cholecystectomy, Tonsillectomy Additional Past Surgical History / Comment(s): right mastectomy w/SNB 06/03/19 Past Anesthesia/Blood Transfusion Reactions: No Reported Reaction Past Psychological History: Anxiety, Depression Smoking Status: Never smoker Past Alcohol Use History: None Reported Past Drug Use History: None Reported Additional Drug Use History / Comment(s): 10 years without use. - Past Family History Mother Family Medical History: Diabetes Mellitus, Hypertension Additional Family Medical History / Comment(s): heart disease Father Family Medical History: Cancer Additional Family Medical History / Comment(s): lung CA, cirrosis, kidney disease Medications and Allergies Home Medications Medication Instructions Recorded Confirmed Type Calcium Carbonate [Calcium] 600 mg PO DAILY 11/11/18 06/17/24 History LORazepam [Ativan] 1 mg PO HS 01/09/19 06/17/24 History Buprenorphine HCl/Naloxone HCl 1 film SL DAILY PRN 03/13/19 06/17/24 History [Suboxone 8 mg-2 mg Sl Film] Exemestane [Aromasin] 25 mg PO DAILY 12/26/19 06/17/24 History Buprenorphine HCl/Naloxone HCl 0.5 film SL HS PRN 06/17/24 06/17/24 History [Suboxone 8 mg-2 mg Sl Film] Cariprazine HCl [Vraylar] 1.5 mg PO HS 06/17/24 06/17/24 History Cholecalciferol [Vitamin D3 (25 50 mcg PO DAILY 06/17/24 06/17/24 History Mcg = 1000 Iu)] Ferrous Sulfate [Feosol] 325 mg PO HS 06/17/24 06/17/24 History Multivitamins, Thera [Multivitamin 1 tab PO DAILY 06/17/24 06/17/24 History (formulary)] Tirzepatide [Zepbound] 7.5 mg SQ TH 06/17/24 06/17/24 History buPROPion XL [Wellbutrin XL] 300 mg PO DAILY 06/17/24 06/17/24 History Allergies Allergy/AdvReac Type Severity Reaction Status Date / Time clavulanic acid Allergy Rash/Hives Verified 06/17/24 21:00 [From Augmentin] Tetracyclines Allergy Rash/Hives Verified 06/17/24 21:00 Physical Exam Vitals: Vital Signs Temp Pulse Pulse Resp BP BP Pulse Ox 06/18/24 02:00 98.0 F 82 18 98/65 98 06/18/24 01:11 18 06/17/24 21:48 98.4 F 06/17/24 21:33 74 18 121/92 100 06/17/24 19:30 85 14 123/87 98 06/17/24 18:20 90 27 H 135/91 99 06/17/24 17:41 97.8 F 90 20 144/88 100 Intake and Output 06/17/24 06/18/24 06/18/24 22:59 06:59 14:59 Intake Total 120 Balance 120 Intake: Oral 120 Other: # Voids 1 1 Weight 71.668 kg 71.668 kg Results 06/17/24 17:48 06/18/24 05:25 Cardiac Enzymes 06/17/24 06/17/24 06/17/24 Range/Units 17:48 17:48 21:24 AST 23 (14-36) U/L Troponin I <0.012 0.023 (0.000-0.034) ng/mL 06/17/24 Range/Units 23:55 AST (14-36) U/L Troponin I <0.012 (0.000-0.034) ng/mL Coagulation 06/17/24 Range/Units 17:48 PT 10.3 (10.0-12.5) sec APTT 25.4 (22.0-30.0) sec CBC 06/17/24 Range/Units 17:48 WBC 8.2 (3.8-10.6) k/uL RBC 4.79 (3.80-5.40) m/uL Hgb 13.5 (11.4-16.0) gm/dL Hct 41.2 (34.0-46.0) % Plt Count 284 (150-450) k/uL Comprehensive Metabolic Panel 06/17/24 Range/Units 17:48 Sodium 133 L (137-145) mmol/L Potassium 3.5 (3.5-5.1) mmol/L Chloride 103 (98-107) mmol/L Carbon Dioxide 20 L (22-30) mmol/L BUN 2 L (7-17) mg/dL Creatinine 0.55 (0.52-1.04) mg/dL Glucose 71 L (74-99) mg/dL Calcium 9.7 (8.4-10.2) mg/dL AST 23 (14-36) U/L ALT 12 (4-34) U/L Alkaline Phosphatase 65 (38-126) U/L Total Protein 6.6 (6.3-8.2) g/dL Albumin 4.2 (3.5-5.0) g/dL Current Medications Generic Name Dose Route Start Last Admin Trade Name Freq PRN Reason Stop Dose Admin Acetaminophen 650 mg 06/17/24 20:37 Acetaminophen Tab 325 Mg Tab PO Q6HR PRN Mild Pain or Fever > 100.5 Aspirin 81 mg 06/18/24 09:00 Aspirin 81 Mg PO DAILY [facility] Enoxaparin Sodium 40 mg 06/18/24 09:00 Enoxaparin 40 Mg/0.4 Ml Syringe SQ DAILY [facility] Sodium Chloride 1,000 mls @ 75 mls/hr 06/18/24 03:15 06/18/24 05:19 Saline 0.9% IV 75 mls/hr .[id number] [facility]OPHIA Administration Lorazepam 1 mg 06/18/24 21:00 Lorazepam 1 Mg Tab PO HS [facility]OP[facility] Naloxone HCl 0.2 mg 06/17/24 20:37 Naloxone 0.4 Mg/Ml 1 Ml Vial IV Q2M PRN Opioid Reversal Nitroglycerin 0.4 mg 06/18/24 03:05 Nitroglycerin Sl Tabs 0.4 Mg Tab SUBLINGUAL Q5M PRN Chest Pain Pantoprazole Sodium 40 mg 06/18/24 07:30 06/18/24 05:19 Pantoprazole 40 Mg Tablet PO 40 mg [id number] SOPHIA Administration Intake and Output 06/17/24 06/18/24 06/18/24 22:59 06:59 14:59 Intake Total 120 Balance 120 Intake: Oral 120 Other: # Voids 1 1 Weight 71.668 kg 71.668 kg 06/17/24 17:48 06/17/24 17:48
[2024-06-18 11:04] LABS: Glucose,Whole Blood 68 mg/dL (70-110)
[2024-06-18 11:45] LABS: Glucose,Whole Blood 208 mg/dL (70-110)
[2024-06-18 13:30] LABS: Glucose,Whole Blood 63 mg/dL (70-110)
[2024-06-18] MEDS: CALCIUM CARBONATE 500 MG CHEWABLE PO SCH (13:30)
[2024-06-18] MEDS: MULTIVITAMINS, THERA 1 EACH TAB PO SCH (13:30)
[2024-06-18] MEDS: CHOLECALCIFEROL 25 MCG (1000 IU) TABLET PO SCH (13:30)
[2024-06-18] MEDS: buPROPion XL 300 MG TAB.ER.24H PO SCH (13:30)
[2024-06-18 13:55] LABS: Glucose,Whole Blood 104 mg/dL (70-110)
--- NOTE | 2024-06-18 15:02 | P.PN ---
Subjective Progress Note Date: 06/18/24 Subjective: Patient seen and examined at bedside. No acute events overnight. Pertinent positives and negatives as discussed above, a complete review of systems was performed and all other systems are negative. Vitals: Signs Reviewed Physical Exam: General: nontoxic, no distress, appears at stated age Derm: warm, dry, intact Head: atraumatic, normocephalic, symmetric Eyes: EOMI, no lid lag, anicteric sclera Mouth: no lip lesion, mucus membranes moist Cardiovascular: S1 S2 reg, no murmur, rubs, or gallops, feels pain on palpation on left side of chest Lungs: CTA bilateral, no rhonchi, no rales, no accessory muscle use Abdominal: soft, non-tender to palpataion, no appreciable organomegaly Extremities: no gross muscle atrophy, no edema, no contractures Neuro: Alert, Oriented, CNII-XII grossly intact, gait normal Psych: well appearing, appropriate affect Data Received Today: Pertinent Labs: glucose range 104-208, total to cholesterol 163, triglycerides 63.7, LDL 100, HDL 49.3 Imaging: echo Doppler pending. Stress echo pending. Assessment and Plan: 59-year-old female with past history of right breast cancer (diagnosed October 2018) status post right breast mastectomy (06/03/2019) in remission comes to the ER with a sudden onset left-sided chest pain. #Chest pain Heart score: 2 points, low risk for ACS Continue with acetaminophen 650 mg p.o. every 6 hours as needed Continue cardiac monitoring Continue with troponin series, troponin I is 0.023 Order echocardiogram for cardiac structure assessment Consult cardiology D-dimer 0.23 rules out DVT Continue with oxygen therapy 2 L via nasal cannula aspirin 81 mg po daily nitro SL prn for severe chest pain pending stress test #Hypoglycemia gave 1 amp of D50 due to glucose <70 Continue to monitor glucose level #Hyponatremia, resolved Sodium 133, potassium 3.5, Chloride 103, bicarb 20 Continue monitor sodium levels trial of normal saline , 75 cc per hour , reevaluate in the morning for improvement or worsening of Na level Hypomagnesemia, resolved replace IV , and follow up levels in AM #Chronic conditions, Anxiety disorder: Resume Ativan 1 mg p.o. at bedtime DVT prophylaxis: Lovenox 40 mg subcu daily F: NS @ 75cc/hr E: Replete as needed N: Heart healthy diet A: Ambulatory DVT ppx: Lovenox subcu Code status: Full Anticipated discharge place: Pending clinical course Anticipated discharge time: Pending clinical course I have seen and evaluated the patient today. Discussed with the resident and agree with the residents subjective and objective as documented in the resident's note. The assessment and plan was discussed and outlined as below. Chest pain is reproducible and likely MSK. Troponins trended and ACS ruled out. She is pending Echo and stress test. Also with multiple hypoglycemic episodes this morning requiring amps of D50. Could be related to NPO status and being on Zepbound. Will continue to monitor BG after diet is re-started. Objective - Vital Signs Vital signs: Vital Signs Temp 97.9 F 06/18/24 13:47 Pulse 86 06/18/24 13:47 Resp 18 06/18/24 13:47 BP 115/79 06/18/24 13:47 Pulse Ox 100 06/18/24 13:47 FiO2 Intake & Output 06/17/24 06/18/24 06/18/24 18:59 06:59 18:59 Intake Total 120 118 Balance 120 118 Weight 71.668 kg 71.668 kg Intake: Oral 120 118 Other: # Voids 1 - Labs CBC & Chem 7: 06/17/24 17:48 06/18/24 05:25 Labs: Abnormal Lab Results - Last 24 Hours (Table) 06/17/24 06/17/24 06/18/24 Range/Units 17:48 20:00 04:26 Sodium 133 L (137-145) mmol/L Carbon Dioxide 20 L (22-30) mmol/L BUN 2 L (7-17) mg/dL BUN/Creatinine Ratio (12.00-20.00) Ratio Glucose 71 L (74-99) mg/dL POC Glucose (mg/dL) 59 L (70-110) mg/dL Urine Ketones Trace H (Negative) Urine Blood Trace H (Negative) 06/18/24 06/18/24 06/18/24 Range/Units 05:25 09:01 09:28 Sodium (137-145) mmol/L Carbon Dioxide (22-30) mmol/L BUN 4.8 L (7-17) mg/dL BUN/Creatinine Ratio 6.86 L (12.00-20.00) Ratio Glucose (74-99) mg/dL POC Glucose (mg/dL) 69 L 167 H (70-110) mg/dL Urine Ketones (Negative) Urine Blood (Negative) 06/18/24 06/18/24 06/18/24 Range/Units 11:02 11:44 13:29 Sodium (137-145) mmol/L Carbon Dioxide (22-30) mmol/L BUN (7-17) mg/dL BUN/Creatinine Ratio (12.00-20.00) Ratio Glucose (74-99) mg/dL POC Glucose (mg/dL) 68 L 208 H 63 L (70-110) mg/dL Urine Ketones (Negative) Urine Blood (Negative)
[2024-06-18 15:33] LABS: Glucose,Whole Blood 95 mg/dL (70-110)
[2024-06-18 17:36] LABS: Glucose,Whole Blood 82 mg/dL (70-110)
--- NOTE | 2024-06-18 17:52 | CA ---
Transthoracic Echo Report Name: Andreea Buitrago Age: 59 Gender: F : 1965 Exam Date: 06/18/2024 13:04 Exam Location: [place] [facility] Ht (in): 63 Wt (lb): 159 Ordering Physician: Kimberly Phipps Attending/Referring Phys: [id number], Moise Plant Associate Margaret Brown, TG Procedure CPT: Indications: LVF Cardiac Hx: Technical Quality: Fair Contrast 1: Total Dose (mL): Contrast 2: Total Dose (mL): MEASUREMENTS (Male / Female) Normal Values 2D ECHO LV Diastolic Diameter PLAX 3.6 cm 4.2 - 5.9 / 3.9 - 5.3 cm LV Systolic Diameter PLAX 1.8 cm IVS Diastolic Thickness 1.1 cm 0.6 - 1.0 / 0.6 - 0.9 cm LVPW Diastolic Thickness 1.2 cm 0.6 - 1.0 / 0.6 - 0.9 cm LV Relative Wall Thickness 0.6 LA Volume 33.2 cm??? 18 - 58 / 22 - 52 cm??? LA Volume Index 18.3 cm???/m??? 16 - 28 cm???/m??? DOPPLER LVOT Peak Velocity 93.7 cm/s LVOT Peak Gradient 3.5 mmHg LVOT Velocity Time Integral 20.8 cm MV Area PHT 6.8 cm??? Mitral E Point Velocity 68.6 cm/s Mitral A Point Velocity 89.6 cm/s Mitral E to A Ratio 0.8 MV Deceleration Time 111.1 ms MV E' Velocity 7.0 cm/s Mitral E to MV E' Ratio 9.8 TR Peak Velocity 175.0 cm/s TR Peak Gradient 12.2 mmHg Right Ventricular Systolic Press 17.2 mmHg FINDINGS Left Ventricle Mildly increased left ventricular wall thickness. Left ventricular cavity size normal. Normal left ventricular systolic function with no obvious regional wall motion abnormalities. Left ventricular ejection fraction is estimated at 55-60 %. Grade 1 diastolic dysfunction. Right Ventricle Mild right ventricular dilatation. Right ventricular systolic pressure within normal limits. Right Atrium Normal right atrial size. Left Atrium Normal left atrial size. Mitral Valve Structurally normal mitral valve. Mitral valve thickened. Mild mitral annular calcification. Trace to mild mitral regurgitation. Aortic Valve Trileaflet aortic valve. No aortic valve stenosis or regurgitation. Tricuspid Valve Structurally normal tricuspid valve. Mild tricuspid regurgitation. Pulmonic Valve Structurally normal pulmonic valve. Pericardium No pericardial effusion. Aorta Normal size aortic root and proximal ascending aorta. CONCLUSIONS Normal LV function Previewed by: Dr. Joel Billings MD (Electronically Signed) Final Date: 18 June 2024 17:52
--- NOTE | 2024-06-18 17:57 | CA ---
Stress Echo Report Andreea Buitrago Age: 59 Gender: F : 1965 Exam Date: 06/18/2024 12:52 Exam Location: [place] [facility] Ht (in): 63 Wt (lb): 159 Ordering Physician: Kimberly Phipps Referring Physician: Moise ALCAZAR Sales Appointment Coordinator: Barb Taveras RDCS Technologist Procedure CPT: Indication: Chest Pain ICD-9 Codes: Rhythm: Patient History: CP, NUMBNESS FACE/NECK, FAMILY HX Cardiac Medications: SEE CHART Medications in past 24 hours: Contrast: Stress Results Protocol: Ozzie Total dose(mL): Exercise Duration (min:sec): 6:[address] Depression (mm): Angina Score: Locke Score: METS: 7.1 Resting HR: 111 Resting BP: 110 / 76 Peak HR: 150 Peak BP: 161 / 84 Max Predicted HR: 161 93 % Max Predicted HR Target HR: 137 Double Product: 43111 Stress Summary: BP Response: Reason for Termination: MAX EXERTION/TARGET HR Cardiac Symptoms: NO SYMPTOMS ECG Analysis Resting ECG: Normal sinus rhythm normal axis normal intervals Stress ECG: Patient exercised on Ozzie protocol for 6 minutes achieving 85% of predicted maximum heart rate without chest pain. At peak exercise there was [address] segment depression noted in the inferolateral leads Arrhythmia: Echo Analysis Resting Echo: Normal left ventricular size wall motion systolic function Peak Echo Analysis: Normal hyperdynamic response of all segments of myocardium noted MEASUREMENTS (Male/Female) Normal Values CONCLUSIONS Average exercise tolerance Abnormal stress test by EKG criteria normal stress echo Dr. Joel Billings MD (Electronically Signed) Final Date: 18 June 2024 17:56
[2024-06-18 19:48] LABS: Glucose,Whole Blood 109 mg/dL (70-110)
[2024-06-18] MEDS: FERROUS SULFATE 325 MG TAB PO SCH (20:14)
[2024-06-18] MEDS: LORazepam 1 MG TAB PO SCH (20:14)
[2024-06-18] MEDS: Cariprazine Hcl [Vraylar] 1.5 MG Capsule PO SCH (20:19)
[2024-06-18 21:36] LABS: Glucose,Whole Blood 99 mg/dL (70-110)
[2024-06-18 23:13] LABS: Glucose,Whole Blood 82 mg/dL (70-110)
[2024-06-19 01:07] LABS: Glucose,Whole Blood 78 mg/dL (70-110)
[2024-06-19 03:10] LABS: Glucose,Whole Blood 71 mg/dL (70-110)
[2024-06-19 05:11] LABS: Glucose,Whole Blood 63 mg/dL (70-110)
[2024-06-19 05:43] LABS: Glucose,Whole Blood 95 mg/dL (70-110)
[2024-06-19 07:39] LABS: Glucose,Whole Blood 77 mg/dL (70-110)
[2024-06-19 07:53] VITALS: BP 103/72; PULSE 82; RESP 16; TEMP 97.2
--- NOTE | 2024-06-19 08:13 | P.PN ---
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 She has a past medical history of breast cancer in 2018 on Aromasin, DVT in the right IJ near her port, anxiety and depression. We have been asked to evaluate the patient for chest pain. Patient developed chest pain yesterday that was sharp and on the left side with radiation to her neck and down her left arm. No shortness of breath. Blood pressure 112/73, heart rate 79, pulse ox 99% on room air, afebrile. Discussed options and patient is agreeable to move forward with stress test. EKG: Sinus rhythm with nonspecific ST changes, present on previous EKGs but more pronounced Chest x-ray: No acute process Laboratory studies: Sodium 142, potassium 4.5, creatinine 0.7, BUN 4.8. Magnesium 2.0. Triglycerides 63, cholesterol 162, LDL 100, HDL 49. Troponin negative x 3. CBC unremarkable. D-dimer 0.23. Home cardiac medications: None 06/19 Patient underwent stress echo yesterday which revealed average exercise tolerance. Abnormal stress test by EKG criteria. Normal stress echo. Ec hocardiogram revealed normal LV function. Blood pressure 110/75, heart rate 81, pulse ox 100% on room air. Patient denies having any chest pain. Results of testing reviewed with the patient. Physical examination: Gen: This is a 59-year-old female in no acute distress VS: reviewed HEENT: Head is atraumatic, normocephalic. Pupils equal, round. Sclerae is anicteric. NECK: Supple. No JVD. LUNGS: Clear to auscultation. No wheezes or rhonchi. No intercostal retractions. HEART: Regular rate and rhythm. No murmur. ABDOMEN: Soft No tenderness. EXTREMITIES: No pedal edema. No calf tenderness. NEUROLOGICAL: Patient is awake, alert and oriented x3. Assessment: Atypical chest pain, acute coronary syndrome ruled out with negative troponins x 3 History of breast cancer History of DVT Anxiety and depression Plan: Patient is cleared for discharge and may follow-up in the office with Dr. Jennifer michael in 4 weeks. Thank you kindly for this consultation. Nurse practitioner note has been reviewed, I agree with documented findings and plan of care. Patient was seen and examined. Objective - Vital Signs Vital signs: Vital Signs Temp 97.7 F 06/19/24 01:04 Pulse 81 06/19/24 01:04 Resp 15 06/19/24 01:04 BP 110/75 06/19/24 01:04 Pulse Ox 100 06/19/24 01:04 FiO2 Intake & Output 06/18/24 06/19/24 06/19/24 18:59 06:59 18:59 Intake Total 118 Balance 118 Intake: Oral 118 Other: # Voids 1 1 - Labs CBC & Chem 7: 06/17/24 17:48 06/18/24 05:25 Labs: Abnormal Lab Results - Last 24 Hours (Table) 06/18/24 06/18/24 06/18/24 Range/Units 05:25 09:01 09:28 BUN 4.8 L (9.0-27.0) mg/dL BUN/Creatinine Ratio 6.86 L (12.00-20.00) Ratio POC Glucose (mg/dL) 69 L 167 H (70-110) mg/dL 06/18/24 06/18/24 06/18/24 Range/Units 11:02 11:44 13:29 BUN (9.0-27.0) mg/dL BUN/Creatinine Ratio (12.00-20.00) Ratio POC Glucose (mg/dL) 68 L 208 H 63 L (70-110) mg/dL 06/19/24 Range/Units 05:08 BUN (9.0-27.0) mg/dL BUN/Creatinine Ratio (12.00-20.00) Ratio POC Glucose (mg/dL) 63 L (70-110) mg/dL
[2024-06-19 09:20] LABS: Glucose,Whole Blood 110 mg/dL (70-110)
[2024-06-19 11:13] LABS: Glucose,Whole Blood 92 mg/dL (70-110)
--- NOTE | 2024-06-19 12:08 | P.DS ---
Providers Date of admission: 06/17/24 20:37 Discharge Diagnosis: Chest pain, reproducible on palpation Hypoglycemia Hyponatremia, resolved Hypomagnesia, resolved Anxiety Hospital Course: Patient is a 59-year-old female with past history of anxiety disorder and right breast cancer (diagnosed October 2018) status post right breast mastectomy (06/03/2019) in remission comes to the ER with a sudden onset left-sided chest pain. Patient reports that the pain started when she woke up from sleep this morning. She described the pain as sharp, 6 out of 10, constant, radiating into her left jaw and left arm. She reports no exacerbating factors but her pain was alleviated to 6 out of 10 with Motrin and after squeezing the chest. Pain was constant throughout the day which prompted patient to come to the ER for further medical evaluation. Patient denies nausea, vomiting, shortness of breath, and diaphoresis. Patient reports that she has been having exertional left-sided chest discomfort since 1 month. It is exacerbated with physical activity such as brisk walking and climbing stairs and alleviated with rest. Patient feels pain on palpation on left side of chest. Patient denies PND, orthopnea and peripheral edema. Patient reports no recent upper respiratory tract infection, sick contact, recent travel or hospitalization. Patient reports no previous episodes of CAD and/or CVA. Patient is currently in remission for her right breast cancer status post right mastectomy and regularly follows up with her oncologist. Patient is currently on Aromasin for adjuvant treatment. Patient states that she was on doxorubicin for chemotherapy about 10 years ago and her echocardiogram done last year was unremarkable. EKG done in the ER sinus rhythm with a heart rate of 87 bpm. SD interval is 160 ms. QTc 394 ms, not prolonged. ST and T wave abnormalities present in lead II, aVF, V3 and V4. Chest x-ray done in the ER shows no evidence of pleural effusion or infiltrate. Vitals: Tmax 98.4 F, heart rate 74 bpm, respirate 18, blood pressure 121/92, O2 saturation 100% on room air. Cardiology consulted. Patient to be admitted for further workup for chest pain. While admitted patient had episode of hypoglycemia is likely due to her n.p.o. status for her procedures. Will be sent home with a glucometer. Echo stress test was normal. Echo Doppler showed normal LV function, ejection fraction [id number], grade 1 diastolic dysfunction, mildly increased left ventricular wall thickness, no obvious regional wall motion abnormalities. Follow-up with her PCP. She is being discharged home. 06/19/2024: Patient seen and examined at bedside. No acute events overnight Vital signs reviewed and stable. Physical Exam: General: nontoxic, no distress, appears at stated age Derm: warm, dry, intact Head: atraumatic, normocephalic, symmetric Eyes: EOMI, no lid lag, anicteric sclera Mouth: no lip lesion, mucus membranes moist Cardiovascular: S1 S2 reg, no murmur, rubs, or gallops, feels pain on palpation on left side of chest Lungs: CTA bilateral, no rhonchi, no rales, no accessory muscle use Abdominal: soft, non-tender to palpataion, no appreciable organomegaly Extremities: no gross muscle atrophy, no edema, no contractures Neuro: Alert, Oriented, CNII-XII grossly intact, gait normal Psych: well appearing, appropriate affect A total of 30 minutes of time were spent preparing this complex discharge summary. Patient was discharge on 06/19 2024 Expected date of discharge: 06/19/24 Attending physician: Cristy Irving MD Consults: 06/17/24 20:37 Consult Physician Routine Consulting Provider: Sanjay Moura Consult Reason/Comments: CP Do you want consulting provider notified?: Yes Primary care physician: [facility] Course: I have seen and evaluated the patient today. Discussed with the resident and agree with the residents subjective and objective as documented in the resident's note. The assessment and plan was discussed and outlined as below. Hypoglycemic to 63 this morning which resolved with PO intake. She reports usually skipping breakfast and lunch and would eat a large dinner. Discussed hypoglycemic symptoms and to have something sweet by her at all times. Advised 3 regular meals a day with adequate carb intake with each meal. We will get her a glucometer prior to discharge. Stress test was negative with abnormal EKG result. Cardiology has cleared the patient for discharge with outpatient follow up with Dr. Billings in 4 weeks. Follow up with PCP within 1-2 days of discharge. Discharge Diagnosis: Chest pain which is likely MSK in nature Hypoglycemia likely due to Zepbound Anxiety Resolved: HypoNa, metabolic acidosis, HypoMag Patient Condition at Discharge: Stable Plan - Discharge Summary Discharge Rx Participant: No New Discharge Prescriptions: Continue Calcium Carbonate [Calcium] 600 mg PO DAILY LORazepam [Ativan] 1 mg PO HS Buprenorphine HCl/Naloxone HCl [Suboxone 8 mg-2 mg Sl Film] 1 film SL DAILY PRN PRN Reason: Pain Exemestane [Aromasin] 25 mg PO DAILY Multivitamins, Thera [Multivitamin (formulary)] 1 tab PO DAILY Cholecalciferol [Vitamin D3 (25 Mcg = 1000 Iu)] 50 mcg PO DAILY buPROPion XL [Wellbutrin XL] 300 mg PO DAILY Tirzepatide [Zepbound] 7.5 mg SQ TH Ferrous Sulfate [Iron (65 MG Elemental)] 325 mg PO HS Cariprazine HCl [Vraylar] 1.5 mg PO HS Buprenorphine HCl/Naloxone HCl [Suboxone 8 mg-2 mg Sl Film] 0.5 film SL HS PRN PRN Reason: Pain Discharge Medication List Calcium Carbonate [Calcium] 600 mg PO DAILY 11/11/18 [History] LORazepam [Ativan] 1 mg PO HS 01/09/19 [History] Buprenorphine HCl/Naloxone HCl [Suboxone 8 mg-2 mg Sl Film] 1 film SL DAILY PRN 03/13/19 [History] Exemestane [Aromasin] 25 mg PO DAILY 12/26/19 [History] Buprenorphine HCl/Naloxone HCl [Suboxone 8 mg-2 mg Sl Film] 0.5 film SL HS PRN 06/17/24 [History] Cariprazine HCl [Vraylar] 1.5 mg PO HS 06/17/24 [History] Cholecalciferol [Vitamin D3 (25 Mcg = 1000 Iu)] 50 mcg PO DAILY 06/17/24 [History] Ferrous Sulfate [Iron (65 MG Elemental)] 325 mg PO HS 06/17/24 [History] Multivitamins, Thera [Multivitamin (formulary)] 1 tab PO DAILY 06/17/24 [History] Tirzepatide [Zepbound] 7.5 mg SQ TH 06/17/24 [History] buPROPion XL [Wellbutrin XL] 300 mg PO DAILY 06/17/24 [History] Follow up Appointment(s)/Referral(s): Bo Najera DO [Primary Care Provider] - 1-2 days Joel Billings MD [STAFF PHYSICIAN] - 4 Weeks Discharge Disposition: HOME SELF-CARE
== END 2024-06-19 12:49 | disposition home or self-care (01) ==
LOC: EC 17:40 → 6NMEDSUR 20:37
PROVIDERS: ADMIT Internal Medicine; ATTEND Internal Medicine
DX: R07.89 Other chest pain (principal); E87.1 Hypo-osmolality and hyponatremia; E83.42 Hypomagnesemia; E16.2 Hypoglycemia, unspecified; E87.20 Acidosis, unspecified; M79.602 Pain in left arm; M54.2 Cervicalgia; E66.9 Obesity, unspecified; Z68.28 Body mass index [BMI] 28.0-28.9, adult; F41.9 Anxiety disorder, unspecified; F32.A Depression, unspecified; Z79.82 Long term (current) use of aspirin; Z79.811 Long term (current) use of aromatase inhibitors; Z79.891 Long term (current) use of opiate analgesic; Z79.899 Other long term (current) drug therapy; Z88.1 Allergy status to other antibiotic agents; Z85.3 Personal history of malignant neoplasm of breast; Z90.11 Acquired absence of right breast and nipple; Z92.21 Personal history of antineoplastic chemotherapy; Z86.718 Personal history of other venous thrombosis and embolism
CPT/HCPCS: 96376; 96361; 96365; 96366; 96372; 96375; 99285; 36415; 94760; 93005 ×2; 93306; 93351; 85379; 80061; 80053; 80048; 83735 ×2; 84484; 85025; 85610; 85730; 81001; 71046; G0378 ×3; J1650; J3475

== ENCOUNTER → 2024-06-24 | Outpatient (CLI) | payer MEDICARE, BC ==
--- NOTE | 2024-06-24 09:57 | XR ---
EXAMINATION TYPE: XR ribs LT w pa chest xray DATE OF EXAM: 06/24/2024 9:46 AM CLINICAL INDICATION:Female, 59 years old with history of C50.411 breast ca; COMPARISON: 06/17/2024 TECHNIQUE: XR ribs LT w pa chest xray; Frontal and oblique views of the ribs with frontal chest radio graph. FINDINGS: The ribs have a normal appearance. No evidence of fracture. Overall, the lungs are clear. The cardiac silhouette is normal in size. The remaining osseous structures are intact. Surgical clips in the upper abdomen. IMPRESSION: No acute osseous pathology.
== END | disposition home or self-care (01) ==
LOC: RADXRMAIN 09:22
PROVIDERS: ATTEND Internal Medicine Hematology & Oncology
DX: C50.411 Malignant neoplasm of upper-outer quadrant of right female breast (principal); M81.0 Age-related osteoporosis without current pathological fracture; F32.5 Major depressive disorder, single episode, in full remission; Z71.3 Dietary counseling and surveillance

== ENCOUNTER → 2024-09-27 | Outpatient (CLI) | payer MEDICARE, BC ==
[2024-09-27 23:39] LABS: Basophils # (A) 0.08 X 10*3/uL (0.00-0.10); Basophils % (A) 1.3 %; Eosinophils # (A) 0.42 X 10*3/uL (0.04-0.35); HCT 39.9 % (37.2-46.3); HGB 12.8 g/dL (12.0-15.0); MCH 28.5 pg (27.0-32.0); MCHC 32.1 g/dL (32.0-37.0); MCV 88.9 FL (80.0-97.0); Monocytes # (A) 0.85 X 10*3/uL (0.20-1.00); Monocytes % (A) 14.2 %; NRBC Per 100 WBC 0 X 10*3/uL (0.00-0.01); Neutrophils # (A) 3.12 X 10*3/uL (1.80-7.70); Neutrophils % (A) 52.2 %; Platelet Count 316 X 10*3/uL (140-440); RBC 4.49 X 10*6/uL (4.10-5.20); RDW 12.6 % (11.5-14.5); WBC 5.99 X 10*3/uL (4.50-10.00)
[2024-09-28 08:08] LABS: ALT 13 U/L (8-44); AST 18 U/L (13-35); Alkaline Phosphatase 91 U/L (41-126); BUN/Creat Ratio 12.14 Ratio (12.00-20.00); Blood Urea Nitrogen 8.5 mg/dL (9.0-27.0); Calcium 9.3 mg/dL (8.7-10.3); Carbon Dioxide 25.4 mmol/L (21.6-31.8); Chloride 103 mmol/L (96-109); Chol/HDL Ratio 2.42 Ratio; Glucose 77 mg/dL (70-110); LDL Cholesterol,Calculated 109.5 mg/dL (0.0-131.0); Potassium 4.1 mmol/L (3.5-5.5); Sodium 138 mmol/L (135-145); Total Bilirubin 0.3 mg/dL (0.3-1.2); VLDL Calculation 8.36 mg/dL (5.00-40.00)
== END | disposition home or self-care (01) ==
LOC: LABWHC1 11:40
PROVIDERS: ATTEND Family Medicine
DX: Z11.59 Encounter for screening for other viral diseases (principal); E78.5 Hyperlipidemia, unspecified
CPT/HCPCS: 36415; 80053; 80061; 82306; 83036; 84443; 85025; 86803

== ENCOUNTER 2025-01-28 08:56 | Day surgery (SDC) | payer BC, MEDICARE ==
[2025-01-27 12:17] VITALS: BMI 23.6
--- NOTE | 2025-01-28 08:14 | P.GSHP ---
History of Present Illness H&P Date: 01/28/25 CHIEF COMPLAINT: GERD and colon screen HISTORY OF PRESENT ILLNESS: The patient is a 59-year-old female who presents with gastroesophageal reflux disease and need for colon screen. Upper and lower endoscopy were offered for further evaluation and management. PAST MEDICAL HISTORY: Please see list. PAST SURGICAL HISTORY: Please see list. MEDICATIONS: Please see list. ALLERGIES: Please see list. SOCIAL HISTORY: No illicit drug use FAMILY HISTORY: No reports of Crohn disease or ulcerative colitis. REVIEW OF ORGAN SYSTEMS: CONSTITUTIONAL: No reports of fevers or chills. GI: Denies any blood in stools or constipation. PHYSICAL EXAM: VITAL SIGNS: Stable GENERAL: Well-developed pleasant in no acute distress. HEENT: No scleral icterus. Extraocular movements grossly intact. Moist buccal mucosa. NECK: Supple without lymphadenopathy. CHEST: Unlabored respirations. Equal bilateral excursions. CARDIOVASCULAR: Regular rate and rhythm. Distal 2+ pulses. ABDOMEN: Soft, nondistended. MUSCULOSKELETAL: No clubbing, cyanosis, or edema. ASSESSMENT: 1. Gastroesophageal reflux disease 2. Colon screen. PLAN: 1. Recommend proceeding with an upper and lower endoscopy Past Medical History Past Medical History: Cancer, Vascular Disorder Additional Past Medical History / Comment(s): right breast cancer 11/20/18; genital herpes 2009; DVT RT INTERNAL JUGULAR BY PORT; History of Any Multi-Drug Resistant Organisms: None Reported Past Surgical History: Bariatric Surgery, Cholecystectomy, Tonsillectomy Additional Past Surgical History / Comment(s): right mastectomy w/SNB 06/03/19, GASTRIC SLEEVE, EGD Past Anesthesia/Blood Transfusion Reactions: No Reported Reaction Smoking Status: Never smoker - Past Family History Mother Family Medical History: Diabetes Mellitus, Hypertension Additional Family Medical History / Comment(s): heart disease Father Family Medical History: Cancer Additional Family Medical History / Comment(s): lung CA, cirrosis, kidney disease Medications and Allergies Home Medications Medication Instructions Recorded Confirmed Type Calcium Carbonate [Calcium] 600 mg PO DAILY 11/11/18 01/27/25 History LORazepam [Ativan] 1 mg PO HS 01/09/19 01/27/25 History Buprenorphine HCl/Naloxone HCl 1 film SL DAILY PRN 03/13/19 01/27/25 History [Suboxone 8 mg-2 mg Sl Film] Exemestane [Aromasin] 25 mg PO DAILY 12/26/19 01/27/25 History Buprenorphine HCl/Naloxone HCl 0.5 film SL HS PRN 06/17/24 01/27/25 History [Suboxone 8 mg-2 mg Sl Film] Cariprazine HCl [Vraylar] 1.5 mg PO HS 06/17/24 01/27/25 History Cholecalciferol [Vitamin D3 (25 50 mcg PO DAILY 06/17/24 01/27/25 History Mcg = 1000 Iu)] Ferrous Sulfate [Iron (65 MG 325 mg PO HS 06/17/24 01/27/25 History Elemental)] Multivitamins, Thera [Multivitamin 1 tab PO DAILY 06/17/24 01/27/25 History (formulary)] buPROPion XL [Wellbutrin XL] 300 mg PO DAILY 06/17/24 01/27/25 History Celecoxib [CeleBREX] 200 mg PO DAILY 01/27/25 01/27/25 History Semaglutide [Ozempic] 0.25 mg SQ FR 01/27/25 01/27/25 History Allergies Allergy/AdvReac Type Severity Reaction Status Date / Time clavulanic acid Allergy Rash/Hives Verified 01/27/25 12:04 [From Augmentin] Tetracyclines Allergy Rash/Hives Verified 01/27/25 12:04
[~2025-01-28 08:56] MED LIST changes: -DEXAMETHASONE SOD PHOSPHATE 10 MG/ML 1 ML VIAL IV ONE; -HEPARIN SODIUM,PORCINE 5,000 UNIT/ML 1 ML VIAL SQ ONE; -LACTATED RINGERS 1,000 ML IV SCH; +LIDOCAINE 1% (10MG/ML) FOR IV START INTRADERMA PRN; -MIDAZOLAM 2 MG/2 ML VIAL IV PRN; -ONDANSETRON 4 MG/2 ML VIAL IVP ONE; -Pre Op ABX Message 1 EACH MISC MISCELLANE ONE; -SCOPOLAMINE 1.5MG/72HR PATCH TRANSDERM ONE
[2025-01-28] MEDS: IV FLUID CONTINUATION 1,000 ML IV ONE (09:14)
[2025-01-28 09:22] VITALS: TEMP 97.6
[2025-01-28] MEDS: LACTATED RINGERS 1,000 ML IV SCH (09:25)
[2025-01-28 09:48] LABS: Glucose,Whole Blood 84 mg/dL (70-110)
[2025-01-28] MEDS ORDERED: PROPOFOL 10 MG/ML 20 ML VIAL IV ONE (10:13)
[2025-01-28 11:09] VITALS: RESP 18
[2025-01-28 11:22] VITALS: BP 120/81; PULSE 79
--- NOTE | 2025-01-28 11:45 | P.PCN ---
Date of Procedure: 01/28/25 Description of Procedure: PREOPERATIVE DIAGNOSIS: Dysphagia. Gastroesophageal reflux disease. s/p sleeve gastrectomy. POSTOPERATIVE DIAGNOSIS: Dysphagia. Gastroesophageal reflux disease. s/p vertical sleeve gastrectomy. Esophageal dysmotility OPERATION: Esophagogastroduodenoscopy with rigid dilation, 54-Macedonian Esophagogastroduodenoscopy with cold forcep biopsies, esophagus, duodenum, stomach SURGEON: Ashlee Louis MD ANESTHESIA: MAC. INDICATIONS: The patient is a 59-year-old female who presents with a history of dysphagia, sleeve gastrectomy including gastroesophageal reflux disease. Benefits and risks of the procedure were described. Informed consent was obtained. DESCRIPTION: The patient was brought into the endoscopy suite and laid in the left lateral decubitus position. After a timeout was confirmed, the procedure was initiated. An Olympus gastroscope was passed along the posterior oropharynx down to the distal esophagus where the squamocolumnar junction was remarkable for LA grade B erosive esophagitis. Multiple tertiary esophageal contractions were identified consistent with esophageal dysmotility. No large hiatal hernias were identified. The gastric pouch was entered. The scope was removed as a guidewire was placed. A guidewire followed by 54-Macedonian with rigid dilator for 2 minutes. Dilators were removed with guidewire. The upper scope was reinserted. The scope was easily passed without resistance consistent with her esophageal dysmotility. Cold forcep biopsies were obtained of the duodenum, antrum, esophagus. The mucosa was intact. No full-thickness injury was encountered. The GI tract was desufflated. The patient tolerated the procedure well. FINDINGS: Esophageal stricture, upper esophagus dilated, 54 Macedonian Tertiary esophageal contractions present with esophageal dysmotility dilated LA grade B erosive esophagitis. Gastric pouch with moderate distortion, reservoir within normal limits. Rigid dilation 54-Macedonian achieved RECOMMENDATIONS: Recommend esophagram for further assessment of gastric sleeve
--- NOTE | 2025-01-28 11:57 | P.PCN ---
Date of Procedure: 01/28/25 Description of Procedure: PREOPERATIVE DIAGNOSIS: Change in bowel habits POSTOPERATIVE DIAGNOSIS: Sigmoid diverticulosis OPERATION: Colonoscopy to the cecum, ileocecal valve and appendiceal orifice. SURGEON: Ashlee Louis MD. ANESTHESIA: MAC. INDICATIONS: The patient is a 59-year-old female who presents with change in bowel habits and constipation. Benefits and risks were described and informed consent was obtained. DESCRIPTION OF PROCEDURE: The patient had undergone GoLytely prep. The patient had been brought into the operating room and laid in the left lateral decubitus position. After adequate intravenous sedation, the rectum was examined with 2% lidocaine jelly. External hemorrhoids were encountered. The rectal tone was within normal limits. No lesions were palpated in the rectal vault. An Olympus colonoscope was advanced until the cecum, ileocecal valve and appendiceal orifice were clearly viewed. The prep was good. Moderate to severe scattered diverticulosis was encountered. No colonic polyps were found. No evidence of focal colitis was found. Retroflexion of the scope demonstrated grade 2 internal hemorrhoids without active bleeding or inflammation. The colon was desufflated. The patient had tolerated the procedure well. Withdrawal time was over 6 minutes. FINDINGS: Aronchick preparation quality scale (1-5) Internal hemorrhoids, grade 2 External prolapsed hemorrhoids, grade 2. No arteriovenous malformations. No adenomatous polyps. No focal colitis. Moderate to severe sigmoid diverticulosis, highly redundant sigmoid colon RECOMMENDATIONS: Lower endoscopy in 5 years, 2029 Increase fluid intake 100 ounces daily Recommend fiber 25 g daily May benefit from colectomy due to symptomatic diverticulosis Plan - Discharge Summary Discharge Rx Participant: No New Discharge Prescriptions: New Omeprazole [PriLOSEC] 40 mg PO DAILY #14 cap Continue Calcium Carbonate [Calcium] 600 mg PO DAILY LORazepam [Ativan] 1 mg PO HS Buprenorphine HCl/Naloxone HCl [Suboxone 8 mg-2 mg Sl Film] 1 film SL DAILY PRN PRN Reason: Pain Exemestane [Aromasin] 25 mg PO DAILY Multivitamins, Thera [Multivitamin (formulary)] 1 tab PO DAILY Cholecalciferol [Vitamin D3 (25 Mcg = 1000 Iu)] 50 mcg PO DAILY buPROPion XL [Wellbutrin XL] 300 mg PO DAILY Semaglutide [Ozempic] 0.25 mg SQ FR Ferrous Sulfate [Iron (65 MG Elemental)] 325 mg PO HS Cariprazine HCl [Vraylar] 1.5 mg PO HS Buprenorphine HCl/Naloxone HCl [Suboxone 8 mg-2 mg Sl Film] 0.5 film SL HS PRN PRN Reason: Pain Celecoxib [CeleBREX] 200 mg PO DAILY Discharge Medication List Calcium Carbonate [Calcium] 600 mg PO DAILY 11/11/18 [History] LORazepam [Ativan] 1 mg PO HS 01/09/19 [History] Buprenorphine HCl/Naloxone HCl [Suboxone 8 mg-2 mg Sl Film] 1 film SL DAILY PRN 03/13/19 [History] Exemestane [Aromasin] 25 mg PO DAILY 12/26/19 [History] Buprenorphine HCl/Naloxone HCl [Suboxone 8 mg-2 mg Sl Film] 0.5 film SL HS PRN 06/17/24 [History] Cariprazine HCl [Vraylar] 1.5 mg PO HS 06/17/24 [History] Cholecalciferol [Vitamin D3 (25 Mcg = 1000 Iu)] 50 mcg PO DAILY 06/17/24 [History] Ferrous Sulfate [Iron (65 MG Elemental)] 325 mg PO HS 06/17/24 [History] Multivitamins, Thera [Multivitamin (formulary)] 1 tab PO DAILY 06/17/24 [History] buPROPion XL [Wellbutrin XL] 300 mg PO DAILY 06/17/24 [History] Celecoxib [CeleBREX] 200 mg PO DAILY 01/27/25 [History] Semaglutide [Ozempic] 0.25 mg SQ FR 01/27/25 [History] Omeprazole [PriLOSEC] 40 mg PO DAILY #14 cap 01/28/25 [Rx] Follow [facility]ment(s[facility]Ref[facility] [place] [facility]18[facility]25 3:00 pm Patient Instructions/Handouts: *Surgery [facility] - (Anesthesia) Discharge Instructions Outpatient Surgery, Diverticulosis (GEN), Diverticulosis Diet (GEN), Esophageal Dilation (DC) Activity/Diet/Wound Care/Special Instructions: Soft food diet today. Drink 100 ounces of water daily. Start omeprazole for 2 weeks. Discharge Disposition: HOME SELF-CARE
== END 2025-01-28 12:08 | disposition home or self-care (01) ==
LOC: ORWHC2ENDO 08:56
PROVIDERS: ATTEND Surgery Plastic and Reconstructive Surgery
DX: K29.50 Unspecified chronic gastritis without bleeding (principal); K57.30 Diverticulosis of large intestine without perforation or abscess without bleeding; K21.00 Gastro-esophageal reflux disease with esophagitis, without bleeding; K64.1 Second degree hemorrhoids; K22.4 Dyskinesia of esophagus; I73.9 Peripheral vascular disease, unspecified; F32.A Depression, unspecified; F41.9 Anxiety disorder, unspecified; Z98.84 Bariatric surgery status; Z85.3 Personal history of malignant neoplasm of breast; Z86.718 Personal history of other venous thrombosis and embolism; Z90.49 Acquired absence of other specified parts of digestive tract; Z90.89 Acquired absence of other organs; Z83.3 Family history of diabetes mellitus; Z82.49 Family history of ischemic heart disease and other diseases of the circulatory system; Z80.1 Family history of malignant neoplasm of trachea, bronchus and lung; Z79.811 Long term (current) use of aromatase inhibitors; Z79.1 Long term (current) use of non-steroidal anti-inflammatories (NSAID); Z88.0 Allergy status to penicillin; Z88.1 Allergy status to other antibiotic agents; Z79.899 Other long term (current) drug therapy
CPT/HCPCS: 88305; 45378; 43239; 43248; J2704

== ENCOUNTER → 2025-06-03 | Outpatient (CLI) | payer OTHER, MEDICARE ==
--- NOTE | 2025-06-03 08:05 | MM ---
Reason for Exam: Hx of breast cancer, mastectomy. Last screening mammogram was performed 12 month(s) ago. Patient History: Menarche at age 12. First Full-Term at age 25. Postmenopausal. Patient has history of breast feeding. Breast cancer, right, age 53. Previous chest radiation therapy at age 53. Previous chemotherapy at age 53. 06/03/2019, Mastectomy on the Right side. 06/03/2019, Benign Core Biopsy on the right side. 11/20/2018, Malignant Core Biopsy on the right side. 11/20/2018, Malignant Core Biopsy on the right side. 11/20/2018, Malignant Core Biopsy on the right side. Maternal cousin had breast cancer. Prior Study Comparison: 01/31/2022 Bilateral Screening Mammogram, [facility]. 02/07/2023 Left MG 3D scr hannah unilateral w/cad., [facility]. 06/02/2024 Left MG 3D diag mammo w/cad LT, [facility]. Tissue Density: Left: The breasts are heterogeneously dense, which may obscure small masses. Findings: Analyzed By CAD. Benign-appearing vascular calcification left breast redemonstrated. No suspicious new mass or microcalcification in the left breast. Overall Assessment: Benign, BI-RAD 2 Management: Screening Mammogram of the left breast in 1 year. . Results were given to the patient verbally at the time of exam. Patient should continue monthly self-breast exams. A clinical breast exam by your physician is recommended on an annual basis. This exam should not preclude additional follow-up of suspicious palpable abnormalities. Note on Beatrice scores and lifetime risk: 1. A Beatrice score greater than 3% is considered moderate risk. If this is the case, consider specialist referral to assess eligibility for a risk reducing agent. 2. If overall lifetime risk for the development of breast cancer is 20% or higher, the patient may qualify for future screening with alternating mammogram and breast MRI. [facility], , 06/03/2025 8:02 AM. Electronically signed and approved by: Ke Lira M.D.
== END | disposition home or self-care (01) ==
LOC: RADMAMWWP 07:19
PROVIDERS: ATTEND Internal Medicine Hematology & Oncology
DX: C50.411 Malignant neoplasm of upper-outer quadrant of right female breast (principal); A60.9 Anogenital herpesviral infection, unspecified; F32.5 Major depressive disorder, single episode, in full remission; M81.0 Age-related osteoporosis without current pathological fracture; R92.332 Mammographic heterogeneous density, left breast; R92.1 Mammographic calcification found on diagnostic imaging of breast; Z80.3 Family history of malignant neoplasm of breast; Z78.0 Asymptomatic menopausal state; Z90.11 Acquired absence of right breast and nipple
CPT/HCPCS: 77061; 77065